=== PATIENT | male | born 1965 | race Caucasian/White ===

== ENCOUNTER 2019-01-31 19:15 | Inpatient (IN) ==
[2019-01-31] MEDS ORDERED: SODIUM CHLORIDE 0.9% 1000ML 2,000 ML IV ONE (19:40)
[2019-01-31] MEDS ORDERED: MoRPHine SULFATE 4 MG/ML 1 ML CARP\\VIAL IV STA (19:40)
[2019-01-31 19:54] LABS: Basophils # (auto) 0.03 K/uL (0-0.2); Basophils % (auto) 0.2 %; Eosinophils # (auto) 0.05 K/uL (0-0.5); Eosinophils % (auto) 0.3 %; Hematocrit (blood only) 38.5 % (42-52); Hemoglobin 13.6 g/dL (14.0-18.0); Immature Granulocytes % (auto) 0.6 %; Lymphocytes # (auto) 0.94 K/uL (1.2-3.4); Lymphocytes % (auto) 5.8 %; Mean Corpuscular Hgb Conc 35.3 g/dL (32-36); Mean Corpuscular Volume 89.1 fL (80-100); Mean Platelet Volume 10.4 fL (7.4-10.4); Monocytes # (auto) 1.65 K/uL (0.11-0.59); Monocytes % (auto) 10.1 %; Neutrophils # (auto) 13.56 K/uL (1.4-6.5); Platelet Count 217 K/uL (130-400); RDW Coefficient of Variation 14.2 % (11.5-14.5); RDW Standard Deviation 46.6 fL (36.4-46.3); Red Blood Count 4.32 M/uL (4.7-6.1); White Blood Count 16.33 K/uL (4.8-10.8)
[2019-01-31] MEDS ORDERED: ACETAMINOPHEN 500 MG TAB PO STA (19:58)
[2019-01-31 20:01] LABS: Albumin Level 2.9 gm/dl (3.4-5.0); BUN Creatinine Ratio 13.7 (10-20); C Reactive Protein 15.2 mg/dl (0-0.29); Calcium 8.3 mg/dl (8.5-10.1); Creatinine Clr Calc Pharmacy 85.8 ml/min; Est GFR (African American) 108.9; Potassium 3.9 mmol/L (3.5-5.1)
[2019-01-31] MEDS ORDERED: CEFEPIME 2,000 MG in SYRINGE 0 ML IV STA (20:01)
[2019-01-31 20:04] LABS: Albumin Globulin Ratio 0.8 (0.9-2); Bilirubin,Total 1.1 mg/dl (0.2-1); Globulin 3.9 gm/dl (2.5-4.0); Total Protein 6.8 gm/dl (6.4-8.2)
[2019-01-31 20:05] LABS: INR 1.1 (0.9-1.1); Partial Thromboplastin Ratio 1.2; Prothrombin Time 11.6 Seconds (9.0-12.0)
--- NOTE | 2019-01-31 20:42 | XRay Report ---
XR chest 1V portable CLINICAL HISTORY: Sepsis COMPARISON STUDY: Chest radiograph September 02, 2018. Chest CT September 03, 2018. FINDINGS: There are median sternotomy wires, prosthetic aortic valve and dual lead right subclavian p acemaker. There is moderate cardiomegaly without evidence for pulmonary edema. Mild elevation of the right hemidiaphragm is unchanged. There is no consolidation. No pneumothorax or pleural effusion is n oted. IMPRESSION: No acute cardiopulmonary findings. Electronically signed by: Clemente Tapia M.D. 01/31/2019 8:40 PM
[2019-01-31] MEDS ORDERED: IOVERSOL 100ml IV PRN (20:53)
--- NOTE | 2019-01-31 21:19 | CT Scan Report ---
CT OF THE RIGHT HIP WITH CONTRAST CLINICAL HISTORY: Concern for septic hip. Right hip pain. Erythema. COMPARISON STUDY: No previous studies for comparison. TECHNIQUE: Axial images of the right hip were obtained following intravenous injection of 96 cc of Op tiray 320 sagittal and coronal reconstructions were viewed. Study was performed utilizing automated e xposure control for dose reduction and according to ALARA principles. FINDINGS: Alignment of the right hip is anatomic. There is no acute fracture. There is no evidence fo r osteomyelitis by CT. There is no evidence for right hip joint effusion. Visualized portions of the pelvis are unremarkable. There is subcutaneous infiltration and fluid of the right hip. Note is made of a complex appearing mixed attenuation fluid collection within the right gluteus medius that measur es 10.5 x 2.8 cm. There is hyperdensity within the posterior lateral aspect of the right gluteus maxi mus. This is partially imaged on this exam. Note is also made of a hypodense rim of fluid overlying t he vastus lateralis, just deep to the fascia that measures 8.3 x 0.9 cm. This is partially imaged on this exam. IMPRESSION: 1. 10.5 x 2.8 cm probable fluid collection within the right gluteus medius. Sterility cannot be asses sed by CT and this could reflect an abscess or hematoma. 2. Hyperdensity within the posterior lateral aspect of the right gluteus isela which is partially i hong on this exam. This hyperdensity may reflect enhancement in the setting of infectious myositis, hemorrhage or less likely early myositis ossificans. 3. Subcutaneous infiltration and fluid of the right hip which may reflect edema or cellulitis. 4. Partially imaged hypodense fluid collection overlying the lateral aspect of the vastus lateralis t hat measures approximately 8.3 x 0.9 cm. Electronically signed by: Clemente Tapia M.D. 01/31/2019 9:18 PM
--- NOTE | 2019-01-31 22:19 | Ultrasound Report ---
RIGHT LOWER EXTREMITY VENOUS DOPPLER CLINICAL HISTORY: calf pain COMPARISON STUDY: Bilateral lower extremity venous Doppler ultrasound September 03, 2018. TECHNIQUE: Sonography of the deep venous system of the right lower extremity was performed. Compress ion and augmentation were evaluated. FINDINGS: The right common femoral, superficial femoral and popliteal veins were compressible. Augme ntation was normal. Flow was shown within the deep calf vessels. IMPRESSION: No evidence of deep venous thrombus within the right lower extremity. Electronically signed by: Clemente Tapia M.D. 01/31/2019 10:17 PM
[2019-01-31] MEDS ORDERED: HYDROmorphone INJ 0.5 MG/0.5 ML SYR ONE (23:37)
[2019-02-01] MEDS ORDERED: Heparin IV Low Dose *NO* Bolus ONE (00:01)
[2019-02-01] MEDS ORDERED: ALUMINUM/MAGNESIUM SUSP 30 ML UDC PO PRN (00:01)
[2019-02-01] MEDS ORDERED: VANCOMYCIN CONSULT ACTIVE PRN (00:01)
[2019-02-01] MEDS ORDERED: ONDANSETRON INJ 2 MG/ML 2 ML VIAL IV PRN ×2 (00:01→16:09)
[2019-02-01] MEDS ORDERED: NITROGLYCERIN SL 0.4 MG/TAB TAB SL PRN (00:01)
[2019-02-01] MEDS ORDERED: POLYETHYLENE (MIRALAX) 17 GM PACK PO PRN (00:01)
[2019-02-01] MEDS ORDERED: VANCOMYCIN HCL 1,000 MG in SODIUM CHLORIDE 0.9% 250 ML IV SCH (00:01)
[2019-02-01] MEDS ORDERED: CEFEPIME CONSULT ACTIVE PRN (00:22)
[2019-02-01] MEDS ORDERED: VANCOMYCIN HCL 1,750 MG in SODIUM CHLORIDE 0.9% 500 ML IV SCH (00:30)
[2019-02-01] MEDS: D5W AND NSS 1,000 ML IV SCH ×3 (00:47→21:44)
--- NOTE | 2019-02-01 01:35 | History and Physical Report ---
DATE OF ADMISSION: 01/31/2019 CHIEF COMPLAINT: Right calf pain and right hip pain. 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 The patient was here also in 08/2018 with bacteremia, he was started on Rocephin for Haemophilus parainfluenza in 2 bottles, and there was a plan for ANGIE to decide and a course of antibiotics, but the patient was absconding and left the hospital AMA. The patient says that he just flipped the coin and he took the decision to leave the hospital as he did not like to stay in the hospital at that time. He thought he will come back if something happens, but he did fine after discharge. He never had any more antibiotics since then but since last few days, there has been severe pain in his right calf region. He had a DVT in the past and he started to be worried about the DVT and also was feeling sick and he also has some pain in the right hip region whenever he twist the hip or ambulating.. The calf is the one, which is bothering him most and he came to the hospital. He has been feeling some feverish yesterday. Denies any nausea, vomiting. No chest pain, no shortness of breath, no cough, no headache, no blurred vision, no earache, no runny nose, no difficulty swallowing. Appetite, he says he is eating okay. No abdominal pain. Normal bowel and bladder movements. No hematuria, no black stools. The patient has somewhat pressured speech and restlessness when he is talking, we don't know his his baseline but he is answering all the questions appropriately. He says he did not take all his medication last 2 days because he was feeling sick. He says he regularly takes Lopressor, Coumadin and Prilosec. He sees a psychiatrist and was prescribed some depression medication, but he do not take them regularly. He says he also has some abscess draining in the right hip in the past, agrees to stay in the hospital this time.At home he was found t have hypoglycemia with blood sugars 25. With dextrose sugars improved. ALLERGIES: No known drug allergies. PAST MEDICAL HISTORY: As mentioned above. PAST SURGICAL HISTORY: Pacemaker placement, bioprosthetic aortic valve replacement, laparoscopic right inguinal hernia repair, left elbow MRSA, again aortic valve replacement in 2008. MEDICATIONS: The patient is on Lopressor 50 b.i.d., Prilosec 20 mg p.o. daily and Coumadin 5 mg as directed. FAMILY HISTORY: Significant for father had prostate cancer, hypertension, cardiomyopathy. Mother has problems with lymphoma. Brother has diabetes and hypertension. SOCIAL HISTORY: Lives with his ex-, a lot of family support. No smoking history as per records, no alcohol use. REVIEW OF SYMPTOMS: As per HPI. Rest of review of symptoms negative. PHYSICAL EXAMINATION: GENERAL: The patient is of moderate built, not in acute distress. VITAL SIGNS: Temperature 37.2, pulse 80, respiratory rate 20, blood pressure 117/72. Oxygen 97% on room air. HEENT: No pallor, no icterus. Pupils equal, round and reactive to light. NECK: No JVD, no neck mass, no carotid bruit. CARDIOVASCULAR: S1, S2 heard, regular rate and rhythm, no murmur, no gallop. RESPIRATORY SYSTEM: Normal AP diameter. No accessory muscle use. No wheezing, no crackles. ABDOMEN: Soft, bowel sounds present. Nontender. No distention. CENTRAL NERVOUS SYSTEM: Cranial nerves II-XII grossly intact. Nonfocal. EXTREMITIES: No edema, no erythema. Tenderness in the right calf region but no erythema or warmth on palpation. Straight leg raise test negative. LABORATORY DATA: WBC 16, hemoglobin 13.6, hematocrit 38.5, platelets 217, PT 11.6, INR 1.1, APTT 33. Sodium 135, potassium 3.9, chloride 107, bicarbonate 22, BUN 13, creatinine 0.9, serum glucose 87, lactate 2, calcium 8.3, total bilirubin 1.1, AST 21, ALT 24, alkaline phosphatase 77. C-reactive protein 15,procalcitonin 0.3. Venous Doppler, no DVT. Hip CT 10.5 x 2.8 cm probable fluid collection of the right gluteus medius and this could include an abscess or hematoma. Hyperdensity with the posterior lateral aspect of the right gluteus isela, which is partially imaged on this exam. This hyperdensity may reflect enhancement in the setting of infectious myositis, hemorrhage or less likely early myositis ossificans, subcutaneous infiltration of fluid in the right hip, which may reflect edema or cellulitis, partially imaged hypodense fluid collection over the lateral aspect of the vastus lateralis that measures approximately 8.3 x 0.9 cm. Chest x-ray: No acute findings seen. EKG: Atrial sensed ventricular paced rhythm with PVCs at a rate of 103. ASSESSMENT AND PLAN: This is a 53-year-old male who presents with severe right calf pain, hip pain and hypoglycemia. 1. Sever calf pain and hip pain. There is no deep vein thrombosis. Not taking medications. INR is subtherapeutic. CAT scan showing some right gluteus and lateral aspect of the vastus lateralis fluid collection could be hematoma versus abscess and also possible cellulitis of the right hip. We will empirically place him on IV vancomycin and IV cefepime and follow the cultures. Pain control, n.p.o., IV fluids, consult orthopedics for possible incision and drainage and Further recommendations. 2. History of deep venous thrombosis and not taking Coumadin for the last few days. INR is 1.1. We will place him on IV heparin for possible procedures. To hold Coumadin until any procedure. 3. History of hypertension. Continue his Lopressor. We will monitor blood pressure. 4. 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 Last admission was in August as he was again having bacteremia and there was question of endocarditis and received Rocephin but he got signed out against medical advice and did not follow up. Seems to be doing okay but again we will follow the blood cultures and if there is concern, we will have an echocardiogram. 5. Gastroesophageal reflux disease, Prilosec. 6. Hypoglycemic episode. The patient says he was eating okay at home. his sugars were 25 currently improved with dextrose. We will place him an IV D5 normal saline. Follow the blood sugars. 7. DVT px iv heparin DISPOSITION: Closely monitor in the med/tele. Level 1 full code. Addendum: Soon after coming to floor patient was became significantly restless and complaining of sob shaky feeling cold. Was difficult get blood pressure or sats. Significant temp spike. Notified ICU team and was taken down to ICU. Received aggressive iv fluids. repeat labs showed lactic acid 3.1. Metabolic acidosis.Also ordered echo with hx of endocarditis and cardio consult. MTDD
[2019-02-01] MEDS: Heparin Adult LOW DOSE Wt-Based Dextrose 5% 25,000 units/500 mL IV SCH (01:43)
--- NOTE | 2019-02-01 02:04 | Emergency Department Note ---
Entered by Santino Diaz acting as a scribe for History of Present Illness General Chief complaint: Hypoglycemia Time Seen by Provider: 01/31/19 19:20 Source: patient History of Present Illness Provider complaint: Right leg pain Onset (ago): day(s) 2 Location: lower extremity and right Severity: similar to prior episodes Pain Consistency: + constant Relieved By: + medication Associated symptoms: + fever/chills and + other (No abdominal pain); no cough The patient is a 53 year old male w/ PMHx of DVT, PE, endocartitis, NSTEMI, complete heart block, pacemaker, aortic valve replacement, and anxiety who presents to the ED w/ CC of constant right calf and hip pain beginning 2 nights ago. The patient notes he has had a fever as well. The patient states even with his history of blood clots, he took himself off of blood thinners. He did this because he recently fell and hurt his right hip causing blood to accumulate in the area that required an I&D. For the pain he has been taking Motrin, which has helped relieve the pain temporarily. He denies any cough or abdominal pain but he did admit to having done some extrenuous activity recently. Home Medications Home Medications Medication Instructions Recorded Confirmed Type methylphenidate HCl 10 mg PO BID 01/31/19 01/31/19 History methylphenidate HCl 20 mg PO BID 01/31/19 01/31/19 History metoprolol tartrate 50 mg PO BID 01/31/19 01/31/19 History omeprazole 20 mg PO QAM 01/31/19 01/31/19 History testosterone cypionate 200 mg IM DIRECTED 01/31/19 01/31/19 History warfarin See Rx Instructions .ROUTE .COMPLEX 01/31/19 01/31/19 History Allergies Allergy/AdvReac Type Severity Reaction Status Date / Time No Known Allergies Allergy Verified 01/31/19 19:49 Past Med/Surg History Medical History Endocarditis Complete heart block (Chronic) S/p pacemaker placement History of alcohol abuse (Resolved) Depression (Chronic) Pacemaker (Chronic) Anxiety (Chronic) Surgical History History of hernia surgery (Resolved) H/O aortic valve replacement (Resolved) 2010 at [facility] for congenital abnormality. 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 and A total of 10 systems reviewed and were otherwise negative Physical Exam Vital Signs Vital Signs - 24 hr 01/31/19 19:18 01/31/19 19:24 01/31/19 19:30 Temperature Temperature Source Sepsis Recent Fever Within 48 Hours Sepsis New/Unexplained Change in Mental Status Sepsis Action Taken by Nursing Pulse Rate 105 H 111 H 103 H Pulse Rate [Right Finger] Pulse Rhythm Pulse Rhythm [Right Finger] Pulse Strength [Right Finger] Respiratory Rate 37 H 27 H 34 H Respiratory Effort / Characteristics Respiratory Depth Respiratory Pattern Blood Pressure 131/91 Blood Pressure [Left Arm] Blood Pressure [Right Arm] Blood Pressure Mean 104 Blood Pressure Mean [Left Arm] Blood Pressure Mean [Right Arm] Blood Pressure Position Blood Pressure Position [Right Arm] Pulse Oximetry Oxygen Delivery Method 01/31/19 19:38 01/31/19 20:00 01/31/19 20:30 Temperature 38.5 C H Temperature Source Oral Sepsis Recent Fever Within 48 Hours Yes Sepsis New/Unexplained Change in Mental Status No Sepsis Action Taken by Nursing Physician Notified Pulse Rate 112 H 94 H 91 H Pulse Rate [Right Finger] Pulse Rhythm Regular Pulse Rhythm [Right Finger] Pulse Strength [Right Finger] Respiratory Rate 22 25 H 15 Respiratory Effort / Characteristics Non-Labored Respiratory Depth Normal Respiratory Pattern Regular Blood Pressure 131/91 Blood Pressure [Left Arm] Blood Pressure [Right Arm] Blood Pressure Mean 104 Blood Pressure Mean [Left Arm] Blood Pressure Mean [Right Arm] Blood Pressure Position Lying Blood Pressure Position [Right Arm] Pulse Oximetry 100 Oxygen Delivery Method Room Air 01/31/19 21:16 01/31/19 21:17 01/31/19 21:18 Temperature 37.2 C Temperature Source Oral Sepsis Recent Fever Within 48 Hours Sepsis New/Unexplained Change in Mental Status Sepsis Action Taken by Nursing Pulse Rate 87 91 H Pulse Rate [Right Finger] Pulse Rhythm Pulse Rhythm [Right Finger] Regular Pulse Strength [Right Finger] Normal Respiratory Rate 18 19 Respiratory Effort / Characteristics Non-Labored Respiratory Depth Normal Respiratory Pattern Regular Blood Pressure 116/64 Blood Pressure [Left Arm] Blood Pressure [Right Arm] 116/94 Blood Pressure Mean 81 Blood Pressure Mean [Left Arm] Blood Pressure Mean [Right Arm] 101 Blood Pressure Position Blood Pressure Position [Right Arm] Lying Pulse Oximetry 97 Oxygen Delivery Method Room Air 01/31/19 21:30 01/31/19 22:31 01/31/19 22:32 Temperature Temperature Source Sepsis Recent Fever Within 48 Hours Sepsis New/Unexplained Change in Mental Status Sepsis Action Taken by Nursing Pulse Rate 98 H 95 H 80 Pulse Rate [Right Finger] Pulse Rhythm Pulse Rhythm [Right Finger] Pulse Strength [Right Finger] Respiratory Rate 18 30 H 28 H Respiratory Effort / Characteristics Respiratory Depth Respiratory Pattern Blood Pressure 117/72 Blood Pressure [Left Arm] Blood Pressure [Right Arm] Blood Pressure Mean 87 Blood Pressure Mean [Left Arm] Blood Pressure Mean [Right Arm] Blood Pressure Position Blood Pressure Position [Right Arm] Pulse Oximetry Oxygen Delivery Method 01/31/19 23:48 02/01/19 00:27 Temperature 36.8 C Temperature Source Oral Sepsis Recent Fever Within 48 Hours Sepsis New/Unexplained Change in Mental Status Sepsis Action Taken by Nursing Pulse Rate 82 Pulse Rate [Right Finger] 82 Pulse Rhythm Pulse Rhythm [Right Finger] Pulse Strength [Right Finger] Respiratory Rate 21 16 Respiratory Effort / Characteristics Respiratory Depth Respiratory Pattern Blood Pressure 115/78 Blood Pressure [Left Arm] 108/67 Blood Pressure [Right Arm] Blood Pressure Mean Blood Pressure Mean [Left Arm] 80 Blood Pressure Mean [Right Arm] Blood Pressure Position Blood Pressure Position [Right Arm] Pulse Oximetry 99 97 Oxygen Delivery Method Room Air Room Air GENERAL: Well appearing, well nourished, NAD, non-toxic. Tangential speech. EYE EXAM: Normal conjunctiva. PERRL, no anisocoria and EOM's grossly intact w/o pain. OROPHARYNX: Moist MM. NECK: Supple, no nuchal rigidity, no adenopathy, non-tender. No signs of meningismus. LUNGS: Clear to auscultation. Normal chest wall mechanics. HEART: Tachycardic with regular rhythm, no MRG. CHEST: Device in left chest. ABDOMEN: Abdomen soft, non-tender, normo-active bowel sounds, no masses, no rebound or guarding. BACK: No CVA TTP. SKIN: No rashes and no bruising. UPPER EXTREMITIES: Upper extremities are grossly normal. LOWER EXTREMITIES: No pitting edema. Warmth and swelling over the right hip. Well healed incisional scar to the right hip with minimal redness and no drainage. Mild right sided calf pain with no edema. NEURO EXAM: A and O x3. GCS 15. Moves all 4 extremities on command w/o issue. Course 1929: Past medical records reviewed. The patient was evaluated in room C04, and a complete history and physical examination were performed. 2044: I reevaluated the patient and updated him on results. 2122: I spoke to Dr. Deidre Hammonds about the patient's case and he is going to accept him for further evaluation. Consultations Consultation #1: I spoke to Dr. Deidre Hammonds about the patient's case and he is going to accept him for further evaluation. Time: :23 Administered Medications Dextrose/Sodium Chloride (D5w And Nss) 1,000 mls @ 125 mls/hr IV .Q8H [facility] Stop: 03/03/19 00:00 Last Infusion: 02/01/19 01:09 Dose: 0 mls/hr Documented by: [id number] Admin: 02/01/19 00:47 Dose: 125 mls/hr Documented by: [id number] Vancomycin HCl 1,750 mg/ (Sodium Chloride) 535 mls @ 200 mls/hr IV TODAY@0030 [facility] Stop: 02/01/19 03:11 Last Admin: 02/01/19 00:48 Dose: 200 mls/hr Documented by: [id number] Heparin Sodium/Dextrose (Heparin Sodium/Dextrose) 25,000 units in 500 mls @ 16 mls/hr IV .Q24H [facility]; Protocol Stop: 03/03/19 01:14 Last Admin: 02/01/19 01:43 Dose: 800 units/hr, 16 mls/hr Documented by: [id number] Cosigned by: [id number] Discontinued Medications Acetaminophen (Tylenol) 1,000 mg PO NOW STA Stop: 01/31/19 19:59 Last Admin: 01/31/19 20:25 Dose: 1,000 mg Documented by: [id number] Hydromorphone HCl (Dilaudid) Confirm Administered Dose 0.5 mg .ROUTE .STK-MED ONE Stop: 01/31/19 23:38 Last Admin: 01/31/19 23:42 Dose: 0.5 mg Documented by: [id number] Sodium Chloride (Nss 1000ml) 2,000 mls @ 999 mls/hr IV .Q2H1M ONE Stop: 01/31/19 21:40 Last Infusion: 01/31/19 21:39 Dose: 0 mls/hr Documented by: [id number] Admin: 01/31/19 19:56 Dose: 999 mls/hr Documented by: [id number] Cefepime HCl 2,000 mg/ Syringe 22.6 mls @ 5.5 mls/min IV NOW STA Stop: 01/31/19 20:03 Last Admin: 01/31/19 20:26 Dose: 5.5 mls/min Documented by: [id number] Ioversol (Optiray 320 100ml) 96 ml IV ONCE PRN PRN Reason: Interaction Checking Stop: 02/01/19 00:01 Last Admin: 01/31/19 20:54 Dose: 96 ml Documented by: [id number] Morphine Sulfate (Morphine Sulfate) 4 mg IV NOW STA Stop: 01/31/19 19:41 Last Admin: 01/31/19 19:56 Dose: 4 mg Documented by: [id number] Medical Decision Making Medical Records Attestation: I reviewed the patient's medical records. Home Medications Current Medication List: was personally reviewed by me Laboratory Data Attestation: I reviewed the patient's lab results. Result diagrams: 01/31/19 19:33 01/31/19 19:33 Lab Results 01/31/19 01/31/19 01/31/19 Range/Units 19:24 19:33 19:33 WBC 16.33 H (4.8-10.8) K/uL RBC 4.32 L (4.7-6.1) M/uL Hgb 13.6 L (14.0-18.0) g/dL Hct 38.5 L (42-52) % MCV 89.1 (80-100) fL MCH 31.5 (25-34) pg MCHC 35.3 (32-36) g/dL RDW Std Deviation 46.6 H (36.4-46.3) fL RDW Coeff of Kwabena 14.2 (11.5-14.5) % Plt Count 217 (130-400) K/uL MPV 10.4 (7.4-10.4) fL Immature Gran % (Auto) 0.6 % Neut % (Auto) 83.0 % Lymph % (Auto) 5.8 % Sherman % (Auto) 10.1 % Eos % (Auto) 0.3 % Baso % (Auto) 0.2 % Immature Gran # (Auto) 0.10 H (0.00-0.02) K/uL Neut # (Auto) 13.56 H (1.4-6.5) K/uL Lymph # (Auto) 0.94 L (1.2-3.4) K/uL Sherman # (Auto) 1.65 H (0.11-0.59) K/uL Eos # (Auto) 0.05 (0-0.5) K/uL Baso # (Auto) 0.03 (0-0.2) K/uL ESR 46 H (0-14) mm/hr PT (9.0-12.0) Seconds INR (0.9-1.1) APTT (21.0-31.0) Seconds PTT Ratio Sodium (136-145) mmol/L Potassium (3.5-5.1) mmol/L Chloride (98-107) mmol/L Carbon Dioxide (21-32) mmol/L Anion Gap (3-11) BUN (7-18) mg/dl Creatinine (0.6-1.4) mg/dl Est Cr Clr Drug Dosing ml/min Est GFR ( Amer) Est GFR (Non-Af Amer) BUN/Creatinine Ratio (10-20) Glucose (70-99) mg/dl POC Glucose 96 (70-99) Lactate (0.4-2.0) mmol/L Calcium (8.5-10.1) mg/dl Total Bilirubin (0.2-1) mg/dl AST (15-37) U/L ALT (12-78) U/L Alkaline Phosphatase (45-117) U/L C-Reactive Protein (0-0.29) mg/dl Total Protein (6.4-8.2) gm/dl Albumin (3.4-5.0) gm/dl Globulin (2.5-4.0) gm/dl Albumin/Globulin Ratio (0.9-2) Procalcitonin (0-0.5) ng/ml 01/31/19 01/31/19 01/31/19 Range/Units 19:33 19:33 19:33 WBC (4.8-10.8) K/uL RBC (4.7-6.1) M/uL Hgb (14.0-18.0) g/dL Hct (42-52) % MCV (80-100) fL MCH (25-34) pg MCHC (32-36) g/dL RDW Std Deviation (36.4-46.3) fL RDW Coeff of Kwabena (11.5-14.5) % Plt Count (130-400) K/uL MPV (7.4-10.4) fL Immature Gran % (Auto) % Neut % (Auto) % Lymph % (Auto) % Sherman % (Auto) % Eos % (Auto) % Baso % (Auto) % Immature Gran # (Auto) (0.00-0.02) K/uL Neut # (Auto) (1.4-6.5) K/uL Lymph # (Auto) (1.2-3.4) K/uL Sherman # (Auto) (0.11-0.59) K/uL Eos # (Auto) (0-0.5) K/uL Baso # (Auto) (0-0.2) K/uL ESR (0-14) mm/hr PT 11.6 (9.0-12.0) Seconds INR 1.1 (0.9-1.1) APTT 33.0 H (21.0-31.0) Seconds PTT Ratio 1.2 Sodium 135 L (136-145) mmol/L Potassium 3.9 (3.5-5.1) mmol/L Chloride 107 (98-107) mmol/L Carbon Dioxide 22 (21-32) mmol/L Anion Gap 7.0 (3-11) BUN 13 (7-18) mg/dl Creatinine 0.92 (0.6-1.4) mg/dl Est Cr Clr Drug Dosing 85.8 ml/min Est GFR ( Amer) 108.9 Est GFR (Non-Af Amer) 94.0 BUN/Creatinine Ratio 13.7 (10-20) Glucose 87 (70-99) mg/dl POC Glucose (70-99) Lactate 2.0 (0.4-2.0) mmol/L Calcium 8.3 L (8.5-10.1) mg/dl Total Bilirubin 1.1 H (0.2-1) mg/dl AST 21 (15-37) U/L ALT 24 (12-78) U/L Alkaline Phosphatase 77 (45-117) U/L C-Reactive Protein 15.20 H (0-0.29) mg/dl Total Protein 6.8 (6.4-8.2) gm/dl Albumin 2.9 L (3.4-5.0) gm/dl Globulin 3.9 (2.5-4.0) gm/dl Albumin/Globulin Ratio 0.8 L (0.9-2) Procalcitonin (0-0.5) ng/ml 01/31/19 01/31/19 Range/Units 19:33 20:17 WBC (4.8-10.8) K/uL RBC (4.7-6.1) M/uL Hgb (14.0-18.0) g/dL Hct (42-52) % MCV (80-100) fL MCH (25-34) pg MCHC (32-36) g/dL RDW Std Deviation (36.4-46.3) fL RDW Coeff of Kwabena (11.5-14.5) % Plt Count (130-400) K/uL MPV (7.4-10.4) fL Immature Gran % (Auto) % Neut % (Auto) % Lymph % (Auto) % Sherman % (Auto) % Eos % (Auto) % Baso % (Auto) % Immature Gran # (Auto) (0.00-0.02) K/uL Neut # (Auto) (1.4-6.5) K/uL Lymph # (Auto) (1.2-3.4) K/uL Sherman # (Auto) (0.11-0.59) K/uL Eos # (Auto) (0-0.5) K/uL Baso # (Auto) (0-0.2) K/uL ESR (0-14) mm/hr PT (9.0-12.0) Seconds INR (0.9-1.1) APTT (21.0-31.0) Seconds PTT Ratio Sodium (136-145) mmol/L Potassium (3.5-5.1) mmol/L Chloride (98-107) mmol/L Carbon Dioxide (21-32) mmol/L Anion Gap (3-11) BUN (7-18) mg/dl Creatinine (0.6-1.4) mg/dl Est Cr Clr Drug Dosing ml/min Est GFR ( Amer) Est GFR (Non-Af Amer) BUN/Creatinine Ratio (10-20) Glucose (70-99) mg/dl POC Glucose 95 (70-99) Lactate (0.4-2.0) mmol/L Calcium (8.5-10.1) mg/dl Total Bilirubin (0.2-1) mg/dl AST (15-37) U/L ALT (12-78) U/L Alkaline Phosphatase (45-117) U/L C-Reactive Protein (0-0.29) mg/dl Total Protein (6.4-8.2) gm/dl Albumin (3.4-5.0) gm/dl Globulin (2.5-4.0) gm/dl Albumin/Globulin Ratio (0.9-2) Procalcitonin 0.31 (0-0.5) ng/ml Imaging Data Radiologist's Impression: Radiology results as stated below per my review and the radiologist's interpretation: XR chest 1V portable CLINICAL HISTORY: Sepsis COMPARISON STUDY: Chest radiograph September 02, 2018. Chest CT September 03, 2018. FINDINGS: There are median sternotomy wires, prosthetic aortic valve and dual lead right subclavian pacemaker. There is moderate cardiomegaly without evidence for pulmonary edema. Mild elevation of the right hemidiaphragm is unchanged. There is no consolidation. No pneumothorax or pleural effusion is noted. IMPRESSION: No acute cardiopulmonary findings. Electronically signed by: Clemente Tapia M.D. 01/31/2019 8:[address] OF THE RIGHT HIP WITH CONTRAST CLINICAL HISTORY: Concern for septic hip. Right hip pain. Erythema. COMPARISON STUDY: No previous studies for comparison. TECHNIQUE: Axial images of the right hip were obtained following intravenous injection of 96 cc of Optiray 320 sagittal and coronal reconstructions were viewed. Study was performed utilizing automated exposure control for dose reduction and according to ALARA principles. FINDINGS: Alignment of the right hip is anatomic. There is no acute fracture. There is no evidence for osteomyelitis by CT. There is no evidence for right hip joint effusion. Visualized portions of the pelvis are unremarkable. There is subcutaneous infiltration and fluid of the right hip. Note is made of a complex appearing mixed attenuation fluid collection within the right gluteus medius that measures 10.5 x 2.8 cm. There is hyperdensity within the posterior lateral aspect of the right gluteus isela. This is partially imaged on this exam. Note is also made of a hypodense rim of fluid overlying the vastus lateralis, just deep to the fascia that measures 8.3 x 0.9 cm. This is partially imaged on this exam. IMPRESSION: 1. 10.5 x 2.8 cm probable fluid collection within the right gluteus medius. Sterility cannot be assessed by CT and this could reflect an abscess or hematoma. 2. Hyperdensity within the posterior lateral aspect of the right gluteus isela which is partially imaged on this exam. This hyperdensity may reflect enhancement in the setting of infectious myositis, hemorrhage or less likely early myositis ossificans. 3. Subcutaneous infiltration and fluid of the right hip which may reflect edema or cellulitis. 4. Partially imaged hypodense fluid collection overlying the lateral aspect of the vastus lateralis that measures approximately 8.3 x 0.9 cm. Electronically signed by: Clemente Tapia M.D. 01/31/2019 9:18 PM RIGHT LOWER EXTREMITY VENOUS DOPPLER CLINICAL HISTORY: calf pain COMPARISON STUDY: Bilateral lower extremity venous Doppler ultrasound September 03, 2018. TECHNIQUE: Sonography of the deep venous system of the right lower extremity was performed. Compression and augmentation were evaluated. FINDINGS: The right common femoral, superficial femoral and popliteal veins were compressible. Augmentation was normal. Flow was shown within the deep calf vessels. IMPRESSION: No evidence of deep venous thrombus within the right lower extre mity. Electronically signed by: Clemente Tapia M.D. 01/31/2019 10:17 PM ECG Data Attestation: I personally reviewed and interpreted this ECG as follows: Indication: tachycardia Rate (beats per minute): 103 Rhythm: sinus tachycardia and other (V-paced) Findings: + other (Wide QRS), + Q waves (Anterior and lateral) and + T-wave inversion (Inferior) Comparison ECG Date: from (08/2018) Change: no significant change Blood Pressure Blood Pressure Findings: Normal blood pressure MDM Narrative The patient is a 53 year old male w/ PMHx of DVT, PE, endocartitis, NSTEMI, complete heart block, pacemaker, aortic valve replacement, and anxiety who presents to the ED w/ CC of constant right calf and hip pain beginning 2 nights ago. Differential diagnosis: Etiologies such as viral syndrome, otitis, pharyngitis, pneumonia, influenza, meningitis, urinary tract infection, sepsis, bacteremia, as well as others were entertained. Patient was seen and evaluated the bedside. The patient did present with concern for hypoglycemia as well as some calf pain. The patient does have a prior history of endocarditis as well as a prior history of a right-sided hip infection per the patient. The patient does have some warmth although only scant erythema over the right hip. The patient did have blood work completed along with a CT of the hip. Patient was started on broad-spectrum antibiotics to cover for possible septic arthritis and did have blood cultures obtained. Patient does have a white count of 16. The patient CT of the hip does show a fluid collection. This could be possible abscess. Patient does meet sepsis c riteria and was given IV fluids. I did speak with the on-call hospitalist who agreed to further evaluate treat the patient. The patient was admitted to the medicine service. Patient also did have a right lower extremity ultrasound completed which showed no evidence of DVT. Impression & Plan Septic arthritis of hip, Sepsis, Encounter for smoking cessation counseling Critical Care Time I have personally spent greater than 50 minutes of critical care time in direct management of this patient. This includes bedside care, interpretation of diagnostic studies, and testing, discussion with consultants, patient, and family members, and other require inpatient management activities. This 50 min utes is in excess of all separately billable procedures. Critical Care Time: Yes Total Critical Care Time: 50 Discharge Plan Visit Data *Final* Discharge Date/Time: 01/31/19 23:48 Chief Complaint: Hypoglycemia ED Provider: Dustin Mann Discharge Problem: Septic arthritis of hip, Sepsis, Encounter for smoking cessation counseling Patient Disposition: Admitted As Inpatient Discharge Instructions Interventions: ED Discharge Assessment Last Done: 01/31/19 23:48 The scribe's documentation has been prepared under my direction and personally reviewed by me in its entirety. I confirm that the note above accurately reflects all work, treatment, procedures, and medical decision making performed by me.
[2019-02-01] MEDS ORDERED: ACETAMINOPHEN 65 ML IV ONE (02:37)
[2019-02-01 02:55] LABS: iSTAT Allen Test Pass; iSTAT Arterial Blood Gas HCO3 16 meg/L (19-24); iSTAT Arterial Blood Gas pCO2 44 mmHg (35-46); iSTAT Arterial Blood Gas pH 7.16 (7.35-7.45); iSTAT Carbon Dioxide 17 mEq/l (24-31); iSTAT Site L Radial
[2019-02-01] MEDS ORDERED: SODIUM CHLORIDE 0.9% 1000ML 2,000 ML IV ONE (03:07)
[2019-02-01 03:18] LABS: iSTAT Allen Test Pass; iSTAT Arterial Blood Gas HCO3 17 meg/L (19-24); iSTAT Arterial Blood Gas pCO2 29 mmHg (35-46); iSTAT Arterial Blood Gas pH 7.38 (7.35-7.45); iSTAT Carbon Dioxide 17 mEq/l (24-31); iSTAT Site R Radial
[2019-02-01 03:40] LABS: Amphetamines+Metham, Urine Neg (Neg); Barbiturates, Urine Neg (Neg); Benzodiazepine, Urine Neg (Neg); Cocaine, Urine Neg (Neg); MDMA (Ecstacy), Urine Neg (Neg); Methadone, Urine Neg (Neg); Opiate, Urine Pos (Neg); Phencyclidine, Urine Neg (Neg)
[2019-02-01 03:45] LABS: INR 1.3 (0.9-1.1); Prothrombin Time 13.5 Seconds (9.0-12.0)
[2019-02-01] MEDS: HYDROmorphone INJ 0.5 MG/0.5 ML SYR IV PRN ×3 (03:51→18:30)
[2019-02-01 03:53] LABS: Influenza A virus by PCR Neg for Influ A (Neg); Influenza B virus by PCR Neg for Influ B (Neg)
[2019-02-01 04:01] LABS: Albumin Level 2.2 gm/dl (3.4-5.0); BUN Creatinine Ratio 13.9 (10-20); Bilirubin Direct 0.4 mg/dl (0-0.2); Bilirubin,Total 1.3 mg/dl (0.2-1); Calcium 6.9 mg/dl (8.5-10.1); Creatinine Clr Calc Pharmacy 77.4 ml/min; Est GFR (African American) 96.1; Est GFR (Non-African American) 82.9; Magnesium 1.8 mg/dl (1.8-2.4); Phosphorus 2.9 mg/dl (2.5-4.9); Total Protein 5.5 gm/dl (6.4-8.2); Troponin I 0.111 ng/ml (0-0.045)
[2019-02-01 04:02] LABS: Basophils # (auto) 0.01 K/uL (0-0.2); Basophils % (auto) 0.2 %; Eosinophils # (auto) 0.01 K/uL (0-0.5); Eosinophils % (auto) 0.2 %; Hematocrit (blood only) 33.9 % (42-52); Hemoglobin 11.8 g/dL (14.0-18.0); Immature Granulocytes # (auto) 0.08 K/uL (0.00-0.02); Immature Granulocytes % (auto) 1.3 %; Lymphocytes # (auto) 0.43 K/uL (1.2-3.4); Lymphocytes % (auto) 7.2 %; Mean Corpuscular Hgb Conc 34.8 g/dL (32-36); Mean Corpuscular Volume 89.9 fL (80-100); Mean Platelet Volume 10.7 fL (7.4-10.4); Monocytes # (auto) 0.04 K/uL (0.11-0.59); Monocytes % (auto) 0.7 %; Neutrophils # (auto) 5.42 K/uL (1.4-6.5); Neutrophils % (auto) 90.4 %; Platelet Count 176 K/uL (130-400); RDW Coefficient of Variation 14.6 % (11.5-14.5); RDW Standard Deviation 47.7 fL (36.4-46.3); Red Blood Count 3.77 M/uL (4.7-6.1); White Blood Count 5.99 K/uL (4.8-10.8)
[2019-02-01] MEDS ORDERED: DEXTROSE 50% 50 ML SYRINGE IV PRN (04:10)
[2019-02-01] MEDS ORDERED: GLUCOSE 40% GEL 15 GM TUBE PO PRN (04:10)
[2019-02-01] MEDS ORDERED: GLUCOSE 10 TABS/TUBE PO PRN (04:10)
[2019-02-01] MEDS ORDERED: ICU PROTOCOL FOR HYPERGLYCEMIA PRN (04:10)
[2019-02-01] MEDS ORDERED: GLUCAGON FOR INJ 1 MG VIAL SQ PRN (04:10)
[2019-02-01] MEDS ORDERED: CARBOHYDRATES FOR HYPOGLYCEMIA PO PRN (04:10)
--- NOTE | 2019-02-01 04:13 | Critical Care Consultation ---
Date of Consultation February 01, 2019 Assessment & Plan (1) Admitted to intensive care unit: Reason Critically Ill: 53-year-old male with sepsis secondary to RIGHT gluteal abscess and concerns for bacteremia. Patient concerning with agitation and rigors with history of aortic valve replacement x2. NEURO - * CAM ICU: NEGATIVE * Acute agitation: * Likely secondary to febrile illness with rapid rate of rise. Presenting temperature 40.6 on arrival in the ICU. * Addressing with IV fluids and antipyretics. Aggressive treatment with return of rigors. * Pain: Dilaudid as needed. * Anxiety/depression: Consider as needed anti-anxiolytic pending improvement of febrile state. 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 Complete heart block requiring permanent pacemaker at that time. * With history of endocarditis and presenting systems of fever, rigors, and concerns for bacteremia, will treat aggressively for possible underlying endocarditis. * Agree with a.m. echo, however patient may require ANGIE for further evaluation. Will defer to cardiology. * Currently on heparin drip. See heme. * NSTEMI: * Likely in the setting of demand ischemia. * Trend troponins. * EKG: Paced tachycardic rhythm without ST changes consistent with current demand. * Monitor on telemetry. RESPIRATORY - * Complaining of shortness of breath: * Blood gas consistent with compensated metabolic acidosis in the setting of underlying septicemia. * Supplemental O2 as needed. GI/NUTRITION - * Sips and chips at this time. * Prophylaxis: Protonix. RENAL/LYTES - * No significant electrolyte derangements. * Patient with history of JOSE in the past requiring HD x1. * IVF: D5+NSS@125mL/hr * Will restart this after IVF bolus. - * Osborn in place - Strict I&Os. * Will check UA in the setting of septicemia. ENDO - * No history of diabetes, however patient presents severely hypoglycemic with blood glucose of 25 at home. Will check regularly. * BSGs per unit protocol. ISS --> gtt per unit policy. HEME - * Stable H&H at this time. 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 Agree with heparin drip at this time, particularly given patient's NSTEMI and history of thromboembolic disease. * Will monitor H&H in the setting of RIGHT gluteal abscess versus hematoma. ID - * Sepsis likely from RIGHT gluteal abscess: * Patient with complicated history of endocarditis with MRSA endocarditis status post valvular repair. * Agree with broad treatment including vancomycin and cefepime to include coverage for endocarditis as well as osteomyelitis, myositis, gluteal abscess. * Consult ortho for abscess I&D evaluation. * Blood cultures pending. * Check respiratory PCR. * Consider repeat imaging of RIGHT hip/gluteal area MRI versus CT. Defer to specialist in a.m. * Recheck pro-Junior. * Trend lactate. LINES/IV ACCESS - * PIVs x3 * Osborn DVT PROPHYLAXIS - * Heparin drip * SCDs I have personally spent 85 minutes of critical care time in the direct management of this patient. This is a life/limb threatening event. This includes time spent evaluating patient, direct bedside care, chart review, placing orders, interpretation of diagnostic studies, discussion with consultants, patient, and family members, as well as other required patient management activities. This time is exclusive of all separately billable procedures, and teaching time and separate from and in addition to any other critical care service time. Thank you for allowing us to participate in the care of this patient. Please refer to my attending physician's documentation for any further recommendations. (2) Sepsis: (3) Myositis: (4) Abscess, gluteal, right: (5) Fever: (6) NSTEMI (non-ST elevated myocardial infarction): (7) H/O aortic valve replacement: (8) Anxiety: (9) Pacemaker: (10) Complete heart block: (11) H/O endocarditis: (12) Rigors: History of Present Illness Attending Physician: Shahnaz Dominguez MD Patient is a 53-year-old male with a significant past medical history of complicated aortic valve disease. Patient was with a history of bicuspid aortic valve status post repair with eventual complication of endocarditis from MRSA requiring repair of valve. After repair, the patient did require permanent pacemaker secondary to manipulation of heart chambers. His procedures had been performed at [place] most recently. Patient also had history of DVT requiring chronic Coumadin therapy for which she is recently discontinued over the last 3 days as he had been feeling poor. He was admitted to the ICU with concerns for sepsis and placed on cefepime and vancomycin. I was approached by attending physician and asked to evaluate the patient on the floor in room 259 as he was demonstrating concerning symptoms including tachycardia, complaints of shortness of breath, and increasing agitation. On evaluation, the patient is obviously agitated. He is flailing his arms and legs. He complains of pain to the RIGHT hip. He is febrile which nursing staff reports is new. He denies any chest pain, but does report some issues with breathing fast. Eventually, after IV fluid bolus, patient began to calm down and was able to communicate better. He complains of pain which is been ongoing to the RIGHT hip. He has felt ill for the past 2 or 3 days. He has had fevers for which he has been taking ibuprofen. He describes increasing sweats which wake him from sleep as well. He does report a history of abscesses to the RIGHT gluteal area which have required surgical intervention on 2 separate occasions. In addition, he complains of pain to the RIGHT calf. He had underwent ultrasound evaluation which rule out DVT of the RIGHT lower extremities earlier this evening. Reported history of alcohol abuse, however patient reports that he does not been drinking over the last several days. He denies any other substance use. Allergies Allergy/AdvReac Type Severity Reaction Status Date / Time No Known Allergies Allergy Verified 01/31/19 19:49 Home Medications Home Medications Medication Instructions Recorded Confirmed Type methylphenidate HCl 10 mg PO BID 01/31/19 01/31/19 History methylphenidate HCl 20 mg PO BID 01/31/19 01/31/19 History metoprolol tartrate 50 mg PO BID 01/31/19 01/31/19 History omeprazole 20 mg PO QAM 01/31/19 01/31/19 History testosterone cypionate 200 mg IM DIRECTED 01/31/19 01/31/19 History warfarin See Rx Instructions .ROUTE .COMPLEX 01/31/19 01/31/19 History Patient History Medical History Endocarditis Complete heart block (Chronic) S/p pacemaker placement History of alcohol abuse (Resolved) Depression (Chronic) Pacemaker (Chronic) Anxiety (Chronic) Surgical History History of hernia surgery (Resolved) H/O aortic valve replacement (Resolved) 2010 at [facility] for congenital abnormality. 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 Family History Other Heart disease Social History Preferred Language: Omani Communication Ability: Effective Shipper And Receiving Required: No Beliefs That Will Affect Care: None Current Living Situation: Other Current Living Situation Comment: ex Other Information That Helps Us Care for You: No Feels Safe at Home: Yes Safety Concerns: Feels Safe At This Time Smoking Status: Current some day smoker Hx Alcohol Use: Yes Hx Substance Use: No (denies) Review of Systems A complete 10 point review of systems was reviewed with the patient with pertinent positives and negatives as per history of present illness. All else were negative. Physical Exam Vital Signs (Past 24 Hours): Last Vital Signs Temp 40.6 C H 02/01/19 03:15 Pulse 120 H 02/01/19 03:30 Resp 19 02/01/19 03:30 BP 114/77 02/01/19 03:30 Pulse Ox 97 02/01/19 04:00 Physical Exam: VITAL SIGNS - Vital signs and nursing notes were reviewed. GENERAL - 53-year-old male appearing his stated age who is in moderate distress. Flailing his arms and legs and complaining of diffuse pain. SKIN - Without rashes. HEAD - NC/AT. EYES - PERRL with EOMI bilaterally. Sclera anicteric. Palpebral conjunctiva pink and moist with no injection noted. EARS - No deformities of external structures noted on gross examination bilaterally. NOSE - Midline and without cyanosis. No epistaxis or purulent drainage noted. Septum midline without deviation or septal hematoma noted. MOUTH/OROPHARYNX - Without perioral cyanosis. Buccal mucosa pink and dry. NECK - Neck with FROM. Supple to palpation. No nuchal rigidity. LUNGS - Chest wall symmetric without accessory muscle use, intercostals retractions, or central cyanosis. Normal vesicular breath sounds CTA B/L. No wheezes, rales, or rhonchi appreciated. CARDIAC -midline sternotomy scar which is well-healed. Tachycardic. No murmurs, rubs, or gallops appreciated. ABDOMEN - Abdominal contour flat without pulsations or visible masses. BS normoactive all four quadrants. No tenderness, palpable masses, hepatosplenomegaly, or ascites noted. EXTREMITIES -previous incision noted to the lateral aspect of the RIGHT gluteus isela. Tenderness to palpation throughout the entire RIGHT sided hip girdle. Pain through range of motion. No clubbing or peripheral cyanosis. No pretibial edema present. +3/5 radial, posterior tibial, and dorsalis pedis pulses palpated throughout. NEUROLOGIC - Cranial nerves II through XII grossly intact. Sensory intact to light touch throughout. Patellar reflexes +2/4. PSYCH - Anxious. A&Ox3 and cooperates fully with examiner. Pt is very pleasant and interacts well with examiner. (1) Sepsis Sepsis type: sepsis due to unspecified organism Qualified Code(s): A41.9 - Sepsis, unspecified organism (2) Fever Fever type: unspecified Qualified Code(s): R50.9 - Fever, unspecified
[2019-02-01 04:42] LABS: Appearance Urine Clear (Clear); Bilirubin Urine Negative (Negative); Blood Urine Negative (Negative); Color Urine Yellow; Glucose Urine UA Negative (Negative); Ketones Urine Negative (Negative); Leukocyte Esterase Urine Negative (Negative); Nitrite Urine Negative (Negative); Protein Urine Negative (Negative); Specific Gravity Urine 1.027 (1.000-1.030); Urobilinogen Urine Negative (Negative); pH Urine 5.5 (4.5-7.5)
[2019-02-01] MEDS ORDERED: INFLUENZA ADMINISTRATION CHARGE ONE (08:00)
[2019-02-01] MEDS ORDERED: INFLUENZA VIRUS QUAD VACCINE 0.5 ML SYR IM ONE (08:00)
[2019-02-01] MEDS ORDERED: PIPERACILLIN/TAZOBACTAM 4.5 GM in DEXTROSE 5% 100 ML IV STA (08:16)
[2019-02-01] MEDS ORDERED: PIPERACILL/TAZOBAC CONSULT ACTIVE PRN (08:16)
[2019-02-01] MEDS ORDERED: CALCIUM CARBONATE 500 MG CHEWABLE TAB PO PRN (08:18)
[2019-02-01 08:39] LABS: Basophils # (auto) 0.02 K/uL (0-0.2); Basophils % (auto) 0.1 %; Eosinophils # (auto) 0.02 K/uL (0-0.5); Eosinophils % (auto) 0.1 %; Hematocrit (blood only) 35.5 % (42-52); Hemoglobin 12.3 g/dL (14.0-18.0); Immature Granulocytes # (auto) 0.09 K/uL (0.00-0.02); Immature Granulocytes % (auto) 0.5 %; Lymphocytes # (auto) 0.33 K/uL (1.2-3.4); Lymphocytes % (auto) 1.7 %; Mean Corpuscular Hgb Conc 34.6 g/dL (32-36); Mean Corpuscular Volume 90.3 fL (80-100); Mean Platelet Volume 10.5 fL (7.4-10.4); Neutrophils % (auto) 95.6 %; Platelet Count 178 K/uL (130-400); RDW Coefficient of Variation 14.9 % (11.5-14.5); RDW Standard Deviation 49.6 fL (36.4-46.3); Red Blood Count 3.93 M/uL (4.7-6.1); White Blood Count 19.56 K/uL (4.8-10.8)
[2019-02-01] MEDS ORDERED: CEFEPIME 2,000 MG in SYRINGE 7.5 ML IV SCH (09:00)
--- NOTE | 2019-02-01 09:28 | Pharmacy Report ---
Pharmacy Abx Dose Short Note - Date of Service February 01, 2019 - Assessment & Plan Assessment * 53 year old M w hx MRSA endocarditis s/p bioprosthetic AVR ~2010 and inadequately treated H. parainfluenzae bacteremia August 2018 (patient left AMA) * Currently with significant deep gluteal abscess, on Zosyn and vancomycin * ID consulted this AM - awaiting recommendations * WBC was elevated yesterday , now wnl. Patient with persistent significant fever (Tmax thus far 40.6 C) * Procalcitonin x2 drawn ~8 hours apart with slight trend up 0.31 to 0.49. Does not exceed 0.5, but very close therefore septic picture is not confirmed but also cannot be ruled out via procalcitonin, especially as it is trending up. Vancomycin * Vancomycin 22 mg/kg loading dose administered * Maintenance dose 16 mg/kg IV dosed at estimated t1/2 of 10 hr * Trough prior to 4th overall dose Plan * Vancomycin 1250 mg IV q10h * Trough 02/02 @ 0530 Pharmacy will continue to follow and will adjust dose/frequency as necessary. Thank you.
[2019-02-01] MEDS: VANCOMYCIN HCL 1,250 MG in SODIUM CHLORIDE 0.9% 250 ML IV SCH ×2 (09:33→20:18)
[2019-02-01] MEDS: METOPROLOL TARTRATE 50 MG TAB PO SCH ×3 (09:33→20:18)
[2019-02-01] MEDS: PANTOprazole 40 MG TAB PO SCH (09:34)
[2019-02-01] MEDS: CALCIUM CARBONATE 500 MG CHEWABLE TAB PO SCH ×3 (10:12→20:19)
[2019-02-01 10:38] LABS: Partial Thromboplastin Ratio 2.2
[2019-02-01 10:41] LABS: Partial Thromboplastin Time 59.7 Seconds (21.0-31.0)
--- NOTE | 2019-02-01 10:54 | Infectious Disease Consult ---
Date of Consultation February 01, 2019 Assessment & Plan (1) Abscess, gluteal, right: pt will continue on broad spectrum abx pending culture results. may need ANGIE with AVR, pacemaker and h/o IE. Suggest surgical eval, large collections not likely to resolve with antibiotics alone. Does not admit on my exam to h/o IVDA but uds + opiates, ? source for infection. Pt also with untreated bsi from August, eloped from hospital. will follow culture results, maintain broad spectrum abx for now. (2) Sepsis: History of Present Illness Attending Physician: Shahnaz Dominguez MD pt admitted overnight with increased right hip pain and fevers at home for several days. states he fell on hip several days - 1 week ago and has increased pain since then. now having fevers as well, tmax overnight 40.6. Also with hotn and some agitation, admitted to ICU. Pt is appropriate on my exam today but is somewhat lethargic, answers questions but has a difficult time recalling time frame for fevers/pain/fall at home. speech somewhat pressured. no fever currently. Had echo this am, TTE, negative for veg. Has h/o MRSA IE requiring AVR, unable to tell me when this surgery occurred, has pacemaker as well. States he has undergone 2 I&D of his right hip in the past due to infection, but can not recall when. Pain is unchanged. Blood cultures pending. On Vanco, also received cefepime and zosyn in ER. tolerating well. procalcitonin negative, lactate nml, uds + opiates, wbc elevated, ESR and Crp elevated as well, 46 and 15. Creat nml. Had ct hip in ER, revealed 10.5x2.8 fluid collection in the gluetus medias and a 2nd collection was noted as well, 8.3x0.9. Pt was admitted to [facility] on 09/02, blood cultures were obtained, he was d/c home on po augmentin and after d/c his blood cultures returned + for H. parainfluenza, he was notifie d of culture resutls and re-admitted to the hospital. Pt was placed on IV Rocephin, ID was consulted on 09/09 however, complete consult was not done as pt eloped from the hospital. He did not complete recommended course of IV abx, it is unclear if he finished the course of Augmentin given to him from first hospital stay. He currently denies sob, cp, cough, no n/v/d/abd pain, no gu complaints. no pain other than right hip which is unchanged. + fevers, denies rigors at home. no yoder, no neck pain, no rash. Allergies Allergy/AdvReac Type Severity Reaction Status Date / Time No Known Allergies Allergy Verified 01/31/19 19:49 Home Medications Home Medications Medication Instructions Recorded Confirmed Type methylphenidate HCl 10 mg PO BID 01/31/19 01/31/19 History methylphenidate HCl 20 mg PO BID 01/31/19 01/31/19 History metoprolol tartrate 50 mg PO BID 01/31/19 01/31/19 History omeprazole 20 mg PO QAM 01/31/19 01/31/19 History testosterone cypionate 200 mg IM DIRECTED 01/31/19 01/31/19 History warfarin See Rx Instructions .ROUTE .COMPLEX 01/31/19 01/31/19 History Patient History Medical History Endocarditis Complete heart block (Chronic) S/p pacemaker placement History of alcohol abuse (Resolved) Depression (Chronic) Pacemaker (Chronic) Anxiety (Chronic) Surgical History History of hernia surgery (Resolved) H/O aortic valve replacement (Resolved) 2010 at [facility] for congenital abnormality. 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 Family History Other Heart disease Social History Preferred Language: Lao Communication Ability: Effective Metal Handler Required: No Beliefs That Will Affect Care: None Current Living Situation: Other Current Living Situation Comment: ex Other Information That Helps Us Care for You: No Feels Safe at Home: Yes Safety Concerns: Feels Safe At This Time Smoking Status: Current some day smoker Hx Alcohol Use: Yes Hx Substance Use: No (denies) Review of Systems all remaining ros reviewed and are negative Physical Exam Vital Signs (Past 24 Hours): Last Vital Signs Temp 37.5 C 02/01/19 06:00 Pulse 78 02/01/19 10:00 Resp 19 02/01/19 10:00 BP 102/61 02/01/19 09:30 Pulse Ox 93 02/01/19 10:00 Constitutional: WD/WN, vitals as above Eyes: PERRL, conjunctivae normal, anicteric sclerae ENMT: external ear and nose normal, oropharynx normal Mouth: + dry oral mucous membranes Neck: normal visual inspection Respiratory: normal respiratory effort, lungs clear to auscultation Cardiovascular: Rate/Rhythm: regular rate and regular rhythm Heart Sounds: + murmur Gastrointestinal (Abdomen): normal bowel sounds, soft, nontender, no hepatosplenomegaly Musculoskeletal: no cyanosis or clubbing, extremities motor strength 5/5 Skin: no rashes, warm and dry Psychiatric: A+Ox3, euthymic affect Orientation: alert, oriented x 3 and cooperative Speech: + pressured speech Affect: + anxious affect (1) Sepsis Sepsis type: sepsis due to unspecified organism Qualified Code(s): A41.9 - Sepsis, unspecified organism
[2019-02-01] MEDS ORDERED: PANTOprazole 40 MG in SYRINGE 0 ML IV SCH (11:00)
--- NOTE | 2019-02-01 12:21 | Ultrasound Report ---
ULTRASOUND RIGHT HIP NONVASCULAR CLINICAL HISTORY: Fluid collection. COMPARISON STUDY: CT scan of the right hip dated 01/31/2019. FINDINGS: Real-time, grayscale, and color flow sonography of the soft tissues overlying the right hip and gluteal region is performed. There is a complex fluid collection identified within the gluteal m usculature. This is located deep to a surgical incision site and measures approximately 11 x 6 x 9 cm in dimension. No internal flow was shown on color imaging. IMPRESSION: There is 11 x 6 x 9 cm complex fluid collection seen deep to the patient's incision site. When correlated with the hip CT this likely represents a hematoma. Superinfection/abscess is not exc luded. Electronically signed by: Jose C Bernardo M.D. 02/01/2019 12:20 PM
--- NOTE | 2019-02-01 13:21 | Orthopedic Consultation ---
Date of Consultation February 01, 2019 Assessment & Plan (1) Abscess, gluteal, right: CT scan of the hip demonstrate a fluid collection along the gluteus medius as well as isela. There is also fluid collection tracking down laterally along the vastus lateralis. Initial discussion with the radiologist it was suspicious for more of an acute type bleed as there was extravasation of the contrast into the fluid which would be more consistent with current bleeding. That would be consistent with his history of anticoagulation. An ultrasound guided aspiration was obtained and it demonstrated malathi pus. This is consistent with his significantly increased white blood cell count as well as b eing very febrile. He has a previous history of infection in the same region. There was not any effusion of the joint seen on the CT scan does not appear that the infection tracks deep into the joint. Nor does it appear to have any bony involvement on CT scan. We will plan for irrigation and debridement of the hip later today. Risks, benefits, alternatives to the procedure were discussed with the patient and he wishes to proceed. History of Present Illness Reason for Consultation: Right hip pain Attending Physician: Shahnaz Dominguez MD History of Present Illness The patient is a 53-year-old male with extensive past medical history. He had been admitted in August for treatment of Haemophilus parainfluenza infection. He left that admission AMA. Apparently things improved for him. He is chronically on warfarin secondary to history of DVT as well as PE. He also has a pacemaker and history of valve replacement. He states that he had an injury about a week and half to 2 weeks ago twisting injury of the hip in a fall while trying to change a light bulb. He states that around that time his warfarin was supratherapeutic around 8 he is suspicious that he had developed a hematoma secondary to this. He has been having increasing pain in the leg last 2 or 3 days. He states his been febrile the last 2 days. He locates pain in his calf as well as the right hip. He has previously had infections in his right hip twice both requiring irrigation and debridement. Allergies Allergy/AdvReac Type Severity Reaction Status Date / Time No Known Allergies Allergy Verified 01/31/19 19:49 Home Medications Home Medications Medication Instructions Recorded Confirmed Type methylphenidate HCl 10 mg PO BID 01/31/19 01/31/19 History methylphenidate HCl 20 mg PO BID 01/31/19 01/31/19 History metoprolol tartrate 50 mg PO BID 01/31/19 01/31/19 History omeprazole 20 mg PO QAM 01/31/19 01/31/19 History testosterone cypionate 200 mg IM DIRECTED 01/31/19 01/31/19 History warfarin See Rx Instructions .ROUTE .COMPLEX 01/31/19 01/31/19 History Patient History Medical History Endocarditis Complete heart block (Chronic) S/p pacemaker placement History of alcohol abuse (Resolved) Depression (Chronic) Pacemaker (Chronic) Anxiety (Chronic) Surgical History History of hernia surgery (Resolved) H/O aortic valve replacement (Resolved) 2010 at [facility] for congenital abnormality. 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 Family History Other Heart disease Social History Preferred Language: [place] Communication Ability: Effective Membership Advisor Required: No Beliefs That Will Affect Care: None Current Living Situation: Other Current Living Situation Comment: ex Other Information That Helps Us Care for You: No Feels Safe at Home: Yes Safety Concerns: Feels Safe At This Time Smoking Status: Current some day smoker Hx Alcohol Use: Yes Hx Substance Use: No (denies) Physical Exam Vital Signs (Past 24 Hours): Last Vital Signs Temp 37.5 C 02/01/19 06:00 Pulse 79 02/01/19 12:02 Resp 23 02/01/19 12:02 BP 112/66 02/01/19 12:02 Pulse Ox 100 02/01/19 12:02 Constitutional: well developed and well nourished Eyes: PERRL, conjunctivae normal, anicteric sclerae Neck: normal visual inspection Respiratory: normal respiratory effort Cardiovascular: Rate/Rhythm: regular rate Musculoskeletal: Right lower extremity: Distally is palpable pulse. No swelling in the calf. No pain to palpation or to Homans to the calf. He has normal range of motion of the foot and ankle without any pain. There is swelling and induration proximally over the region of the hip. He has 2 previous surgical scars in this region. There is some minimal erythema but the region is firm and painful to palpation. No open wounds. No drainage. Results & Data Laboratory Results White blood cell count is elevated at 19 Ultrasound-guided aspiration per radiologist was for a yellow grungy type material consistent with pus Diagnostic Findings CT scan of the hip demonstrate a fluid collection along the gluteus medius as well as isela. There is also fluid collection tracking down laterally along the vastus lateralis. Initial discussion with the radiologist it was suspicious for more of an acute type bleed as there was extravasation of the contrast into the fluid which would be more consistent with current bleeding. That would be consistent with his history of anticoagulation. An ultrasound guided aspiration was obtained and it demonstrated malathi pus. There is no joint effusion seen on the CT scan. No apparent involvement of the bone
[2019-02-01] MEDS ORDERED: BACITRACIN INJ 50,000 UNIT VIAL ONE (14:09)
--- NOTE | 2019-02-01 14:30 | Anesthesiology Consultation ---
Date of Service February 01, 2019 Assessment & Plan Chart Review Chart Review: Acceptable Risk for Surgery and Patient NOT seen in Pre Admission Testing Consults Requested none ASA ASA3E Proposed Anesthesia Anesthesia Type: General Risk / Benefits Reviewed With: PT / POA / Parent / Guardian, Accepts Plan and Informed Consent Obtained Additional Notes 53 yo gentleman presented with fever and non-ST elevation MS in the setting of complicated PMH including prior endocarditis, status post AVR x 2, PE, history of prior gluteal abscess, complete heart block s/p pacer placement, and of H. influenza bacteremia back in August for which he left AMA prior to completing treatment. Scheduled for IandD of right trochanteric abscess in OR. Patient stopped his coumadin a few days ago. NPO Date Last Intake of Fluids: 02/01/19 Time Last Intake of Fluids: 18:00 Date Last Intake of Solids: 01/31/19 Time Last Intake of Solids: 18:00 History Surgery Operation Date: 02/01/19 14:05 Proposed Procedures p Right Hip Incision and Drainage - Ramo Parker MD Height/Weight Height: 5 ft 7 in Weight: 78.5 kg Allergies Allergy/AdvReac Type Severity Reaction Status Date / Time No Known Allergies Allergy Verified 01/31/19 19:49 Medications Home Medications Medication Instructions Recorded Confirmed Last Taken methylphenidate HCl 10 mg PO BID 01/31/19 01/31/19 Unknown methylphenidate HCl 20 mg PO BID 01/31/19 01/31/19 Unknown metoprolol tartrate 50 mg PO BID 01/31/19 01/31/19 Unknown omeprazole 20 mg PO QAM 01/31/19 01/31/19 Unknown testosterone cypionate 200 mg IM DIRECTED 01/31/19 01/31/19 Unknown warfarin See Rx Instructions .ROUTE .COMPLEX 01/31/19 01/31/19 Unknown Active Medications Generic Name Dose Route Start Last Admin Trade Name Freq PRN Reason Stop Dose Admin Calcium Carbonate 500 mg 02/01/19 10:00 02/01/19 13:42 Tums PO 03/03/19 09:59 500 mg TID TAMELA Administration Hydromorphone HCl 0.5 mg 02/01/19 00:01 02/01/19 13:57 Dilaudid IV 02/15/19 00:00 0.5 mg Q3H PRN Administration Pain Dextrose/Sodium Chloride 1,000 mls @ 125 mls/hr 02/01/19 00:01 02/01/19 13:55 D5w And Nss IV 03/03/19 00:00 125 mls/hr .Q8H TAMELA Administration Heparin Sodium/Dextrose 25,000 units in 500 mls @ 0 mls/hr 02/01/19 01:15 02/01/19 10:12 Heparin Sodium/Dextrose IV 03/03/19 01:14 0 units/hr .Q0M TAMELA 0 mls/hr Titration Protocol 0 UNITS/HR Vancomycin HCl 1,250 mg/ 275 mls @ 125 mls/hr 02/01/19 10:00 02/01/19 12:00 Sodium Chloride IV 02/11/19 09:59 Infused Q10H TAMELA Infusion Protocol Piperacillin Sod/Tazobactam 115 mls @ 28.75 mls/hr 02/01/19 16:00 02/01/19 15:31 Sod 3.375 gm/ Dextrose IV 02/11/19 15:59 28.8 mls/hr Q8H TAMELA Administration Protocol Metoprolol Tartrate 50 mg 02/01/19 09:00 02/01/19 10:11 Lopressor PO 03/03/19 08:59 Not Given BID TAMELA Pantoprazole Sodium 40 mg 02/01/19 09:00 02/01/19 09:34 Protonix PO 03/03/19 08:59 40 mg QAM TAMELA Administration Past Medical History Medical History Abscess, gluteal, right Septic arthritis of hip (Acute) Sepsis (Acute) Endocarditis NSTEMI (non-ST elevated myocardial infarction) (Acute) Complete heart block (Chronic) S/p pacemaker placement History of alcohol abuse (Resolved) Depression (Chronic) Pacemaker (Chronic) Anxiety (Chronic) Past Family History Family History Other Heart disease Past Surgical History Surgical History History of hernia surgery (Resolved) H/O aortic valve replacement (Resolved) 2010 at [facility] for congenital abnormality. 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 Past Anesthesia History No Hx of Anesthesia Complications History of PONV Yes Motion Sickness Screening History of Motion Sickness: Yes Social History Smoking Status: Current some day smoker tobacco type: cigarettes Hx Alcohol Use: Yes Alcohol type: beer and hard liquor alcohol intake frequency: 3 or more drinks per day Hx Substance Use: No (denies) Exercise / Class Metabolic Activity III < 4 Walking/Shop/Light housework Physical Exam Vital Signs Last Vital Signs Temp 36.8 C 02/01/19 14:00 Pulse 77 02/01/19 15:01 Resp 28 H 02/01/19 15:01 BP 119/64 02/01/19 15:01 Pulse Ox 97 02/01/19 15:01 Constitutional not obese ENMT Mouth: no TMJ abnormality and oral opening not small Thyromental Distance: < 3.5 Finger Breadths Mallampati Class: III Mouth / Teeth: 1. Capped - no other teeth Neck normal visual inspection and + limited neck extension (Due to neck pain) Respiratory normal respiratory effort Auscultation: lungs clear to auscultation bilaterally Cardiovascular Rate/Rhythm: regular rate and regular rhythm Heart Sounds: + murmur (JAMES) Chest (Breasts) Chest: + pacemaker Neurologic moves all extremities Psychiatric A+Ox3, euthymic affect Orientation: alert and oriented x 3 positive for pressured speech Testing Electrocardiogram Date: 02/01/19 Ventricular-paced rhythm, rate 121, when compared with ECG of 01/31/2019 PVCs no longer present and vent rate has increased 18 BPM. Echocardiogram Date: 02/01/19 EF: 50-55% LV Function: normal ((low normal)) Moderate concentric LVH, apical wall motion abnormality may reflect pacemaker activation, hypokinesis of inferior posterior apical weaver slightly more pronounced than expected with pacemaker, grade 1 DD, bioprosthetic aortic valve with normal gradient, doppler evidence of regurg is probably normal for this prosthetic aortic valve, no vegetations, no valvular lesions consistent with endocarditis. Laboratory Results 02/01/19 08:21 02/01/19 03:18 PT 13.5 Seconds (9.0-12.0) H 02/01/19 03:19 INR 1.3 (0.9-1.1) H 02/01/19 03:19 APTT 59.7 Seconds (21.0-31.0) H* 02/01/19 09:58 Urine Color Yellow 02/01/19 Unknown Urine Appearance Clear (Clear) 02/01/19 Unknown Urine pH 5.5 (4.5-7.5) 02/01/19 Unknown Ur Specific [place] 1.027 (1.000-1.030) 02/01/19 Unknown Urine Protein Negative (Negative) 02/01/19 Unknown Urine Glucose (UA) Negative (Negative) 02/01/19 Unknown Urine Ketones Negative (Negative) 02/01/19 Unknown Urine Nitrite Negative (Negative) 02/01/19 Unknown Ur Leukocyte Esterase Negative (Negative) 02/01/19 Unknown 02/01/19 02/01/19 11:57 05:39 POC Glucose 84 133 H
--- NOTE | 2019-02-01 14:46 | Ultrasound Report ---
ULTRASOUND-GUIDED FINE-NEEDLE ASPIRATION RIGHT GLUTEAL COLLECTION CLINICAL HISTORY: Complex right gluteal collection. Abscess versus hematoma. History of abscess with incision and drainage at this site. COMPARISON STUDY: Ultrasound of the right hip dated 02/01/2019. CT scan of the right hip dated 019. PROCEDURE: The risks, benefits, and alternatives to the procedure were discussed with the patient. Wr itten informed consent was obtained. The patient was placed supine in ultrasound with the right hip p artially elevated, and the large complex right gluteal collection was localized by ultrasound and adriana ected for fine needle aspiration. The soft tissues overlying the right hip and the surgical incision were prepped and draped in the usual sterile fashion. 1% lidocaine was used for local anesthetic. The collection was aspirated under ultrasound guidance with an initial pass utilizing a 20-gauge spinal needle. Rapid on site assessment by the pathologist showed purulent material consistent with abscess. An additional sample was attempted with an 18-gauge spinal needle. No fluid was acquired and the pro cedure was completed. The patient tolerated the procedure well and left the department in satisfactor y condition. IMPRESSION: 1. Completed aspiration of a right gluteal collection as above. 2. Rapid on site assessment showed purulent material consistent with abscess. Electronically signed by: Jose C Bernardo M.D. 02/01/2019 12:32 PM
[2019-02-01] MEDS: PIPERACILLIN/TAZOBACTAM 3.375 GM in DEXTROSE 5% 100 ML IV SCH (15:31)
[2019-02-01] MEDS ORDERED: ePHEDrine sulfate 50 MG/ML AMP IV PRN (16:09)
[2019-02-01] MEDS ORDERED: fentaNYL citrate 100 MCG/2 ML VIAL IV PRN (16:09)
[2019-02-01] MEDS ORDERED: ATROPINE SULFATE 0.1 MG/ML 10ML SYR IV PRN (16:09)
[2019-02-01] MEDS ORDERED: fentaNYL citrate 100 MCG/2 ML VIAL ONE ×3 (16:12→16:34)
[2019-02-01] MEDS ORDERED: MIDAZOLAM HCL 1 MG/ML 2ML VIAL ONE (16:12)
[2019-02-01] MEDS ORDERED: HYDROmorphone INJ 2 MG/ML SYR/VIAL ONE ×2 (16:33→18:41)
[2019-02-01] MEDS ORDERED: ONDANSETRON INJ 2 MG/ML 2 ML VIAL ONE (16:45)
[2019-02-01] MEDS ORDERED: PROPOFOL IV EMULSION 10 MG/ML 20 ML VIAL IV ONE (16:45)
[2019-02-01] MEDS ORDERED: GLYCOPYRROLATE 0.2 MG/ML VIAL ONE (16:45)
[2019-02-01] MEDS ORDERED: DEXAMETHASONE SOD INJ 4 MG/ML VIAL ONE (16:45)
[2019-02-01] MEDS ORDERED: NEOSTIGMINE METHYLSULFATE 5 MG/5 ML SYR ONE (16:45)
[2019-02-01] MEDS ORDERED: LIDOCAINE HCL 2% 2 ML VIAL/AMP(20MG/ML) INFIL ONE (16:45)
[2019-02-01] MEDS ORDERED: ROCURONIUM BROMIDE 10 MG/ML 5 ML VIAL ONE (16:45)
--- NOTE | 2019-02-01 16:47 | Consultation Report ---
DATE OF CONSULTATION: 02/01/2019 INPATIENT CARDIOLOGY CONSULTATION CONSULTATION REQUESTED BY: Dr. Jiang. REASON FOR CONSULTATION: Possible endocarditis. HISTORY OF PRESENT ILLNESS: Mr. Angel is a very cardiovascularly complex 53-year-old gentleman who presented to [facility] on 01/31/2019 with complaints of severe hip pain. The patient was previously admitted to [facility] in July and August of this year with MRSA bacteremia and there was a concern of possible endocarditis; however, the patient was seen by my partner Dr. Obregon at that time and ANGIE was recommended; however, the patient left AMA prior to the procedure being completed. Currently, he denies any cardiac complaints. Specifically, denied any chest pain, shortness of breath, palpitations, lightheadedness, dizziness, or syncope. He just states that his hip pain is almost unbearable when he moves his hip. He does have an obvious abscess and cardiology was consulted as to whether or not a ANGIE should be performed at this time. PAST SURGICAL HISTORY: 1. Aortic valve replacement in 2010 for congenital bicuspid aortic stenosis. 2. Repeat aortic valve replacement in 2011 due to MRSA endocarditis. 3. [employer] dual chamber permanent pacemaker placed following the 2nd aortic valve replacement due to complete heart block. 4. Diagnostic cardiac catheterization in 2010, reportedly without obstruction. 5. Left elbow surgery for MRSA. 6. Hernia repair. MEDICAL ILLNESSES: 1. Congenital aortic stenosis, status post aortic valve replacement x2. 2. History of MRSA, bioprosthetic aortic valve endocarditis. 3. Recurrent MRSA bacteremia. 4. Alcohol use with a known history of withdrawal. 5. Deep venous thrombosis on Coumadin therapy. 6. Anxiety. 7. Depression. FAMILY HISTORY: Noncontributory. SOCIAL HISTORY: The patient denies any alcohol, tobacco or recreational drug use. He lives at home with his ex-. REVIEW OF SYSTEMS: As per HPI, all other review of systems reviewed and negative at this time. ALLERGIES: No known drug allergies. MEDICATIONS AN OUTPATIENT: 1. Metoprolol 50 mg b.i.d. 2. Warfarin as directed. 3. Methylphenidate. 4. Omeprazole. 5. Testosterone. PHYSICAL EXAMINATION: VITALS: Temperature 37.5, pulse 80, respiratory rate 12, blood pressure 100/66. GENERAL: Awake, alert, oriented x3, mildly anxious, otherwise no acute distress. HEENT: Normocephalic, atraumatic. Pupils equal, round, reactive to light and accommodation. Extraocular muscles intact. Anicteric sclerae. Moist mucous membranes. NECK: No JVD, no bruit. CARDIOVASCULAR: Regular. Positive S4. Normal S1 and S2. No S3. Slight 3/6 mid to late systolic ejection murmur greatest at the right sternal border second intercostal space. No rubs. PULMONARY: Clear to auscultation bilaterally. No rales, rhonchi, or wheezing. ABDOMEN: Bowel sounds x4, soft. No rebound, guarding, tenderness. No organomegaly. EXTREMITIES: No clubbing, cyanosis or edema. +2 pedal pulses bilaterally. SKIN: Warm and dry. TEST RESULTS: 2D echocardiogram was read as no significant change compared to previous study. Normal LV chamber size with moderate concentric LVH, low normal LV systolic function, EF 50-55%. Apical wall motion abnormality may reflect pacemaker activation, hypokinesis of the inferoposterior apical wall, slightly more pronounced than expected with pacemaker. Grade 1 diastolic dysfunction, bioprosthetic aortic valve with normal gradient. No evidence of regurgitation, no valvular lesions consistent with endocarditis identified within the scope of this imaging modality. IMPRESSION: 1. Right gluteal abscess. 2. History of aortic valve replacement x2 along with a bioprosthetic endocarditis in the past. 3. Alcohol use. RECOMMENDATIONS: It was my pleasure to see Mr. Angel in consultation today. From a cardiac standpoint, given the fact that there are no obvious lesions present on transthoracic echocardiogram along the fact there is no new valvular insufficiency and an obvious source of infection, I do not believe a transesophageal echocardiogram is necessary at this time. I would recommend a complete antibiotic course as directed by infectious disease and once he has completed a course, blood culture should again be drawn and should that be remarkable at that point, then consideration can be given to performing a ANGIE at that time.
[2019-02-01] MEDS ORDERED: PHENYLEPHRINE 100MCG/ML 5ML SYR ONE (16:52)
--- NOTE | 2019-02-01 18:05 | Hospitalist Progress Note ---
Date of Service February 01, 2019 Assessment & Plan (1) Sepsis: presented with severe sepsis fever /leukocytosis elevated lactic acid source of infection rt hip gluteal abscess lactic acid level improved after aggressive IV hydration per sepsis protocol empiric Abx with Vancomycin /Zosyn blood culture ordered ID eval requested appreciate iput Present on Admission?: Yes (2) Abscess, gluteal, right: s/p I&D of rt gluteal abscess appreciate input from Orthopedics cont empiric Abx till surgical specimen culture report available Present on Admission?: Yes (3) H/O endocarditis: hx of MRSA endocarditis recent H influenzae bacteremia blood cultures obtained empiric abx with vancomycin ECHO ( transthoracic ) does not show any evidence of valvular vegetation cardiology consulted appreciate input recommends cont empiric Abx follow blood culture as pt became afebrile , clinically improved does not recommend ANGIE at this time Present on Admission?: No (4) Septic arthritis of hip: rt hip pain CT of hip shows fluid collection /abscess IMPRESSION: 1. 10.5 x 2.8 cm probable fluid collection within the right gluteus medius. Sterility cannot be assessed by CT and this could reflect an abscess or hematoma. 2. Hyperdensity within the posterior lateral aspect of the right gluteus isela which is partially imaged on this exam. This hyperdensity may reflect enhancement in the setting of infectious myositis, hemorrhage or less likely early myositis ossificans. 3. Subcutaneous infiltration and fluid of the right hip which may reflect edema or cellulitis. 4. Partially imaged hypodense fluid collection overlying the lateral aspect of the vastus lateralis that measures approximately 8.3 x 0.9 cm. ortho consulted appreciate input underwent I&D cont broad spectrum Abx Present on Admission?: Yes (5) History of alcohol abuse: denies of any recent alchohol intake (6) NSTEMI (non-ST elevated myocardial infarction): elevated troponin possible demand ischemia Type 2 NSTEMI in setting of sepsis /infection ECHO shows no evidence of wall motion abnormality no evidence of ACS cont supportive care with IV fluid to prevent hypotension /and treatment of infection Present on Admission?: Yes (7) H/O aortic valve replacement: in [facility] for congenital anomaly in 2010 MRSA endocarditis in 2012 (8) Confusion and disorientation: due to acute metabolic encephalopathy due to sepsis /febrile response /infection mental status improved to baseline alert and awale with normal orientation conversing appropriately CODE STATUS : FULL CODE DISPOSITION : monitor in ICU overnight plan is transfer to telemerty in am if medically stable Subjective pt seen in ICU 106 underwent I&D of rt hip abscess afebrile awake and alert , oriented no sign of confusion vitals remains stable Physical Exam Vital Signs (Past 24 Hours): Last Vital Signs Temp 36.8 C 02/01/19 14:00 Pulse 77 02/01/19 15:01 Resp 28 H 02/01/19 15:01 BP 119/64 02/01/19 15:01 Pulse Ox 97 02/01/19 15:01 Physical Exam: GENERAL: No sign of distress, HEENT: Sclera nonicteric, pink-purple bilateral equal reactive to light extraocular muscle intact Normal oral mucosa, neck: No JVD, no thyromegaly, trachea midline Lungs: Clear to auscultate, no wheeze or rales Cardiovascular: Regular S1 and S2, no murmur or gallop, no JVD, no lower extremity edema Abdomen: Soft, nontender, bowel sounds active, no hepatosplenomegaly Extremities: s/p rt hip I&D Neuro: No focal neurological deficit, no dysarthria, no facial droop Psych: Alert awake oriented x3: Euthymic Skin: No rash LYMPH NODES: No cervical lymphadenopathy (1) Septic arthritis of hip Laterality: right Septic arthritis organism: due to unspecified organism Qualified Code(s): M00.9 - Pyogenic arthritis, unspecified (2) Sepsis Sepsis type: sepsis due to unspecified organism Qualified Code(s): A41.9 - Sepsis, unspecified organism
--- NOTE | 2019-02-01 18:05 | Operative Report ---
Post Operative Report Pre & Post Diagnosis Operation Date: 02/01/19 14:05 Pre-Op Diagnosis: RIGHT HIP ABCESS Post-Op Diagnosis: RIGHT HIP ABCESS Procedure Operation Date: 02/01/19 14:05 Actual Procedures p Right Hip Incision and Drainage with irrigation and debridement (Right) - Ramo Parker MD Surgeon Ramo Parker MD [employer] Winder Easton Miranda PA-C Estimated Blood Loss 100 Findings Consistent with Post-Op Diagnosis Specimens cultures Drains 4 hemovac Anesthesia Type General Complications none Disposition Accompanied Patient To Recovery: No Disposition: Surgical ICU Indications The patient is a 53-year-old male who previously had 2 right hip that were treated with irrigation debridement. He had a different infection in August with Haemophilus parainfluenza. He left AMA during that admission. He is chronically on warfarin for history of DVT/PE as well as for valve replacement. He states that he fell and had a twisting type injury about a week and 1/2-2 wee ks ago and at that time his INR was supratherapeutic. About 2 days ago he started developing increasing pain in the right hip and leg and fevers. He has a pacemaker sore unable to obtain an MRI of the CT scan with contrast demonstrated fluid collection both more superficial as well as deep into the gluteus medius and isela. There was extravasation of the contrast material into the fluid which initially made us feel that this was more of a bleed type situation. An ultrasound guided aspiration was performed. In speaking with the radiologist to perform the aspiration he stated that the fluid was grossly purulent. He presents for irrigation debridement of the fluid collections. Description of Procedure Risks benefits and alternatives of surgery including but not limited to infection, DVT, pain, stiffness, need for revision surgery, failure to eliminate the infection, damage to blood vessels, damage to nerves or risks of anesthesia were discussed with the patient and they wished to proceed. The patient was identified and the laterality was confirmed and marked. They received a preoperative antibiotic. The patient was transferred the lateral decubitus position. An axillary roll was placed. All pressure points were well-padded. The hip was prepped and draped in the usual standard manner with ChloraPrep. He had 2 previous surgical scars from previous irrigation debridement and hip. There is one that was more anterior and another is more posterior. The more anterior of the 2 incisions was around the region of the gluteus isela and head and a little anterior head and towards the greater trochanter. I elected to re-utilize this incision. I sharply incised the skin and then used Bovie electrocautery to achieve hemostasis. I did encountered some superficial fluid after gotten through the skin and scar layer. The fluid was a little cloudy. This fluid was cultured. I then incised to the iliotibial band fascia and got down into the region of the gluteus isela and medius. There was more significant fluid in this region and some yellow grungy type material overlying the fascia of the gluteus medius and isela. This fluid was cultured. I then bluntly as well as sharply dissected down to the level of fascia and muscle and performed a thorough sharp debridement. There was evidence of some fluid trac sandra more distally on his imaging I but I dissected both superficially as well as deep to the iliotibial band fascia down along the region of the vastus lateralis and debrided this with a curette. The wound was then thoroughly irrigated with 9 L of bacitracin pulsevac fluid. I then placed c deep drains. One was in the region of the deep portion of the vastus lateralis. Another was extending more into the gluteus isela. In layers for the region more the gluteus medius. I then closed loosely reapproximated the deep fascia. I then placed another drain this was more the superficial fluid superficial to the vastus lateralis. The subcutaneous tissue was then closed with interrupted 2-0 Vicryl suture and the skin with interrupted 3-0 nylon. A sterile dressing was applied. All needle and sponge counts were correct at the end of the procedure. The patient was transferred back to the ICU from which he did come from without apparent complication. I attest to the content of the Intraoperative Record and any orders documented therein. Any exceptions are noted below.
--- NOTE | 2019-02-01 18:48 | Anesthesiology Progress Note ---
Date of Service February 01, 2019 Anesthesia Post Procedure Vital Signs Vital Signs: Temp Pulse Pulse Pulse Resp BP BP 02/01/19 18:36 81 21 118/73 02/01/19 18:31 85 25 H 113/76 02/01/19 18:26 82 19 121/72 02/01/19 18:23 88 27 H 109/84 02/01/19 15:01 77 28 H 119/64 02/01/19 14:00 36.8 C 72 16 111/68 02/01/19 13:46 36.6 C 67 16 156/77 H 02/01/19 13:34 77 21 123/66 02/01/19 12:02 79 23 112/66 02/01/19 10:38 72 14 103/61 02/01/19 10:00 78 19 02/01/19 09:30 75 17 102/61 02/01/19 09:01 65 21 102/61 02/01/19 08:00 80 23 100/66 02/01/19 07:01 73 15 95/53 L 02/01/19 06:30 90 18 105/68 02/01/19 06:00 37.5 C 91 H 16 89/60 L 02/01/19 05:30 96 H 17 96/63 L 02/01/19 05:00 38.3 C H 101 H 18 02/01/19 04:19 110 H 02/01/19 04:00 39.4 C H 109 H 26 H 109/64 02/01/19 03:45 115 H 19 112/62 02/01/19 03:30 120 H 19 114/77 02/01/19 03:15 40.6 C H 129 H 27 H 109/65 02/01/19 00:30 84 02/01/19 00:27 36.8 C 82 16 108/67 01/31/19 23:48 82 21 115/78 01/31/19 22:32 80 28 H 117/72 01/31/19 22:31 95 H 30 H 01/31/19 21:30 98 H 18 01/31/19 21:18 37.2 C 01/31/19 21:17 91 H 19 116/64 01/31/19 21:16 87 18 01/31/19 20:30 91 H 15 01/31/19 20:00 94 H 25 H 01/31/19 19:38 38.5 C H 112 H 22 131/91 01/31/19 19:30 103 H 34 H 01/31/19 19:24 111 H 27 H 01/31/19 19:18 105 H 37 H 131/91 BP Pulse Ox Pulse Ox 02/01/19 18:36 100 02/01/19 18:31 86 L 02/01/19 18:26 84 L 02/01/19 18:23 02/01/19 15:01 97 02/01/19 14:00 100 02/01/19 13:46 95 02/01/19 13:34 99 02/01/19 12:02 100 02/01/19 10:38 100 02/01/19 10:00 93 02/01/19 09:30 100 02/01/19 09:01 97 02/01/19 08:00 97 02/01/19 07:01 100 02/01/19 06:30 97 02/01/19 06:00 96 02/01/19 05:30 97 02/01/19 05:00 99/64 L 98 02/01/19 04:19 02/01/19 04:00 95 97 02/01/19 03:45 95 02/01/19 03:30 95 02/01/19 03:15 95 02/01/19 00:30 02/01/19 00:27 97 01/31/19 23:48 99 01/31/19 22:32 01/31/19 22:31 01/31/19 21:30 01/31/19 21:18 01/31/19 21:17 116/94 97 01/31/19 21:16 01/31/19 20:30 01/31/19 20:00 01/31/19 19:38 100 01/31/19 19:30 01/31/19 19:24 01/31/19 19:18 Pain Intensity Right Leg: Pain Intensity: 3 Right Calf: Pain Intensity: 8 Notes Mental Status: alert / awake / arousable and participated in evaluation Patient Amnestic to Procedure: Yes Nausea / Vomiting: adequately controlled Pain: adequately controlled Airway Patency, RR, SpO2: stable & adequate BP & HR: stable & adequate Hydration State: stable & adequate Anesthetic Complications: no major complications apparent and Pt Satisfied with anesthetic care
[2019-02-01] MEDS ORDERED: HYDROmorphone INJ 1 MG/ML SYRINGE IV PRN (18:53)
[2019-02-01] MEDS: HYDROmorphone INJ 1 MG/ML SYRINGE IV SCH ×2 (19:08→21:45)
[2019-02-01] MEDS ORDERED: LIDOCAINE HCL 1% 20 ML VIAL INFIL ONE (19:34)
[2019-02-01] MEDS ORDERED: DiphenhydrAMINE HCL 50 MG/ML VIAL IV STA (22:20)
[2019-02-02] MEDS: PIPERACILLIN/TAZOBACTAM 3.375 GM in DEXTROSE 5% 100 ML IV SCH ×3 (01:04→16:21)
[2019-02-02] MEDS: HYDROmorphone INJ 1 MG/ML SYRINGE IV SCH ×4 (01:05→12:55)
[2019-02-02 02:27] LABS: Basophils # (auto) 0.01 K/uL (0-0.2); Basophils % (auto) 0.1 %; Hematocrit (blood only) 32.9 % (42-52); Hemoglobin 11.7 g/dL (14.0-18.0); Immature Granulocytes # (auto) 0.05 K/uL (0.00-0.02); Immature Granulocytes % (auto) 0.3 %; Lymphocytes # (auto) 0.32 K/uL (1.2-3.4); Lymphocytes % (auto) 2.2 %; Mean Corpuscular Hgb Conc 35.6 g/dL (32-36); Mean Corpuscular Volume 91.4 fL (80-100); Mean Platelet Volume 10.3 fL (7.4-10.4); Monocytes % (auto) 2.1 %; Neutrophils # (auto) 13.71 K/uL (1.4-6.5); Neutrophils % (auto) 95.3 %; Platelet Count 184 K/uL (130-400); RDW Coefficient of Variation 15.1 % (11.5-14.5); RDW Standard Deviation 51.4 fL (36.4-46.3); White Blood Count 14.39 K/uL (4.8-10.8)
[2019-02-02 02:35] LABS: INR 1.2 (0.9-1.1); Prothrombin Time 12.4 Seconds (9.0-12.0)
[2019-02-02 03:00] LABS: Albumin Globulin Ratio 0.6 (0.9-2); Albumin Level 2.3 gm/dl (3.4-5.0); BUN Creatinine Ratio 12.1 (10-20); Bilirubin Direct 0.1 mg/dl (0-0.2); Bilirubin,Total 0.3 mg/dl (0.2-1); Calcium 7.7 mg/dl (8.5-10.1); Creatinine Clr Calc Pharmacy 95.1 ml/min; Est GFR (African American) 115.6; Est GFR (Non-African American) 99.8; Globulin 3.7 gm/dl (2.5-4.0); Potassium 4.4 mmol/L (3.5-5.1); Troponin I 0.185 ng/ml (0-0.045)
[2019-02-02 03:50] LABS: Partial Thromboplastin Ratio 1.4; Partial Thromboplastin Time 38.4 Seconds (21.0-31.0)
[2019-02-02] MEDS ORDERED: HEPARIN IV BOLUS 4,500 UNITS in SYRINGE 0 ML IV ONE (04:45)
[2019-02-02] MEDS: D5W AND NSS 1,000 ML IV SCH ×2 (05:15→13:53)
[2019-02-02] MEDS ORDERED: VANCOMYCIN TROUGH ONE (05:30)
[2019-02-02] MEDS: VANCOMYCIN HCL 1,250 MG in SODIUM CHLORIDE 0.9% 250 ML IV SCH (06:41)
--- NOTE | 2019-02-02 07:38 | Pharmacy Report ---
Pharmacy Abx Dose Short Note - Date of Service February 02, 2019 - Assessment & Plan Assessment * 53 year old M w hx MRSA endocarditis s/p bioprosthetic AVR ~2010 and inadequately treated H. parainfluenzae bacteremia August 2018 (patient left AMA) * Currently with significant deep gluteal abscess, on Zosyn and vancomycin * ID consulted yesterday - suggested continuing antibiotics and also a surgical eval as infection not likely to clear with antibiotics alone. Sugical eval and I&D performed on 02/01. * WBC wnl yesterday, but elevated today. Patient with significant fever yesterday AM (Tmax thus far 40.6 C), although no documented fever x24 hours now * Cultures with NGTD, although Gram stain on deep R hip cultures revealed rare GPC * SCr stable Vancomycin * Goal trough 15-20 mcg/mL * Maintenance dose of 16 mg/kg IV dosed at estimated t1/2 of 10 hr produced level of only 9.4 mcg/mL * Will increase maintenance dose to 19 mg/kg IV and shorten interval * Estimated trough on new regimen ~ 19 mcg/mL, assuming no change to renal function * Trough prior to 3rd dose of new regimen Plan * Vancomycin 1500 mg IV q8h * Trough 02/03 @ 0530 Pharmacy will continue to follow and will adjust dose/frequency as necessary. Thank you.
[2019-02-02] MEDS: PANTOprazole 40 MG TAB PO SCH (08:55)
[2019-02-02] MEDS: METOPROLOL TARTRATE 50 MG TAB PO SCH ×2 (08:55→19:59)
[2019-02-02] MEDS: CALCIUM CARBONATE 500 MG CHEWABLE TAB PO SCH ×3 (08:55→19:59)
[2019-02-02 10:43] LABS: Partial Thromboplastin Ratio 2.1
[2019-02-02] MEDS: METHYLPHENIDATE HCL 10 MG TABLET PO SCH ×2 (10:45→21:13)
[2019-02-02] MEDS: ACETAMINOPHEN 325 MG TAB PO PRN ×2 (10:49→21:17)
[2019-02-02 10:50] LABS: Partial Thromboplastin Time 57.2 Seconds (21.0-31.0)
--- NOTE | 2019-02-02 11:20 | Orthopedic Progress Note ---
Date of Service February 02, 2019 Assessment & Plan (1) Abscess, gluteal, right: POD #1, RIGHT HIP ABSCESS I&D WBAT GRAM STAIN- MANY WBC'S, GRAM POSITIVE COCCI CULTURE PRELIM- STAFF AUREUS AWAIT FINAL CULTURES AND ID INPUT Subjective POD #1, Doing well, denies sob, cp, n/v, pain controlled well. Physical Exam Vital Signs (Past 24 Hours): Last Vital Signs Temp 36.8 C 02/02/19 07:54 Pulse 74 02/02/19 11:01 Resp 17 02/02/19 11:01 BP 129/78 02/02/19 11:01 Pulse Ox 99 02/02/19 11:01 Physical Exam: Right hip dressing are bleeding though, 1 of the drains came out, 1 still in tact. toes and ankle mobile, N/V +, no calf tenderness, A&Ox3.
[2019-02-02] MEDS: PARoxetine HCl 20 MG TAB PO SCH (11:46)
--- NOTE | 2019-02-02 13:00 | Critical Care Progress Note ---
Date of Service February 02, 2019 Assessment & Plan (1) Abscess, gluteal, right: Impression: 1. Right gluteal abscess with MRSA, on Vanco and Zosyn. 2. Recurrent infectious process, makes me concerned whether the patient is immunodeficient. 3. History of endocarditis x2 requiring 2 aortic valve replacement with bioprosthetic valve. 4. History of complete heart block status post pacemaker placement x2 due to also an infection and endocarditis. 5. History of severe depression treated with methylphenidate and Paxil. 6. Chronic kidney disease. Plan: 1. Continue current antibiotics. 2. Follow-up on the cultures from the gluteal washout. 3. Restart Ritalin 30 mg twice daily. 4. Restart Paxil 40 mg p.o. daily. 5. Continue with DVT and GI prophylaxis. 6. Oral intake. 7. Disposition plan to regular floor, appreciate the hospitalist acceptance of this patient. 8. All core measures of the ICU has been met. 9. Discussed with the staff on rounds and details. Critical care time spent with the patient was 35 minutes. Subjective The patient continued to complain of restlessness, pain has been better, minimal pain in the right calf which has been persistent for him overnight, responded to heating pads. No pain at the drain site, he pulled 1 of his 2 drains inadvertently. He denies any chest pain the moment, no shortness of breath, no chills or fever, tolerating oral intake, asking for his home medications mainly antidepressants. He does not want more narcotics for pain control. As it makes him itchy. Physical Exam Vital Signs (Past 24 Hours): Last Vital Signs Temp 36.8 C 02/02/19 07:54 Pulse 74 02/02/19 11:01 Resp 17 02/02/19 11:01 BP 129/78 02/02/19 11:01 Pulse Ox 99 02/02/19 11:01 Physical Exam: Vital signs are stable, no fever, S1-S2 regular rate and rhythm, distant breath sounds, abdomen is benign, right drain site of the thigh appear to be well maintained, no induration, the right calf is soft without induration or swelling, good pulses in the periphery, neurologically he is intact except for restless movement due to his previous psych disorder. No rash. Results & Data Laboratory Results WBC is coming down. BUN and creatinine has been stable. As is the rest of his labs. Diagnostic Findings No new imaging, microbiology profile is still pending. Fluid from the gluteal area are consistent with gram-positive cocci.
--- NOTE | 2019-02-02 13:35 | Anesthesiology Progress Note ---
Date of Service February 02, 2019 Anesthesia Post Procedure Vital Signs Vital Signs: Temp Pulse Pulse Resp BP BP Pulse Ox 02/02/19 11:01 74 17 129/78 99 02/02/19 10:14 76 33 H 138/99 98 02/02/19 09:01 76 20 127/67 02/02/19 07:54 36.8 C 71 17 141/81 H 02/02/19 07:02 81 28 H 94 02/02/19 07:01 75 20 112/68 94 02/02/19 06:00 74 17 115/70 92 02/02/19 05:00 93 H 31 H 108/69 93 02/02/19 04:00 67 15 110/66 95 02/02/19 03:00 60 15 110/76 95 02/02/19 02:00 60 14 132/69 95 02/02/19 01:31 70 17 117/73 93 02/02/19 01:00 60 12 108/72 95 02/02/19 00:00 36.6 C 60 13 106/73 96 02/01/19 23:30 60 12 106/72 96 02/01/19 23:00 64 14 95/65 L 91 02/01/19 22:30 63 18 118/67 92 02/01/19 22:00 76 14 113/74 95 02/01/19 21:14 69 22 117/70 96 02/01/19 20:46 85 24 112/69 92 02/01/19 20:42 82 25 H 136/74 95 02/01/19 20:30 89 34 H 88 L 02/01/19 20:16 95 H 19 125/73 89 L 02/01/19 20:15 94 H 22 87 L 02/01/19 20:01 36.5 C 78 19 110/75 92 02/01/19 19:46 83 21 122/67 93 02/01/19 19:45 87 17 81 L 02/01/19 19:36 91 H 24 126/74 90 02/01/19 19:31 88 14 122/66 90 02/01/19 19:30 93 H 20 86 L 02/01/19 19:26 85 18 120/67 90 02/01/19 19:20 84 19 108/62 94 02/01/19 19:16 77 21 104/62 88 L 02/01/19 19:15 83 13 03/22/19 19:11 74 12 116/68 91 02/01/19 19:05 80 13 107/67 98 02/01/19 19:01 75 14 110/72 98 02/01/19 18:50 70 3 L 107/65 99 02/01/19 18:46 73 21 102/77 100 02/01/19 18:41 77 25 H 121/70 100 02/01/19 18:36 81 21 118/73 100 02/01/19 18:31 85 25 H 113/76 86 L 02/01/19 18:26 82 19 121/72 84 L 02/01/19 18:23 88 27 H 109/84 02/01/19 15:01 77 28 H 119/64 97 02/01/19 14:00 36.8 C 72 16 111/68 100 02/01/19 13:46 36.6 C 67 16 156/77 H 95 Pain Intensity Right Leg: Pain Intensity: 3 Right Calf: Pain Intensity: 3 Notes Mental Status: alert / awake / arousable and participated in evaluation Patient Amnestic to Procedure: Yes Nausea / Vomiting: adequately controlled Pain: adequately controlled Airway Patency, RR, SpO2: stable & adequate BP & HR: stable & adequate Hydration State: stable & adequate Anesthetic Complications: no major complications apparent and Pt Satisfied with anesthetic care
[2019-02-02] MEDS: VANCOMYCIN HCL 1,500 MG in SODIUM CHLORIDE 0.9% 500 ML IV SCH ×2 (13:57→21:13)
[2019-02-02] MEDS: HYDROmorphone INJ 1 MG/ML SYRINGE IV PRN (15:01)
--- NOTE | 2019-02-02 18:01 | Hospitalist Progress Note ---
Date of Service February 02, 2019 Assessment & Plan (1) Sepsis: resolved, remains stable hemodynamically transferred out of ICU possible source of infection RT sided hip/gluteal abscess s/p I&D presented with severe sepsis fever /leukocytosis elevated lactic acid source of infection rt hip gluteal abscess lactic acid level improved after aggressive IV hydration per sepsis protocol was empiric Abx with Vancomycin /Zosyn blood culture negative abscess drainage specimen culture + staph will d/c Zosyn cont IV Vancomycin ID eval requested appreciate iput (2) Abscess, gluteal, right: s/p I&D of rt gluteal abscess appreciate input from Orthopedics surgical specimen culture : staph Abx adjusted cont Vancomycin ID following (3) H/O endocarditis: hx of MRSA endocarditis recent H influenzae bacteremia blood cultures no grwoth empiric abx with vancomycin ECHO ( transthoracic ) does not show any evidence of valvular vegetation cardiology consulted appreciate input recommends cont empiric Abx follow blood culture as pt became afebrile , clinically improved does not recommend ANGIE at this time (4) Septic arthritis of hip: rt hip pain CT of hip shows fluid collection /abscess IMPRESSION: 1. 10.5 x 2.8 cm probable fluid collection within the right gluteus medius. Sterility cannot be assessed by CT and this could reflect an abscess or hematoma. 2. Hyperdensity within the posterior lateral aspect of the right gluteus isela which is partially imaged on this exam. This hyperdensity may reflect enhancement in the setting of infectious myositis, hemorrhage or less likely early myositis ossificans. 3. Subcutaneous infiltration and fluid of the right hip which may reflect edema or cellulitis. 4. Partially imaged hypodense fluid collection overlying the lateral aspect of the vastus lateralis that measures approximately 8.3 x 0.9 cm. 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 in 2012 (8) Confusion and disorientation: resolved due to acute metabolic encephalopathy due to sepsis /febrile response /infection mental status improved to baseline alert and awale with normal orientation conversing appropriately CODE STATUS : FULL CODE DISPOSITION : to be determined PT/OT eval prior to discharge Subjective denies of any dizzy spell or lightheadedness afebrile /no paid at rt hip I&D site awake and alert mentions of being anxious remains stable hemodynamically Physical Exam Vital Signs (Past 24 Hours): Last Vital Signs Temp 36.4 C L 02/02/19 15:55 Pulse 70 02/02/19 15:55 Resp 18 02/02/19 15:55 BP 140/83 02/02/19 15:55 Pulse Ox 96 02/02/19 15:55 Physical Exam: GENERAL: No sign of distress, HEENT: Sclera nonicteric, pink-purple bilateral equal reactive to light extraocular muscle intact Normal oral mucosa, neck: No JVD, no thyromegaly, trachea midline Lungs: Clear to auscultate, no wheeze or rales Cardiovascular: Regular S1 and S2, no murmur or gallop, no JVD, no lower extremity edema Abdomen: Soft, nontender, bowel sounds active, no hepatosplenomegaly Extremities: s/p rt hip I&D bandage intact , Neuro: No focal neurological deficit, no dysarthria, no facial droop Psych: Alert awake oriented x3: Euthymic Skin: No rash LYMPH NODES: No cervical lymphadenopathy (1) Sepsis Sepsis type: sepsis due to unspecified organism Qualified Code(s): A41.9 - Sepsis, unspecified organism (2) Septic arthritis of hip Laterality: right Septic arthritis organism: due to unspecified organism Qu alified Code(s): M00.9 - Pyogenic arthritis, unspecified
[2019-02-02] MEDS ORDERED: FUROSEMIDE 20 MG in SYRINGE 0 ML IV ONE (20:35)
[2019-02-02] MEDS: Heparin Adult LOW DOSE Wt-Based Dextrose 5% 25,000 units/500 mL IV SCH (22:49)
[2019-02-02] MEDS: LORazepam 0.5 MG TAB PO PRN (22:53)
[2019-02-03] MEDS: HYDROmorphone INJ 1 MG/ML SYRINGE IV PRN ×3 (04:11→21:14)
[2019-02-03] MEDS ORDERED: VANCOMYCIN TROUGH ONE (05:30)
[2019-02-03 05:41] LABS: Eosinophils # (auto) 0.07 K/uL (0-0.5); Eosinophils % (auto) 0.5 %; Hematocrit (blood only) 33.3 % (42-52); Hemoglobin 11.2 g/dL (14.0-18.0); Immature Granulocytes # (auto) 0.03 K/uL (0.00-0.02); Immature Granulocytes % (auto) 0.2 %; Lymphocytes # (auto) 0.86 K/uL (1.2-3.4); Lymphocytes % (auto) 6.5 %; Mean Corpuscular Hgb Conc 33.6 g/dL (32-36); Mean Corpuscular Volume 92.5 fL (80-100); Mean Platelet Volume 10.2 fL (7.4-10.4); Neutrophils # (auto) 11.51 K/uL (1.4-6.5); Neutrophils % (auto) 86.8 %; Platelet Count 212 K/uL (130-400); RDW Coefficient of Variation 15.2 % (11.5-14.5); RDW Standard Deviation 51.5 fL (36.4-46.3); White Blood Count 13.27 K/uL (4.8-10.8)
[2019-02-03 05:48] LABS: INR 1.1 (0.9-1.1); Prothrombin Time 11.6 Seconds (9.0-12.0)
[2019-02-03 06:16] LABS: Alanine Aminotransferase 23 U/L (12-78); Albumin Globulin Ratio 0.6 (0.9-2); Albumin Level 2.3 gm/dl (3.4-5.0); Alkaline Phosphatase 76 U/L (45-117); Aspartate Aminotransferase 24 U/L (15-37); BUN Creatinine Ratio 14.6 (10-20); Bilirubin Direct < 0.1 mg/dl (0-0.2); Bilirubin,Total 0.3 mg/dl (0.2-1); Blood Urea Nitrogen 10 mg/dl (7-18); Calcium 8.1 mg/dl (8.5-10.1); Carbon Dioxide 26 mmol/L (21-32); Chloride 109 mmol/L (98-107); Creatinine Clr Calc Pharmacy 112.8 ml/min; Globulin 3.8 gm/dl (2.5-4.0); Glucose 92 mg/dl (70-99); Potassium 3.7 mmol/L (3.5-5.1); Sodium 140 mmol/L (136-145); Total Protein 6.1 gm/dl (6.4-8.2)
[2019-02-03] MEDS: VANCOMYCIN HCL 1,500 MG in SODIUM CHLORIDE 0.9% 500 ML IV SCH (06:44)
[2019-02-03] MEDS: ACETAMINOPHEN 325 MG TAB PO PRN (06:47)
[2019-02-03 07:44] LABS: Partial Thromboplastin Ratio 1.5; Partial Thromboplastin Time 40.9 Seconds (21.0-31.0)
--- NOTE | 2019-02-03 07:47 | Pharmacy Report ---
Pharmacy Abx Dose Short Note - Date of Service February 03, 2019 - Assessment & Plan Assessment * 53 year old M w hx MRSA endocarditis s/p bioprosthetic AVR ~2010 and inadequately treated H. parainfluenzae bacteremia August 2018 (patient left AMA) * Currently with significant deep gluteal abscess * Initiated on Zosyn and vancomycin. Zosyn d/c yesterday. Vancomycin continues (day 3 today) * ID consulted - suggested continuing antibiotics and also a surgical eval as infection not likely to clear with antibiotics alone. Sugical eval and I&D performed on 02/01. * WBC still elevated but trending down. Patient with significant fever on admission (Tmax 40.6 C), but afebrile x48 hours now * Cultures * Blood cultures - pending * Buttock - S. aureus (sensitivities pending) * Hip, right x2 - S. aureus (sensitivities pending) * SCr mostly stable - possibly with a slightly improvement Vancomycin * Goal trough 15-20 mcg/mL * Maintenance dose of 16 mg/kg IV dosed at estimated t1/2 of 10 hr produced level of only 9.4 mcg/mL on 02/02 * Maintenance dose of 19 mg/kg IV dosed at q8hr produced level of 22.0 mcg/mL on 02/03 * Will decrease maintenance dose and maintain interval * Trough prior to 3rd dose of new regimen Plan * Vancomycin 1250 mg IV q8h * Trough 02/04 @ 0930 Pharmacy will continue to follow and will adjust dose/frequency as necessary. Thank you.
[2019-02-03] MEDS ORDERED: HEPARIN IV BOLUS 4,500 UNITS in SYRINGE 0 ML IV ONE (09:00)
[2019-02-03] MEDS: METOPROLOL TARTRATE 50 MG TAB PO SCH ×2 (09:06→12:12)
[2019-02-03] MEDS: METHYLPHENIDATE HCL 10 MG TABLET PO SCH ×2 (09:06→12:13)
[2019-02-03] MEDS: CALCIUM CARBONATE 500 MG CHEWABLE TAB PO SCH ×2 (09:07→12:11)
[2019-02-03] MEDS: PANTOprazole 40 MG TAB PO SCH ×2 (09:07→12:13)
[2019-02-03] MEDS: PARoxetine HCl 20 MG TAB PO SCH ×2 (09:07→12:12)
--- NOTE | 2019-02-03 10:00 | Orthopedic Progress Note ---
Date of Service February 03, 2019 Assessment & Plan (1) Abscess, gluteal, right: POD #2, RIGHT HIP ABSCESS I&D WBAT GRAM STAIN- MANY WBC'S, GRAM POSITIVE COCCI CULTURE PRELIM- STAFF AUREUS AWAIT FINAL CULTURES AND ID INPUT, ON VANCO DR. MOLINA MADE IMMEDIATELY AWARE TO EXAMINE PATIENTS ABDOMEN. Subjective POD #2, Denies sob, cp, n/v, pain controlled well in hip. States having abdominal discomfort and "hardness". Per nursing, no BM since 01/30. Physical Exam Vital Signs (Past 24 Hours): Last Vital Signs Temp 36.9 C 02/03/19 07:01 Pulse 65 02/03/19 07:01 Resp 18 02/03/19 07:01 BP 136/84 02/03/19 07:01 Pulse Ox 95 02/03/19 07:01 Physical Exam: Right hip incision c/d/i, no drainage, no erythema, toes and ankle mobile, no calf tenderness. Abdomen distended and tender.
[2019-02-03] MEDS: LORazepam 0.5 MG TAB PO PRN (11:19)
--- NOTE | 2019-02-03 13:20 | Hospitalist Progress Note ---
Date of Service February 03, 2019 Assessment & Plan (1) Abdominal pain: Developed Generalized abdominal pain , worse with food intake feels nauseous , no vomiting felt dizzy and lightheaded due to pain hx of ventral hernia abdominal exam was benign yesterday evening firm and + tenderness today ordered for Stat CT abdomen to r/o obstuction NPO IV fluid pain control will need surgical consult if CT abdomen shows any pathology Present on Admission?: No (2) Sepsis: resolved, remains stable hemodynamically WBC improved ,afebrile , possible source of infection RT sided hip/gluteal abscess s/p I&D presented with severe sepsis fever /leukocytosis elevated lactic acid source of infection rt hip gluteal abscess lactic acid level improved after aggressive IV hydration per sepsis protocol blood culture negative abscess drainage specimen culture + staph MSSA on IV Vancomycin ID eval requested appreciate input will D/w Dr Garcia for adjusting IV Abx per sensitivity will need IV access for senior care ABx ( 3-4 weeks ) , IV team updated (3) Abscess, gluteal, right: s/p I&D of rt gluteal abscess appreciate input from Orthopedics surgical specimen culture : staph -MSSA on Vancomycin ID following (4) H/O endocarditis: hx of MRSA endocarditis recent H influenzae bacteremia blood cultures no grwoth on empiric abx with vancomycin ECHO ( transthoracic ) does not show any evidence of valvular vegetation cardiology consulted appreciate input blood cultures negative as pt became afebrile , clinically improved does not recommend ANGIE at this time (5) Septic arthritis of hip: rt hip pain CT of hip shows fluid collection /abscess IMPRESSION: 1. 10.5 x 2.8 cm probable fluid collection within the right gluteus medius. Sterility cannot be assessed by CT and this could reflect an abscess or hematoma. 2. Hyperdensity within the posterior lateral aspect of the right gluteus isela which is partially imaged on this exam. This hyperdensity may reflect enhancement in the setting of infectious myositis, hemorrhage or less likely early myositis ossificans. 3. Subcutaneous infiltration and fluid of the right hip which may reflect edema or cellulitis. 4. Partially imaged hypodense fluid collection overlying the lateral aspect of the vastus lateralis that measures approximately 8.3 x 0.9 cm. 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 in 2012 blood cultures negative growth this Admission (9) Confusion and disorientation: resolved due to acute metabolic encephalopathy due to sepsis /febrile response /infection mental status improved to baseline alert and awake with normal orientation conversing appropriately CODE STATUS : FULL CODE DISPOSITION : to be determined PT/OT eval prior to discharge Subjective complains of severe abdominal pain very poor appetite nauseous abdomen feels distended and firm no bowel movement unable to pass gas pt appears to be very uncomfortable afebrile vitals remains stable Physical Exam Vital Signs (Past 24 Hours): Last Vital Signs Temp 36.3 C L 02/03/19 10:58 Pulse 60 02/03/19 10:58 Resp 22 02/03/19 10:58 BP 163/93 H 02/03/19 10:58 Pulse Ox 99 02/03/19 10:58 Physical Exam: GENERAL: in distress due to abdominal discomfort HEENT: Sclera nonicteric, Normal oral mucosa, neck: No JVD, no thyromegaly, trachea midline Lungs: Clear to auscultate, no wheeze or rales Cardiovascular: Regular S1 and S2, no murmur or gallop, no JVD, no lower extremity edema Abdomen: DISTENDED/FIRM /+ TENDERNESS /DIMINISHED BOWEL MOVEMENT + VENTRAL HERNIA Extremities: No rash or deformity, normal joint, Neuro: No focal neurological deficit, no dysarthria, no facial droop Psych: Alert awake oriented x3: VERY ANXIOUS AND RESTLESS Skin: No rash LYMPH NODES: No cervical lymphadenopathy (1) Sepsis Sepsis type: sepsis due to unspecified organism Qualified Code(s): A41.9 - Sepsis, unspecified organism (2) Septic arthritis of hip Laterality: right Septic arthritis organism: due to unspecified organism Qualified Code(s): M00.9 - Pyogenic arthritis, unspecified (3) Abdominal pain Abdominal location: generalized Qualified Code(s): R10.84 - Generalized abdominal pain
[2019-02-03] MEDS: LACTATED RINGER'S 1,000 ML IV SCH ×2 (14:01→21:52)
--- NOTE | 2019-02-03 14:26 | XRay Report ---
KUB CLINICAL HISTORY: Abdominal pain. COMPARISON STUDY: None. FINDINGS: Multiple loops of moderately dilated small bowel are noted. The left flank was not included . There are median sternotomy wires. IMPRESSION: Multiple loops of moderately dilated small bowel. A small bowel obstruction is favored. An ileus could appear similar although is considered less likely. Electronically signed by: Clemente Tapia M.D. 02/03/2019 2:24 PM
[2019-02-03] MEDS ORDERED: IOVERSOL 100ml IV PRN (14:30)
--- NOTE | 2019-02-03 15:16 | CT Scan Report ---
CT OF THE ABDOMEN AND PELVIS WITH CONTRAST CLINICAL HISTORY: Abdominal pain. Evaluate for bowel obstruction. COMPARISON STUDY: KUB performed earlier today. TECHNIQUE: Following IV administration of 93 mL of Optiray-320, axial images of the abdomen and pelvi s were obtained from the lung bases to the proximal femurs. Images were reviewed in the axial, sagitt al, and coronal planes. IV contrast was administered without complication. Automated exposure contro l was utilized for the study. A dose lowering technique was utilized adhering to the principles of A JAVIER. CT DOSE: 412.65 mGy.cm FINDINGS: There are median sternotomy wires. Prosthetic aortic valve is noted. There is moderate card iomegaly. Trace bilateral pleural effusions are noted. No pneumatosis, free air or portal venous gas is present. A small amount of ascites is noted. The liver, spleen, adrenal glands and pancreas are un remarkable. There is no biliary or pancreatic ductal dilatation. There is pancreatic glandular atroph y. A few subcentimeter bilateral renal lesions are too small to characterize. Fat-containing ventral hernias are noted. Of note, the near entirety of the small bowel is fluid-filled and dilated. A trans ition point within the right mid abdomen is noted on axial image 263 of [id number]. Terminal ileum is decomp ressed. Of note, there is extensive mesenteric vessel engorgement associated with multiple small karan l loops. The superior mesenteric artery and vein appear patent. No bowel wall thickening is noted. Fl uid collection within the right gluteus medius appears decreased in size since CT of January 31, 2018. Fluid overlying the lateral aspect of the vastus lateralis appears diminished. The appendix is normal . IMPRESSION: 1. Findings consistent with a high-grade small bowel obstruction with transition point within the rig ht mid abdomen. Small to moderate associated ascites and mesenteric vessel engorgement. Bowel ischemi a cannot be excluded. No pneumatosis, free air or portal venous gas. Surgical consultation is recomme nded. Findings discussed with Dr. Dominguez at time of dictation. 2. Decrease in size of a fluid collection within the right gluteus medius since prior CT. Electronically signed by: Clemente Tapia M.D. 02/03/2019 3:15 PM
[2019-02-03 15:35] LABS: Partial Thromboplastin Ratio 2.4
[2019-02-03 15:43] LABS: Partial Thromboplastin Time 64.8 Seconds (21.0-31.0)
[2019-02-03] MEDS ORDERED: WARFARIN SOD 5 MG TAB PO SCH (16:00)
--- NOTE | 2019-02-03 16:14 | XRay Report ---
KUB HISTORY: NG tube position check COMPARISON: KUB 02/03/2019. FINDINGS: Nasogastric tube terminates in the stomach. Post ostomy changes are noted. There is residua l contrast within the renal collecting systems from the recent CT examination. No change in the dilat ed loops of gas-filled small bowel consistent with a small bowel obstruction. No renal calculi. No u reteral calculi. No pneumoperitoneum or pneumatosis. IMPRESSION: 1. Nasogastric tube terminates in the stomach. 2. Persistent small bowel obstruction. Electronically signed by: Denis Barbour M.D. 02/03/2019 4:13 PM
[2019-02-03] MEDS ORDERED: ALBUMIN HUMAN 5% 12.5 GM/250 ML VIAL IV ONE (16:40)
--- NOTE | 2019-02-03 16:45 | Consultation ---
Date of Consultation February 03, 2019 Assessment & Plan (1) Small bowel obstruction: High grade small bowel obstruction with concern for bowel ischemia given presence of acute abdomen on exam, CT findings of ascites and mesenteric edema. Discussed my recommendation for exploratory laparotomy with possible bowel resection. Risks of bleeding, clotting, infection, hernia, leakage of connection discussed. Consent signed. Will hold heparin/ coumadin perioperatively. (2) Abscess, gluteal, right: as per medicine/ ortho service. History of Present Illness Reason for Consultation: severe abdominal pain Requesting Physician: Dr. Dominguez Attending Physician: Shahnaz Dominguez MD History of Present Illness 53 yr old man with multiple medical issues including h/o endocarditis, pacemaker placement most recently septic from infected right hip. He is s/p treatment of this and sepsis was improving. Overnight, developed severe abdominal pain and distention. Pain is generalized, crampy waves, very intense, abdomen is tender. Sent for urgent CT scan which shows high grade SBO and concern for possible ischemia of the bowel. He is on heparin drip for dvt. Started coumadin but INR is 1.1. Both of these are now on hold. Still having pain but it is slightly better with the ng tube. Abdomen still very bloated and tender. Only prior abd operation is lap hernia repair. Has a ventral hernia in his upper abdomen (fat containing). Allergies Allergy/AdvReac Type Severity Reaction Status Date / Time No Known Allergies Allergy Verified 01/31/19 19:49 Home Medications Home Medications Medication Instructions Recorded Confirmed Type methylphenidate HCl 10 mg PO BID 01/31/19 01/31/19 History methylphenidate HCl 20 mg PO BID 01/31/19 01/31/19 History metoprolol tartrate 50 mg PO BID 01/31/19 01/31/19 History omeprazole 20 mg PO QAM 01/31/19 01/31/19 History testosterone cypionate 200 mg IM DIRECTED 01/31/19 01/31/19 History warfarin See Rx Instructions .ROUTE .COMPLEX 01/31/19 01/31/19 History Patient History Medical History Abscess, gluteal, right (Acute) Septic arthritis of hip (Acute) Sepsis (Acute) Endocarditis NSTEMI (non-ST elevated myocardial infarction) (Acute) Complete heart block (Chronic) S/p pacemaker placement History of alcohol abuse (Resolved) Depression (Chronic) Pacemaker (Chronic) Anxiety (Chronic) Surgical History History of hernia surgery (Resolved) H/O aortic valve replacement (Resolved) 2010 at [facility] for congenital abnormality. 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 Physical Exam Vital Signs (Past 24 Hours): Last Vital Signs Temp 36.4 C L 02/03/19 15:01 Pulse 60 02/03/19 15:01 Resp 18 02/03/19 15:01 BP 119/81 02/03/19 15:01 Pulse Ox 92 02/03/19 15:01 Constitutional: + ill appearing Neck: trachea midline, no thyromegaly Respiratory: normal respiratory effort, lungs clear to auscultation Cardiovascular: Rate/Rhythm: regular rhythm (has pacemaker) Gastrointestinal (Abdomen): Inspection/Auscultation: + abdomen distended and + hypoactive bowel sounds Percussion/Palpation: + abdomen tender (diffusely), + guarding, + abdomen rigid and + hernia (epigastric area) Neurologic: CN's II-XI intact bilaterally and awake Results & Data Laboratory Results WBC ct elevated but improving (13.27 from 14.39) lactate normal at 1.3 PTT 64.8 INR 1.1 Diagnostic Findings FINDINGS: There are median sternotomy wires. Prosthetic aortic valve is noted. There is moderate cardiomegaly. Trace bilateral pleural effusions are noted. No pneumatosis, free air or portal venous gas is present. A small amount of ascites is noted. The liver, spleen, adrenal glands and pancreas are unremarkable. There is no biliary or pancreatic ductal dilatation. There is pancreatic glandular atrophy. A few subcentimeter bilateral renal lesions are too small to characterize. Fat-containing ventral hernias are noted. Of note, the near entirety of the small bowel is fluid-filled and dilated. A transition point within the right mid abdomen is noted on axial image 263 of [id number]. Terminal ileum is decompressed. Of note, there is extensive mesenteric vessel engorgement associated with multiple small bowel loops. The superior mesenteric artery and vein appear patent. No bowel wall thickening is noted. Fluid collection within the right gluteus medius appears decreased in size since CT of January 31, 2018. Fluid overlying the lateral aspect of the vastus lateralis appears diminished. The appendix is normal. IMPRESSION: 1. Findings consistent with a high-grade small bowel obstruction with transition point within the right mid abdomen. Small to moderate associated ascites and mesenteric vessel engorgement. Bowel ischemia cannot be excluded. No pneumatosis, free air or portal venous gas. Surgical consultation is recommended. Findings discussed with Dr. Dominguez at time of dictation. 2. Decrease in size of a fluid collection within the right gluteus medius since prior CT.
[2019-02-03] MEDS ORDERED: SUCCINYLCHOLINE CHLORIDE 20 MG/ML 10 ML VIAL ONE (16:50)
[2019-02-03] MEDS ORDERED: fentaNYL citrate 100 MCG/2 ML VIAL ONE (16:50)
[2019-02-03] MEDS ORDERED: PROPOFOL IV EMULSION 10 MG/ML 20 ML VIAL IV ONE (16:50)
[2019-02-03] MEDS ORDERED: MIDAZOLAM HCL 1 MG/ML 2ML VIAL ONE (16:50)
[2019-02-03] MEDS ORDERED: BUPIVACAINE 0.5 % 5 MG/1 ML MPF 30ML VIAL ONE (16:53)
[2019-02-03] MEDS ORDERED: SODIUM CHLORIDE 0.9% 250 ML IV PRN (17:05)
--- NOTE | 2019-02-03 17:07 | Anesthesiology Consultation ---
Date of Service February 03, 2019 Assessment & Plan (1) Encounter for pre-operative examination: Chart Review Chart Review: Acceptable Risk for Surgery and Patient NOT seen in Pre Admission Testing Consults Requested none NPO Date Last Intake of Fluids: 02/01/19 Time Last Intake of Fluids: 18:00 Date Last Intake of Solids: 01/31/19 Time Last Intake of Solids: 18:00 History Surgery Operation Date: 02/01/19 14:05 Proposed Procedures p Right Hip Incision and Drainage - Ramo Parker MD Operation Date: 02/03/19 17:00 Proposed Procedures p Exploratory Laparotomy - Yareli Spencer MD Height/Weight Height: 5 ft 7 in Weight: 76.2 kg Allergies Allergy/AdvReac Type Severity Reaction Status Date / Time No Known Allergies Allergy Verified 01/31/19 19:49 Medications Home Medications Medication Instructions Recorded Confirmed Last Taken methylphenidate HCl 10 mg PO BID 01/31/19 01/31/19 Unknown methylphenidate HCl 20 mg PO BID 01/31/19 01/31/19 Unknown metoprolol tartrate 50 mg PO BID 01/31/19 01/31/19 Unknown omeprazole 20 mg PO QAM 01/31/19 01/31/19 Unknown testosterone cypionate 200 mg IM DIRECTED 01/31/19 01/31/19 Unknown warfarin See Rx Instructions .ROUTE .COMPLEX 01/31/19 01/31/19 Unknown Active Medications Generic Name Dose Route Start Last Admin Trade Name Freq PRN Reason Stop Dose Admin Hydromorphone HCl 1 mg 02/02/19 11:30 02/03/19 14:01 Dilaudid IV 02/16/19 11:29 1 mg Q4H PRN Administration pain Lactated Ringer's 1,000 mls @ 125 mls/hr 02/03/19 13:15 02/03/19 17:01 Lr IV 03/05/19 13:14 125 mls/hr .Q8H TAMELA Infusion Ioversol 93 ml 02/03/19 14:30 02/03/19 14:30 Optiray 320 100ml IV 02/07/19 14:29 93 ml ONCE PRN Administration Interaction Checking Polyethylene Glycol 17 gm 02/01/19 00:01 02/03/19 11:19 Miralax Powder Packet PO 03/03/19 00:00 17 gm DAILY PRN Administration Constipation Past Medical History Medical History Abdominal pain (Acute) Confusion and disorientation Abscess, gluteal, right (Acute) Septic arthritis of hip (Acute) Sepsis (Acute) Endocarditis NSTEMI (non-ST elevated myocardial infarction) (Acute) Complete heart block (Chronic) S/p pacemaker placement History of alcohol abuse (Resolved) Depression (Chronic) Pacemaker (Chronic) Anxiety (Chronic) Small bowel obstruction Past Family History Family History Other Heart disease Past Surgical History Surgical History History of hernia surgery (Resolved) H/O aortic valve replacement (Resolved) 2010 at [facility] for congenital abnormality. 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 History of hip surgery Past Anesthesia History No Hx of Anesthesia Complications and No Family Hx of Anesthesia Complications History of PONV No Motion Sickness Screening History of Motion Sickness: No Social History Smoking Status: Current some day smoker tobacco type: cigarettes Hx Alcohol Use: Yes Alcohol type: beer and hard liquor alcohol intake frequency: 3 or more drinks per day Hx Substance Use: No (denies) Exercise / Class Metabolic Activity III < 4 Walking/Shop/Light housework Physical Exam Vital Signs Last Vital Signs Temp 36.4 C L 02/03/19 15:01 Pulse 60 02/03/19 15:01 Resp 18 02/03/19 15:01 BP 119/81 02/03/19 15:01 Pulse Ox 92 02/03/19 15:01 Testing Electrocardiogram Date: 02/01/19 Ventricular-paced rhythm, rate 121, when compared with ECG of 01/31/2019 PVCs no longer present and vent rate has increased 18 BPM. Echocardiogram Date: 02/01/19 EF: 50-55% LV Function: normal ((low normal)) Moderate concentric LVH, apical wall motion abnormality may reflect pacemaker activation, hypokinesis of inferior posterior apical weaver slightly more pron ounced than expected with pacemaker, grade 1 DD, bioprosthetic aortic valve with normal gradient, doppler evidence of regurg is probably normal for this prosthetic aortic valve, no vegetations, no valvular lesions consistent with endocarditis. Laboratory Results 02/03/19 05:24 02/03/19 05:24 PT 11.6 Seconds (9.0-12.0) 02/03/19 05:24 INR 1.1 (0.9-1.1) 02/03/19 05:24 APTT 64.8 Seconds (21.0-31.0) H* 02/03/19 15:03 Urine Color Yellow 02/01/19 Unknown Urine Appearance Clear (Clear) 02/01/19 Unknown Urine pH 5.5 (4.5-7.5) 02/01/19 Unknown Ur Specific Bailey 1.027 (1.000-1.030) 02/01/19 Unknown Urine Protein Negative (Negative) 02/01/19 Unknown Urine Glucose (UA) Negative (Negative) 02/01/19 Unknown Urine Ketones Negative (Negative) 02/01/19 Unknown Urine Nitrite Negative (Negative) 02/01/19 Unknown Ur Leukocyte Esterase Negative (Negative) 02/01/19 Unknown 02/01/19 Unknown Gram Stain - Final Hip,Right Aerobic and Anaerobic Culture - Preliminary Staphylococcus aureus 02/01/19 Unknown Gram Stain - Final Hip,Right Aerobic and Anaerobic Culture - Preliminary Staphylococcus aureus 02/01/19 Unknown Gram Stain - Final Hip Aerobic and Anaerobic Culture - Preliminary No growth to date. 02/01/19 11:40 Gram Stain - Final Buttock Aerobic and Anaerobic Culture - Preliminary Staphylococcus aureus
[2019-02-03] MEDS: Heparin Adult LOW DOSE Wt-Based Dextrose 5% 25,000 units/500 mL IV SCH (17:18)
[2019-02-03] MEDS: D5W AND NSS 1,000 ML IV SCH (17:19)
[2019-02-03] MEDS ORDERED: VANCOMYCIN HCL 1,250 MG in SODIUM CHLORIDE 0.9% 250 ML IV SCH (18:00)
[2019-02-03] MEDS ORDERED: PIPERACILL/TAZOBAC CONSULT ACTIVE PRN (18:05)
[2019-02-03] MEDS ORDERED: PIPERACILLIN/TAZOBACTAM 3.375 GM in DEXTROSE 5% 100 ML IV SCH (18:15)
[2019-02-03] MEDS ORDERED: PHENYLEPHRINE 100MCG/ML 5ML SYR ONE (18:18)
[2019-02-03] MEDS ORDERED: DEXAMETHASONE SOD INJ 4 MG/ML VIAL ONE (18:18)
[2019-02-03] MEDS ORDERED: ROCURONIUM BROMIDE 10 MG/ML 5 ML VIAL ONE (18:18)
[2019-02-03] MEDS ORDERED: PIPERACILLIN/TAZOBACTAM 3.375 GM in DEXTROSE 5% 100 ML IV ONE (18:45)
--- NOTE | 2019-02-03 19:18 | Operative Report ---
Post Operative Report Pre & Post Diagnosis Operation Date: 02/03/19 17:00 Pre-Op Diagnosis: High Grade Small Bowel Obstruction Post-Op Diagnosis: High Grade Small Bowel Obstruction from mesenteric defect / internal hernia right lower quadrant Procedure Operation Date: 02/03/19 17:00 Actual Procedures p Exploratory Laparotomy; Lysis of Adhesions(Not Applicable), reduction of internal hernia, repair of ventral hernia in epigastrium - Yareli Spencer MD Surgeon Yareli Spencer MD [employer] none Estimated Blood Loss 10 Findings See Below (800 cc ascites, dilated fluid filled bowel to mesenteric defect in terminal ileum region) Specimens hernia sac Description of Procedure see dictated operative report I attest to the content of the Intraoperative Record and any orders documented therein. Any exceptions are noted below.
[2019-02-03] MEDS ORDERED: ATROPINE SULFATE 0.1 MG/ML 10ML SYR IV PRN (19:48)
[2019-02-03] MEDS ORDERED: HYDROmorphone INJ 1 MG/ML SYRINGE IV PRN (19:48)
[2019-02-03] MEDS ORDERED: fentaNYL citrate 100 MCG/2 ML VIAL IV PRN (19:48)
[2019-02-03] MEDS ORDERED: ePHEDrine sulfate 50 MG/ML AMP IV PRN (19:48)
[2019-02-03] MEDS ORDERED: ONDANSETRON INJ 2 MG/ML 2 ML VIAL IV PRN (19:48)
--- NOTE | 2019-02-03 19:55 | Anesthesiology Progress Note ---
Date of Service February 03, 2019 Anesthesia Post Procedure Vital Signs Vital Signs: Temp Pulse Resp BP BP Pulse Ox 02/03/19 19:50 69 18 142/83 H 94 02/03/19 19:40 68 18 142/83 H 94 02/03/19 19:32 36.5 C 77 18 146/87 H 93 02/03/19 15:01 36.4 C L 60 18 119/81 92 02/03/19 10:58 36.3 C L 60 22 163/93 H 99 02/03/19 07:01 36.9 C 65 18 136/84 95 02/03/19 03:30 36.8 C 60 16 134/86 94 02/02/19 23:51 36.7 C 60 18 130/78 93 Pain Intensity Right Leg: Pain Intensity: 3 Right Calf: Pain Intensity: 3 Bilateral Abdomen: Pain Intensity: 4 Notes Mental Status: alert / awake / arousable and participated in evaluation Patient Amnestic to Procedure: Yes Nausea / Vomiting: adequately controlled Pain: adequately controlled Airway Patency, RR, SpO2: stable & adequate BP & HR: stable & adequate Hydration State: stable & adequate Anesthetic Complications: no major complications apparent and Pt Satisfied with anesthetic care
--- NOTE | 2019-02-03 20:57 | Operative Report ---
DATE OF OPERATION: 02/03/2019 PREOPERATIVE DIAGNOSIS: Acute abdomen with high-grade small-bowel obstruction. POSTOPERATIVE DIAGNOSIS: Acute abdomen with high-grade small-bowel obstruction. OPERATIVE PROCEDURE: Exploratory laparotomy, reduction of internal hernia and lysis of single band of adhesion down in the region of terminal ileum, repair of ventral hernia in the epigastrium. SURGEON: Yareli Spencer MD. ANESTHESIA: General endotracheal anesthesia. ESTIMATED BLOOD LOSS: 10 mL. INTRAVENOUS FLUIDS: 500 mL of colloid, 500 mL of crystalloid. URINE OUTPUT: 250 mL. SPECIMENS: Hernia sac. ASA: 4E. LOCAL ANESTHESIA: A 30 mL of 0.5% Marcaine. OPERATIVE FINDINGS: 800 mL of straw-colored ascites, extremely dilated bowel leading down into the right lower quadrant where there was a mesenteric defect measuring about an inch and a half. I believe he had had an internal hernia here that I reduced upon examining the bowel. Distal to this, there was an adhesive band near the terminal ileum. This was also freed up. This was very distal near the cecum. Appendix was normal. Remainder of colon was normal. No evidence of bowel. INDICATIONS: Mr. Angel is a 53-year-old gentleman who has had a quite complicated medical history including endocarditis, valve replacements, pacemakers and most recently admitted for sepsis due to a right hip. He has already undergone debridement of the right hip. He was doing well until this morning when he awoke with the acute onset of severe abdominal pain. This was not managed well with pain medication. He had an extreme abdominal distention. CT scan was done and showed a high-grade small-bowel obstruction with a transition point in the right lower quadrant and concern for possible ischemia. Because of this, surgery was consulted. When I examined him, he had an acute abdomen. We discussed exploratory laparotomy. He consented to proceed. PROCEDURE IN DETAIL: The patient received Mefoxin and vancomycin preoperatively. After the induction of general endotracheal anesthesia, he had placement of sequential compression devices. Of note, his heparin drip had just been held relatively recently. His last INR was 1.1. His last PTT was 64. A nasogastric tube had already been in place, a Osborn catheter was placed. His abdomen was then sterilely prepped and draped. A midline incision was made extending from his epigastric ventral hernia down past the umbilicus to the lower abdomen. The fascia was incised and the abdomen carefully entered. There was drainage of a large volume of 800 mL of ascites. The bowel was noted to be markedly dilated. The bowel was followed from the ligament of Treitz and followed down towards the terminal ileum. As the bowel was eviscerated, it continued to be dilated and slightly more bluish tinged extending down towards the terminal ileum. Once it had been eviscerated almost completely, there was a very tight band noted right at the terminal ileum about 2 inches prior to its junction to the cecum. This was released. This allowed for the entire small bowel to be brought up into the wound. This also visualized a 2-inch mesenteric defect in the terminal ileum mesentery. My suspicion is he had an internal hernia here that was reduced when I ran the bowel. This defect was then repaired with a running 2-0 Vicryl suture. The remainder of the bowel was reinspected. It was very dilated and fluid filled; however, there was no ischemia. The bowel was then placed back into the abdominal cavity. The epigastric area with the ventral hernia was identified and the hernia sac reduced from surrounding attachments. The hernia sac was then actually resected as it just contained preperitoneal fat. This was done with Vicryl ties on the preperitoneal fat remaining side. The abdomen was irrigated and noted to be hemostatic. The fascia was then closed with 2 running looped #1 PDS sutures. The hernia itself was closed primarily as part of the fascial closure as the defect measured about 2 cm in width. Once the sponge and needle counts were correct, the last stitches were placed in the fascia and this tied down. The wound was again irrigated. 30 mL of 0.5% Marcaine was injected into the incision for local anesthesia. The skin was closed with jovon. He was awakened and taken to recovery in stable condition. I attest to the content of the Intraoperative Record and any orders documented therein. Any exception s are noted below.
[2019-02-03 22:21] LABS: Hematocrit (blood only) 34.9 % (42-52); Hemoglobin 12.1 g/dL (14.0-18.0)
[2019-02-04] MEDS: PIPERACILLIN/TAZOBACTAM 3.375 GM in DEXTROSE 5% 100 ML IV SCH ×2 (00:26→09:49)
[2019-02-04] MEDS: LORazepam 0.5 MG/1 ML VIAL IV PRN ×2 (00:26→11:04)
[2019-02-04 00:33] LABS: Hydrocodone Urine 124 NG/ML (CUTOFF=50); Hydromor Urine 248 NG/ML (CUTOFF=50); Morphine Urine 834 NG/ML (CUTOFF=50); Norhydrocodone Conf Ur 91 NG/ML (CUTOFF=50); Noroxycodone Urine NEGATIVE NG/ML (CUTOFF=50); Oxycodone Urine NEGATIVE NG/ML (CUTOFF=50)
[2019-02-04] MEDS: HYDROmorphone INJ 1 MG/ML SYRINGE IV PRN ×6 (03:23→22:53)
[2019-02-04] MEDS: LACTATED RINGER'S 1,000 ML IV SCH (05:34)
--- NOTE | 2019-02-04 07:09 | Orthopedic Progress Note ---
Date of Service February 04, 2019 Assessment & Plan (1) Abscess, gluteal, right: POD #3, RIGHT HIP ABSCESS I&D WBAT GRAM STAIN- MANY WBC'S, GRAM POSITIVE COCCI CULTURE PRELIM- STAPH AUREUS, PANSENSITIVE AWAIT FINAL CULTURES AND ID INPUT, ON VANCO -Patient should follow up in the office 12-14 days post operatively. He can call [phone] for an appointment. Subjective POD #3, Denies sob, cp, n/v, pain controlled well in hip. Has SBO, POD#1 s/p exploratory laparotomy Physical Exam Vital Signs (Past 24 Hours): Last Vital Signs Temp 36.2 C L 02/04/19 04:04 Pulse 82 02/04/19 04:04 Resp 18 02/04/19 04:04 BP 162/71 H 02/04/19 04:04 Pulse Ox 93 02/04/19 04:04 Physical Exam: Dressing c/d/i, no calf tenderness, toes are mobile, N/V status and sensation intact
[2019-02-04 07:23] LABS: Eosinophils # (auto) 0.01 K/uL (0-0.5); Eosinophils % (auto) 0.1 %; Hematocrit (blood only) 35.5 % (42-52); Hemoglobin 12.1 g/dL (14.0-18.0); Immature Granulocytes # (auto) 0.04 K/uL (0.00-0.02); Immature Granulocytes % (auto) 0.4 %; Lymphocytes # (auto) 0.68 K/uL (1.2-3.4); Mean Corpuscular Hgb Conc 34.1 g/dL (32-36); Mean Platelet Volume 10.1 fL (7.4-10.4); Monocytes # (auto) 0.72 K/uL (0.11-0.59); Monocytes % (auto) 6.3 %; Neutrophils # (auto) 9.89 K/uL (1.4-6.5); Neutrophils % (auto) 87.2 %; Platelet Count 207 K/uL (130-400); RDW Coefficient of Variation 15.2 % (11.5-14.5); RDW Standard Deviation 51.4 fL (36.4-46.3); Red Blood Count 3.86 M/uL (4.7-6.1); White Blood Count 11.34 K/uL (4.8-10.8)
[2019-02-04 07:38] LABS: INR 1.1 (0.9-1.1); Prothrombin Time 11.6 Seconds (9.0-12.0)
[2019-02-04 07:51] LABS: Alanine Aminotransferase 19 U/L (12-78); Albumin Level 2.4 gm/dl (3.4-5.0); Aspartate Aminotransferase 17 U/L (15-37); BUN Creatinine Ratio 16.2 (10-20); Bilirubin Direct < 0.1 mg/dl (0-0.2); Blood Urea Nitrogen 12 mg/dl (7-18); Calcium 7.8 mg/dl (8.5-10.1); Carbon Dioxide 29 mmol/L (21-32); Chloride 107 mmol/L (98-107); Creatinine Clr Calc Pharmacy 108.2 ml/min; Est GFR (African American) 121.9; Est GFR (Non-African American) 105.2; Glucose 104 mg/dl (70-99); Potassium 4.1 mmol/L (3.5-5.1); Sodium 141 mmol/L (136-145)
[2019-02-04 07:54] LABS: Albumin Globulin Ratio 0.7 (0.9-2); Alkaline Phosphatase 63 U/L (45-117); Bilirubin,Total 0.3 mg/dl (0.2-1); Globulin 3.2 gm/dl (2.5-4.0); Total Protein 5.6 gm/dl (6.4-8.2)
[2019-02-04] MEDS ORDERED: VANCOMYCIN TROUGH ONE (09:30)
--- NOTE | 2019-02-04 10:16 | Infectious Disease Progress Nt ---
Date of Service February 04, 2019 Assessment & Plan (1) Abscess, gluteal, right: will change abx to rocephin, await blood culture results. will likely need several weeks of IV abx. wbc improving, clinically improving, afebrile. (2) Sepsis: Subjective pt s/p I&D of right hip with drain placement on 02/01 - wound cultures growing MSSA. 01/31 admission blood cultures still pending. Echo negative for veg. Over weekend pt developed sudden onset abd pain, ct revealed high grade SBO, went to OR again yesterday for exp lap, EL. tolerated well. still with abd pain, states hip much better. tolerating abx, remains on vanco and zosyn, vanco on hold due to elevated trough, 22 yesterday. afebrile. denies cp, sob, has ngt in place, bilious fluid draining. wbc improved to 11 today. all remaining ros reviewed and are negative Physical Exam Vital Signs (Past 24 Hours): Last Vital Signs Temp 36.9 C 02/04/19 07:45 Pulse 73 02/04/19 07:45 Resp 17 02/04/19 07:45 BP 145/86 H 02/04/19 07:45 Pulse Ox 97 02/04/19 07:45 Constitutional: WD/WN, vitals as above Eyes: PERRL, conjunctivae normal, anicteric sclerae ENMT: external ear and nose normal, oropharynx normal Mouth: + dry oral mucous membranes ngt in place Neck: normal visual inspection Respiratory: normal respiratory effort, lungs clear to auscultation Cardiovascular: Rate/Rhythm: regular rate and regular rhythm Heart Sounds: + murmur Gastrointestinal (Abdomen): Inspection/Auscultation: + abdomen distended Percussion/Palpation: + abdomen tender and abdomen soft Musculoskeletal: no cyanosis or clubbing, extremities motor strength 5/5 Skin: no rashes, warm and dry Psychiatric: A+Ox3, euthymic affect Orientation: alert, oriented x 3 and cooperative Speech: + pressured speech Affect: + anxious affect Results & Data Laboratory Results Microbiology 02/01/19 Unknown Hip,Right Gram Stain - Final 02/01/19 Unknown Hip,Right Aerobic and Anaerobic Culture - Preliminary Staphylococcus aureus 02/01/19 Unknown Hip,Right Gram Stain - Final 03/22/19 Unknown Hip,Right Aerobic and Anaerobic Culture - Preliminary Staphylococcus aureus 02/01/19 Unknown Hip Gram Stain - Final 02/01/19 Unknown Hip Aerobic and Anaerobic Culture - Preliminary No growth to date. 02/01/19 11:40 Buttock Gram Stain - Final 02/01/19 11:40 Buttock Aerobic and Anaerobic Culture - Preliminary Staphylococcus aureus (1) Sepsis Sepsis type: sepsis due to unspecified organism Qualified Code(s): A41.9 - Sepsis, unspecified organism
[2019-02-04] MEDS: PANTOprazole 40 MG in SYRINGE 0 ML IV SCH (11:43)
[2019-02-04] MEDS: cefTRIAXone SODIUM 2,000 MG in DEXTROSE 5% 50 ML IV SCH (11:43)
--- NOTE | 2019-02-04 12:34 | Surgery Progress Note ---
Date of Service February 04, 2019 Assessment & Plan (1) Small bowel obstruction: POD # 1 s/p ex lap, lysis of adhesions and repair of mesenteric defect likely contributing to internal hernia, repair of ventral hernia - vitals stable, afebrile - leukocytosis improved - pain moderate, not well controlled - no return of bowel function yet - NGT with yellow/clear output, 200 cc - H&H stable Plan: Continue IV DIlaudid prn pain, increase to 1 mg q 2 hours Continue NGT to LIS Continue NPO IV fluids switch to d5w / NSS + 20 KCL @ 100 mls/hr Continue IV Zofran prn nausea Continue IV Protonix Continue IV ABX given right hip wound Continue ID and Ortho recs Continue medical management Hold coumadin for now SCDs for DVT prohylaxis OOB to chair once pain more controlled Incentive spirometry repeat am labs Will continue to follow Dr. Aguayo has seen and examined pt, agrees with above Subjective sleeping on encounter, easily awakened Moderate abdominal pain, mid abdomen right at incision "surgical pain", pain yesterday resolved does not feel as bloated today sales just removed, has not urinated on his own yet no chest pain or shortness of breath dry mouth Physical Exam Vital Signs (Past 24 Hours): Last Vital Signs Temp 37.0 C 02/04/19 12:00 Pulse 71 02/04/19 12:00 Resp 18 02/04/19 12:00 BP 138/86 02/04/19 12:00 Pulse Ox 92 02/04/19 12:00 Constitutional: WD/WN, vitals as above no acute distress Respiratory: normal respiratory effort; no respiratory distress Gastrointestinal (Abdomen): Inspection/Auscultation: abdomen normal to inspection; abdomen not distended and + abnormal bowel sounds Percussion/Palpation: + abdomen tender and abdomen soft; no guarding and abdomen not rigid Skin: no rashes, warm and dry Psychiatric: Orientation: alert and oriented x 3 Results & Data Laboratory Results 02/04/19 02/04/19 02/04/19 Range/Units 06:58 06:58 06:58 WBC 11.34 H (4.8-10.8) K/uL RBC 3.86 L (4.7-6.1) M/uL Hgb 12.1 L (14.0-18.0) g/dL Hct 35.5 L (42-52) % MCV 92.0 (80-100) fL MCH 31.3 (25-34) pg MCHC 34.1 (32-36) g/dL RDW Std Deviation 51.4 H (36.4-46.3) fL RDW Coeff of Kwabena 15.2 H (11.5-14.5) % Plt Count 207 (130-400) K/uL MPV 10.1 (7.4-10.4) fL Immature Gran % (Auto) 0.4 % Neut % (Auto) 87.2 % Lymph % (Auto) 6.0 % [place] % (Auto) 6.3 % Eos % (Auto) 0.1 % Baso % (Auto) 0.0 % Immature Gran # (Auto) 0.04 H (0.00-0.02) K/uL Neut # (Auto) 9.89 H (1.4-6.5) K/uL Lymph # (Auto) 0.68 L (1.2-3.4) K/uL [place] # (Auto) 0.72 H (0.11-0.59) K/uL Eos # (Auto) 0.01 (0-0.5) K/uL Baso # (Auto) 0.00 (0-0.2) K/uL PT (9.0-12.0) Seconds INR (0.9-1.1) APTT (21.0-31.0) Seconds PTT Ratio Sodium 141 (136-145) mmol/L Potassium 4.1 (3.5-5.1) mmol/L Chloride 107 (98-107) mmol/L Carbon Dioxide 29 (21-32) mmol/L Anion Gap 5.0 (3-11) BUN 12 (7-18) mg/dl Creatinine 0.73 (0.6-1.4) mg/dl Est Cr Clr Drug Dosing 108.2 ml/min Est GFR ( Amer) 121.9 Est GFR (Non-Af Amer) 105.2 BUN/Creatinine Ratio 16.2 (10-20) Glucose 104 H (70-99) mg/dl Lactate (0.4-2.0) mmol/L Calcium 7.8 L (8.5-10.1) mg/dl Total Bilirubin 0.3 (0.2-1) mg/dl Direct Bilirubin < 0.1 (0-0.2) mg/dl AST 17 (15-37) U/L ALT 19 (12-78) U/L Alkaline Phosphatase 63 (45-117) U/L Total Protein 5.6 L (6.4-8.2) gm/dl Albumin 2.4 L (3.4-5.0) gm/dl Globulin 3.2 (2.5-4.0) gm/dl Albumin/Globulin Ratio 0.7 L (0.9-2) Procalcitonin 5.77 H (0-0.5) ng/ml U Codeine Confrm GC/MS (CUTOFF=50) NG/ML Ur Morphine (GC/MS) (CUTOFF=50) NG/ML Ur Hydrocodone (GC/MS) (CUTOFF=50) NG/ML Ur Norhydrocodone (CUTOFF=50) NG/ML Ur Noroxycodone (CUTOFF=50) NG/ML Urine Oxycodone (GC/MS) (CUTOFF=50) NG/ML U Oxymorphone GC/MS (CUTOFF=50) NG/ML Ur Hydromorphone (GC/MS) (CUTOFF=50) NG/ML Blood Type Antibody Screen Crossmatch 02/04/19 02/03/19 02/03/19 Range/Units 06:58 21:57 17:16 WBC (4.8-10.8) K/uL RBC (4.7-6.1) M/uL Hgb 12.1 L (14.0-18.0) g/dL Hct 34.9 L (42-52) % MCV (80-100) fL MCH (25-34) pg MCHC (32-36) g/dL RDW Std Deviation (36.4-46.3) fL RDW Coeff of Kwabena (11.5-14.5) % Plt Count (130-400) K/uL MPV (7.4-10.4) fL Immature Gran % (Auto) % Neut % (Auto) % Lymph % (Auto) % [place] % (Auto) % Eos % (Auto) % Baso % (Auto) % Immature Gran # (Auto) (0.00-0.02) K/uL Neut # (Auto) (1.4-6.5) K/uL Lymph # (Auto) (1.2-3.4) K/uL [place] # (Auto) (0.11-0.59) K/uL Eos # (Auto) (0-0.5) K/uL Baso # (Auto) (0-0.2) K/uL PT 11.6 (9.0-12.0) Seconds INR 1.1 (0.9-1.1) APTT (21.0-31.0) Seconds PTT Ratio Sodium (136-145) mmol/L Potassium (3.5-5.1) mmol/L Chloride (98-107) mmol/L Carbon Dioxide (21-32) mmol/L Anion Gap (3-11) BUN (7-18) mg/dl Creatinine (0.6-1.4) mg/dl Est Cr Clr Drug Dosing ml/min Est GFR ( Amer) Est GFR (Non-Af Amer) BUN/Creatinine Ratio (10-20) Glucose (70-99) mg/dl Lactate (0.4-2.0) mmol/L Calcium (8.5-10.1) mg/dl Total Bilirubin (0.2-1) mg/dl Direct Bilirubin (0-0.2) mg/dl AST (15-37) U/L ALT (12-78) U/L Alkaline Phosphatase (45-117) U/L Total Protein (6.4-8.2) gm/dl Albumin (3.4-5.0) gm/dl Globulin (2.5-4.0) gm/dl Albumin/Globulin Ratio (0.9-2) Procalcitonin (0-0.5) ng/ml U Codeine Confrm GC/MS (CUTOFF=50) NG/ML Ur Morphine (GC/MS) (CUTOFF=50) NG/ML Ur Hydrocodone (GC/MS) (CUTOFF=50) NG/ML Ur Norhydrocodone (CUTOFF=50) NG/ML Ur Noroxycodone (CUTOFF=50) NG/ML Urine Oxycodone (GC/MS) (CUTOFF=50) NG/ML U Oxymorphone GC/MS (CUTOFF=50) NG/ML Ur Hydromorphone (GC/MS) (CUTOFF=50) NG/ML Blood Type A Positive Antibody Screen NEGATIVE Crossmatch See Detail 02/03/19 02/03/19 02/03/19 Range/Units 15:03 13:42 13:42 WBC (4.8-10.8) K/uL RBC (4.7-6.1) M/uL Hgb (14.0-18.0) g/dL Hct (42-52) % MCV (80-100) fL MCH (25-34) pg MCHC (32-36) g/dL RDW Std Deviation (36.4-46.3) fL RDW Coeff of Kwabena (11.5-14.5) % Plt Count (130-400) K/uL MPV (7.4-10.4) fL Immature Gran % (Auto) % Neut % (Auto) % Lymph % (Auto) % [place] % (Auto) % Eos % (Auto) % Baso % (Auto) % Immature Gran # (Auto) (0.00-0.02) K/uL Neut # (Auto) (1.4-6.5) K/uL Lymph # (Auto) (1.2-3.4) K/uL [place] # (Auto) (0.11-0.59) K/uL Eos # (Auto) (0-0.5) K/uL Baso # (Auto) (0-0.2) K/uL PT (9.0-12.0) Seconds INR (0.9-1.1) APTT 64.8 H* (21.0-31.0) Seconds PTT Ratio 2.4 Sodium (136-145) mmol/L Potassium (3.5-5.1) mmol/L Chloride (98-107) mmol/L Carbon Dioxide (21-32) mmol/L Anion Gap (3-11) BUN (7-18) mg/dl Creatinine (0.6-1.4) mg/dl Est Cr Clr Drug Dosing ml/min Est GFR ( Amer) Est GFR (Non-Af Amer) BUN/Creatinine Ratio (10-20) Glucose (70-99) mg/dl Lactate 1.3 (0.4-2.0) mmol/L Calcium (8.5-10.1) mg/dl Total Bilirubin (0.2-1) mg/dl Direct Bilirubin (0-0.2) mg/dl AST (15-37) U/L ALT (12-78) U/L Alkaline Phosphatase (45-117) U/L Total Protein (6.4-8.2) gm/dl Albumin (3.4-5.0) gm/dl Globulin (2.5-4.0) gm/dl Albumin/Globulin Ratio (0.9-2) Procalcitonin 13.59 H (0-0.5) ng/ml U Codeine Confrm GC/MS (CUTOFF=50) NG/ML Ur Morphine (GC/MS) (CUTOFF=50) NG/ML Ur Hydrocodone (GC/MS) (CUTOFF=50) NG/ML Ur Norhydrocodone (CUTOFF=50) NG/ML Ur Noroxycodone (CUTOFF=50) NG/ML Urine Oxycodone (GC/MS) (CUTOFF=50) NG/ML U Oxymorphone GC/MS (CUTOFF=50) NG/ML Ur Hydromorphone (GC/MS) (CUTOFF=50) NG/ML Blood Type Antibody Screen Crossmatch 02/01/19 Range/Units Unknown WBC (4.8-10.8) K/uL RBC (4.7-6.1) M/uL Hgb (14.0-18.0) g/dL Hct (42-52) % MCV (80-100) fL MCH (25-34) pg MCHC (32-36) g/dL RDW Std Deviation (36.4-46.3) fL RDW Coeff of Kwabena (11.5-14.5) % Plt Count (130-400) K/uL MPV (7.4-10.4) fL Immature Gran % (Auto) % Neut % (Auto) % Lymph % (Auto) % [place] % (Auto) % Eos % (Auto) % Baso % (Auto) % Immature Gran # (Auto) (0.00-0.02) K/uL Neut # (Auto) (1.4-6.5) K/uL Lymph # (Auto) (1.2-3.4) K/uL [place] # (Auto) (0.11-0.59) K/uL Eos # (Auto) (0-0.5) K/uL Baso # (Auto) (0-0.2) K/uL PT (9.0-12.0) Seconds INR (0.9-1.1) APTT (21.0-31.0) Seconds PTT Ratio Sodium (136-145) mmol/L Potassium (3.5-5.1) mmol/L Chloride (98-107) mmol/L Carbon Dioxide (21-32) mmol/L Anion Gap (3-11) BUN (7-18) mg/dl Creatinine (0.6-1.4) mg/dl Est Cr Clr Drug Dosing ml/min Est GFR ( Amer) Est GFR (Non-Af Amer) BUN/Creatinine Ratio (10-20) Glucose (70-99) mg/dl Lactate (0.4-2.0) mmol/L Calcium (8.5-10.1) mg/dl Total Bilirubin (0.2-1) mg/dl Direct Bilirubin (0-0.2) mg/dl AST (15-37) U/L ALT (12-78) U/L Alkaline Phosphatase (45-117) U/L Total Protein (6.4-8.2) gm/dl Albumin (3.4-5.0) gm/dl Globulin (2.5-4.0) gm/dl Albumin/Globulin Ratio (0.9-2) Procalcitonin (0-0.5) ng/ml U Codeine Confrm GC/MS NEGATIVE (CUTOFF=50) NG/ML Ur Morphine (GC/MS) 834 A (CUTOFF=50) NG/ML Ur Hydrocodone (GC/MS) 124 A (CUTOFF=50) NG/ML Ur Norhydrocodone 91 A (CUTOFF=50) NG/ML Ur Noroxycodone NEGATIVE (CUTOFF=50) NG/ML Urine Oxycodone (GC/MS) NEGATIVE (CUTOFF=50) NG/ML U Oxymorphone GC/MS NEGATIVE (CUTOFF=50) NG/ML Ur Hydromorphone (GC/MS) 248 A (CUTOFF=50) NG/ML Blood Type Antibody Screen Crossmatch
[2019-02-04] MEDS: D5W AND 1/2NSS + 20MEQ KCL 20 MEQ/1,000 ML BAG IV SCH ×2 (12:52→22:27)
--- NOTE | 2019-02-04 16:11 | Hospitalist Progress Note ---
Date of Service February 04, 2019 Assessment & Plan (1) Small bowel obstruction: Developed acute abdominal pain yesterday, CT abdomen pelvis high-grade small bowel obstruction with transition point in the right upper quadrant Patient was taken emergently to the OR yesterday 02/03/2019 for exploratory laparotomy Underwent lysis of adhesion, repair of ventral hernia Patient remains in NG tube suction postoperative day 1 Other than intermittent abdominal pain the surgical site, no other complaints or discomfort, patient himself milligrams Appreciate input from GI Continue NG suction for another 24 hours, will continue to withhold anticoagulation Antibiotic adjusted Present on Admission?: No (2) Sepsis: resolved, remains stable hemodynamically WBC improved ,afebrile , possible source of infection RT sided hip/gluteal abscess s/p I&D presented with severe sepsis fever /leukocytosis elevated lactic acid source of infection rt hip gluteal abscess lactic acid level improved after aggressive IV hydration per sepsis protocol blood culture negative abscess drainage specimen culture + staph MSSA Was on vancomycin, changed to IV rocephin secondary to acute abdomen ID eval requested appreciate input (3) Abscess, gluteal, right: s/p I&D of rt gluteal abscess appreciate input from Orthopedics surgical specimen culture : staph -MSSA ABC changed to Rocephin ID following (4) H/O endocarditis: hx of MRSA endocarditis recent H influenzae bacteremia blood cultures no grwoth Abx changed to rocephin ECHO ( transthoracic ) does not show any evidence of valvular vegetation cardiology consulted appreciate input blood cultures negative as pt became afebrile , clinically improved does not recommend ANGIE at this time (5) Septic arthritis of hip: rt hip pain CT of hip shows fluid collection /abscess IMPRESSION: 1. 10.5 x 2.8 cm probable fluid collection within the right gluteus medius. Sterility cannot be assessed by CT and this could reflect an abscess or hematoma. 2. Hyperdensity within the posterior lateral aspect of the right gluteus isela which is partially imaged on this exam. This hyperdensity may reflect enhancement in the setting of infectious myositis, hemorrhage or less likely early myositis ossificans. 3. Subcutaneous infiltration and fluid of the right hip which may reflect edema or cellulitis. 4. Partially imaged hypodense fluid collection overlying the lateral aspect of the vastus lateralis that measures approximately 8.3 x 0.9 cm. 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 blood cultures negative growth this Admission (9) Confusion and disorientation: resolved due to acute metabolic encephalopathy due to sepsis /febrile response /infection mental status improved to baseline alert and awake with normal orientation conversing appropriately CODE STATUS : FULL CODE DISPOSITION : to be determined Subjective Complains of pain on anterior abdominal surgical site, pain is tolerable with intermittent IV Dilaudid Requesting for increased frequency, NG tube draining bilious material Afebrile, vitals remain stable Status post exploratory laparotomy with lysis of adhesion and repair of mesenteric defect likely contributing to internal hernia, repair of ventral hernia Recovering well postop, continue pain management Patient will be continue with NG suction Appreciate input from surgery We will continue to hold anticoagulation Coumadin, IV heparin Ordered for SCD and teds for DVT prophylaxis Mother present at base bedside updated Physical Exam Vital Signs (Past 24 Hours): Last Vital Signs Temp 37.0 C 02/04/19 12:00 Pulse 71 02/04/19 12:00 Resp 18 02/04/19 12:00 BP 138/86 02/04/19 12:00 Pulse Ox 92 02/04/19 12:00 Physical Exam: GENERAL: In distress secondary to abdominal pain, HEENT: Sclera nonicteric, Normal NG tube present draining bilious gastric suction Lungs: Clear to auscultate, no wheeze or rales Cardiovascular: Regular S1 and S2, no murmur or gallop, no JVD, no lower extremity edema Abdomen: Status post exploratory laparotomy, surgical site appears to be intact, bowel sounds diminished Extremities: No rash or deformity, normal joint, Neuro: No focal neurological deficit, no dysarthria, no facial droop Psych: Alert awake oriented x3: Euthymic Skin: No rash LYMPH NODES: No cervical lymphadenopathy (1) Sepsis Sepsis type: sepsis due to unspecified organism Qualified Code(s): A41.9 - Sepsis, unspecified organism (2) Septic arthritis of hip Laterality: right Septic arthritis organism: due to unspecified organism Qualified Code(s): M00.9 - Pyogenic arthritis, unspecified
[2019-02-05] MEDS: HYDROmorphone INJ 1 MG/ML SYRINGE IV PRN ×8 (01:52→23:10)
[2019-02-05] MEDS: LORazepam 0.5 MG/1 ML VIAL IV PRN (02:50)
[2019-02-05 04:00] LABS: Basophils # (auto) 0.02 K/uL (0-0.2); Basophils % (auto) 0.2 %; Eosinophils # (auto) 0.28 K/uL (0-0.5); Hematocrit (blood only) 34.6 % (42-52); Hemoglobin 11.9 g/dL (14.0-18.0); Immature Granulocytes # (auto) 0.07 K/uL (0.00-0.02); Immature Granulocytes % (auto) 0.8 %; Lymphocytes # (auto) 1.11 K/uL (1.2-3.4); Mean Corpuscular Hgb Conc 34.4 g/dL (32-36); Mean Corpuscular Volume 90.3 fL (80-100); Mean Platelet Volume 10.1 fL (7.4-10.4); Monocytes # (auto) 0.98 K/uL (0.11-0.59); Monocytes % (auto) 10.6 %; Neutrophils % (auto) 73.4 %; Platelet Count 202 K/uL (130-400); RDW Coefficient of Variation 14.9 % (11.5-14.5); RDW Standard Deviation 49.7 fL (36.4-46.3); Red Blood Count 3.83 M/uL (4.7-6.1); White Blood Count 9.26 K/uL (4.8-10.8)
[2019-02-05 04:08] LABS: INR 1.3 (0.9-1.1); Prothrombin Time 12.9 Seconds (9.0-12.0)
[2019-02-05 04:16] LABS: Albumin Level 2.2 gm/dl (3.4-5.0); BUN Creatinine Ratio 15.5 (10-20); Bilirubin Direct 0.1 mg/dl (0-0.2); Calcium 7.5 mg/dl (8.5-10.1); Creatinine Clr Calc Pharmacy 131.6 ml/min; Est GFR (African American) 132.1; Potassium 3.5 mmol/L (3.5-5.1)
[2019-02-05 04:19] LABS: Albumin Globulin Ratio 0.7 (0.9-2); Bilirubin,Total 0.3 mg/dl (0.2-1); Globulin 3.3 gm/dl (2.5-4.0); Total Protein 5.5 gm/dl (6.4-8.2)
[2019-02-05] MEDS: D5W AND 1/2NSS + 20MEQ KCL 20 MEQ/1,000 ML BAG IV SCH ×2 (09:13→18:15)
--- NOTE | 2019-02-05 10:50 | Surgery Progress Note ---
Date of Service February 05, 2019 Assessment & Plan (1) Small bowel obstruction: POD # 2 s/p ex lap, lysis of adhesions and repair of mesenteric defect likely contributing to internal hernia, repair of ventral hernia - vitals stable, afebrile - leukocytosis resolved - incisional pain moderate, better controlled - no return of bowel function yet - NGT with yellow/clear output, 50 cc last shift - H&H stable Plan: Continue IV DIlaudid prn pain, 1 mg q 2 hours Continue NGT to LIS Continue NPO Continue IV fluids d5w 1/2 NSS + 20 KCL @ 100 mls/hr Continue IV Zofran prn nausea Continue IV Protonix Continue IV ABX Continue ID and Ortho recs Continue medical management Hold coumadin for now SCDs for DVT prohylaxis OOB to chair , ambualte with assistance PT/OT Incentive spirometry repeat am labs Will continue to follow Dr. Acuña has seen and examined pt, agrees with above Subjective sitting up in chair upon entering room still having moderate incisional pain cold right now, shivering urinating without difficulty no gas or bowel movement but feels like he might have to pass gas "i just want to get better" pain in back of neck, itching Physical Exam Vital Signs (Past 24 Hours): Last Vital Signs Temp 36.9 C 02/05/19 07:05 Pulse 70 02/05/19 07:05 Resp 16 02/05/19 07:05 BP 142/92 H 02/05/19 07:05 Pulse Ox 97 02/05/19 07:05 Constitutional: WD/WN, vitals as above no acute distress Neck: posterior neck with some induration and erythema, no fluctuance. tender to palpation. Gastrointestinal (Abdomen): Inspection/Auscultation: abdomen normal to inspection and + abdomen distended (mild); + abnormal bowel sounds Percussion/Palpation: + abdomen tender and abdomen soft; no guarding and abdomen not rigid Skin: no rashes, warm and dry + incision (clean/dry/intact jovon present) Psychiatric: Orientation: alert and oriented x 3 Results & Data Laboratory Results 02/05/19 02/05/19 02/05/19 Range/Units 03:53 03:53 03:53 WBC 9.26 (4.8-10.8) K/uL RBC 3.83 L (4.7-6.1) M/uL Hgb 11.9 L (14.0-18.0) g/dL Hct 34.6 L (42-52) % MCV 90.3 (80-100) fL MCH 31.1 (25-34) pg MCHC 34.4 (32-36) g/dL RDW Std Deviation 49.7 H (36.4-46.3) fL RDW Coeff of Kwabena 14.9 H (11.5-14.5) % Plt Count 202 (130-400) K/uL MPV 10.1 (7.4-10.4) fL Immature Gran % (Auto) 0.8 % Neut % (Auto) 73.4 % Lymph % (Auto) 12.0 % [place] % (Auto) 10.6 % Eos % (Auto) 3.0 % Baso % (Auto) 0.2 % Immature Gran # (Auto) 0.07 H (0.00-0.02) K/uL Neut # (Auto) 6.80 H (1.4-6.5) K/uL Lymph # (Auto) 1.11 L (1.2-3.4) K/uL [place] # (Auto) 0.98 H (0.11-0.59) K/uL Eos # (Auto) 0.28 (0-0.5) K/uL Baso # (Auto) 0.02 (0-0.2) K/uL PT (9.0-12.0) Seconds INR (0.9-1.1) Sodium 138 (136-145) mmol/L Potassium 3.5 (3.5-5.1) mmol/L Chloride 105 (98-107) mmol/L Carbon Dioxide 28 (21-32) mmol/L Anion Gap 5.0 (3-11) BUN 9 (7-18) mg/dl Creatinine 0.60 (0.6-1.4) mg/dl Est Cr Clr Drug Dosing 131.6 ml/min Est GFR ( Amer) 132.1 Est GFR (Non-Af Amer) 114.0 BUN/Creatinine Ratio 15.5 (10-20) Glucose 108 H (70-99) mg/dl Calcium 7.5 L (8.5-10.1) mg/dl Total Bilirubin 0.3 (0.2-1) mg/dl Direct Bilirubin 0.1 (0-0.2) mg/dl AST 19 (15-37) U/L ALT 19 (12-78) U/L Alkaline Phosphatase 56 (45-117) U/L Total Protein 5.5 L (6.4-8.2) gm/dl Albumin 2.2 L (3.4-5.0) gm/dl Globulin 3.3 (2.5-4.0) gm/dl Albumin/Globulin Ratio 0.7 L (0.9-2) Procalcitonin 2.90 H (0-0.5) ng/ml 02/05/19 Range/Units 03:53 WBC (4.8-10.8) K/uL RBC (4.7-6.1) M/uL Hgb (14.0-18.0) g/dL Hct (42-52) % MCV (80-100) fL MCH (25-34) pg MCHC (32-36) g/dL RDW Std Deviation (36.4-46.3) fL RDW Coeff of Kwabena (11.5-14.5) % Plt Count (130-400) K/uL MPV (7.4-10.4) fL Immature Gran % (Auto) % Neut % (Auto) % Lymph % (Auto) % [place] % (Auto) % Eos % (Auto) % Baso % (Auto) % Immature Gran # (Auto) (0.00-0.02) K/uL Neut # (Auto) (1.4-6.5) K/uL Lymph # (Auto) (1.2-3.4) K/uL [place] # (Auto) (0.11-0.59) K/uL Eos # (Auto) (0-0.5) K/uL Baso # (Auto) (0-0.2) K/uL PT 12.9 H (9.0-12.0) Seconds INR 1.3 H (0.9-1.1) Sodium (136-145) mmol/L Potassium (3.5-5.1) mmol/L Chloride (98-107) mmol/L Carbon Dioxide (21-32) mmol/L Anion Gap (3-11) BUN (7-18) mg/dl Creatinine (0.6-1.4) mg/dl Est Cr Clr Drug Dosing ml/min Est GFR ( Amer) Est GFR (Non-Af Amer) BUN/Creatinine Ratio (10-20) Glucose (70-99) mg/dl Calcium (8.5-10.1) mg/dl Total Bilirubin (0.2-1) mg/dl Direct Bilirubin (0-0.2) mg/dl AST (15-37) U/L ALT (12-78) U/L Alkaline Phosphatase (45-117) U/L Total Protein (6.4-8.2) gm/dl Albumin (3.4-5.0) gm/dl Globulin (2.5-4.0) gm/dl Albumin/Globulin Ratio (0.9-2) Procalcitonin (0-0.5) ng/ml
[2019-02-05] MEDS: PANTOprazole 40 MG in SYRINGE 0 ML IV SCH (12:01)
[2019-02-05] MEDS: cefTRIAXone SODIUM 2,000 MG in DEXTROSE 5% 50 ML IV SCH (12:02)
--- NOTE | 2019-02-05 15:25 | Hospitalist Progress Note ---
Date of Service February 05, 2019 Assessment & Plan (1) Small bowel obstruction: S/P Exploratory lap, lysis of adhesions; repair of mesenteric defect; repair of ventral hernia POD # 2 Continue NG Tube Pain control NPO for now Wound Care Continue IV fluids Continue PPI, Abx Hold Coumadin for now Encourage to ambulate Appreciate Surgery Input (2) Sepsis: Presented with severe abscess Resolved WBC count normalized Possible source: Right hip/gluteal abscess s/p I&D IV fluids Blood Cultures:No growth to date Wound Culture:S[place]: MSSA IV vancomycin>>Transitioned to IV Rocephin Appreciate ID Input (3) Abscess, gluteal, right: S/P I&D Management as above (4) H/O endocarditis: H/O MRSA Endocarditis Recent H influenzae bacteremia Blood cultures: No growth to date ECHO: does not show any evidence of valvular vegetation Appreciate cardiology Input ANGIE not recommended at this time (5) Septic arthritis of hip: rt hip pain CT of hip shows fluid collection /abscess IMPRESSION: --CT Hip: 10.5 x 2.8 cm probable fluid collection within the right gluteus medius. Sterility cannot be assessed by CT and this could reflect an abscess or hematoma. Hyperdensity within the posterior lateral aspect of the right gluteus isela which is partially imaged on this exam. This hyperdensity may reflect enhancement in the setting of infectious myositis, hemorrhage or less likely early myositis ossificans. Subcutaneous infiltration and fluid of the right hip which may reflect edema or cellulitis. Partially imaged hypodense fluid collection overlying the lateral aspect of the vastus lateralis that measures approximately 8.3 x 0.9 cm. 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 endocarditis in 2011 Blood Culture: Negative (9) Confusion and disorientation: Likely metabolic encephalopathy due to sepsis Resolved DVT Px: SCDs for now Resume Coumadin as able Code Status Full Code Disposition: To be determined Subjective Patient is seen and examined at bedside Complains of abdominal pain at surgical site Also reports nausea No BM/Flatus yet Denies chest pain, SOB, dizziness Family at bedside No other complaints NG tube in place Physical Exam Vital Signs (Past 24 Hours): Last Vital Signs Temp 36.8 C 02/05/19 11:07 Pulse 81 02/05/19 11:07 Resp 18 02/05/19 11:07 BP 142/96 H 02/05/19 11:07 Pulse Ox 98 02/05/19 11:07 Physical Exam: Physical Exam: Vitals signs as noted above General Appearance:Moderately built and nourished, no apparent distress Head: normocephalic, Atraumatic Eyes: normal inspection, EOMI Neck: supple, Trachea midline Respiratory/Chest: Normal breath sounds, CTA Cardiovascular: S1, S2, + murmur Abdomen/GI:Soft, Surgical site in dressing, mild tender, decreased Bowel sounds Extremities/Musculoskelatal:normal inspection, no edema, Right hip in dressing Neurologic/Psych:AAOX3, grossly no focal neurological deficits Skin: normal color, warm Results & Data Laboratory Results Short CBC 02/05/19 Range/Units 03:53 WBC 9.26 (4.8-10.8) K/uL Hgb 11.9 L (14.0-18.0) g/dL Hct 34.6 L (42-52) % Plt Count 202 (130-400) K/uL BMP 02/05/19 03:53 Sodium 138 Potassium 3.5 Chloride 105 Carbon Dioxide 28 BUN 9 Creatinine 0.60 Glucose 108 H Calcium 7.5 L Liver Function 02/05/19 Range/Units 03:53 Total Bilirubin 0.3 (0.2-1) mg/dl Direct Bilirubin 0.1 (0-0.2) mg/dl AST 19 (15-37) U/L ALT 19 (12-78) U/L Alkaline Phosphatase 56 (45-117) U/L Albumin 2.2 L (3.4-5.0) gm/dl (1) Sepsis Sepsis type: sepsis due to unspecified organism Qualified Code(s): A41.9 - Sepsis, unspecified organism (2) Septic arthritis of hip Laterality: right Septic arthritis organism: due to unspecified organism Qualified Code(s): M00.9 - Pyogenic arthritis, unspecified
[2019-02-06] MEDS: HYDROmorphone INJ 1 MG/ML SYRINGE IV PRN ×9 (02:32→23:42)
[2019-02-06] MEDS: D5W AND 1/2NSS + 20MEQ KCL 20 MEQ/1,000 ML BAG IV SCH ×2 (04:30→14:39)
[2019-02-06 06:47] LABS: Hematocrit (blood only) 35.9 % (42-52); Hemoglobin 12.3 g/dL (14.0-18.0); Mean Corpuscular Hgb Conc 34.3 g/dL (32-36); Mean Corpuscular Volume 90.4 fL (80-100); Platelet Count 260 K/uL (130-400); RDW Coefficient of Variation 14.4 % (11.5-14.5); RDW Standard Deviation 48.1 fL (36.4-46.3); Red Blood Count 3.97 M/uL (4.7-6.1)
[2019-02-06 06:59] LABS: INR 1.4 (0.9-1.1); Prothrombin Time 14.3 Seconds (9.0-12.0)
[2019-02-06 07:26] LABS: BUN Creatinine Ratio 7.4 (10-20); Calcium 8.2 mg/dl (8.5-10.1); Creatinine Clr Calc Pharmacy 138.5 ml/min; Est GFR (African American) 134.9; Est GFR (Non-African American) 116.4; Magnesium 1.5 mg/dl (1.8-2.4); Potassium 3.7 mmol/L (3.5-5.1)
[2019-02-06] MEDS: MAGNESIUM SULFATE / D5W 1 GM/100 ML BAG IV SCH ×2 (09:24→10:27)
--- NOTE | 2019-02-06 12:18 | Infectious Disease Progress Nt ---
Date of Service February 06, 2019 Assessment & Plan (1) Abscess, gluteal, right: continue rocephin, will likely need 6 weeks of IV abx, blood cultures negative. will need weekly cbc,cmp, esr while on abx. can follow with ID post d/c from hospital. (2) Sepsis: Subjective remains on rocephin, tolerating well. no f/c. awaiting return of bowel function. blood cultures negative and final. wbc 11 today, afebrile. Physical Exam Vital Signs (Past 24 Hours): Last Vital Signs Temp 36.9 C 02/06/19 07:42 Pulse 82 02/06/19 07:42 Resp 20 02/06/19 07:42 BP 127/85 02/06/19 07:42 Pulse Ox 95 02/06/19 07:42 Results & Data Laboratory Results Microbiology 02/01/19 Unknown Hip,Right Gram Stain - Final 02/01/19 Unknown Hip,Right Aerobic and Anaerobic Culture - Final Staphylococcus aureus 02/01/19 Unknown Hip,Right Gram Stain - Final 02/01/19 Unknown Hip,Right Aerobic and Anaerobic Culture - Final Staphylococcus aureus 02/01/19 Unknown Hip Gram Stain - Final 02/01/19 Unknown Hip Aerobic and Anaerobic Culture - Preliminary No growth to date. 02/01/19 11:40 Buttock Gram Stain - Final 02/01/19 11:40 Buttock Aerobic and Anaerobic Culture - Final Staphylococcus aureus 01/31/19 20:15 Blood Blood Culture - Final No growth 01/31/19 19:33 Blood Blood Culture - Final No growth (1) Sepsis Sepsis type: sepsis due to unspecified organism Qualified Code(s): A41.9 - Sepsis, unspecified organism
[2019-02-06] MEDS: cefTRIAXone SODIUM 2,000 MG in DEXTROSE 5% 50 ML IV SCH (12:26)
[2019-02-06] MEDS: PANTOprazole 40 MG in SYRINGE 0 ML IV SCH (12:26)
[2019-02-06] MEDS ORDERED: POLYETHYLENE (MIRALAX) 17 GM PACK NG ONE (12:30)
--- NOTE | 2019-02-06 12:35 | Surgery Progress Note ---
Date of Service February 06, 2019 Assessment & Plan (1) Small bowel obstruction: POD # 3 s/p ex lap, lysis of adhesions and repair of mesenteric defect likely contributing to internal hernia, repair of ventral hernia - vitals stable, afebrile - H&H stable 12.3/35.9 - incisional pain moderate, better controlled today - no return of bowel function yet - NGT dark brown output in canister, 50 cc last shift, 50 cc last 24 hours Plan: Continue IV DIlaudid prn pain, 1 mg q 2 hours Continue NGT to LIS Continue NPO Miralax via NGT today Continue IV fluids d5w 1/2 NSS + 20 KCL @ 100 mls/hr Continue IV Zofran prn nausea Continue IV Protonix Continue IV ABX Continue ID and Ortho recs Continue medical management may start coumadin, Lovenox for bridging 30 subq until INR therapeutic SCDs for DVT prophylaxis OOB to chair , ambulate with assistance PT/OT Incentive spirometry repeat am labs Will continue to follow Dr. Aguayo has seen and examined pt, agrees with above Subjective feeling better today still not passing any flatus abdominal pain better today but still present went for walk in hallway this morning no nausea or vomiting no chest pain or shortness of breath Physical Exam Vital Signs (Past 24 Hours): Last Vital Signs Temp 36.9 C 02/06/19 07:42 Pulse 82 02/06/19 07:42 Resp 20 02/06/19 07:42 BP 127/85 02/06/19 07:42 Pulse Ox 95 02/06/19 07:42 Constitutional: WD/WN, vitals as above no acute distress Respiratory: normal respiratory effort; no respiratory distress Gastrointestinal (Abdomen): Inspection/Auscultation: + abdomen distended (mild); + abnormal bowel sounds Percussion/Palpation: + abdomen tender (at incision site appropriate post op) and abdomen soft; no guarding and abdomen not rigid Skin: skin warm and dry rash posterior neck Psychiatric: A+Ox3, euthymic affect Results & Data Laboratory Results 02/06/19 02/06/19 02/06/19 Range/Units 06:22 06:22 06:22 WBC 11.20 H (4.8-10.8) K/uL RBC 3.97 L (4.7-6.1) M/uL Hgb 12.3 L (14.0-18.0) g/dL Hct 35.9 L (42-52) % MCV 90.4 (80-100) fL MCH 31.0 (25-34) pg MCHC 34.3 (32-36) g/dL RDW Std Deviation 48.1 H (36.4-46.3) fL RDW Coeff of Kwabena 14.4 (11.5-14.5) % Plt Count 260 (130-400) K/uL MPV 10.0 (7.4-10.4) fL PT 14.3 H (9.0-12.0) Seconds INR 1.4 H (0.9-1.1) Sodium 138 (136-145) mmol/L Potassium 3.7 (3.5-5.1) mmol/L Chloride 105 (98-107) mmol/L Carbon Dioxide 28 (21-32) mmol/L Anion Gap 5.0 (3-11) BUN 4 L D (7-18) mg/dl Creatinine 0.57 L (0.6-1.4) mg/dl Est Cr Clr Drug Dosing 138.5 ml/min Est GFR ( Amer) 134.9 Est GFR (Non-Af Amer) 116.4 BUN/Creatinine Ratio 7.4 L (10-20) Glucose 112 H (70-99) mg/dl Calcium 8.2 L (8.5-10.1) mg/dl Magnesium 1.5 L (1.8-2.4) mg/dl
[2019-02-06] MEDS: EUCERIN CR 120 GM JAR EXT PRN (13:16)
[2019-02-06] MEDS: ENOXAPARIN INJ 30 MG/0.3 ML SYR SQ SCH (13:42)
[2019-02-06] MEDS ORDERED: WARFARIN SOD 5 MG TAB PO SCH (16:00)
--- NOTE | 2019-02-06 16:23 | Hospitalist Progress Note ---
Date of Service February 06, 2019 Assessment & Plan (1) Small bowel obstruction: S/P Exploratory lap, lysis of adhesions; repair of mesenteric defect; repair of ventral hernia POD # 3 Continue NG Tube Pain control NPO for now Wound Care Continue IV fluids Continue PPI, Abx Resume coumadin today--discussed with surgery Encourage to ambulate Appreciate Surgery Input (2) Sepsis: Presented with severe abscess Resolved Possible source: Right hip/gluteal abscess s/p I&D IV fluids Blood Cultures:No growth to date Wound Culture:Stah: MSSA IV vancomycin>>Transitioned to IV Rocephin Appreciate ID Input Needs 6 weeks of IV Abx Needs FU with ID upon discharge Plan for Midline placement as able (3) Abscess, gluteal, right: S/P I&D Management as above (4) H/O endocarditis: H/O MRSA Endocarditis Recent H influenza bacteremia Blood cultures: No growth to date ECHO: does not show any evidence of valvular vegetation Appreciate cardiology Input ANGIE not recommended at this time (5) Septic arthritis of hip: rt hip pain CT of hip shows fluid collection /abscess IMPRESSION: --CT Hip: 10.5 x 2.8 cm probable fluid collection within the right gluteus medius. Sterility cannot be assessed by CT and this could reflect an abscess or hematoma. Hyperdensity within the posterior lateral aspect of the right gluteus isela which is partially imaged on this exam. This hyperdensity may reflect enhancement in the setting of infectious myositis, hemorrhage or less likely early myositis ossificans. Subcutaneous infiltration and fluid of the right hip which may reflect edema or cellulitis. Partially imaged hypodense fluid collection overlying the lateral aspect of the vastus lateralis that measures a pproximately 8.3 x 0.9 cm. 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 Blood Culture: Negative (9) Confusion and disorientation: Likely metabolic encephalopathy due to sepsis Resolved DVT Px: On Coumadin Also on Loenox SQ till INR is therapeutic Code Status Full Code Disposition: To be determined Subjective Patient is seen and examined at bedside Abd pain is better Still No BM/Flatus yet Denies chest pain, SOB, dizziness Rash noted on neck/occipital region No other complaints Physical Exam Vital Signs (Past 24 Hours): Last Vital Signs Temp 36.5 C 02/06/19 15:11 Pulse 84 02/06/19 15:11 Resp 20 02/06/19 15:11 BP 145/88 H 02/06/19 15:11 Pulse Ox 100 02/06/19 15:11 Physical Exam: Physical Exam: Vitals signs as noted above General Appearance:Moderately built and nourished, no apparent distress Head: normocephalic, Atraumatic Eyes: normal inspection, EOMI Neck: supple, Trachea midline Respiratory/Chest: Normal breath sounds, CTA Cardiovascular: S1, S2, + murmur Abdomen/GI:Soft, Surgical site in dressing, mild tender at surgical site, decreased Bowel sounds Extremities/Musculoskelatal:normal inspection, no edema, Right hip in dressing Neurologic/Psych:AAOX3, grossly no focal neurological deficits Skin: normal color, warm Results & Data Laboratory Results Short CBC 02/06/19 Range/Units 06:22 WBC 11.20 H (4.8-10.8) K/uL Hgb 12.3 L (14.0-18.0) g/dL Hct 35.9 L (42-52) % Plt Count 260 (130-400) K/uL BMP 02/06/19 06:22 Sodium 138 Potassium 3.7 Chloride 105 Carbon Dioxide 28 BUN 4 L D Creatinine 0.57 L Glucose 112 H Calcium 8.2 L (1) Sepsis Sepsis type: sepsis due to unspecified organism Qualified Code(s): A41.9 - Sepsis, unspecified organism (2) Septic arthritis of hip Laterality: right Septic arthritis organism: due to unspecified organism Qualified Code(s): M00.9 - Pyogenic arthritis, unspecified
[2019-02-07] MEDS: D5W AND 1/2NSS + 20MEQ KCL 20 MEQ/1,000 ML BAG IV SCH ×3 (00:55→21:32)
[2019-02-07] MEDS: LORazepam 0.5 MG/1 ML VIAL IV PRN ×3 (03:01→21:31)
[2019-02-07 04:23] LABS: Basophils # (auto) 0.03 K/uL (0-0.2); Basophils % (auto) 0.2 %; Eosinophils # (auto) 0.52 K/uL (0-0.5); Eosinophils % (auto) 4.2 %; Hemoglobin 11.9 g/dL (14.0-18.0); Immature Granulocytes # (auto) 0.45 K/uL (0.00-0.02); Immature Granulocytes % (auto) 3.7 %; Lymphocytes # (auto) 1.06 K/uL (1.2-3.4); Lymphocytes % (auto) 8.6 %; Mean Corpuscular Volume 89.7 fL (80-100); Mean Platelet Volume 9.7 fL (7.4-10.4); Monocytes # (auto) 1.17 K/uL (0.11-0.59); Monocytes % (auto) 9.5 %; Neutrophils # (auto) 9.04 K/uL (1.4-6.5); Neutrophils % (auto) 73.8 %; Platelet Count 316 K/uL (130-400); RDW Coefficient of Variation 14.2 % (11.5-14.5); RDW Standard Deviation 47.1 fL (36.4-46.3); Red Blood Count 3.79 M/uL (4.7-6.1); White Blood Count 12.27 K/uL (4.8-10.8)
[2019-02-07 04:34] LABS: INR 1.9 (0.9-1.1); Prothrombin Time 18.8 Seconds (9.0-12.0)
[2019-02-07 04:41] LABS: BUN Creatinine Ratio 8.9 (10-20); Calcium 8.1 mg/dl (8.5-10.1); Est GFR (African American) 135.9; Est GFR (Non-African American) 117.3; Magnesium 1.7 mg/dl (1.8-2.4); Potassium 3.8 mmol/L (3.5-5.1)
[2019-02-07] MEDS: ENOXAPARIN INJ 30 MG/0.3 ML SYR SQ SCH (07:50)
[2019-02-07] MEDS: HYDROmorphone INJ 1 MG/ML SYRINGE IV PRN ×2 (07:50→10:51)
[2019-02-07] MEDS ORDERED: MAGNESIUM SULFATE / D5W 1 GM/100 ML BAG IV ONE (09:30)
[2019-02-07] MEDS: PANTOprazole 40 MG in SYRINGE 0 ML IV SCH (10:52)
[2019-02-07] MEDS: cefTRIAXone SODIUM 2,000 MG in DEXTROSE 5% 50 ML IV SCH (10:52)
--- NOTE | 2019-02-07 10:53 | Procedure Note ---
Procedure Note Date of Service February 07, 2019 Procedure date: Noted above Procedure: Central venous access Pre-procedure indication: Poor vascular access, need for 6 weeks IV antibiotics Post-procedure Diagnosis: same as above Prior to Procedure: Informed Consent: The risks, benefits, indications, potential complications, and alternatives were explained to the patient and informed consent obtained. Attending Staff: Elvin Cruz DO Resident/APC: Nohelia MOORE Skin Prep: Chlorhexidine Anesthesia: 4 mL 1% lidocaine without epinephrine The identity of the patient was confirmed and a bedside time out was performed. Description of Procedure: After sterile prep and sterile drape utilizing standard sterile technique the superficial skin of the right internal jugular area was anesthetized. The target vessel was identified and entered with an 18- gauge needle. Dark venous blood return was noted. A guidewire was inserted thr ough the needle and into the vessel. The needle was withdrawn and a skin maged was made. A tissue dilator was advanced via Seldinger technique and removed. A single lumen catheter was inserted via Seldinger technique and the guidewire removed. All ports vance and flushed easily. A Biopatch was placed, and the catheter was secured via commercial securement device. A sterile dressing was then applied. 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 Procedure Date: Noted Above Procedure: Procedural Ultrasound Indication: Central venous access Attending: Elvin Cruz DO Resident/Physician On Air Host: Nohelia MOORE Artery visualized: Yes Vein visualized: Yes Compressible Vein: Yes Vein patent: Yes Guidewire or Short Catheter seen in vein prior to dilation: Yes Line confirmed in Vein with ultrasound: Yes Lung Sliding on side of attempt (if applicable): NA If no lung sliding or not obtained has CXR been ordered: Yes Impression: Successful central venous access placement Images obtained are saved for permanent record
--- NOTE | 2019-02-07 11:03 | XRay Report ---
XR chest 1V portable HISTORY: Right IJ central line insertion COMPARISON: Chest 01/31/2019. FINDINGS: Right jugular central venous catheter terminates in the expected location of the SVC. This tip is likely obscured by the right-sided pacemaker wires. Nasogastric tube terminates within the pro ximal stomach. Post sternotomy changes and a cardiac valve prosthesis are again noted. No pneumothora x. Small right pleural effusion and bibasilar linear densities are noted. No evidence for pulmonary e vasile. The heart remains mildly enlarged. IMPRESSION: 1. The tip of the right jugular central catheter is difficult to identify but likely resides within t he SVC. 2. Nasogastric tube terminates in the proximal stomach. 3. Small right pleural effusion. 4. Bibasilar linear densities favor subsegmental atelectasis. Electronically signed by: Denis Barbour M.D. 02/07/2019 11:01 AM
--- NOTE | 2019-02-07 11:06 | Surgery Progress Note ---
Date of Service February 07, 2019 Assessment & Plan (1) Small bowel obstruction: POD # 4 s/p ex lap, lysis of adhesions and repair of mesenteric defect likely contributing to internal hernia, repair of ventral hernia - vitals stable, afebrile - H&H stable 12.3/35.9 - leukocytosis of 12k today - post op pain persistent - no return of bowel function yet - NGT green in canister, 100 cc last shift Plan: Will order stat CT scan of abd and pelvis with oral contrast via NGT Consider Periperhal nutrition as he is now 6 days without oral intake Continue IV DIlaudid prn pain, 1 mg q 2 hours Continue NGT to LIS Continue NPO Continue IV fluids d5w 1/2 NSS + 20 KCL @ 100 mls/hr Continue IV Zofran prn nausea Continue IV Protonix Continue IV ABX Continue ID and Ortho recs Continue medical management Continue coumadin, Lovenox for bridging 30 subq until INR therapeutic SCDs for DVT prophylaxis OOB to chair , ambulate with assistance PT/OT Incentive spirometry repeat am labs Will continue to follow Subjective still not feeing great still no return of bowel function and is getting frustrated not passing flatus feels bloated still having abdominal pain Physical Exam Vital Signs (Past 24 Hours): Last Vital Signs Temp 37.1 C 02/07/19 07:14 Pulse 91 H 02/07/19 07:14 Resp 20 02/07/19 07:14 BP 121/80 02/07/19 07:14 Pulse Ox 93 02/07/19 07:14 Constitutional: WD/WN, vitals as above no acute distress and not ill appearing Respiratory: normal respiratory effort; no respiratory distress Gastrointestinal (Abdomen): Inspection/Auscultation: + abdomen distended; + abnormal bowel sounds Percussion/Palpation: + abdomen tender, + guarding and abdomen soft; abdomen not rigid Skin: no rashes, warm and dry + incision (clean/dry/intact, no erythema, some mild ecchymosis) Psychiatric: A+Ox3, euthymic affect Results & Data Laboratory Results 02/07/19 02/07/19 02/07/19 Range/Units 03:58 03:58 03:58 WBC 12.27 H (4.8-10.8) K/uL RBC 3.79 L (4.7-6.1) M/uL Hgb 11.9 L (14.0-18.0) g/dL Hct 34.0 L (42-52) % MCV 89.7 (80-100) fL MCH 31.4 (25-34) pg MCHC 35.0 (32-36) g/dL RDW Std Deviation 47.1 H (36.4-46.3) fL RDW Coeff of Kwabena 14.2 (11.5-14.5) % Plt Count 316 (130-400) K/uL MPV 9.7 (7.4-10.4) fL Immature Gran % (Auto) 3.7 % Neut % (Auto) 73.8 % Lymph % (Auto) 8.6 % Ple[place] % (Auto) 9.5 % Eos % (Auto) 4.2 % Baso % (Auto) 0.2 % Immature Gran # (Auto) 0.45 H (0.00-0.02) K/uL Neut # (Auto) 9.04 H (1.4-6.5) K/uL Lymph # (Auto) 1.06 L (1.2-3.4) K/uL [place] # (Auto) 1.17 H (0.11-0.59) K/uL Eos # (Auto) 0.52 H (0-0.5) K/uL Baso # (Auto) 0.03 (0-0.2) K/uL PT 18.8 H (9.0-12.0) Seconds INR 1.9 H (0.9-1.1) Sodium 136 (136-145) mmol/L Potassium 3.8 (3.5-5.1) mmol/L Chloride 105 (98-107) mmol/L Carbon Dioxide 25 (21-32) mmol/L Anion Gap 6.0 (3-11) BUN 5 L (7-18) mg/dl Creatinine 0.56 L (0.6-1.4) mg/dl Est Cr Clr Drug Dosing 141.0 ml/min Est GFR ( Amer) 135.9 Est GFR (Non-Af Amer) 117.3 BUN/Creatinine Ratio 8.9 L (10-20) Glucose 102 H (70-99) mg/dl Calcium 8.1 L (8.5-10.1) mg/dl Magnesium 1.7 L (1.8-2.4) mg/dl
[2019-02-07] MEDS: ACETAMINOPHEN 1,000 MG/100 ML VIAL IV PRN ×2 (14:06→21:31)
--- NOTE | 2019-02-07 14:16 | CT Scan Report ---
CT abd pelvis oral con only CLINICAL HISTORY: Abdominal distention and leukocytosis. Postop day #4. COMPARISON STUDY: 02/03/2019 TECHNIQUE: The patient was scanned following administration of dilute oral contrast. No intravenous c ontrast was administered. A dose lowering technique was utilized adhering to the principles of ALARA . CT DOSE: 1059.29 mGycm FINDINGS: Lower chest: There is a trace left pleural effusion. There are basilar airspace opacities statistical ly atelectatic. The heart is mildly enlarged. Liver: The contrast-enhanced liver is normal in size, contour, and attenuation. There is no intrahepa tic biliary ductal dilatation. The hepatic veins and portal veins are patent. Gallbladder: Unremarkable. Spleen: Normal in size and attenuation. Pancreas: Unremarkable. Adrenal glands: Unremarkable. Kidneys: There is symmetric renal cortical enhancement. The kidneys are normal in size without hydron ephrosis. Bowel: There are distended fluid-filled loops of small bowel. The distal small bowel is of normal elaine iber. Contrast is visualized within the right colon, however this may be pre-existing.. The findings are indicative of a focal ileus versus partial small bowel obstruction. Peritoneum: No free air is visualized. There is a small amount of pelvic ascites. There is a small mcmullen praumbilical fat and fluid anterior ventral hernia. There is increased density of the subjacent perit llamas fat, likely secondary to infarction or inflammatory change. There are postsurgical changes pres ent within the anterior abdominal wall. There is a droplet of air within the rectus sheath likely pos tsurgical. Vasculature: The abdominal aorta is normal in course and caliber. Adenopathy: None. Pelvic viscera: There is air within the bladder, likely iatrogenic. There is mild bladder wall thicke alonso. There are postsurgical changes of a right inguinal hernia repair. Skeletal structures: No destructive osseous lesions are seen. There are foci of increased density wit hin the gluteus muscles, possibly representing areas of hemorrhage. There is adjacent edema. IMPRESSION: 1. A interval surgery for a small bowel obstruction 2. Persistent fluid-filled dilated proximal mid small bowel loops with normal caliber distal small pretty wel. The findings are consistent with a persistent bowel obstruction or postsurgical ileus. Continued clinical and/or imaging follow-up will be necessary. 3. No evidence of intra-abdominal abscess (given the limitations of a noncontrast study) 4. Small amount of free fluid. Electronically signed by: Steven Marie M.D. 02/07/2019 2:14 PM
[2019-02-07] MEDS ORDERED: SOD PHOSPHATE/SOD BIPHOSPHATE ENEMA 132 ML BTL PR STA (14:53)
[2019-02-07] MEDS: METOCLOPRAMIDE HCL INJ 5 MG/ML 2 ML VIAL IV SCH ×2 (15:47→23:58)
--- NOTE | 2019-02-07 15:56 | Hospitalist Progress Note ---
Date of Service February 07, 2019 Assessment & Plan (1) Small bowel obstruction: S/P Exploratory lap, lysis of adhesions; repair of mesenteric defect; repair of ventral hernia POD # 4 Persistent bowel obstruction/Postsurgical Ileus --02/07/19: CT ABD:Persistent fluid-filled dilated proximal mid small bowel loops with normal caliber distal small bowel. The findings are consistent with a persistent bowel obstruction or postsurgical ileus. Continued clinical and/or imaging follow-up will be necessary. No evidence of intra-abdominal abscess. Small amount of free fluid. --Continue NG Tube Minimize Narcotic pain meds as able NPO for now Wound Care Continue IV fluids Continue PPI, Abx Encourage to ambulate Appreciate Surgery Input (2) Sepsis: Presented with severe abscess Resolved Possible source: Right hip/gluteal abscess s/p I&D IV fluids Blood Cultures:No growth to date Wound Culture:Stah: MSSA IV vancomycin>>Transitioned to IV Rocephin Had Central Line placement Appreciate ID Input Needs 6 weeks of IV Abx Needs FU with ID upon discharge (3) Abscess, gluteal, right: S/P I&D Management as above (4) H/O endocarditis: H/O MRSA Endocarditis Recent H influenza bacteremia Blood cultures: No growth to date ECHO: does not show any evidence of valvular vegetation Appreciate cardiology Input ANGIE not recommended at this time (5) Septic arthritis of hip: rt hip pain CT of hip shows fluid collection /abscess IMPRESSION: --CT Hip: 10.5 x 2.8 cm probable fluid collection within the right gluteus medius. Sterility cannot be assessed by CT and this could reflect an abscess or hematoma. Hyperdensity within the posterior lateral aspect of the right gluteus isela which is partially imaged on this exam. This hyperdensity may reflect enhancement in the setting of infectious myositis, hemorrhage or less likely early myositis ossificans. Subcutaneous infiltration and fluid of the right hip which may reflect edema or cellulitis. Partially imaged hypodense fluid collection overlying the lateral aspect of the vastus lateralis that measures approximately 8.3 x 0.9 cm. --Appreciate Orthopedics/ID Input --S/P I &D --Wound Cx:Staph aureus /MSSA --Abx as above --Needs 6 weeks of IV Abx; Needs FU with ID upon discharge (6) History of alcohol abuse: Denies of any recent alchohol intake Ativan PRN H/O DVT: Resume Coumadin as able Monitor INR: 1.9 (7) NSTEMI (non-ST elevated myocardial infarction): Elevated troponin possible demand ischemia Type 2 NSTEMI in setting of sepsis /infection ECHO shows no evidence of wall motion abnormality no evidence of ACS (8) H/O aortic valve replacement: In [facility] for congenital anomaly in 2010 MRSA endocarditis in 2011 Blood Culture: Negative (9) Confusion and disorientation: Likely metabolic encephalopathy due to sepsis Resolved DVT Px: Coumadin on hold Continue Lovenox SQ till INR is therapeutic Code Status Full Code Disposition: To be determined Subjective Patient is seen and examined at bedside Abd pain is unchanged, feels bloated No BM/Flatus Discussed with Surgery today Denies chest pain, SOB, dizziness, nausea, vomiting No other complaints Had Central Line placement Physical Exam Vital Signs (Past 24 Hours): Last Vital Signs Temp 37 C 02/07/19 14:30 Pulse 81 02/07/19 14:30 Resp 16 02/07/19 14:30 BP 116/46 L 02/07/19 14:30 Pulse Ox 99 02/07/19 14:30 Physical Exam: Physical Exam: Vitals signs as noted above General Appearance:Moderately built and nourished, no apparent distress Head: normocephalic, Atraumatic Eyes: normal inspection, EOMI Neck: supple, Trachea midline Respiratory/Chest: Normal breath sounds, CTA Cardiovascular: S1, S2, + murmur Abdomen/GI:Soft, mild tender at surgical site, decreased Bowel sounds Extremities/Musculoskelatal:normal inspection, no edema, Right hip in dressing Neurologic/Psych:AAOX3, grossly no focal neurological deficits Skin: normal color, warm Results & Data Laboratory Results Short CBC 02/07/19 Range/Units 03:58 WBC 12.27 H (4.8-10.8) K/uL Hgb 11.9 L (14.0-18.0) g/dL Hct 34.0 L (42-52) % Plt Count 316 (130-400) K/uL BMP 02/07/19 03:58 Sodium 136 Potassium 3.8 Chloride 105 Carbon Dioxide 25 BUN 5 L Creatinine 0.56 L Glucose 102 H Calcium 8.[address] ABD: 1. A interval surgery for a small bowel obstruction 2. Persistent fluid-filled dilated proximal mid small bowel loops with normal caliber distal small bowel. The findings are consistent with a persistent bowel obstruction or postsurgical ileus. Continued clinical and/or imaging follow-up will be necessary. 3. No evidence of intra-abdominal abscess (given the limitations of a noncontrast study) 4. Small amount of free fluid. (1) Sepsis Sepsis type: sepsis due to unspecified organism Qualified Code(s): A41.9 - Sepsis, unspecified organism (2) Septic arthritis of hip Laterality: right Septic arthritis organism: due to unspecified organism Qualified Code(s): M00.9 - Pyogenic arthritis, unspecified
[2019-02-08] MEDS: LORazepam 0.5 MG/1 ML VIAL IV PRN ×4 (01:20→14:12)
[2019-02-08 06:23] LABS: INR 3.1 (0.9-1.1); Prothrombin Time 29.6 Seconds (9.0-12.0)
[2019-02-08 06:28] LABS: BUN Creatinine Ratio 9.3 (10-20); Calcium 8.3 mg/dl (8.5-10.1); Creatinine Clr Calc Pharmacy 108.2 ml/min; Est GFR (African American) 121.9; Est GFR (Non-African American) 105.2; Magnesium 1.9 mg/dl (1.8-2.4); Potassium 3.9 mmol/L (3.5-5.1)
[2019-02-08 06:29] LABS: Phosphorus 4.2 mg/dl (2.5-4.9)
[2019-02-08 06:53] LABS: Hematocrit (blood only) 36.8 % (42-52); Mean Corpuscular Hgb Conc 35.3 g/dL (32-36); Mean Corpuscular Volume 90.2 fL (80-100); Mean Platelet Volume 10.2 fL (7.4-10.4); Platelet Count 414 K/uL (130-400); RDW Coefficient of Variation 14.4 % (11.5-14.5); RDW Standard Deviation 47.7 fL (36.4-46.3); Red Blood Count 4.08 M/uL (4.7-6.1)
[2019-02-08] MEDS: METOCLOPRAMIDE HCL INJ 5 MG/ML 2 ML VIAL IV SCH (07:13)
[2019-02-08] MEDS: D5W AND 1/2NSS + 20MEQ KCL 20 MEQ/1,000 ML BAG IV SCH ×2 (08:03→17:20)
[2019-02-08] MEDS: PANTOprazole 40 MG in SYRINGE 0 ML IV SCH (08:04)
[2019-02-08] MEDS: ENOXAPARIN INJ 30 MG/0.3 ML SYR SQ SCH (08:04)
[2019-02-08] MEDS ORDERED: [UNRECOGNIZED DRUG - REMARK] PO SCH (09:00)
[2019-02-08] MEDS ORDERED: METHYLPHENIDATE HCL 10 MG TABLET PO SCH ×2 (09:30→09:45)
[2019-02-08] MEDS: cefTRIAXone SODIUM 2,000 MG in DEXTROSE 5% 50 ML IV SCH (10:26)
[2019-02-08] MEDS: METHYLPHENIDATE HCL 10 MG TABLET PO SCH ×2 (10:27→21:09)
--- NOTE | 2019-02-08 10:42 | Surgery Progress Note ---
Date of Service February 08, 2019 Assessment & Plan (1) Small bowel obstruction: POD # 5 s/p ex lap, lysis of adhesions and repair of mesenteric defect likely contributing to internal hernia, repair of ventral hernia - vitals stable, afebrile - H&H stable 13.0/36.8 - leukocytosis of 12k today, stable - Repeat CT scan with dilated small bowel concern for continued SBO vs Ileus - +flatus and + BM after fleet enema - NGT bilious output 400 cc last 8 hour shift - abdomen is soft, less distended today INR 3.1 today Depressed Plan: Patient ready to leave AMA today, discussed with patient that he is improving but slowly. Now that he is passing flatus and had a bowel movement plan to discontinue NGT and start liquids. Patient stated he was still going home this afternoon. Discussed we could restart his home Ritalin and antidepressants. Highly recommended patient stay until we can advance his diet further and continue monitoring him. Hopefully starting clear liquids and starting his home medications his mood will stabilize and he will not leave AMA. He also needs 6 weeks of IV Antibiotics for right hip/buttock infection. Continue IV Dilaudid/ IV Tylenol prn pain, limit narcotics, will add oral Percocet and Tylenol prn pain since starting liquids NGT discontinued, start clear liquids advised to take them slowly Continue IV fluids d5w 1/2 NSS + 20 KCL @ 100 mls/hr Continue IV Zofran prn nausea Continue IV Protonix Continue IV ABX Continue ID and Ortho recs Continue medical management Hold Lovenox and Coumadin, monitor INR SCDs for DVT prophylaxis OOB to chair , ambulate with assistance Continue PT/OT Incentive spirometry repeat am labs once taking oral well can transition Protonix to oral and decrease IV fluids Dr. Vaughan covering this weekend Dr. Aguayo has seen and examined pt, agrees with above. Subjective " I am leaving today, I cannot sit here any do this anymore" passing flatus, had bowel movement after fleet enema yesterday feels like her might need to have another bowel movement this morning wants something to eat feeling depressed "I am getting a ride home today" Physical Exam Vital Signs (Past 24 Hours): Last Vital Signs Temp 36.8 C 02/08/19 07:21 Pulse 89 02/08/19 07:21 Resp 20 02/08/19 07:21 BP 109/75 02/08/19 07:21 Pulse Ox 96 02/08/19 07:21 Constitutional: WD/WN, vitals as above no acute distress and no altered mental status Neck: Right IJ central catheter in place with dressing. Some blood under dressing, no erythema or edema Respiratory: normal respiratory effort; no respiratory distress Gastrointestinal (Abdomen): Inspection/Auscultation: abdomen normal to inspection; abdomen not distended Percussion/Palpation: + abdomen tender and abdomen soft; no guarding and abdomen not rigid Skin: no rashes, warm and dry + incision (clean/dry/intact, jovon intact) Psychiatric: Orientation: alert and oriented x 3 Affect: + flat affect Mood: + depressed mood, + anxious mood and + irritable mood Results & Data Laboratory Results 02/08/19 02/08/19 02/08/19 Range/Units 05:31 05:31 05:31 WBC 12.20 H (4.8-10.8) K/uL RBC 4.08 L (4.7-6.1) M/uL Hgb 13.0 L (14.0-18.0) g/dL Hct 36.8 L (42-52) % MCV 90.2 (80-100) fL MCH 31.9 (25-34) pg MCHC 35.3 (32-36) g/dL RDW Std Deviation 47.7 H (36.4-46.3) fL RDW Coeff of Kwabena 14.4 (11.5-14.5) % Plt Count 414 H (130-400) K/uL MPV 10.2 (7.4-10.4) fL PT 29.6 H (9.0-12.0) Seconds INR 3.1 H (0.9-1.1) Sodium 138 (136-145) mmol/L Potassium 3.9 (3.5-5.1) mmol/L Chloride 107 (98-107) mmol/L Carbon Dioxide 27 (21-32) mmol/L Anion Gap 4.0 (3-11) BUN 7 (7-18) mg/dl Creatinine 0.73 (0.6-1.4) mg/dl Est Cr Clr Drug Dosing 108.2 ml/min Est GFR ( Amer) 121.9 Est GFR (Non-Af Amer) 105.2 BUN/Creatinine Ratio 9.3 L (10-20) Glucose 109 H (70-99) mg/dl Calcium 8.3 L (8.5-10.1) mg/dl Phosphorus 4.2 (2.5-4.9) mg/dl Magnesium 1.9 (1.8-2.4) mg/dl Diagnostic Findings CT abd pelvis oral con only CLINICAL HISTORY: Abdominal distention and leukocytosis. Postop day #4. COMPARISON STUDY: 02/03/2019 TECHNIQUE: The patient was scanned following administration of dilute oral contrast. No intravenous contrast was administered. A dose lowering technique was utilized adhering to the principles of ALARA. CT DOSE: 1059.29 mGycm FINDINGS: Lower chest: There is a trace left pleural effusion. There are basilar airspace opacities statistically atelectatic. The heart is mildly enlarged. Liver: The contrast-enhanced liver is normal in size, contour, and attenuation. There is no intrahepatic biliary ductal dilatation. The hepatic veins and portal veins are patent. Gallbladder: Unremarkable. Spleen: Normal in size and attenuation. Pancreas: Unremarkable. Adrenal glands: Unremarkable. Kidneys: There is symmetric renal cortical enhancement. The kidneys are normal in size without hydronephrosis. Bowel: There are distended fluid-filled loops of small bowel. The distal small bowel is of normal caliber. Contrast is visualized within the right colon, however this may be pre-existing.. The findings are indicative of a focal ileus versus partial small bowel obstruction. Peritoneum: No free air is visualized. There is a small amount of pelvic ascites. There is a small supraumbilical fat and fluid anterior ventral hernia. There is increased density of the subjacent peritoneal fat, likely secondary to infarction or inflammatory change. There are postsurgical changes present within the anterior abdominal wall. There is a droplet of air within the rectus sheath likely postsurgical. Vasculature: The abdominal aorta is normal in course and caliber. Adenopathy: None. Pelvic viscera: There is air within the bladder, likely iatrogenic. There is mild bladder wall thickening. There are postsurgical changes of a right inguinal hernia repair. Skeletal structures: No destructive osseous lesions are seen. There are foci of increased density within the gluteus muscles, possibly representing areas of hemorrhage. There is adjacent edema. IMPRESSION: 1. A interval surgery for a small bowel obstruction 2. Persistent fluid-filled dilated proximal mid small bowel loops with normal caliber distal small bowel. The findings are consistent with a persistent bowel obstruction or postsurgical ileus. Continued clinical and/or imaging follow-up will be necessary. 3. No evidence of intra-abdominal abscess (given the limitations of a noncontrast study) 4. Small amount of free fluid.
[2019-02-08] MEDS ORDERED: ACETAMINOPHEN 325 MG TAB PO PRN (10:54)
[2019-02-08] MEDS ORDERED: OXYCODONE/ACETAMINOPHEN 5mg/325mg TAB PO PRN ×2 (10:54)
[2019-02-08] MEDS: PARoxetine HCl 20 MG TAB PO SCH (12:02)
[2019-02-08] MEDS ORDERED: ALUMINUM/MAGNESIUM/SIMETH (MAALOX MAX) 30 ML UDC PO PRN (17:03)
[2019-02-08] MEDS ORDERED: FAMOTIDINE 20MG/5ML IV PUSH IV STA (17:03)
[2019-02-08] MEDS ORDERED: FAMOTIDINE 20 MG in SYRINGE 3 ML IV STA (17:13)
--- NOTE | 2019-02-08 17:50 | Hospitalist Progress Note ---
Date of Service February 08, 2019 Assessment & Plan (1) Small bowel obstruction: S/P Exploratory lap, lysis of adhesions; repair of mesenteric defect; repair of ventral hernia POD # 4 Persistent bowel obstruction/Postsurgical Ileus --02/07/19: CT ABD:Persistent fluid-filled dilated proximal mid small bowel loops with normal caliber distal small bowel. The findings are consistent with a persistent bowel obstruction or postsurgical ileus. Continued clinical and/or imaging follow-up will be necessary. No evidence of intra-abdominal abscess. Small amount of free fluid. --NG Tube discontinued Minimize Narcotic pain meds as able clear liquid diet today Wound Care Continue IV fluids Continue PPI, Abx Encourage to ambulate Appreciate Surgery Input Slowly improving (2) Sepsis: Presented with severe abscess Resolved Possible source: Right hip/gluteal abscess s/p I&D IV fluids Blood Cultures:No growth to date Wound Culture:Stah: MSSA IV vancomycin>>Transitioned to IV Rocephin Had Central Line placement Appreciate ID Input Needs 6 weeks of IV Abx Needs FU with ID upon discharge (3) Abscess, gluteal, right: S/P I&D Management as above (4) H/O endocarditis: H/O MRSA Endocarditis Recent H influenza bacteremia Blood cultures: No growth to date ECHO: does not show any evidence of valvular vegetation Appreciate cardiology Input ANGIE not recommended at this time (5) Septic arthritis of hip: rt hip pain CT of hip shows fluid collection /abscess IMPRESSION: --CT Hip: 10.5 x 2.8 cm probable fluid collection within the right gluteus medius. Sterility cannot be assessed by CT and this could reflect an abscess or hematoma. Hyperdensity within the posterior lateral aspect of the right gluteus isela which is partially imaged on this exam. This hyperdensity may reflect enhancement in the setting of infectious myositis, hemorrhage or less likely early myositis ossificans. Subcutaneous infiltration and fluid of the right hip which may reflect edema or cellulitis. Partially imaged hypodense fluid collection overlying the lateral aspect of the vastus lateralis that measures approximately 8.3 x 0.9 cm. 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 Blood Culture: Negative (9) Confusion and disorientation: Likely metabolic encephalopathy due to sepsis Resolved Depression: Resume home meds DVT Px: Coumadin on hold INR is therapeutic Code Status Full Code Disposition: To be determined Subjective Patient is seen and examined at bedside Patient feels frustrated and prefers to be discharged home Feels depressed Abd pain is better +Flatus, Had BM after enema yesterday Discussed with Surgery today Plan to start on clear diet today Denies chest pain, SOB, dizziness, nausea, vomiting Hold TPN for now Physical Exam Vital Signs (Past 24 Hours): Last Vital Signs Temp 36.3 C L 02/08/19 14:39 Pulse 106 H 02/08/19 14:39 Resp 20 02/08/19 14:39 BP 106/76 02/08/19 14:39 Pulse Ox 97 02/08/19 14:39 Physical Exam: Physical Exam: Vitals signs as noted above General Appearance:Moderately built and nourished, no apparent distress Head: normocephalic, Atraumatic Eyes: normal inspection, EOMI Neck: supple, Trachea midline Respiratory/Chest: Normal breath sounds, CTA Cardiovascular: S1, S2, + murmur Abdomen/GI:Soft, mild tender at surgical site, decreased Bowel sounds Extremities/Musculoskelatal:normal inspection, no edema, Right hip in dressing Neurologic/Psych:AAOX3, grossly no focal neurological deficits Skin: normal color, warm Results & Data Laboratory Results Short CBC 02/08/19 Range/Units 05:31 WBC 12.20 H (4.8-10.8) K/uL Hgb 13.0 L (14.0-18.0) g/dL Hct 36.8 L (42-52) % Plt Count 414 H (130-400) K/uL BMP 02/08/19 05:31 Sodium 138 Potassium 3.9 Chloride 107 Carbon Dioxide 27 BUN 7 Creatinine 0.73 Glucose 109 H Calcium 8.3 L (1) Sepsis Sepsis type: sepsis due to unspecified organism Qualified Code(s): A41.9 - Sepsis, unspecified organism (2) Septic arthritis of hip Laterality: right Septic arthritis organism: due to unspecified organism Qualified Code(s): M00.9 - Pyogenic arthritis, unspecified
[2019-02-08] MEDS: OLANZAPINE 2.5 MG TAB PO SCH (21:09)
[2019-02-08] MEDS: ACETAMINOPHEN 1,000 MG/100 ML VIAL IV PRN (23:47)
[2019-02-09] MEDS: EUCERIN CR 120 GM JAR EXT PRN ×2 (01:14→08:15)
[2019-02-09] MEDS: D5W AND 1/2NSS + 20MEQ KCL 20 MEQ/1,000 ML BAG IV SCH ×3 (03:10→23:27)
[2019-02-09 05:50] LABS: Hematocrit (blood only) 32.8 % (42-52); Hemoglobin 11.3 g/dL (14.0-18.0); Mean Corpuscular Hgb Conc 34.5 g/dL (32-36); Mean Corpuscular Volume 89.1 fL (80-100); Platelet Count 426 K/uL (130-400); RDW Coefficient of Variation 14.4 % (11.5-14.5); RDW Standard Deviation 47.2 fL (36.4-46.3); Red Blood Count 3.68 M/uL (4.7-6.1); White Blood Count 9.96 K/uL (4.8-10.8)
[2019-02-09] MEDS: LORazepam 0.5 MG/1 ML VIAL IV PRN ×4 (05:52→23:44)
[2019-02-09 06:01] LABS: INR 3.3 (0.9-1.1); Prothrombin Time 30.9 Seconds (9.0-12.0)
[2019-02-09 06:12] LABS: BUN Creatinine Ratio 12.6 (10-20); Calcium 7.8 mg/dl (8.5-10.1); Creatinine Clr Calc Pharmacy 114.4 ml/min; Est GFR (African American) 124.7; Est GFR (Non-African American) 107.6; Potassium 3.8 mmol/L (3.5-5.1)
[2019-02-09 06:15] LABS: Phosphorus 3.5 mg/dl (2.5-4.9)
[2019-02-09] MEDS: ACETAMINOPHEN 1,000 MG/100 ML VIAL IV PRN ×2 (08:15→16:57)
[2019-02-09] MEDS: PARoxetine HCl 20 MG TAB PO SCH (08:20)
[2019-02-09] MEDS: METHYLPHENIDATE HCL 10 MG TABLET PO SCH ×2 (08:23→22:02)
[2019-02-09] MEDS: PANTOprazole 40 MG in SYRINGE 0 ML IV SCH (11:44)
[2019-02-09] MEDS: cefTRIAXone SODIUM 2,000 MG in DEXTROSE 5% 50 ML IV SCH (11:49)
--- NOTE | 2019-02-09 14:19 | Surgery Progress Note ---
Date of Service February 09, 2019 Assessment & Plan (1) Small bowel obstruction: POD #5-S/P Exploratory lap, lysis of adhesions; repair of mesenteric defect; repair of ventral hernia Patient seen and examined with Dr. Vaughan. Incision is clean, dry, intact. Patient's pain controlled. Tolerating diet. +BM, +flatus. Patient would like to be discharged to home today. Ok from surgcal standpoint for discharge, but patient will require 6 wks op IV abx for Right hip/gluteal abscess s/p I&D and this will need to be arranged prior to discharge. Subjective Patient doing well this AM. denies abdominal pain +passing flatus, +BM WBC within normal limits. Physical Exam Vital Signs (Past 24 Hours): Last Vital Signs Temp 37.1 C 02/09/19 07:50 Pulse 92 H 02/09/19 07:50 Resp 18 02/09/19 07:50 BP 112/71 02/09/19 07:50 Pulse Ox 96 02/09/19 07:50 Gastrointestinal (Abdomen): Inspection/Auscultation: + abdominal surgical incision (jovon in place, incision clean, dry, intact. ); abdomen not distended Percussion/Palpation: abdomen soft; abdomen nontender
--- NOTE | 2019-02-09 18:41 | Hospitalist Progress Note ---
Date of Service February 09, 2019 Assessment & Plan (1) Small bowel obstruction: S/P Exploratory lap, lysis of adhesions; repair of mesenteric defect; repair of ventral hernia POD # 5 Persistent bowel obstruction/Postsurgical Ileus --02/07/19: CT ABD:Persistent fluid-filled dilated proximal mid small bowel loops with normal caliber distal small bowel. The findings are consistent with a persistent bowel obstruction or postsurgical ileus. Continued clinical and/or imaging follow-up will be necessary. No evidence of intra-abdominal abscess. Small amount of free fluid. --NG Tube discontinued Minimize Narcotic pain meds as able Low fiber diet Wound Care Decrease IV fluids Continue PPI, Abx Encourage to ambulate Appreciate Surgery Input Clinically improved (2) Sepsis: Presented with severe abscess Resolved Possible source: Right hip/gluteal abscess s/p I&D IV fluids Blood Cultures:No growth to date Wound Culture:Stah: MSSA IV vancomycin>>Transitioned to IV Rocephin Had Central Line placement Appreciate ID Input Needs 6 weeks of IV Abx Needs FU with ID upon discharge (3) Abscess, gluteal, right: S/P I&D Management as above Needs follow up with Ortho upon discharge (4) H/O endocarditis: H/O MRSA Endocarditis Recent H influenza bacteremia Blood cultures: No growth to date ECHO: does not show any evidence of valvular vegetation Appreciate cardiology Input ANGIE not recommended at this time (5) Septic arthritis of hip: rt hip pain CT of hip shows fluid collection /abscess IMPRESSION: --CT Hip: 10.5 x 2.8 cm probable fluid collection within the right gluteus medius. Sterility cannot be assessed by CT and this could reflect an abscess or hematoma. Hyperdensity within the posterior lateral aspect of the right gluteus isela which is partially imaged on this exam. This hyperdensity may reflect enhancement in the setting of infectious myositis, hemorrhage or less likely early myositis ossificans. Subcutaneous infiltration and fluid of the right hip which may reflect edema or cellulitis. Partially imaged hypodense fluid collection overlying the lateral aspect of the vastus lateralis that measures approximately 8.3 x 0.9 cm. 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 Blood Culture: Negative (9) Confusion and disorientation: Likely metabolic encephalopathy due to sepsis Resolved Depression: Resume home meds DVT Px: Coumadin on hold INR is therapeutic Code Status Full Code Disposition: To be determined Subjective Patient is seen and examined at bedside Doing much better today Abd pain is controlled +BM, + flatus Mood improved Tolerating diet Discussed with Surgery today Denies chest pain, SOB, dizziness, nausea, vomiting Physical Exam Vital Signs (Past 24 Hours): Last Vital Signs Temp 36.7 C 02/09/19 14:57 Pulse 83 02/09/19 14:57 Resp 20 02/09/19 14:57 BP 125/79 02/09/19 14:57 Pulse Ox 98 02/09/19 14:57 Physical Exam: Physical Exam: Vitals signs as noted above General Appearance:Moderately built and nourished, no apparent distress Head: normocephalic, Atraumatic Eyes: normal inspection, EOMI Neck: supple, Trachea midline Respiratory/Chest: Normal breath sounds, CTA Cardiovascular: S1, S2, + murmur Abdomen/GI:Soft, non tender, Bowel sounds present Extremities/Musculoskelatal:normal inspection, no edema, Right hip in dressing Neurologic/Psych:AAOX3, grossly no focal neurological deficits Skin: normal color, warm Results & Data Laboratory Results Short CBC 02/09/19 Range/Units 05:06 WBC 9.96 (4.8-10.8) K/uL Hgb 11.3 L (14.0-18.0) g/dL Hct 32.8 L (42-52) % Plt Count 426 H (130-400) K/uL BMP 02/09/19 05:06 Sodium 138 Potassium 3.8 Chloride 110 H Carbon Dioxide 24 BUN 9 Creatinine 0.69 Glucose 97 Calcium 7.8 L (1) Sepsis Sepsis type: sepsis due to unspecified organism Qualified Code(s): A41.9 - Sepsis, unspecified organism (2) Septic arthritis of hip Laterality: right Septic arthritis organism: due to unspecified organism Qualified Code(s): M00.9 - Pyogenic arthritis, unspecified
[2019-02-09] MEDS: OLANZAPINE 2.5 MG TAB PO SCH (22:02)
[2019-02-10] MEDS: ACETAMINOPHEN 1,000 MG/100 ML VIAL IV PRN (01:15)
[2019-02-10 06:20] LABS: INR 1.9 (0.9-1.1)
[2019-02-10] MEDS: EUCERIN CR 120 GM JAR EXT PRN (07:46)
[2019-02-10] MEDS: PARoxetine HCl 20 MG TAB PO SCH (07:46)
[2019-02-10] MEDS ORDERED: MICONAZOLE NITRATE POWDER 43 GM ONE (08:08)
[2019-02-10] MEDS: METHYLPHENIDATE HCL 10 MG TABLET PO SCH (08:08)
[2019-02-10] MEDS: PANTOprazole 40 MG in SYRINGE 0 ML IV SCH (10:56)
[2019-02-10] MEDS: cefTRIAXone SODIUM 2,000 MG in DEXTROSE 5% 50 ML IV SCH (10:56)
[2019-02-10] MEDS: LORazepam 0.5 MG/1 ML VIAL IV PRN (11:49)
--- NOTE | 2019-02-10 12:39 | Hospitalist Progress Note ---
Date of Service February 10, 2019 Assessment & Plan (1) Small bowel obstruction: S/P Exploratory lap, lysis of adhesions; repair of mesenteric defect; repair of ventral hernia POD # 6 Persistent bowel obstruction/Postsurgical Ileus --02/07/19: CT ABD:Persistent fluid-filled dilated proximal mid small bowel loops with normal caliber distal small bowel. The findings are consistent with a persistent bowel obstruction or postsurgical ileus. Continued clinical and/or imaging follow-up will be necessary. No evidence of intra-abdominal abscess. Small amount of free fluid. --NG Tube discontinued Minimize Narcotic pain meds as able Low fiber diet Wound Care DC IV fluids Continue PPI, Abx Encourage to ambulate Appreciate Surgery Input Clinically improved Needs FU with Surgery as outpatient (2) Sepsis: Presented with severe abscess Resolved Possible source: Right hip/gluteal abscess s/p I&D IV fluids Blood Cultures:No growth to date Wound Culture:Stah: MSSA IV vancomycin>>Transitioned to IV Rocephin Had Central Line placement Appreciate ID Input Needs 6 weeks of IV Abx--35 more days left Needs FU with ID upon discharge (3) Abscess, gluteal, right: S/P I&D Management as above Needs follow up with Ortho upon discharge (4) H/O endocarditis: H/O MRSA Endocarditis Recent H influenza bacteremia Blood cultures: No growth to date ECHO: does not show any evidence of valvular vegetation Appreciate cardiology Input ANGIE not recommended at this time (5) Septic arthritis of hip: Right hip pain CT of hip shows fluid collection /abscess IMPRESSION: --CT Hip: 10.5 x 2.8 cm probable fluid collection within the right gluteus medius. Sterility cannot be assessed by CT and this could reflect an abscess or hematoma. Hyperdensity within the posterior lateral aspect of the right gluteus isela which is partially imaged on this exam. This hyperdensity may reflect enhancement in the setting of infectious myositis, hemorrhage or less likely early myositis ossificans. Subcutaneous infiltration and fluid of the right hip which may reflect edema or cellulitis. Partially imaged hypodense fluid collection overlying the lateral aspect of the vastus lateralis that measures approximately 8.3 x 0.9 cm. 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 Blood Culture: Negative (9) Confusion and disorientation: Likely metabolic encephalopathy due to sepsis Resolved Depression: Continue home meds DVT Px: Coumadin Code Status Full Code Disposition: Plan to discharge home today Subjective Patient is seen and examined at bedside Doing well today Had BM, tolerating diet Denies Abd pain Denies chest pain, SOB, dizziness, nausea, vomiting No new complaints Eager to get discharged Physical Exam Vital Signs (Past 24 Hours): Last Vital Signs Temp 36.7 C 02/10/19 12:29 Pulse 81 02/10/19 12:29 Resp 18 02/10/19 12:29 BP 121/92 02/10/19 12:29 Pulse Ox 98 02/10/19 12:29 Physical Exam: Physical Exam: Vitals signs as noted above General Appearance:Moderately built and nourished, no apparent distress Head: normocephalic, Atraumatic Eyes: normal inspection, EOMI Neck: supple, Trachea midline Respiratory/Chest: Normal breath sounds, CTA Cardiovascular: S1, S2, + murmur Abdomen/GI:Soft, non tender, Bowel sounds present Extremities/Musculoskelatal:normal inspection, no edema, Right hip in dressing Neurologic/Psych:AAOX3, grossly no focal neurological deficits Skin: normal color, warm (1) Sepsis Sepsis type: sepsis due to unspecified organism Qualified Code(s): A41.9 - Sepsis, unspecified organism (2) Septic arthritis of hip Laterality: right Septic arthritis organism: due to unspecified organism Qualified Code(s): M00.9 - Pyogenic arthritis, unspecified
--- NOTE | 2019-02-10 12:58 | Discharge Summary ---
Date of Service February 10, 2019 Admission HPI Per Admitting Provider CHIEF COMPLAINT: Right calf pain and right hip pain. 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 The patient was here also in 08/2018 with bacteremia, he was started on Rocephin for Haemophilus parainfluenza in 2 bottles, and there was a plan for ANGIE to decide and a course of antibiotics, but the patient was absconding and left the hospital AMA. The patient says that he just flipped the coin and he took the decision to leave the hospital as he did not like to stay in the hospital at that time. He thought he will come back if something happens, but he did fine after discharge. He never had any more antibiotics since then but since last few days, there has been severe pain in his right calf region. He had a DVT in the past and he started to be worried about the DVT and also was feeling sick and he also has some pain in the right hip region whenever he twist the hip or ambulating.. The calf is the one, which is bothering him most and he came to the hospital. He has been feeling some feverish yesterday. Denies any nausea, vomiting. No chest pain, no shortness of breath, no cough, no headache, no blurred vision, no earache, no runny nose, no difficulty swallowing. Appetite, he says he is eating okay. No abdominal pain. Normal bowel and bladder movements. No hematuria, no black stools. The patient has somewhat pressured speech and restlessness when he is talking, we don't know his his baseline but he is answering all the questions appropriately. He says he did not take all his medication last 2 days because he was feeling sick. He says he regularly takes Lopressor, Coumadin and Prilosec. He sees a psychiatrist and was prescribed some depression medication, but he do not take them regularly. He says he also has some abscess draining in the right hip in the past, agrees to stay in the hospital this time.At home he was found t have hypoglycemia with blood sugars 25. With dextrose sugars improved. Admission Exam Per Admitting Provider PHYSICAL EXAMINATION: GENERAL: The patient is of moderate built, not in acute distress. VITAL SIGNS: Temperature 37.2, pulse 80, respiratory rate 20, blood pressure 117/72. Oxygen 97% on room air. HEENT: No pallor, no icterus. Pupils equal, round and reactive to light. NECK: No JVD, no neck mass, no carotid bruit. CARDIOVASCULAR: S1, S2 heard, regular rate and rhythm, no murmur, no gallop. RESPIRATORY SYSTEM: Normal AP diameter. No accessory muscle use. No wheezing, no crackles. ABDOMEN: Soft, bowel sounds present. Nontender. No distention. CENTRAL NERVOUS SYSTEM: Cranial nerves II-XII grossly intact. Nonfocal. EXTREMITIES: No edema, no erythema. Tenderness in the right calf region but no erythema or warmth on palpation. Straight leg raise test negative. Principal Diagnosis Discharge Information Discharge Diagnosis Small bowel obstruction Right hip abscess Metabolic Encephalopathy Discharge Goals Decrease discomfort,Improve disease control, Improve function Discharge Activity Limitations Per instructions/follow-up Discharge Data Allergies Allergy/AdvReac Type Severity Reaction Status Date / Time No Known Allergies Allergy Verified 01/31/19 19:49 Consultations 01/31/19 21:21 ED Decision to Admit Stat 02/01/19 03:25 Consult Automatic Maintainer Routine 02/01/19 04:10 Consult Case Management - Discharge Planning Routine 02/01/19 08:00 Consult Cardiology Routine Consult Orthopedic Surgery Routine 02/01/19 08:17 Consult Infectious Diseases Routine 02/03/19 15:24 Consult General Surgery Routine 02/07/19 09:44 Consult Automatic Maintainer Routine 02/07/19 15:06 Consult Nutrition Routine Procedures Performed Operation Date: 02/01/19 14:05 Actual Procedures p Right Hip Incision and Drainage with Irrigation and Debridement - Ramo Parker MD Operation Date: 02/03/19 17:00 Actual Procedures p Exploratory Laparotomy; Lysis of Adhesions(Not Applicable) - Yareli Spencer MD R Hip Ct: 1. 10.5 x 2.8 cm probable fluid collection within the right gluteus medius. Sterility cannot be assessed by CT and this could reflect an abscess or hematoma. 2. Hyperdensity within the posterior lateral aspect of the right gluteus isela which is partially imaged on this exam. This hyperdensity may reflect enhancement in the setting of infectious myositis, hemorrhage or less likely early myositis ossificans. 3. Subcutaneous infiltration and fluid of the right hip which may reflect edema or cellulitis. 4. Partially imaged hypodense fluid collection overlying the lateral aspect of the vastus lateralis that measures approximately 8.3 x 0.9 cm. CXR: No acute cardiopulmonary findings. Venous Doppler: No evidence of deep venous thrombus within the right lower extremity. CT ABD: 1. Findings consistent with a high-grade small bowel obstruction with transition point within the right mid abdomen. Small to moderate associated ascites and mesenteric vessel engorgement. Bowel ischemia cannot be excluded. No pneumatosis, free air or portal venous gas. Surgical consultation is recommended. Findings discussed with Dr. Dominguez at time of dictation. 2. Decrease in size of a fluid collection within the right gluteus medius since prior CT. Repeat CT ABD: 1. A interval surgery for a small bowel obstruction 2. Persistent fluid-filled dilated proximal mid small bowel loops with normal caliber distal small bowel. The findings are consistent with a persistent bowel obstruction or postsurgical ileus. Continued clinical and/or imaging follow-up will be necessary. 3. No evidence of intra-abdominal abscess (given the limitations of a noncontrast study) 4. Small amount of free fluid. Ordered Studies 01/31/19 19:40 CT hip RT w con Stat 01/31/19 21:21 US venous doppler LE RT Stat 02/01/19 09:43 US FNA w/img 1st lesion Stat US extremity nonvascular Stat 02/03/19 13:02 CT abd pelvis IV con only Stat 02/07/19 10:06 US point of care ultrasound Routine 02/07/19 10:55 CT abd pelvis oral con only Stat Hospital Course (1) Small bowel obstruction: S/P Exploratory lap, lysis of adhesions; repair of mesenteric defect; repair of ventral hernia POD # 6 Persistent bowel obstruction/Postsurgical Ileus --02/07/19: CT ABD:Persistent fluid-filled dilated proximal mid small bowel loops with normal caliber distal small bowel. The findings are consistent with a persistent bowel obstruction or postsurgical ileus. Continued clinical and/or imaging follow-up will be necessary. No evidence of intra-abdominal abscess. Small amount of free fluid. --NG Tube discontinued Minimize Narcotic pain meds as able Low fiber diet Wound Care DC IV fluids Continue PPI, Abx Encourage to ambulate Appreciate Surgery Input Clinically improved Needs FU with Surgery as outpatient (2) Sepsis: Presented with severe abscess Resolved Possible source: Right hip/gluteal abscess s/p I&D IV fluids Blood Cultures:No growth to date Wound Culture:Stah: MSSA IV vancomycin>>Transitioned to IV Rocephin Had Central Line placement Appreciate ID Input Needs 6 weeks of IV Abx--35 more days left Needs FU with ID upon discharge (3) Abscess, gluteal, right: S/P I&D Management as above Needs follow up with Ortho upon discharge (4) H/O endocarditis: H/O MRSA Endocarditis Recent H influenza bacteremia Blood cultures: No growth to date ECHO: does not show any evidence of valvular vegetation Appreciate cardiology Input ANGIE not recommended at this time (5) Septic arthritis of hip: Right hip pain CT of hip shows fluid collection /abscess IMPRESSION: --CT Hip: 10.5 x 2.8 cm probable fluid collection within the right gluteus medius. Sterility cannot be assessed by CT and this could reflect an abscess or hematoma. Hyperdensity within the posterior lateral aspect of the right gluteus isela which is partially imaged on this exam. This hyperdensity may reflect enhancement in the setting of infectious myositis, hemorrhage or less likely early myositis ossificans. Subcutaneous infiltration and fluid of the right hip which may reflect edema or cellulitis. Partially imaged hypodense fluid collection overlying the lateral aspect of the vastus lateralis that measures approximately 8.3 x 0.9 cm. --Appreciate Orthopedics/ID Input --S/P I &D --Wound Cx:Staph aureus /MSSA --Abx as above --Needs 6 weeks of IV Abx; Needs FU with ID upon discharge (6) History of alcohol abuse: Denies of any recent alchohol intake Ativan PRN H/O DVT: Resume Coumadin today Monitor INR:1.9 today (7) NSTEMI (non-ST elevated myocardial infarction): Elevated troponin possible demand ischemia Type 2 NSTEMI in setting of sepsis /infection ECHO shows no evidence of wall motion abnormality no evidence of ACS (8) H/O aortic valve replacement: In [facility] for congenital anomaly in 2011 MRSA endocarditis in 2012 Blood Culture: Negative (9) Confusion and disorientation: Likely metabolic encephalopathy due to sepsis Resolved Depression: Continue home meds DVT Px: Coumadin Code Status Full Code Disposition: Plan to discharge home today Total Time Total Time Spent Total Time Spent (In Minutes): 45 minutes Discharge Plan Discharge Items Patient Disposition: Home - Self-Care Reason For Visit: RIGHT CALF PAIN,HYPOGLYCEMIA Discharge Diagnosis: Small bowel obstruction Right hip abscess Metabolic Encephalopathy Discharge Goals: Decrease discomfort, Improve disease control and Improve function Activity: Per 'Additional Instructions' section Exercise/Sports: Gradually increase as tolerated Non-emergency contact: Primary Care Provider, Surgeon and Specialist Call non-emergency contact if: you have any medication questions, your symptoms worsen, your pain is not controlled, your pain is worsening, your pain is unusual for you, your pain is concerning for you, you have a fever, your wound has increased redness, your wound has increased drainage and your wound pain has increased Follow-up/Referrals: Nabil Daley MD [Primary Care Provider] - Diet: Heart Healthy and Low Fiber Other Ambulatory Orders: Complete Blood Count with Diff (Routine) Timeframe: 1 Week Location: Determined by Patient Ordered By: Chato Dougherty Comprehensive Metabolic Panel (Routine) Timeframe: 1 Week Location: Determined by Patient Ordered By: Chato Dougherty Erythrocyte Sedimentation Rate (Routine) Timeframe: 1 Week Location: Determined by Patient Ordered By: Chato Dougherty Prothrombin Time INR (Routine) Timeframe: 2 Days Location: Determined by Patient Ordered By: Chato Dougherty Add Provider Instructions: Follow up with your PCP in 1 week Follow up with your General Surgeon in 1 week--Please call at [phone] to make an appointment. Follow up with your Infectious Disease Dr.Jennifer Pérez in 2 weeks Follow up with your Orthopedic Surgeon in 2 weeks--Please call [phone] for an appointment. Follow up with Coumadin clinic for your coumadin dosing Complete the antibiotic course as prescribed Get PT/INR checked in 2 days and follow up with Coumadin clinic for coumadin dosing Your PT/INR is 1.9 today...Take 5mg coumadin today and tomorrow--further dosing as per coumadin clinic Get Blood Test--weekly-- CBC, CMP, ESR while on antibiotics and follow up with your Physician Seek immediate medical attention if your symptoms reoccur or worsen Surgical discharge instructions: -No heavy lifting over 10 pounds for 6 weeks - No strenuous activity until cleared by surgeon - No submerging incision underwater for 2 weeks (no bathing, swimming, or hot tubs) - No driving while taking narcotic pain medication or until you are pain free - You may shower, gently clean incision with soap and water and pat dry -Surgical jovon will be removed in office in 1 week - You will be given prescription for narcotic pain medication (Percocet) as needed for moderate to severe pain. Take as directed. This medication may cause drowsiness or constipation. -To avoid constipation: Drink plenty of fluids, daily walking, take OTC stool softener (Colace) daily or twice a day while taking pain medication. If those measures do not work you may take Miralax or Milk of Magnesia. -Follow-up in surgical office in 1 week, please call office at [phone] to make an appointment. Prescriptions: New oxycodone-acetaminophen [Percocet] 5-325 mg Tablet 1 tab PO Q4H PRN (Reason: pain) Qty: 18 RF: 0 ceftriaxone 2 gram recon soln 2 gm IV DAILY 35 Days Qty: 35 RF: 0 methylphenidate HCl 20 mg tablet 20 mg PO BID 3 Days Qty: 6 RF: 0 olanzapine [Zyprexa] 2.5 mg Tablet 2.5 mg PO HS 3 Days Qty: 3 RF: 0 paroxetine HCl [Paxil] 40 mg Tablet 40 mg PO DAILY 3 Days Qty: 3 RF: 0 Continued warfarin 5 mg tablet See Rx Instructions .ROUTE .COMPLEX RF: 0 metoprolol tartrate 50 mg tablet 50 mg PO BID RF: 0 omeprazole 20 mg capsule,delayed release(DR/EC) 20 mg PO QAM RF: 0 testosterone cypionate 200 mg/mL oil 200 mg IM DIRECTED RF: 0 methylphenidate HCl 10 mg Tablet 10 mg PO BID 3 Days Qty: 6 RF: 0 Stand-Alone Forms: [facility] Discharge Orders: Discharge Order (Routine); Ordered 02/10/19 Ordered By: Chato Dougherty Admission Data Admit Date/Time: 01/31/19 23:16 Attending Provider: Chato Dougherty Admit Provider: Luis Jiang Primary Care Provider: Nabil Daley Other Providers: Shahnaz Dominguez ; Luis Jiang ; Lizz Villafuerte ; Angelito Mares ; Arpan Mendosa ; Emmett Obregon ; Monroe Hernandez ; Gonzales Rea ; Naldo Arteaga ; Elsy Domingo ; Anne-Marie Boles ; Jossue Alvarez ; Jeremy Garcia. ; Yareli Spencer ; Desmond Cruz ; Chato Dougherty Service: Medical Other Interventions: Discharge Summary Assessment (RN) Last Done: 02/10/19 12:29 Pending Studies at Discharge: No DC Date/Time DO NOT enter until pt leaves facility: 02/10/19 14:24
--- NOTE | 2019-02-10 13:07 | Surgery Progress Note ---
Date of Service February 10, 2019 Assessment & Plan (1) Small bowel obstruction: POD #6-S/P Exploratory lap, lysis of adhesions; repair of mesenteric defect; repair of ventral hernia Patient seen and examined with Dr. Vaughan. Incision is clean, dry, intact. Patient's pain controlled. Tolerating low fiber diet. +BM, +flatus. Patient would like to be discharged to home today. Ok to be discharged from surgical perspective. Patient to follow-up with Dr. Spencer. POD #5-S/P Exploratory lap, lysis of adhesions; repair of mesenteric defect; repair of ventral hernia Patient seen and examined with Dr. Vaughan. Incision is clean, dry, intact. Patient's pain controlled. Tolerating diet. +BM, +flatus. Patient would like to be discharged to home today. Ok from surgcal standpoint for discharge, but patient will require 6 wks op IV abx for Right hip/gluteal abscess s/p I&D and this will need to be arranged prior to discharge. Subjective Patient doing well this AM. denies abdominal pain +passing flatus, +BM Tolerating low fiber diet. Physical Exam Vital Signs (Past 24 Hours): Last Vital Signs Temp 36.7 C 02/10/19 12:29 Pulse 81 02/10/19 12:29 Resp 18 02/10/19 12:29 BP 121/92 02/10/19 12:29 Pulse Ox 98 02/10/19 12:29 Gastrointestinal (Abdomen): Inspection/Auscultation: + abdominal surgical incision (jovon in place, incision clean, dry, intact. ); abdomen not distended Percussion/Palpation: abdomen soft; abdomen nontender
[2019-02-10] MEDS ORDERED: WARFARIN SOD 5 MG TAB PO SCH (16:00)
--- NOTE | 2019-03-21 05:33 | Coding Query ---
CODING QUERY To promote full compliance with coding requirements relating to patient care, provider participation is requested in all cases of cinnamon grinder uncertainty. Please assist us with the question(s) below: Coding Question(s): Patient admitted with septic arthritis/Sepsis, presenting with severe abscess. Developed (postop) Ileus. I am seeking a cause/effect pertaining to the Ileus and the Surgery. Please check below the phrase that describes the Ileus. Thanks for your help! KANIKA Calhoun [facility] Physician's Response(s): ___X___ The Ileus is an expected outcome of the Surgery The Ileus is a complication of the Surgery Cannot determine if the Ileus is a complication or expected outcome of the Surgery Other: Please document: Principal Diagnosis: "that condition established after study, to be chiefly responsible for occasioning the admission of the patient to the hospital for care." Co-Existing Principal Diagnosis: "when two or more diagnoses equally meet the criteria for principal diagnosis as determined by the circumstances of admission, diagnostic work up, and/or therapy provided, and the Alphabetic Index, Tabular List, or another coding guideline does not provide sequencing direction, any one of the diagnoses may be sequenced first." "When the physician has documented what appears to be a current diagnosis in the body of the record, but has not included the diagnosis in the final diagnostic statement, the physician should be asked whether the diagnosis should be added." (Source Coding [facility] 2 QTR90. p3-4) FAYED
== END 2019-02-10 14:24 | disposition home or self-care (01) | DRG 853 ==
LOC: ED 19:15 → SUATTDRO 23:16 → 2W 23:16 → 1E 02-01 02:50 → 2E 02-02 11:44 → 1E 02-02 11:45 → 2E 02-02 12:02 → 4E 02-05 15:05

== ENCOUNTER 2020-04-19 01:10 | Inpatient (IN) ==
[2020-04-19 01:53] LABS: Basophils # (auto) 0.04 K/uL (0-0.2); Basophils % (auto) 0.6 %; Eosinophils % (auto) 4.4 %; Hematocrit (blood only) 41.1 % (42-52); Hemoglobin 14.3 g/dL (14.0-18.0); Immature Granulocytes # (auto) 0.03 K/uL (0.00-0.02); Immature Granulocytes % (auto) 0.4 %; Lymphocytes # (auto) 2.36 K/uL (1.2-3.4); Lymphocytes % (auto) 34.6 %; Mean Corpuscular Hemoglobin 32.4 pg (25-34); Mean Corpuscular Hgb Conc 34.8 g/dL (32-36); Mean Platelet Volume 10.8 fL (7.4-10.4); Monocytes # (auto) 0.38 K/uL (0.11-0.59); Monocytes % (auto) 5.6 %; Neutrophils # (auto) 3.71 K/uL (1.4-6.5); Neutrophils % (auto) 54.4 %; Platelet Count 181 K/uL (130-400); RDW Coefficient of Variation 15.6 % (11.5-14.5); RDW Standard Deviation 53.6 fL (36.4-46.3); Red Blood Count 4.42 M/uL (4.7-6.1); White Blood Count 6.82 K/uL (4.8-10.8)
[2020-04-19 02:01] LABS: INR 1.2 (0.9-1.1); Partial Thromboplastin Ratio 1.1; Partial Thromboplastin Time 30.5 Seconds (21.0-31.0)
[2020-04-19 02:10] LABS: Albumin Level 3.7 gm/dl (3.4-5.0); BUN Creatinine Ratio 19.7 (10-20); Calcium 7.7 mg/dl (8.5-10.1); Est GFR (African American) 96.6; Est GFR (Non-African American) 83.3; Potassium 4.2 mmol/L (3.5-5.1)
[2020-04-19 02:20] LABS: Bilirubin,Total 0.3 mg/dl (0.2-1); Globulin 3.6 gm/dl (2.5-4.0); Total Protein 7.3 gm/dl (6.4-8.2); Troponin I 0.15 ng/ml (0-0.045)
[2020-04-19 02:23] LABS: Acetaminophen < 2 ug/ml (10-30); Salicylate 2.9 mg/dl (2.8-20)
--- NOTE | 2020-04-19 03:26 | History & Physical Report ---
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 Vitamin K administration once INR elevation documented. Follow troponin LLE venous Dopplers rule out recurrent DVT Initiate alcohol withdrawal protocol if with signs of withdrawal noted inpatient DVT prophylaxis. IV heparin Full code Text document was generated using [employer] voice recognition software. It may contain grammatical or spelling errors. Kindly contact undersigned for clarification of any documentation item in question. History of Present Illness Chief Complaint: Coumadin overdose Primary Care Provider: Nabil Daley MD History obtained from patient and records. Medical history significant for bicuspid aortic valve status post AVR 2010 ([facility]), hx MRSA endocarditis sp AVR, 3AV block status post pacemaker, anxiety/mood disorder, History recurrent DVT on Coumadin, past alcohol abuse as per records. Last confinement January 2019 for small bowel obstruction, sepsis secondary to right hip gluteal abscess status post surgery. Early Monday morning (6/6, 12AM), patient took a handful (about 20) of what he thought was Voltaren pills for achy left lower leg pain weeks duration. Patient shortly realized that he had taken pills from his Coumadin bottle. Patient had been drinking some alcohol at time of incident. No immediate consultations. No chest pain, S OB, headache, abdominal pain, black/bloody stools, hematuria. Patient's ex- insisted that he go to the emergency room. MEDICAL HISTORY: As above. SURGERIES: Heart surgery, pacemaker placement, rhinoplasty, ex lap/hernia repair/adhesiolysis, elbow bursa surgery, Right hip/ gluteal abscess drainage FAMILY HISTORY: Family history of heart disease, diabetes, lymphoma, prostate cancer PERSONAL SOCIAL HISTORY: Nonsmoker. 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 Allergies Allergy/AdvReac Type Severity Reaction Status Date / Time No Known Allergies Allergy Verified 04/19/20 01:29 Home Medications Home Medications Medication Instructions Recorded Confirmed Type metoprolol tartrate 50 mg PO BID 01/31/19 04/19/20 History omeprazole 20 mg PO QAM 01/31/19 04/19/20 History testosterone cypionate 200 mg IM DIRECTED 01/31/19 04/19/20 History methylphenidate HCl 10 mg PO BID 3 Days #6 tab 02/10/19 04/19/20 Rx methylphenidate HCl 20 mg PO BID 3 Days #6 tab 02/10/19 04/19/20 Rx paroxetine HCl [Paxil] 40 mg PO DAILY 3 Days #3 tab 02/10/19 04/19/20 Rx warfarin 5 mg PO 4XWK 04/19/20 04/19/20 History warfarin 10 mg PO 3XWK 04/19/20 04/19/20 History Past Med/Surg History Social History Preferred Language: Estonian Communication Ability: Effective Record Tester Required: No Beliefs That Will Affect Care: None Current Living Situation: Other Current Living Situation Comment: ex Feels Safe at Home: Yes Smoking Status: Current some day smoker Tobacco Type: cigarettes ; Second Hand Exposure: No ; Hx Alcohol Use: Yes Alcohol type: beer and hard liquor Alcohol Intake Frequency Comment: ~1 pint vodka daily Hx Substance Use: No (denies) Review of Systems 2 Review of Systems: As per HPI, all 10 systems reviewed, all other ROS negative Physical Exam Physical Exam: GENERAL: Comfortable, pleasant, no respiratory distress SKIN: Normal color, warm HEENT: [place] palpebral conjunctivae, no ptosis, dry buccal mucosa NECK : Supple, no tenderness CHEST : CTA, no tenderness HEART : RRR, systolic murmur ABDOMEN: Some distention, nontender EXTREMITIES : Minimal LE swelling, minimal LLE tenderness, no other conspicuous deformities noted NEUROLOGIC : Coherent, no facial asymmetry, no other gross focality Results & Data Results & Data ([facility]) Vital Signs (Past 12 Hours) Vital Signs Temp Pulse Resp BP Pulse Ox 04/19/20 03:00 60 20 104/70 94 04/19/20 02:30 60 23 107/69 93 04/19/20 02:23 60 13 115/80 94 04/19/20 02:07 60 20 96 04/19/20 01:25 36.5 C 60 20 135/73 96 Laboratory Results Laboratory Results WBC 6.82 K/uL (4.8-10.8) 04/19/20 01:37 RBC 4.42 M/uL (4.7-6.1) L 04/19/20 01:37 Hgb 14.3 g/dL (14.0-18.0) 04/19/20 01:37 Hct 41.1 % (42-52) L 04/19/20 01:37 MCV 93.0 fL (80-100) 04/19/20 01:37 MCH 32.4 pg (25-34) 04/19/20 01:37 MCHC 34.8 g/dL (32-36) 04/19/20 01:37 RDW Std Deviation 53.6 fL (36.4-46.3) H 04/19/20 01:37 RDW Coeff of Kwabena 15.6 % (11.5-14.5) H 04/19/20 01:37 Plt Count 181 K/uL (130-400) 04/19/20 01:37 MPV 10.8 fL (7.4-10.4) H 04/19/20 01:37 Immature Gran % (Auto) 0.4 % 04/19/20 01:37 Neut % (Auto) 54.4 % 04/19/20 01:37 Lymph % (Auto) 34.6 % 04/19/20 01:37 [place] % (Auto) 5.6 % 04/19/20 01:37 Eos % (Auto) 4.4 % 04/19/20 01:37 Baso % (Auto) 0.6 % 04/19/20 01:37 Immature Gran # (Auto) 0.03 K/uL (0.00-0.02) H 04/19/20 01:37 Neut # (Auto) 3.71 K/uL (1.4-6.5) 04/19/20 01:37 Lymph # (Auto) 2.36 K/uL (1.2-3.4) 04/19/20 01:37 [place] # (Auto) 0.38 K/uL (0.11-0.59) 04/19/20 01:37 Eos # (Auto) 0.30 K/uL (0-0.5) 04/19/20 01:37 Baso # (Auto) 0.04 K/uL (0-0.2) 04/19/20 01:37 PT 13.0 Seconds (9.0-12.0) H 04/19/20 01:37 POC INR 1.4 (0.9-1.1) H 04/19/20 01:31 INR 1.2 (0.9-1.1) H 04/19/20 01:37 APTT 30.5 Seconds (21.0-31.0) 04/19/20 01:37 PTT Ratio 1.1 04/19/20 01:37 Sodium 142 mmol/L (136-145) 04/19/20 01:37 Potassium 4.2 mmol/L (3.5-5.1) 04/19/20 01:37 Chloride 110 mmol/L (98-107) H 04/19/20 01:37 Carbon Dioxide 26 mmol/L (21-32) 04/19/20 01:37 Anion Gap 6.0 (3-11) 04/19/20 01:37 BUN 20 mg/dl (7-18) H 04/19/20 01:37 Creatinine 1.01 mg/dl (0.6-1.4) 04/19/20 01:37 Est Cr Clr Drug Dosing 81.0 ml/min 04/19/20 01:37 Est GFR ( Amer) 96.6 04/19/20 01:37 Est GFR (Non-Af Amer) 83.3 04/19/20 01:37 BUN/Creatinine Ratio 19.7 (10-20) 04/19/20 01:37 Glucose 83 mg/dl (70-99) 04/19/20 01:37 Calcium 7.7 mg/dl (8.5-10.1) L 04/19/20 01:37 Magnesium 2.0 mg/dl (1.8-2.4) 04/19/20 01:37 Total Bilirubin 0.3 mg/dl (0.2-1) 04/19/20 01:37 AST 27 U/L (15-37) 04/19/20 01:37 ALT 29 U/L (12-78) 04/19/20 01:37 Alkaline Phosphatase 106 U/L (45-117) 04/19/20 01:37 Troponin I 0.150 ng/ml (0-0.045) H* 04/19/20 01:37 Total Protein 7.3 gm/dl (6.4-8.2) 04/19/20 01:37 Albumin 3.7 gm/dl (3.4-5.0) 04/19/20 01:37 Globulin 3.6 gm/dl (2.5-4.0) 04/19/20 01:37 Albumin/Globulin Ratio 1.0 (0.9-2) 04/19/20 01:37 Lipase 133 U/L (73-393) 04/19/20 01:37 Salicylates 2.9 mg/dl (2.8-20) 04/19/20 01:39 Acetaminophen < 2 ug/ml (10-30) L 04/19/20 01:39 Ethyl Alcohol mg/dL 195.0 mg/dl (0-3) H 04/19/20 01:37 Diagnostic Findings EKG as per my interpretation: Rate 60, paced rhythm
[2020-04-19] MEDS ORDERED: Heparin IV Standard *NO* Bolus STA (03:27)
[2020-04-19] MEDS ORDERED: HEPARIN SODIUM/DEXTROSE 25,000 UNITS/500 ML BAG IV SCH (03:30)
[2020-04-19 04:24] LABS: Appearance Urine Clear (Clear); Bilirubin Urine Negative (Negative); Blood Urine Negative (Negative); Color Urine Yellow; Glucose Urine UA Negative (Negative); Ketones Urine Negative (Negative); Leukocyte Esterase Urine Negative (Negative); Nitrite Urine Negative (Negative); Protein Urine Negative (Negative); Specific Gravity Urine 1.027 (1.000-1.030); Urobilinogen Urine Negative (Negative); pH Urine 6.5 (4.5-7.5)
[2020-04-19] MEDS ORDERED: HEPARIN 25000 UNIT/500 ML D5W IV ONE (04:40)
--- NOTE | 2020-04-19 05:00 | Emergency Department Note ---
History of Present Illness General Chief complaint: Overdose (Accidental) Stated complaint: Overdose Time Seen by Provider: 04/19/20 01:13 History of Present Illness This is a 54-year-old male presenting to the emergency department via EMS for evaluation following an accidental ingestion of 100 mg of Coumadin. 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 He admits that he drinks alcohol on a regular basis, and went to take his diclofenac for chronic leg pain tonight. He states that he accidentally grabbed the bottle for his Coumadin and took 20 of the 5 mg tablets. According to EMS the patient just had the medication refilled, and only 6 tablets were left in the bottle. The patient states this was not for self-harm. He has an extensive cardiac history including complete heart block, and STEMI, aortic valve replacement, and cardiac pacemaker in situ. The patient is not having any headache, chest pain, chest tightness, shortness of breath, or abdominal pain. No active bleeding or blood in his urine. He rates his current discomfort a 0/10. His last drink was 2 or 3 hours prior to arrival. Home Medications Home Medications Medication Instructions Recorded Confirmed Type metoprolol tartrate 50 mg PO BID 01/31/19 04/19/20 History omeprazole 20 mg PO QAM 01/31/19 04/19/20 History testosterone cypionate 200 mg IM DIRECTED 01/31/19 04/19/20 History methylphenidate HCl 10 mg PO BID 3 Days #6 tab 02/10/19 04/19/20 Rx methylphenidate HCl 20 mg PO BID 3 Days #6 tab 02/10/19 04/19/20 Rx paroxetine HCl [Paxil] 40 mg PO DAILY 3 Days #3 tab 02/10/19 04/19/20 Rx warfarin 5 mg PO 4XWK 04/19/20 04/19/20 History warfarin 10 mg PO 3XWK 04/19/20 04/19/20 History Allergies Allergy/AdvReac Type Severity Reaction Status Date / Time No Known Allergies Allergy Verified 04/19/20 01:29 Past Med/Surg History Medical History Abscess, gluteal, right (Acute) Anxiety (Chronic) Complete heart block (Chronic) S/p pacemaker placement Confusion and disorientation Depression (Chronic) Endocarditis History of alcohol abuse (Resolved) NSTEMI (non-ST elevated myocardial infarction) (Acute) Pacemaker (Chronic) Sepsis (Acute) Septic arthritis of hip (Acute) Small bowel obstruction Surgical History H/O aortic valve replacement (Resolved) 2010 at [facility] for congenital abnormality. 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 History of hernia surgery (Resolved) History of hip surgery Social History Preferred Language: Japanese Communication Ability: Effective Staff Air Defense Officer Required: No Beliefs That Will Affect Care: None Current Living Situation: Other Current Living Situation Comment: ex Feels Safe at Home: Yes Smoking Status: Current some day smoker Tobacco Type: cigarettes ; Second Hand Exposure: No ; Hx Alcohol Use: Yes Alcohol type: beer and hard liquor Alcohol Intake Frequency Comment: ~1 pint vodka daily Hx Substance Use: No (denies) Review of Systems A total of 10 systems reviewed and were otherwise negative Physical Exam Vital Signs Vital Signs - 24 hr 04/19/20 01:25 04/19/20 02:07 04/19/20 02:23 Temperature 36.5 C Temperature Source Oral Pulse Rate 60 60 60 Pulse Rate [Apical] Pulse Rate from SpO2 Sensor 59 L Respiratory Rate 20 20 13 Respiratory Effort / Characteristics Non-Labored Spontaneous Respiratory Depth Normal Blood Pressure 135/73 115/80 Blood Pressure [Right Arm] Blood Pressure Mean 93 88 Blood Pressure Mean [Right Arm] Pulse Oximetry 96 96 94 Oxygen Delivery Method Room Air Room Air Room Air Sepsis Action Taken by Nursing No Action Required 04/19/20 02:30 04/19/20 03:00 04/19/20 03:56 Temperature Temperature Source Pulse Rate 60 60 Pulse Rate [Apical] 60 Pulse Rate from SpO2 Sensor 61 61 Respiratory Rate 23 20 20 Respiratory Effort / Characteristics Non-Labored Spontaneous Respiratory Depth Normal Blood Pressure 107/69 104/70 Blood Pressure [Right Arm] 125/82 Blood Pressure Mean 74 75 Blood Pressure Mean [Right Arm] 96 Pulse Oximetry 93 94 98 Oxygen Delivery Method Room Air Room Air Room Air Sepsis Action Taken by Nursing VITALS: Vitals are noted on the nurse's note and reviewed by myself. Vital sign s stable. GENERAL: Well-developed, well-nourished, white male who appears mildly intoxicated but is overall answering questions appropriately. He is cooperative with examination. HEAD: Normocephalic atraumatic. EARS: External ear normal. External auditory canals clear, tympanic membranes pearly richardson without erythema or effusion bilaterally. NOSE: Patent, turbinates without inflammation or discharge. MOUTH: Mucous membranes moist. Tonsils are not enlarged. Pharynx without erythema, blood, or exudate. Uvula midline. Airway patent. NECK: Supple without nuchal rigidity. No lymphadenopathy. No thyromegaly. Cervical spine is nontender. HEART: Pacemaker noted. Regular rate and rhythm. LUNGS: Clear to auscultation bilaterally without wheezes, rales or rhonchi. No retractions or accessory muscle use. ABDOMEN: Positive normal bowel sounds x 4. Soft, nontender, without masses or organomegaly. No guarding or rebound tenderness. MUSCULOSKELETAL: No muscle atrophy, erythema, or edema noted. Full range of motion in all extremities. NEURO: Patient was alert and oriented to person place and time. CN II through XII grossly intact. GCS 15 Course Administered Medications Heparin Sodium/Dextrose (Heparin Sodium/Dextrose) 25,000 units in 500 mls @ 25 mls/hr IV .Q20H [facility]; Protocol Stop: 05/19/20 03:29 Last Admin: 04/19/20 04:45 Dose: 1,250 units/hr, 25 mls/hr Documented by: [id number] Cosigned by: [id number] Discontinued Medications Heparin Sodium/Dextrose () 1 ea N/A NOW [facility]; Protocol Stop: 04/19/20 03:28 Last Admin: 04/19/20 04:46 Dose: Not Given Documented by: [id number] Heparin Sodium/Dextrose (Heparin Sodium/Dextrose) Confirm Administered Dose 25,000 units IV .ST-MED ONE Stop: 04/19/20 04:41 Last Admin: 04/19/20 04:46 Dose: Not Given Documented by: [id number] Medical Decision Making Differential Diagnosis Differential diagnosis: Etiologies such as Coumadin overdose, esophagitis, variceal bleed, [place], [place]bride tear, gastritis, peptic ulcer disease, AVM, inflammatory bowel disease, ischemia, diverticulosis, colitis, malignancy, coagulopathy, thrombocytopenia, fissure, hemorrhoid, epistaxis , as well as others were entertained. Laboratory Data Result diagrams: 04/19/20 01:37 04/19/20 01:37 Lab Results 04/19/20 04/19/20 04/19/20 Range/Units 01:31 01:37 01:37 WBC 6.82 (4.8-10.8) K/uL RBC 4.42 L (4.7-6.1) M/uL Hgb 14.3 (14.0-18.0) g/dL Hct 41.1 L (42-52) % MCV 93.0 (80-100) fL MCH 32.4 (25-34) pg MCHC 34.8 (32-36) g/dL RDW Std Deviation 53.6 H (36.4-46.3) fL RDW Coeff of Kwabena 15.6 H (11.5-14.5) % Plt Count 181 (130-400) K/uL MPV 10.8 H (7.4-10.4) fL Immature Gran % (Auto) 0.4 % Neut % (Auto) 54.4 % Lymph % (Auto) 34.6 % [place] % (Auto) 5.6 % Eos % (Auto) 4.4 % Baso % (Auto) 0.6 % Immature Gran # (Auto) 0.03 H (0.00-0.02) K/uL Neut # (Auto) 3.71 (1.4-6.5) K/uL Lymph # (Auto) 2.36 (1.2-3.4) K/uL [place] # (Auto) 0.38 (0.11-0.59) K/uL Eos # (Auto) 0.30 (0-0.5) K/uL Baso # (Auto) 0.04 (0-0.2) K/uL PT 13.0 H (9.0-12.0) Seconds POC INR 1.4 H (0.9-1.1) INR 1.2 H (0.9-1.1) APTT 30.5 (21.0-31.0) Seconds PTT Ratio 1.1 Sodium (136-145) mmol/L Potassium (3.5-5.1) mmol/L Chloride (98-107) mmol/L Carbon Dioxide (21-32) mmol/L Anion Gap (3-11) BUN (7-18) mg/dl Creatinine (0.6-1.4) mg/dl Est Cr Clr Drug Dosing ml/min Est GFR ( Amer) Est GFR (Non-Af Amer) BUN/Creatinine Ratio (10-20) Glucose (70-99) mg/dl Calcium (8.5-10.1) mg/dl Magnesium (1.8-2.4) mg/dl Total Bilirubin (0.2-1) mg/dl AST (15-37) U/L ALT (12-78) U/L Alkaline Phosphatase (45-117) U/L Troponin I (0-0.045) ng/ml Total Protein (6.4-8.2) gm/dl Albumin (3.4-5.0) gm/dl Globulin (2.5-4.0) gm/dl Albumin/Globulin Ratio (0.9-2) Lipase (73-393) U/L Urine Color Urine Appearance (Clear) Urine pH (4.5-7.5) Ur Specific [place] (1.000-1.030) Urine Protein (Negative) Urine Glucose (UA) (Negative) Urine Ketones (Negative) Urine Blood (Negative) Urine Nitrite (Negative) Urine Bilirubin (Negative) Urine Urobilinogen (Negative) Ur Leukocyte Esterase (Negative) Salicylates (2.8-20) mg/dl Acetaminophen (10-30) ug/ml Ethyl Alcohol mg/dL (0-3) mg/dl 04/19/20 04/19/20 04/19/20 Range/Units 01:37 01:37 01:39 WBC (4.8-10.8) K/uL RBC (4.7-6.1) M/uL Hgb (14.0-18.0) g/dL Hct (42-52) % MCV (80-100) fL MCH (25-34) pg MCHC (32-36) g/dL RDW Std Deviation (36.4-46.3) fL RDW Coeff of Kwabena (11.5-14.5) % Plt Count (130-400) K/uL MPV (7.4-10.4) fL Immature Gran % (Auto) % Neut % (Auto) % Lymph % (Auto) % [place] % (Auto) % Eos % (Auto) % Baso % (Auto) % Immature Gran # (Auto) (0.00-0.02) K/uL Neut # (Auto) (1.4-6.5) K/uL Lymph # (Auto) (1.2-3.4) K/uL [place] # (Auto) (0.11-0.59) K/uL Eos # (Auto) (0-0.5) K/uL Baso # (Auto) (0-0.2) K/uL PT (9.0-12.0) Seconds POC INR (0.9-1.1) INR (0.9-1.1) APTT (21.0-31.0) Seconds PTT Ratio Sodium 142 (136-145) mmol/L Potassium 4.2 (3.5-5.1) mmol/L Chloride 110 H (98-107) mmol/L Carbon Dioxide 26 (21-32) mmol/L Anion Gap 6.0 (3-11) BUN 20 H (7-18) mg/dl Creatinine 1.01 (0.6-1.4) mg/dl Est Cr Clr Drug Dosing 81.0 ml/min Est GFR ( Amer) 96.6 Est GFR (Non-Af Amer) 83.3 BUN/Creatinine Ratio 19.7 (10-20) Glucose 83 (70-99) mg/dl Calcium 7.7 L (8.5-10.1) mg/dl Magnesium 2.0 (1.8-2.4) mg/dl Total Bilirubin 0.3 (0.2-1) mg/dl AST 27 (15-37) U/L ALT 29 (12-78) U/L Alkaline Phosphatase 106 (45-117) U/L Troponin I 0.150 H* (0-0.045) ng/ml Total Protein 7.3 (6.4-8.2) gm/dl Albumin 3.7 (3.4-5.0) gm/dl Globulin 3.6 (2.5-4.0) gm/dl Albumin/Globulin Ratio 1.0 (0.9-2) Lipase 133 (73-393) U/L Urine Color Urine Appearance (Clear) Urine pH (4.5-7.5) Ur Specific [place] (1.000-1.030) Urine Protein (Negative) Urine Glucose (UA) (Negative) Urine Ketones (Negative) Urine Blood (Negative) Urine Nitrite (Negative) Urine Bilirubin (Negative) Urine Urobilinogen (Negative) Ur Leukocyte Esterase (Negative) Salicylates 2.9 (2.8-20) mg/dl Acetaminophen < 2 L (10-30) ug/ml Ethyl Alcohol mg/dL 195.0 H (0-3) mg/dl 04/19/20 Range/Units 03:55 WBC (4.8-10.8) K/uL RBC (4.7-6.1) M/uL Hgb (14.0-18.0) g/dL Hct (42-52) % MCV (80-100) fL MCH (25-34) pg MCHC (32-36) g/dL RDW Std Deviation (36.4-46.3) fL RDW Coeff of Kwabena (11.5-14.5) % Plt Count (130-400) K/uL MPV (7.4-10.4) fL Immature Gran % (Auto) % Neut % (Auto) % Lymph % (Auto) % [place] % (Auto) % Eos % (Auto) % Baso % (Auto) % Immature Gran # (Auto) (0.00-0.02) K/uL Neut # (Auto) (1.4-6.5) K/uL Lymph # (Auto) (1.2-3.4) K/uL [place] # (Auto) (0.11-0.59) K/uL Eos # (Auto) (0-0.5) K/uL Baso # (Auto) (0-0.2) K/uL PT (9.0-12.0) Seconds POC INR (0.9-1.1) INR (0.9-1.1) APTT (21.0-31.0) Seconds PTT Ratio Sodium (136-145) mmol/L Potassium (3.5-5.1) mmol/L Chloride (98-107) mmol/L Carbon Dioxide (21-32) mmol/L Anion Gap (3-11) BUN (7-18) mg/dl Creatinine (0.6-1.4) mg/dl Est Cr Clr Drug Dosing ml/min Est GFR ( Amer) Est GFR (Non-Af Amer) BUN/Creatinine Ratio (10-20) Glucose (70-99) mg/dl Calcium (8.5-10.1) mg/dl Magnesium (1.8-2.4) mg/dl Total Bilirubin (0.2-1) mg/dl AST (15-37) U/L ALT (12-78) U/L Alkaline Phosphatase (45-117) U/L Troponin I (0-0.045) ng/ml Total Protein (6.4-8.2) gm/dl Albumin (3.4-5.0) gm/dl Globulin (2.5-4.0) gm/dl Albumin/Globulin Ratio (0.9-2) Lipase (73-393) U/L Urine Color Yellow Urine Appearance Clear (Clear) Urine pH 6.5 (4.5-7.5) Ur Specific [place] 1.027 (1.000-1.030) Urine Protein Negative (Negative) Urine Glucose (UA) Negative (Negative) Urine Ketones Negative (Negative) Urine Blood Negative (Negative) Urine Nitrite Negative (Negative) Urine Bilirubin Negative (Negative) Urine Urobilinogen Negative (Negative) Ur Leukocyte Esterase Negative (Negative) Salicylates (2.8-20) mg/dl Acetaminophen (10-30) ug/ml Ethyl Alcohol mg/dL (0-3) mg/dl MDM Narrative Physical exam and history were performed. Nursing notes, EMR, and Medication List were personally reviewed. Patient appears to have an accidental overdose of 20 pills of 5 mg Coumadin. On examination the patient is intoxicated but overall stable. IV access was established and labs were obtained. [id number] INR was performed and was 1.4. Poison control was contacted, and recommendation at this time is for continued monitoring and repeat serial INR. The patient's blood work is as above and was reviewed. He does not have a significantly elevated white blood cell count. Hemoglobin is 14.3 and platelet count is 181. Labs INR is 1.2. Patient does have an elevated troponin of 0.15, however he does have a chronic elevation of his INR. Lipase and transaminases are not diagnostic. Alcohol is elevated at 195. Urine is without blood or evidence of infection. Tylenol and salicylate levels are negative. Overall the patient does not seem well for discharge home. It will take likely several hours for the effects of the Coumadin to elevate, and certainly may represent a life-threatening process. I did discuss the case with the on-call [facility] hospitalist, who agreed to evaluate the patient here in the ER. Please see their dictation for further patient course, plan, and disposition. The chart was completed utilizing [employer] Speech Voice Recognition Software. Grammatical errors, random word insertions, pronoun errors, and incomplete sentences are an occasional consequence of this system due to software limitations, ambient noise, and hardware issues. Any formal questions or concerns about the content, text, or information contained within the body of this dictation should be directly addressed to the provider for clarification. . Impression & Plan Overdose of coumadin, Alcohol intoxication Discharge Plan Visit Data Chief Complaint: Overdose (Accidental) Stated Complaint: Overdose ED Provider: Radha Quinonez ED Midlevel Provider: Arpan Mayberry Discharge Problem: Overdose of coumadin, Alcohol intoxication Discharge Instructions Interventions: ED Discharge Assessment Last Done: 04/19/20 04:57 Forms Stand Alone Forms: [facility] Prescriptions Prescriptions: No Action metoprolol tartrate 50 mg tablet 50 mg PO BID RF: 0 omeprazole 20 mg capsule,delayed release(DR/EC) 20 mg PO QAM RF: 0 testosterone cypionate 200 mg/mL oil 200 mg IM DIRECTED RF: 0 methylphenidate HCl 10 mg Tablet 10 mg PO BID 3 Days Qty: 6 RF: 0 methylphenidate HCl 20 mg tablet 20 mg PO BID 3 Days Qty: 6 RF: 0 paroxetine HCl [Paxil] 40 mg Tablet 40 mg PO DAILY 3 Days Qty: 3 RF: 0 warfarin 10 mg Tablet 10 mg PO 3XWK RF: 0 warfarin 5 mg Tablet 5 mg PO 4XWK RF: 0 Referrals Referrals: Nabil Daley MD [Primary Care Provider] - Discharge Problem: Overdose of coumadin Qualifiers: Encounter type: initial encounter Injury intent: accidental or unintentional Qualified Code(s): T45.511A - Poisoning by anticoagulants, accidental (unintentional), initial encounter
[2020-04-19] MEDS ORDERED: OXYCODONE HCL IR 5 MG TAB (IMMEDIATE RELEASE) PO PRN (05:30)
[2020-04-19] MEDS ORDERED: LORazepam 0.5 MG/1 ML VIAL IV PRN (05:30)
[2020-04-19] MEDS ORDERED: PROMETHAZINE HCL 12.5 MG in SODIUM CHLORIDE 0.9% 50 ML IV PRN (05:30)
[2020-04-19] MEDS ORDERED: ACETAMINOPHEN 325 MG TAB PO PRN (05:30)
[2020-04-19] MEDS ORDERED: MULTI-VITAMIN INFUSION 10 ML, THIAMINE HCL 100 MG, FOLIC ACID 1 MG in SODIUM CHLORIDE 0... IV ONE (05:45)
--- NOTE | 2020-04-19 06:22 | Ultrasound Report ---
US venous doppler LE LT CLINICAL HISTORY: LLE pain COMPARISON STUDY: No previous studies for comparison. FINDINGS: Real-time and color flow Doppler imaging were performed. Flow was seen within the femoral, popliteal and calf veins with no intraluminal thrombus demonstrated. The saphenous vein is patent. IMPRESSION: No evidence of deep venous thrombosis. ACT 112: Negative or not required by law. The above report was generated using voice recognition software. It may contain grammatical, syntax or spelling errors. Electronically signed by: Naldo Greene M.D. 04/19/2020 6:21 AM
[2020-04-19] MEDS ORDERED: METHYLPHENIDATE HCL 10 MG TABLET PO SCH (08:00)
[2020-04-19] MEDS: PANTOprazole 40 MG TAB PO SCH (08:23)
[2020-04-19] MEDS: METOPROLOL TARTRATE 50 MG TAB PO SCH ×2 (08:23→21:08)
[2020-04-19] MEDS ORDERED: PARoxetine HCL 20 MG TAB PO SCH (09:00)
--- NOTE | 2020-04-19 09:47 | Hospitalist Progress Note ---
Date of Service April 19, 2020 Assessment & Plan (1) Alcohol withdrawal: Severe alcohol withdrawal augmented by Ritalin dose given this morning. First, the patient needs Ativan. He was given 4mg IV with good response. Also started gabapentin per the active withdrawal protocol. He received 1200mg. He will likely need more Ativan as the day progresses. Transferring him to PCU. Stopping Ritalin which he doesn't take consistently anyway. Seizure precautions. (2) Overdose of coumadin: Taking 24 pills of anything prompts one to consider SI. The patient denies SI but does have a h/o anxiety and depression and is on Paxil. Psych consult in place. Cont monitoring and recs per poison control. (3) Chronic leg pain: chronic left lower leg pain. No DVT present. Takes diclofenac regularly in addition to coumadin. Reports he feels the coumadin helps the pain in his leg somewhat. Denies trying other agents in the past. Would cont a trial of gabapentin at time of discharge. (4) Depression: Cont paxil per home regimen. (5) Complete heart block: h/o CHB s/p pacemaker. On metoprolol 50mg BID. HR is in the 60s overnight on telemetry. (6) History of alcohol abuse: Cont withdrawal protocol as above. (7) H/O aortic valve replacement: has h/o bioprosthetic replacement. 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 Patient currently doesn't have a DVT. Never seen a Model Engine Mechanic, which I would recommend to avoid unnecessary coumadin moving forward as he may not need long-term therapy. For now with coumadin overdose, coumadin has been held. (9) DVT prophylaxis: SCDs Full Code Dispo-transfer to PCU as patient is severely wtihdrawing from alcohol. DO [facility] Hospitalist Admission and Anticipated Discharge Date Admission Date: April 19, 2020 Subjective 54 yo M presented after taking 24 coumadin pills. He reports this was an accidental overdose as he thought he was taking diclofenac. I briefly pointed out that 24 ills of anything is too much and was he suffering from anxiety or depression, or having any suicidal ideations. He denied all and said it was the chronic uncontrolled pain in his left lower leg that bothered him so much. He denies any bleeding per rectum or bruising despite taking terminologist diclofenac in addition to coumadin. Review of Systems Review of Systems: All systems reviewed & are unremarkable except as noted in Subjective Physical Exam Physical Exam: CONSTITUTIONAL: WNWD, vitals as above, generally anxious- appearing EYES: PERRL, normal conjunctivae, no scleral icterus ENT: external ear and nose normal, MMM NECK: trachea midline RESPIRATORY: clear to auscultation bilaterally, no crackles, rales or wheezes, normal respiratory effort, some conversational dyspnea noted. CARDIOVASCULAR: regular rate and rhythm, S1 and 2 heard without murmurs, gallops or rubs, no JVD, no peripheral edema GASTROINTESTINAL: soft, nontender, nondistended MUSCULOSKELETAL: head NC/AT, moves all extremities equally. No gross focal deficits. SKIN: warm and diaphoretic NEUROLOGIC: No facial palsy, no dysarthria. CN 2-12 grossly intact, no sensory deficit, normal cognition, pressure speech, tremulous, +tremors, appears very shaky with shaky voice. PSYCHIATRIC: alert cooperative and oriented to person, place and time. Results & Data Results & Data ([facility]) Vital Signs (Past 12 Hours) Vital Signs Temp Pulse Pulse Pulse Resp BP BP 04/19/20 07:43 36.3 C L 68 18 128/78 04/19/20 06:11 60 04/19/20 05:44 36.5 C 60 16 04/19/20 03:56 60 20 04/19/20 03:00 60 20 104/70 04/19/20 02:30 60 23 107/69 04/19/20 02:23 60 13 115/80 04/19/20 02:07 60 20 04/19/20 01:25 36.5 C 60 20 135/73 BP Pulse Ox 04/19/20 07:43 97 04/19/20 06:11 04/19/20 05:44 119/74 96 04/19/20 03:56 125/82 98 04/19/20 03:00 94 04/19/20 02:30 93 04/19/20 02:23 94 04/19/20 02:07 96 04/19/20 01:25 96 Laboratory Results Short CBC 04/19/20 Range/Units 01:37 WBC 6.82 (4.8-10.8) K/uL Hgb 14.3 (14.0-18.0) g/dL Hct 41.1 L (42-52) % Plt Count 181 (130-400) K/uL BMP 04/19/20 01:37 Sodium 142 Potassium 4.2 Chloride 110 H Carbon Dioxide 26 BUN 20 H Creatinine 1.01 Glucose 83 Calcium 7.7 L Cardiac Enzymes 04/19/20 Range/Units 01:37 Troponin I 0.150 H* (0-0.045) ng/ml Liver Function 04/19/20 Range/Units 01:37 Total Bilirubin 0.3 (0.2-1) mg/dl AST 27 (15-37) U/L ALT 29 (12-78) U/L Alkaline Phosphatase 106 (45-117) U/L Albumin 3.7 (3.4-5.0) gm/dl Urine 04/19/20 Range/Units 03:55 Urine Color Yellow Urine Appearance Clear (Clear) Urine pH 6.5 (4.5-7.5) Ur Specific [place] 1.027 (1.000-1.030) Urine Protein Negative (Negative) Urine Glucose (UA) Negative (Negative) Medications Administered Current Inpatient Medications Acetaminophen (Tylenol) 650 mg PO Q4H PRN PRN Reason: Pain or Fever Stop: 05/19/20 05:29 Folic Acid ([facility]) [facility] [place]: 05/20/20 08:59 Heparin Sodium/Dextrose (Heparin Sodium/Dextrose) 25,000 units in 500 mls @ 25 mls/hr IV .Q20H [facility]; Protocol Stop: 05/19/20 03:29 Last Titration: 04/19/20 05:32 Dose: 1,250 units/hr, 25 mls/hr Documented by: Promethazine HCl 12.5 mg/ (Sodium Chloride) 50.5 mls @ 202 mls/hr IV Q6H PRN PRN Reason: Nausea And Vomiting Stop: 05/19/20 05:29 Lorazepam (Ativan) 0.5 mg in 1 mls @ 1 mls/min IV Q4H PRN PRN Reason: Anxiety/Agitation Stop: 05/19/20 05:29 Multivitamins 10 ml/ Thiamine HCl 100 mg/ Folic Acid 1 mg/Sodium Chloride 1,011.2 mls @ 60 mls/hr IV .[id number] ONE Stop: 04/19/20 22:36 Last Admin: 04/19/20 08:23 Dose: 60 mls/hr Documented by: Methylphenidate HCl (Ritalin) 30 mg PO BID@0600,1400 [facility] Stop: 05/03/20 07:59 Last Admin: 04/19/20 08:22 Dose: 30 mg Documented by: Metoprolol Tartrate (Lopressor) 50 mg PO BID [facility] Stop: 05/19/20 08:59 Last Admin: 04/19/20 08:23 Dose: 50 mg Documented by: Multivitamins (Multivitamin Tab) 1 [facility] [place] Stop: 05/20/20 08:59 Oxycodone HCl (Roxicodone Immediate Rel) 5 mg PO Q4H PRN PRN Reason: Pain Stop: 05/03/20 05:29 Pantoprazole Sodium (Protonix) 40 [facility] [place] Stop: 05/19/20 08:59 Last Admin: 04/19/20 08:23 Dose: 40 mg Documented by: Paroxetine HCl (Paxil) 40 mg PO DAILY [facility] Stop: 05/19/20 08:59 Last Admin: 04/19/20 08:23 Dose: 40 mg Documented by: Thiamine HCl (Vitamin B-1) 100 mg PO QAM [facility] Stop: 05/20/20 08:59 (1) Overdose of coumadin Encounter type: initial encounter Injury intent: accidental or unintentional Qualified Code(s): T45.511A - Poisoning by anticoagulants, accidental (unintentional), initial encounter
[2020-04-19] MEDS ORDERED: GABAPENTIN 1200MG ALCOHOL WITHDRAWAL LOAD PO STA (10:45)
[2020-04-19] MEDS ORDERED: LORazepam 4 MG/8 ML VIAL IV STA (10:47)
[2020-04-19 11:00] LABS: INR 1.6 (0.9-1.1); Prothrombin Time 16.8 Seconds (9.0-12.0)
[2020-04-19 11:06] LABS: Partial Thromboplastin Time 110.7 Seconds (21.0-31.0)
[2020-04-19] MEDS ORDERED: GABAPENTIN 600 MG TAB PO SCH (12:00)
--- NOTE | 2020-04-19 12:57 | Psychiatric Consultation ---
Date of Consultation April 19, 2020 Impression / Recommendations Impression 54 yo male with alcohol withdrawal delirium, I cannot fully assess his intention with OD at this time given delirium. His presentation of delirium is rather interesting in that he is grandiose with pressured speech at times which could suggest underlying bipolar disorder as a factor in his ETOH use. He will need reassessed when more medically stable as our service cannot safety plan with him at this time. Liaison to contact ex- (support) re: collateral and will ultimately need to confirm access to weapons at home. Ideally he would agree to rehab as clearly has alcohol use disorder. I would hold his Ritalin given cardiovascular issues that can occur in acute withdrawal. Management of withdrawal per medical team. I would also hold Paxil. There can be some discontinuation syndrome but currently delirious, can impact QTc, etc. 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 Chief Complaint "I had all these accolades, now this leg thing". History of Present Illness Patient is rather tangential, appears tremulous and slurring speech. Nurse reports got 4 mg of Ativan this am. When asked if ingestion was a suicide attempt he says "50/50". Denies he wants to do it now, states got the thoughts while intoxicated though "I'm not an impulsive person". Chronological hx was difficult to obtain as he fluctuated between his training years and current medical complaints, mentioned at least 2 wives and then stated current ex he several times. He admits to increase in drinking in the past few weeks, feeling anxious and having to have an eye supervisor tunnel heading. He "doesn't binge" but pretty much sips screwdrivers throughout day up to 1/5th bottle vodka. "I don't even like the taste". States after his 2nd aortic valve surgery he was not able to return to the office due to stamina. He denies malathi alecia. Appetite and sleep have been disrupted by ETOH use. Past Psychiatric History Previous Psych History: denies formal, states depression meds per PCP in residency Outpatient Services: no therapy, no hx of rehab Previous Psych Admissions: denied History of Previous Suicide Attempt: No Past Medication Trials: unable to elicit at this time Allergies Allergy/AdvReac Type Severity Reaction Status Date / Time No Known Allergies Allergy Verified 04/19/20 01:29 Home Medications Home Medications Medication Instructions Recorded Confirmed Type metoprolol tartrate 50 mg PO BID 01/31/19 04/19/20 History omeprazole 20 mg PO QAM 01/31/19 04/19/20 History testosterone cypionate 200 mg IM DIRECTED 01/31/19 04/19/20 History methylphenidate HCl 10 mg PO BID 3 Days #6 tab 02/10/19 04/19/20 Rx methylphenidate HCl 20 mg PO BID 3 Days #6 tab 02/10/19 04/19/20 Rx paroxetine HCl [Paxil] 40 mg PO DAILY 3 Days #3 tab 02/10/19 04/19/20 Rx warfarin 5 mg PO [id number] 04/19/20 04/19/20 History warfarin 10 mg PO [id number] 04/19/20 04/19/20 History Personal History Highest Grade Completed: 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 School (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[employer])) Employment Status: Retired Marital Status: Beliefs That Will Affect Care: None History of Legal Problems: denied Psychological Trauma History Comment: leaving when his daughter was 4 Patient History Medical History Abscess, gluteal, right (Acute) Anxiety (Chronic) Complete heart block (Chronic) S/p pacemaker placement Confusion and disorientation Depression (Chronic) Endocarditis History of alcohol abuse (Resolved) NSTEMI (non-ST elevated myocardial infarction) (Acute) Pacemaker (Chronic) Sepsis (Acute) Septic arthritis of hip (Acute) Small bowel obstruction Surgical History H/O aortic valve replacement (Resolved) [address] 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 History of hernia surgery (Resolved) History of hip surgery Family History Other Heart disease Social History Preferred Language: Tajik Communication Ability: Effective Dining Room Helper Required: No Beliefs That Will Affect Care: None Current Living Situation: Other Current Living Situation Comment: ex Other Information That Helps Us Care for You: No Feels Safe at Home: Yes Safety Concerns: Feels Safe At This Time Smoking Status: Never smoker Tobacco Type: cigarettes ; Second Hand Exposure: No ; Hx Alcohol Use: Yes Alcohol type: beer and hard liquor Alcohol Intake Frequency Comment: ~1 pint vodka daily Hx Substance Use: No Physical Exam Psychiatric: Orientation: alert and oriented to person Apperance: + disheveled Eye Contact: + fair eye contact Motor Behavior: + tremor Speech: + pressured speech Affect: + depressed affect Mood: + anxious mood Thought Process: + tangential thought process Thought Content: reality based without delusions Suicidal Thoughts: denies suicidal thoughts Homicidal Thoughts: denies homicidal thoughts Hallucinations: no auditory hallucinations and no visual hallucinations Cognition: + attention not intact Estimated Intelligence: consistent with education level Insight: + poor insight Judgement: + poor judgement Vital Signs (Past 24 Hours): Last Vital Signs Temp 36.7 C 04/19/20 11:34 Pulse 63 04/19/20 11:34 Resp 18 04/19/20 11:34 BP 152/98 H 04/19/20 11:34 Pulse Ox 96 04/19/20 11:34 Review of Systems All systems reviewed & are unremarkable except as noted in HPI & below Results & Data ([facility]) Medications Administered Heparin Sodium/Dextrose (Heparin Sodium/Dextrose) 25,000 units in 500 mls @ 0 mls/hr IV .Q0M [facility]; Protocol Stop: 05/19/20 03:29 Last Titration: 04/19/20 10:44 Dose: 0 units/hr, 0 mls/hr Documented by: [id number] Cosigned by: [id number] Titration: 04/19/20 05:32 Dose: 1,250 units/hr, 25 mls/hr Documented by: [id number] Cosigned by: [id number] Admin: 04/19/20 04:45 Dose: 1,250 units/hr, 25 mls/hr Documented by: [id number] Cosigned by: [id number] Multivitamins 10 ml/ Thiamine HCl 100 mg/ Folic Acid 1 mg/Sodium Chloride 1,011.2 mls @ 60 mls/hr IV .[id number] ONE Stop: 04/19/20 22:36 Last Admin: 04/19/20 08:23 Dose: 60 mls/hr Documented by: [id number] Methylphenidate HCl (Ritalin) 30 mg PO BID@0600,1400 [facility] Stop: 05/03/20 07:59 Last Admin: 04/19/20 08:22 Dose: 30 mg Documented by: [id number] Metoprolol Tartrate (Lopressor) 50 mg PO BID [facility] Stop: 05/19/20 08:59 Last Admin: 04/19/20 08:23 Dose: 50 mg Documented by: [id number] Pantoprazole Sodium (Protonix) 40 mg PO QAM [facility] Stop: 05/19/20 08:59 Last Admin: 04/19/20 08:23 Dose: 40 mg Documented by: [id number] Paroxetine HCl (Paxil) 40 mg PO DAILY [facility] Stop: 05/19/20 08:59 Last Admin: 04/19/20 08:23 Dose: 40 mg Documented by: [id number] Coding Level of Care Code 42710 U Intl Hosp Care Lvl 2
[2020-04-19 16:18] LABS: Hematocrit (blood only) 40.9 % (42-52); Mean Corpuscular Hemoglobin 31.7 pg (25-34); Mean Corpuscular Hgb Conc 34.2 g/dL (32-36); Mean Corpuscular Volume 92.7 fL (80-100); Mean Platelet Volume 10.6 fL (7.4-10.4); Platelet Count 163 K/uL (130-400); RDW Coefficient of Variation 15.5 % (11.5-14.5); RDW Standard Deviation 53.1 fL (36.4-46.3); Red Blood Count 4.41 M/uL (4.7-6.1); White Blood Count 6.06 K/uL (4.8-10.8)
[2020-04-19 16:28] LABS: Prothrombin Time 20.1 Seconds (9.0-12.0)
[2020-04-19 16:34] LABS: BUN Creatinine Ratio 19.6 (10-20); Calcium 8.2 mg/dl (8.5-10.1); Creatinine Clr Calc Pharmacy 84.8 ml/min; Est GFR (African American) 102.7; Est GFR (Non-African American) 88.6; Potassium 4.2 mmol/L (3.5-5.1)
[2020-04-19] MEDS: GABAPENTIN 600 MG TAB PO SCH ×2 (18:15→23:21)
[2020-04-19] MEDS ORDERED: PHYTONADIONE 5 MG TAB PO STA (19:54)
[2020-04-20 04:50] LABS: Basophils # (auto) 0.04 K/uL (0-0.2); Basophils % (auto) 0.8 %; Eosinophils # (auto) 0.24 K/uL (0-0.5); Hemoglobin 14.5 g/dL (14.0-18.0); Immature Granulocytes # (auto) 0.02 K/uL (0.00-0.02); Immature Granulocytes % (auto) 0.4 %; Lymphocytes % (auto) 33.5 %; Mean Corpuscular Hemoglobin 31.5 pg (25-34); Mean Corpuscular Hgb Conc 33.7 g/dL (32-36); Mean Corpuscular Volume 93.3 fL (80-100); Mean Platelet Volume 10.5 fL (7.4-10.4); Monocytes # (auto) 0.34 K/uL (0.11-0.59); Monocytes % (auto) 7.1 %; Neutrophils # (auto) 2.53 K/uL (1.4-6.5); Neutrophils % (auto) 53.2 %; Platelet Count 162 K/uL (130-400); RDW Coefficient of Variation 15.5 % (11.5-14.5); RDW Standard Deviation 53.2 fL (36.4-46.3); Red Blood Count 4.61 M/uL (4.7-6.1); White Blood Count 4.77 K/uL (4.8-10.8)
[2020-04-20 05:11] LABS: Creatinine Clr Calc Pharmacy 100.4 ml/min; Est GFR (Non-African American) 100.1; Potassium 3.6 mmol/L (3.5-5.1)
[2020-04-20 05:15] LABS: INR 3.7 (0.9-1.1)
--- NOTE | 2020-04-20 05:39 | Electrocardiogram Report ---
Test Reason : Blood Pressure : / mmHG Vent. Rate : 061 BPM Atrial Rate : 061 BPM P-R Int : 202 ms QRS Dur : 198 ms QT Int : 514 ms P-R-T Axes : 089 -71 108 degrees QTc Int : 517 ms AV dual-paced rhythm Abnormal ECG When compared with ECG of 03-FEB-2019 12:47, No significant change was found Confirmed by Willie Hendricks ([id number]) on 04/20/2020 5:39:02 AM Referred By: REFERRED SELF Confirmed By:Willie Hendricks
--- NOTE | 2020-04-20 07:33 | Hospitalist Progress Note ---
Date of Service April 20, 2020 Assessment & Plan (1) Alcohol withdrawal: Continue treatment of alcohol withdrawal with additional Ativan IV at this time. Continue gabapentin protocol with as needed Ativan as needed throughout the day. Again, continue to hold Ritalin. We discussed the importance of quitting alcohol and we reviewed the pathophysiology of alcohol withdrawal and subsequent neuro excitability. (2) Overdose of coumadin: Taking 24 pills of anything prompts one to consider SI. The patient denies SI but does have a h/o anxiety and depression and is on Paxil. Psych consult in place. Currently trending INR per poison control who is following the case. We will continue to trend INR until there is a peak and decline. Would treat INR greater than 4.5 with vitamin K as instructed per poison control. Patient was placed on suicide precautions. (3) Chronic leg pain: chronic left lower leg pain. No DVT present. Pain is resolved today, possibly a result of gabapentin use. May consider starting a small trial dose of 300mg QHS on discharge instead of diclofenac (not ideal in setting of coumadin). (4) Depression: Cont paxil per home regimen. Suicide precautions until psych has a chance to appropriately evaluate him. (5) Complete heart block: h/o CHB s/p pacemaker. On metoprolol 50mg BID. (6) History of alcohol abuse: Cont withdrawal protocol as above. (7) H/O aortic valve replacement: has h/o bioprosthetic replacement. 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 Patient currently doesn't have a DVT. He has never seen a Postal Supervisor, which I would recommend to avoid unnecessary coumadin moving forward as he may not need long-term therapy. Possible provoked DVTs in the past. For now with coumadin overdose, coumadin has been held with plan as above. (9) DVT prophylaxis: SCDs, INR is therapeutic. Full Code Dispo-cont PCU monitoring with ongoing active withdrawal. Nemo Lainez DO [facility] Hospitalist Admission and Anticipated Discharge Date Admission Date: April 19, 2020 Subjective Patient is agitated and tremulous today as well as hypertensive. He again developed pressured speech similar to yesterday and appears to be continuing to withdrawal. The patient otherwise denies any nausea, chest pain, shortness of breath, pain in his left lower leg. He reports the gabapentin has made him drowsy. Review of Systems Review of Systems: All systems reviewed & are unremarkable except as noted in Subjective Physical Exam Physical Exam: CONSTITUTIONAL: WNWD, vitals as above, generally anxious- appearing EYES: PERRL, normal conjunctivae, no scleral icterus ENT: external ear and nose normal, MMM NECK: trachea midline RESPIRATORY: clear to auscultation bilaterally, no crackles, rales or wheezes, normal respiratory effort, some conversational dyspnea noted. CARDIOVASCULAR: regular rate and rhythm, S1 and 2 heard without murmurs, gallops or rubs, no JVD, no peripheral edema GASTROINTESTINAL: soft, nontender, nondistended MUSCULOSKELETAL: head NC/AT, moves all extremities equally. No gross focal deficits. SKIN: warm and diaphoretic NEUROLOGIC: No facial palsy, no dysarthria. CN 2-12 grossly intact, no sensory deficit, normal cognition, pressure speech, tremulous, +tremors, appears very shaky with shaky voice. PSYCHIATRIC: alert cooperative and oriented to person, place and time. Results & Data Results & Data ([facility]) Vital Signs (Past 12 Hours) Vital Signs Temp Pulse Resp BP Pulse Ox 04/20/20 04:13 36.4 C L 60 18 142/86 H 94 04/19/20 23:33 36.8 C 60 19 140/92 94 04/19/20 21:08 36.8 C 60 20 147/89 H 95 Laboratory Results Short CBC 04/19/20 04/20/20 Range/Units 16:00 04:19 WBC 6.06 4.77 L (4.8-10.8) K/uL Hgb 14.0 14.5 (14.0-18.0) g/dL Hct 40.9 L 43.0 (42-52) % Plt Count 163 162 (130-400) K/uL BMP 04/19/20 04/20/20 16:00 04:19 Sodium 138 140 Potassium 4.2 3.6 Chloride 108 H 110 H Carbon Dioxide 25 24 BUN 19 H 19 H Creatinine 0.96 0.81 Glucose 89 84 Calcium 8.2 L 8.0 L Cardiac Enzymes 04/19/20 Range/Units 10:30 Troponin I 0.143 H* (0-0.045) ng/ml Medications Administered Current Inpatient Medications Acetaminophen (Tylenol) 650 mg PO Q4H PRN PRN Reason: Pain or Fever Stop: 05/19/20 05:29 Folic Acid (Folvite) 1 mg PO QAM [facility] Stop: 05/20/20 08:59 Gabapentin (Neurontin) 600 mg PO Q8H [facility] Stop: 04/21/20 00:01 Gabapentin (Neurontin) 600 mg PO Q24H [facility] Stop: 04/23/20 00:01 Gabapentin (Neurontin) 600 mg PO Q12H [facility] Stop: 04/22/20 00:01 Promethazine HCl 12.5 mg/ (Sodium Chloride) 50.5 mls @ 202 mls/hr IV Q6H PRN PRN Reason: Nausea And Vomiting Stop: 05/19/20 05:29 Lorazepam (Ativan) 0.5 mg in 1 mls @ 1 mls/min IV Q4H PRN PRN Reason: Anxiety/Agitation Stop: 05/19/20 05:29 Metoprolol Tartrate (Lopressor) 50 mg PO BID [facility] Stop: 05/19/20 08:59 Last Admin: 04/19/20 21:08 Dose: 50 mg Documented by: Multivitamins (Multivitamin Tab) 1 tab PO [facility] Stop: 05/20/20 08:59 Oxycodone HCl (Roxicodone Immediate Rel) 5 mg PO Q4H PRN PRN Reason: Pain Stop: 05/03/20 05:29 Pantoprazole Sodium (Protonix) [facility] [place] Stop: 05/19/20 08:59 Last Admin: 04/19/20 08:23 Dose: 40 mg Documented by: Thiamine HCl (Vitamin B-1) 100 mg PO [facility] [place] Stop: 05/20/20 08:59 (1) Overdose of coumadin Encounter type: initial encounter Injury intent: accidental or unintentional Qualified Code(s): T45.511A - Poisoning by anticoagulants, accidental (unintentional), initial encounter
[2020-04-20] MEDS: THIAMINE HCL 100 MG TAB PO SCH (08:21)
[2020-04-20] MEDS: GABAPENTIN 600 MG TAB PO SCH ×3 (08:22→23:55)
[2020-04-20] MEDS: METOPROLOL TARTRATE 50 MG TAB PO SCH ×2 (08:22→20:55)
[2020-04-20] MEDS: MULTIVITAMIN TAB PO SCH (08:22)
[2020-04-20] MEDS: PANTOprazole 40 MG TAB PO SCH (08:22)
[2020-04-20] MEDS: FOLIC ACID 1 MG TAB PO SCH (08:22)
[2020-04-20 09:49] LABS: Amphetamines+Metham, Urine Neg (Neg); Barbiturates, Urine Neg (Neg); Benzodiazepine, Urine Neg (Neg); Cocaine, Urine Neg (Neg); MDMA (Ecstacy), Urine Neg (Neg); Methadone, Urine Neg (Neg); Opiate, Urine Neg (Neg); Phencyclidine, Urine Neg (Neg)
[2020-04-20] MEDS ORDERED: LORazepam 2 MG/4 ML VIAL IV STA (11:43)
[2020-04-20] MEDS ORDERED: LORazepam 3 MG/6 ML VIAL IV PRN (11:47)
[2020-04-20] MEDS ORDERED: ATIVAN IV ALCOHOL WITHDRAWL IV PRN (11:47)
[2020-04-20] MEDS: LORazepam 1 MG/2 ML VIAL IV PRN (15:42)
[2020-04-20 15:53] LABS: INR 4.8 (0.9-1.1); Prothrombin Time 46.8 Seconds (9.0-12.0)
[2020-04-20] MEDS ORDERED: PHYTONADIONE 5 MG in SODIUM CHLORIDE 0.9% 50 ML IV ONE (19:00)
[2020-04-20 21:52] LABS: INR 4.2 (0.9-1.1); Prothrombin Time 41.2 Seconds (9.0-12.0)
[2020-04-20] MEDS: LORazepam 2 MG/4 ML VIAL IV PRN ×2 (22:29→23:55)
[2020-04-21] MEDS: LORazepam 2 MG/4 ML VIAL IV PRN ×3 (01:00→09:57)
[2020-04-21 03:42] LABS: Hematocrit (blood only) 39.8 % (42-52); Hemoglobin 13.9 g/dL (14.0-18.0); Mean Corpuscular Hemoglobin 31.8 pg (25-34); Mean Corpuscular Hgb Conc 34.9 g/dL (32-36); Mean Corpuscular Volume 91.1 fL (80-100); Mean Platelet Volume 10.3 fL (7.4-10.4); Platelet Count 148 K/uL (130-400); RDW Coefficient of Variation 15.1 % (11.5-14.5); RDW Standard Deviation 50.3 fL (36.4-46.3); Red Blood Count 4.37 M/uL (4.7-6.1)
[2020-04-21 03:52] LABS: INR 1.7 (0.9-1.1); Prothrombin Time 17.3 Seconds (9.0-12.0)
[2020-04-21 04:04] LABS: BUN Creatinine Ratio 19.3 (10-20); Calcium 8.1 mg/dl (8.5-10.1); Creatinine Clr Calc Pharmacy 99.3 ml/min; Est GFR (African American) 114.8; Est GFR (Non-African American) 99.1; Potassium 3.8 mmol/L (3.5-5.1)
[2020-04-21 09:41] LABS: INR 1.5 (0.9-1.1); Prothrombin Time 15.1 Seconds (9.0-12.0)
[2020-04-21] MEDS: FOLIC ACID 1 MG TAB PO SCH (09:44)
[2020-04-21] MEDS: METOPROLOL TARTRATE 50 MG TAB PO SCH (09:44)
[2020-04-21] MEDS: THIAMINE HCL 100 MG TAB PO SCH (09:44)
[2020-04-21] MEDS: MULTIVITAMIN TAB PO SCH (09:44)
[2020-04-21] MEDS: PANTOprazole 40 MG TAB PO SCH (09:44)
[2020-04-21] MEDS ORDERED: GABAPENTIN 600 MG TAB PO SCH (12:00)
--- NOTE | 2020-04-21 14:04 | Psychiatric Progress Note ---
Date of Service April 21, 2020 Impression / Recommendations Impression 54 y/o male admitted with alcohol withdrawal delirium and Coumadin overdose. Initially reported it was "50-50" a suicide attempt, and attempt to get collateral information from his ex- was not successful as she wanted to talk to him first. Rehab is clearly indicated for alcohol use disorder. Ritalin being held given cardiovascular issues that can occur in acute withdrawal, and Paxil held due to impact on QTc. Impression: Dr. Paris Louis was directly involved in review and discussion of the patient's case and participated in medical decision making regarding treatment recommendations. Recommendations: - Patient denies SI, stating that coumadin 24 pills were taken mistakenly without any suicidal intention when he tried to take aspirin to relieve his leg pain, and he doesn't recall what he stated during the previous assessment done by Dr. Wilson on 04/19. - 1:1 observation can be removed since he doesn't show increased risk of harm to self given his denial of SI and clear thought process on today's assessment, even though there is a suspicion that he wants to minimize his suicidal ideation and he has multiple risk factors of suicide. Continue close monitoring his SI periodically. - Patient wants to continue Adderall and Paxil and was informed that his outpatient medications will be resumed when he is cleared medically first. Patient declines any medication adjustment this time and will follow up with his provider after discharge. - CATARINA for his obtained yesterday and his jey be contacted again this evening to assess his safety at home. - CATARINA for his outpatient care, CATARINA for Rosa Mae PA-C, at [facility], to coordinate his aftercare and his next appointment with her is on 05/06. - Will continue assess him to assess if he needs acute psychiatric inpatient care regarding his SI when he gets more stabilized. Interval History Chief Complaint "I didn't have any SI. I just wanted to get rid of leg pain with aspirin and took a wrong bottle". Review of Systems Notes Constitutional: denied cardiovascular: denied Respiratory: denied GI: denied Neurologic: reports tremors Psychiatric: denies symptoms other than stated above Remainder of 10 body systems also reviewed and denied other than noted above. Subjective Subjective Patient was seen & assessed and interval progress reviewed with liason nurse. Liaison nurse reports he has been more clear and alert today. Patient was seen today to assess progress and the necessity of the one-to-one observation. Patient reports that he has never had any suicidal ideation even though he admits to the fact that he overdosed Coumadin but it was a mistake. He states that he tried to picker feeder a baby aspirin bottle to get rid of his leg pain but realized he took Coumadin instead of aspirin after finishing the whole bottle of coumadin while he was intoxicated. When he was questioned further about the statement, which was made to Dr. wilson on April 19, that he had a 50/50 intention for suicidal ideation when he was intoxicated, he does not recall this statement and consistently denies suicidal ideation. He endorses depressive symptoms and cannot feel as happy as he could be anymore except only one time when he takes SSRI and stimulant at the same time. He reports that he tried multiple SSRIs, SNRIs, TCAs for depression but only one psychiatric medication cannot control his depression. He has been on Paxil intermittently for the past 10 years but his main concern is feeling tired with anergia and Adderall works pretty well for this. He wants to continue on both medications, including Paxil and Adderall, as soon as possible. He feels safe at home and he states that he will follow-up with outpatient provider, CATARINA Mae PA-C, at [facility], for medication management or adjustment if it is necessary. Physical Exam Psychiatric Orientation: alert and oriented x 3 Apperance: + disheveled Eye Contact: + fair eye contact Motor Behavior: + tremor Pt was lying on the bed and tremors noted when he tried to drink. Speech: normal rate/rhythm/volume of speech Affect: + blunted affect Mood: + depressed mood and + anxious mood Thought Process: clear/coherent thought process (trying to minimize his problems) Thought Content: reality based without delusions Suicidal Thoughts: denies suicidal thoughts Homicidal Thoughts: denies homicidal thoughts Hallucinations: no auditory hallucinations and no visual hallucinations Cognition: remote memory grossly intact and language grossly intact Estimated Intelligence: consistent with education level Insight: + fair insight Judgement: + fair judgement Vital Signs (Past 24 Hours) Last Vital Signs Temp 36.6 C 04/21/20 11:20 Pulse 60 04/21/20 11:20 Resp 18 04/21/20 11:20 BP 113/75 04/21/20 11:20 Pulse Ox 95 06/09/20 11:20 [facility] & [facility] Laboratory Results Laboratory Results - last 24 hr 04/20/20 04/20/20 04/21/20 15:25 21:20 03:30 WBC RBC Hgb Hct MCV MCH MCHC RDW Std Deviation RDW Coeff of Kwabena Plt Count MPV PT 46.8 H 41.2 H 17.3 H INR 4.8 H 4.2 H 1.7 H Sodium Potassium Chloride Carbon Dioxide Anion Gap BUN Creatinine Est Cr Clr Drug Dosing Est GFR ( Amer) Est GFR (Non-Af Amer) BUN/Creatinine Ratio Glucose Calcium 04/21/20 04/21/20 04/21/20 03:30 03:30 09:15 WBC 5.70 RBC 4.37 L Hgb 13.9 L Hct 39.8 L MCV 91.1 MCH 31.8 MCHC 34.9 RDW Std Deviation 50.3 H RDW Coeff of Kwabena 15.1 H Plt Count 148 MPV 10.3 PT 15.1 H INR 1.5 H Sodium 137 Potassium 3.8 Chloride 108 H Carbon Dioxide 24 Anion Gap 5.0 BUN 16 Creatinine 0.83 Est Cr Clr Drug Dosing 99.3 Est GFR ( Amer) 114.8 Est GFR (Non-Af Amer) 99.1 BUN/Creatinine Ratio 19.3 Glucose 92 Calcium 8.1 L Current Inpatient Medications Current Inpatient Medications: Current Inpatient Medications Acetaminophen (Tylenol) 650 mg PO Q4H PRN PRN Reason: Pain or Fever Stop: 05/19/20 05:29 Folic Acid (Folvite) 1 mg PO QAM [facility] Stop: 05/20/20 08:59 Last Admin: 04/21/20 09:44 Dose: 1 mg Documented by: Gabapentin (Neurontin) 600 mg PO Q24H TAMELA Stop: 04/23/20 00:01 Gabapentin (Neurontin) 600 mg PO Q12H TAMELA Stop: 04/22/20 00:01 Last Admin: 04/21/20 12:06 Dose: 600 mg Documented by: Promethazine HCl 12.5 mg/ (Sodium Chloride) 50.5 mls @ 202 mls/hr IV Q6H PRN PRN Reason: Nausea And Vomiting Stop: 05/19/20 05:29 Lorazepam (Ativan) 0.5 mg in 1 mls @ 1 mls/min IV Q4H PRN PRN Reason: Anxiety/Agitation Stop: 05/19/20 05:29 Last Admin: 04/20/20 10:50 Dose: 1 mls/min Documented by: Lorazepam (Ativan) 1 mg in 2 mls @ 2 mls/min IV UD PRN; Protocol PRN Reason: EtOH Withdrawl AWSS Score 6,7 Stop: 05/20/20 11:46 Last Admin: 04/20/20 15:42 Dose: 2 mls/min Documented by: Lorazepam (Ativan) 2 mg in 4 mls @ 4 mls/min IV UD PRN; Protocol PRN Reason: EtOH Withdrawl AWSS Score 8,9 Stop: 05/20/20 11:46 Last Admin: 04/21/20 09:57 Dose: 4 mls/min Documented by: Lorazepam (Ativan) 3 mg in 6 mls @ 4 mls/min IV ONCE PRN; Protocol PRN Reason: EtOH Withdrawl AWSS Score >=10 Stop: 05/20/20 11:46 Last Admin: 04/20/20 12:16 Dose: 4 mls/min Documented by: Metoprolol Tartrate (Lopressor) 50 mg PO BID [facility] Stop: 05/19/20 08:59 Last Admin: 04/21/20 09:44 Dose: 50 mg Documented by: Multivitamins (Multivitamin Tab) 1 tab PO [facility] Stop: 05/20/20 08:59 Last Admin: 04/21/20 09:44 Dose: 1 tab Documented by: Oxycodone HCl (Roxicodone Immediate Rel) 5 mg PO Q4H PRN PRN Reason: Pain Stop: 05/03/20 05:29 Last Admin: 04/20/20 20:56 Dose: 5 mg Documented by: Pantoprazole Sodium (Protonix) 40 mg PO [facility] Stop: 05/19/20 08:59 Last Admin: 04/21/20 09:44 Dose: 40 mg Documented by: Thiamine HCl (Vitamin B-1) 100 mg PO [facility] Stop: 05/20/20 08:59 Last Admin: 04/21/20 09:44 Dose: 100 mg Documented by:
[2020-04-21] MEDS: LORazepam 1 MG/2 ML VIAL IV PRN (14:44)
[2020-04-21 15:40] LABS: INR 1.4 (0.9-1.1); Prothrombin Time 14.6 Seconds (9.0-12.0)
--- NOTE | 2020-04-21 15:41 | Hospitalist Progress Note ---
Date of Service April 21, 2020 Assessment & Plan (1) Overdose of coumadin: Apparent accidental overdose of warfarin. Seen by Psychiatry- felt not to be suicidal. INR 1.2 at time of admission on 04/19 and brendon as high as 4.8. Received vitamin K (total of 15 mg). INR day of discharge 1.4. Resume usual dosing of warfarin day after discharge. Ongoing monitoring / management per [facility]. (2) History of DVT (deep vein thrombosis): History of recurrent DVT's, ? provoked. Ongoing concerns about safety of anticoagulation due to alcoholism and use of ASA and/or NSAID's. May be worthwhile reviewing details of VTE history and determining risks vs benefits of ongoing anticoagulation. If ongoing anticoagulation deemed necessary, consider pros and cons of warfarin vs DOAC. (3) Alcohol withdrawal: Managed with gabapentin protocol. (4) Alcoholism: History of alcoholism. Presented with alcohol intoxication and subsequent withdrawal. Counseling / support for alcoholism recommended, but patient declines services. Driving privileges may need to be suspended if patient continues to drink excessively; advised not to drive in the short term. (5) Coronary artery disease: Cardiac cath in 2010 reportedly did not show any significant stenosis. History non-STEMI 2017. Echo at that time showed apical hypokinesis; no apparent ischemia on treadmill stress echo. Troponins slightly elevated during this hospital staty, but no cardiac symptoms. Troponin elevation could be nonspecific. Continue metoprolol. Outpatient f/u with Cardiology. 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 Follow-up with Cardiology. (7) Depression: Currently taking paroxetine for depression, but would like to try another medications. Will defer any changes to Psychiatry or primary care. (8) Chronic leg pain: Chronic leg pain. Venous duplex LLE negative for DVT. Advised to avoid ASA and NSAID's while taking warfarin. (9) DVT prophylaxis: IV heparin / warfarin. Ambulating. (10) Discharge planning issues: Ongoing hospitalization recommended to complete alcohol withdrawal protocol, but patient states that he feels fine and insists on being discharged this afternoon. Discharged to home. Family Medicine follow-up with Dr. Daley. Follow-up with Psychiatry. Admission and Anticipated Discharge Date Admission Date: April 20, 2020 Subjective Recheck for multiple problems. Patient seen in their room around 1440. Feels better and would like to be discharged. No abnormal bleeding or bruising. Seen by Psychiatry and deemed not to be suicidal. Having some tremors, but no hallucinations or sweats. No CP, SOB, nausea, vomiting, or other problems. Physical Exam Constitutional: no acute distress Eyes: + anicteric sclerae Respiratory: no respiratory distress Auscultation: lungs clear to auscultation bilaterally Cardiovascular: Rate/Rhythm: regular rate and regular rhythm Heart Sounds: + murmur (III/ sys murmur at base) Vessels: no JVD Extremities: no calf tenderness and no edema Gastrointestinal (Abdomen): normal bowel sounds, soft, nontender, no hepatosplenomegaly Skin: no rashes, warm and dry Neurologic: Motor/Sensory: + tremor Psychiatric: Orientation: alert and oriented x 3 no apparent hallucinations Results & Data Results & Data ([facility]) Vital Signs (Past 12 Hours) Vital Signs Temp Pulse Resp BP BP Pulse Ox 04/21/20 15:18 36.4 C L 60 20 125/77 99 04/21/20 11:20 36.6 C 60 18 113/75 95 04/21/20 04:25 36.7 C 60 18 126/81 92 Laboratory Results 04/21/20 03:30 04/21/20 03:30 (1) Overdose of coumadin Encounter type: initial encounter Injury intent: accidental or unintentional Qualified Code(s): T45.511A - Poisoning by anticoagulants, accidental (unintentional), initial encounter
[2020-04-22 04:55] LABS: Marijuana Quant, GCMS Urine 178 ng/mL (<5)
--- NOTE | 2020-04-22 09:12 | Discharge Summary ---
Date of Service Date of Admission: 04/19/20 Date of Discharge: 04/21/20 Admission HPI Per Admitting Provider History obtained from patient and records. Medical history significant for bicuspid aortic valve status post AVR 2010 ([facility] [place]), hx MRSA endocarditis sp AVR, 3AV block status post pacemaker, anxiety/mood disorder, History recurrent DVT on Coumadin, past alcohol abuse as per records. Last confinement January 2019 for small bowel obstruction, sepsis secondary to right hip gluteal abscess status post surgery. Early Monday morning (04/18, 12AM), patient took a handful (about 20) of what he thought was Voltaren pills for achy left lower leg pain weeks duration. Patient shortly realized that he had taken pills from his Coumadin bottle. Patient had been drinking some alcohol at time of incident. No immediate consultations. No chest pain, S OB, headache, abdominal pain, black/bloody stools, hematuria. Patient's ex- insisted that he go to the emergency room. MEDICAL HISTORY: As above. SURGERIES: Heart surgery, pacemaker placement, rhinoplasty, ex lap/hernia repair/adhesiolysis, elbow bursa surgery, Right hip/ gluteal abscess drainage FAMILY HISTORY: Family history of heart disease, diabetes, lymphoma, prostate cancer PERSONAL SOCIAL HISTORY: Nonsmoker. 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 Principal Diagnosis accidental warfarin overdose OTHER ACUTE DIAGNOSES: alcohol intoxication alcohol withdrawal Discharge Data Allergies Allergy/AdvReac Type Severity Reaction Status Date / Time No Known Allergies Allergy Verified 04/19/20 01:29 Consultations 04/19/20 02:47 ED Decision to Admit Stat 04/19/20 09:46 Consult Psychiatry Routine Ordered Studies 04/19/20 05:30 US venous doppler LE Routine Hospital Course (1) Overdose of coumadin: Apparent accidental overdose of warfarin. Seen by Psychiatry- felt not to be suicidal. INR 1.2 at time of admission on 04/19 and brendon as high as 4.8. Received vitamin K (total of 15 mg). INR day of discharge 1.4. Resume usual dosing of warfarin day after discharge. Ongoing monitoring / management per [facility]. (2) History of DVT (deep vein thrombosis): History of recurrent DVT's, ? provoked. Ongoing concerns about safety of anticoagulation due to alcoholism and use of ASA and/or NSAID's. May be worthwhile reviewing details of VTE history and determining risks vs benefits of ongoing anticoagulation. If ongoing anticoagulation deemed necessary, consider pros and cons of warfarin vs DOAC. (3) Alcohol withdrawal: Managed with gabapentin protocol. (4) Alcoholism: History of alcoholism. Presented with alcohol intoxication and subsequent withdrawal. Counseling / support for alcoholism recommended, but patient declines services. Driving privileges may need to be suspended if patient continues to drink excessively; advised not to drive in the short term. (5) Coronary artery disease: Cardiac cath in 2010 reportedly did not show any significant stenosis. History non-STEMI 2017. Echo at that time showed apical hypokinesis; no apparent ischemia on treadmill stress echo. Troponins slightly elevated during this hospital staty, but no cardiac symptoms. Troponin elevation could be nonspecific. Continue metoprolol. Outpatient f/u with Cardiology. 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 Follow-up with Cardiology. (7) Depression: Currently taking paroxetine for depression, but would like to try another medications. Will defer any changes to Psychiatry or primary care. (8) Chronic leg pain: Chronic leg pain. Venous duplex LLE negative for DVT. Advised to avoid ASA and NSAID's while taking warfarin. (9) DVT prophylaxis: IV heparin / warfarin. Ambulating. (10) Discharge planning issues: Ongoing hospitalization recommended to complete alcohol withdrawal protocol, but patient states that he feels fine and insists on being discharged this afternoon. Discharged to home. Family Medicine follow-up with Dr. Daley. Follow-up with Psychiatry. Total Time Total Time Spent Total Time Spent (In Minutes): 40 Discharge Plan Discharge Items Patient Disposition: Home - Self-Care Reason For Visit: accidental warfarin overdose Discharge Diagnosis: accidental warfarin overdose Condition on Discharge: Good Activity: As commented below Activity Comment: No driving. Non-emergency contact: Primary Care Provider and Hospitalist Call non-emergency contact if: you have any medication questions and your symptoms worsen Follow-up/Referrals: Nabil Daley MD [Primary Care Provider] - (04/27/2020 3:00 PM Nabil Daley MD) Diet: Heart Healthy Addtl Attending Provider Instructions: MEDICATION CHANGES: Do not use aspirin or nonsteroidal anti-inflammatory drugs like ibuprofen, naproxen, and others while taking warfarin. Resume previous dose of warfarin on 04/22. Subsequent warfarin dosing as instructed by Anticoagulation Clinic. SUMMARY OF TEST RESULTS: INR day of discharge was 1.4. RECOMMENDATIONS FOR FOLLOW-UP: Please discuss antidepressant options with Dr. Daley or Rosa Mae. Please reconsider counseling / support for alcoholism. Please discuss pros and cons of long-term anticoagulation with Dr. Daley. Psychiatry follow-up with Rosa Mae PA-C on 05/06. OTHER INSTRUCTIONS: Seek medical attention if you have: * temperature above 101 * chest pain or trouble breathing * abdominal pain, nausea, vomiting * diarrhea, dark stools or bloody stools * any unanswered questions or concerns Call 1 if symptoms are severe. Please take good care of yourself. Call if you have any questions or problems. You can reach a [facility] hospitalist on duty at [facility] 24 hours a day by calling [phone]. My cell # is [phone]. Pending Studies at Discharge: No Stand-Alone Forms: My [facility], Smoking Cessation Medications and DC Order Prescriptions: Continued metoprolol tartrate 50 mg tablet 50 mg PO BID RF: 0 omeprazole 20 mg capsule,delayed release(DR/EC) 20 mg PO QAM RF: 0 testosterone cypionate 200 mg/mL oil 200 mg IM DIRECTED RF: 0 methylphenidate HCl 10 mg Tablet 10 mg PO BID 3 Days Qty: 6 RF: 0 methylphenidate HCl 20 mg tablet 20 mg PO BID 3 Days Qty: 6 RF: 0 paroxetine HCl [Paxil] 40 mg Tablet 40 mg PO DAILY 3 Days Qty: 3 RF: 0 warfarin 5 mg Tablet See Rx Instructions .ROUTE .COMPLEX RF: 0 Discharge Orders: Discharge Order (Routine); Ordered 04/21/20 Ordered By: Easton Onofre Admission Data Admit Date/Time: 04/20/20 07:25 Attending Provider: Easton Onofre Admit Provider: Juni Pérez Primary Care Provider: Nabil Daley Other Providers: Juni Pérez ; Audra Wilson ; Nemo Lainez Other Interventions: Discharge Summary Assessment (RN) Last Done: 04/21/20 16:08 PSY Interdisciplinary Discharge Planning Last Done: 04/21/20 14:31 DC Date/Time DO NOT enter until pt leaves facility: 04/21/20 16:30
[2020-04-23] MEDS ORDERED: GABAPENTIN 600 MG TAB PO SCH
== END 2020-04-21 16:30 | disposition home or self-care (01) | DRG 918 ==
LOC: 2N 01:10 → ED 01:10 → SUATTDRO 03:30 → 2N 04:57 → 1E 13:49 → SUATTDRO 04-20 07:25

== ENCOUNTER 2023-03-14 06:47 | Inpatient (IN) ==
--- NOTE | 2023-03-14 07:19 | Emergency Department Note ---
Impression & Plan Non-ST elevation (NSTEMI) myocardial infarction, Congestive heart failure ED Provider Note INFORMANT: Patient ED PROVIDER(S): Jules Montiel DO CHIEF COMPLAINT: Exertional dyspnea PLAN: Disposition: Admission Outpatient prescription management: [none] Discussion with: I spoke with the hospitalist, who will see the patient for admission/observation and further evaluation and consultation. MEDICAL DECISION MAKING: This is a 57-year-old male who presents to the ED with a chief complaint of feeling short of breath for the past 3 days. He states that his symptoms seem to be mostly related to exertion. He states that he feels nauseated and bloated and weak. He reports a little tightness in his chest. If he rests his shortness of breath seems to improve. History of pacemaker. Aortic valve repair/replacement. Denies any fevers. Does not feel like he has a virus or bacterial illness. Denies smoking or any chronic lung problems. Currently not on anticoagulation. Past history reviewed. Physical exam reveals that the patient is in no distress sitting comfortably in bed. He denies shortness of breath with laying flat. His vital signs here are normal. Lung sounds are slightly diminished in the bases with some basilar crackles. He does report freddie e minimal pedal edema which is present on exam. He states that this is new over the past couple of days. He reports chronic heart murmur. The patient's skin color is normal. Heart is regular rate and rhythm. Abdomen soft nontender. No rashes. D-dimer was elevated. Troponin is elevated. BNP is elevated. Transaminitis. No anemia or leukocytosis. Chest x-ray did not show clear congestive heart failure. CT scan shows heart failure but no PEs. COVID test was negative. Paced ventricular rhythm on the EKG. The patient was treated with IV Lasix. He will be seen by the hospitalist for further evaluation and care. Triage Nursing notes reviewed. Vital Signs: reviewed Prior /Outside records reviewed: none Differential diagnosis: The differential was considered includes acute myocardial infarction, acute coronary syndrome, myocarditis, pericarditis, pericardial effusions /tamponade, esophageal perforation, pulmonary embolism, pneumonia, pneumothorax, cardiomyopathy, congestive heart, anemia , COPD/asthma exacerbation. Diagnostics, as interpreted by me: 12 lead ECG: Paced ventricular rhythm rate of 63. No PVCs. Normal QTc. Cardiac Monitoring ordered: Paced ventricular rhythm in the 60s. Medical decision rules: none Imaging studies: Chest x-ray: No obvious pulmonary edema. CT scan of chest: No PE. Congestive heart failure. Procedures: none. Critical care: none. HPI: See MDM above. PAST MEDICAL HISTORY: See Below PAST SURGICAL HISTORY: See Below SOCIAL HISTORY: See Below HOME MEDICATIONS: See Below ALLERGIES: See Below VITALS: See Below PHYSICAL EXAMINATION: See MDM for positive findings otherwise unremarkable. CONSTITUTIONAL/VITAL SIGNS: Reviewed GENERAL:done as appropriate INTEGUMENTARY: done as appropriate HEAD: done as appropriate EYES: done as appropriate RESPIRATORY: done as appropriate CARDIOVASCULAR:done as appropriate GI/ABDOMEN:done as appropriate EXTREMITIES: done as appropriate NEUROLOGICAL: done as appropriate PSYCHIATRIC:done as appropriate MUSCULOSKELETAL:done as appropriate TRIAGE NURSING DOCUMENTATION REVIEWED. 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 Beliefs That Will Affect Care: None Current Living Situation: Other Current Living Situation Comment: ex Feels Safe at Home: Yes Assistive Devices: None Allergies Allergies Allergy/AdvReac Type Severity Reaction Status Date / Time No Known Allergies Allergy Verified 04/26/20 20:42 Home Meds Home Medications Medication Instructions Recorded Confirmed metoprolol tartrate 50 mg tablet 50 mg PO BID 01/31/19 04/26/20 omeprazole 20 mg capsule,delayed 20 mg PO QAM 01/31/19 04/26/20 release testosterone cypionate 200 mg/mL 200 mg IM DIRECTED 01/31/19 04/26/20 intramuscular oil warfarin 5 mg tablet 5 mg PO DIRECTED 04/19/20 04/26/20 magnesium 250 mg tablet 0 mg PO DAILY 04/26/20 04/26/20 multivitamin 1 tab PO DAILY 04/26/20 04/26/20 Previous Rx's Medication Instructions Recorded methylphenidate HCl 10 mg tablet 10 mg PO BID 3 days #6 tabs 02/10/19 methylphenidate HCl 20 mg tablet 20 mg PO BID 3 days #6 tabs 02/10/19 paroxetine HCl 40 mg tablet (Paxil) 40 mg PO DAILY 3 days #3 tabs 02/10/19 Results & Data (ED) Vital Signs Vital Signs - 24 hr 03/14/23 07:00 03/14/23 07:02 03/14/23 07:03 Temperature 36.8 C Temperature Source Oral Pulse Rate 62 60 Pulse Rate [Apical] 62 Pulse Rhythm [Apical] Respiratory Rate 22 22 Blood Pressure 104/85 Blood Pressure [Left Arm] 104/85 Blood Pressure Mean 91 Blood Pressure Mean [Left Arm] 91 Pulse Oximetry 95 95 Oxygen Delivery Method Room Air Sepsis Recent Fever Within 48 Hours No Sepsis New/Unexplained Change in Mental Status No Sepsis Action Taken by Nursing No Action Required 03/14/23 07:08 03/14/23 08:23 03/14/23 10:28 Temperature Temperature Source Pulse Rate 62 Pulse Rate [Apical] 64 Pulse Rhythm [Apical] Regular Respiratory Rate 23 16 Blood Pressure 102/80 Blood Pressure [Left Arm] 106/74 Blood Pressure Mean 87 Blood Pressure Mean [Left Arm] 84 Pulse Oximetry 95 94 96 Oxygen Delivery Method Room Air Room Air Room Air Sepsis Recent Fever Within 48 Hours Sepsis New/Unexplained Change in Mental Status Sepsis Action Taken by Nursing 03/14/23 10:37 Temperature Temperature Source Pulse Rate 66 Pulse Rate [Apical] Pulse Rhythm [Apical] Respiratory Rate Blood Pressure Blood Pressure [Left Arm] Blood Pressure Mean Blood Pressure Mean [Left Arm] Pulse Oximetry Oxygen Delivery Method Sepsis Recent Fever Within 48 Hours Sepsis New/Unexplained Change in Mental Status Sepsis Action Taken by Nursing Laboratory Data 03/14/23 07:03/14/23 07:05 Lab Results 03/14/23 03/14/23 03/14/23 Range/Units 07:05 07:05 07:05 WBC 6.51 (4.8-10.8) K/ul RBC 4.62 L (4.70-6.10) M/uL Hgb 14.1 (14.0-18.0) g/dl Hct 42.6 (42.0-52.0) % MCV 92.2 (80.0-100.0) fL MCH 30.5 (25.0-34.0) pg MCHC 33.1 (32.0-36.0) g/dL RDW Std Deviation 46.7 H (36.4-46.3) fL RDW Coeff of Kwabena 13.8 (11.5-14.5) % Plt Count 193 (130-400) K/uL MPV 10.8 (9.4-12.4) fL Immature Gran % (Auto) 0.6 % Neut % (Auto) 61.2 % Lymph % (Auto) 24.6 % [place] % (Auto) 9.8 % Eos % (Auto) 2.9 % Baso % (Auto) 0.9 % Neut # (Auto) 3.98 (1.40-6.50) K/uL Lymph # (Auto) 1.60 (1.2-3.4) K/uL [place] # (Auto) 0.64 H (0.11-0.59) K/uL Eos # (Auto) 0.19 (0-0.50) K/uL Baso # (Auto) 0.06 (0-0.2) K/uL Immature Gran # (Auto) 0.04 (0.01-0.20) K/uL PT 14.6 H (9.0-12.0) Seconds INR 1.4 H (0.9-1.1) APTT 28.8 (21.0-31.0) Seconds PTT Ratio 1.0 D-Dimer 3250 H* (0-500) ug/L FEU Sodium 139 (136-145) mmol/L Potassium 4.2 (3.5-5.1) mmol/L Chloride 108 H (98-107) mmol/L Carbon Dioxide 25 (21-32) mmol/L Anion Gap 6 (3-11) BUN 33 H (6-23) mg/dl Creatinine 1.22 (0.6-1.4) mg/dl Est Cr Clr Drug Dosing 61.7 ml/min Est GFR ( Amer) 75.3 ml/min Est GFR (Non-Af Amer) 64.9 ml/min BUN/Creatinine Ratio 27.0 H (10-20) Glucose 83 (70-99(Fasting)) mg/dl Calcium 8.5 L (8.6-10.3) mg/dl Magnesium 1.9 (1.7-2.4) mg/dl Total Bilirubin 0.8 (0.2-1.0) mg/dl AST 78 H (13-39) U/L ALT 80 H (7-52) U/L Alkaline Phosphatase 145 H (34-104) U/L Troponin I High Sens 49.1 H (0-20) pg/ml B-Natriuretic Peptide (0-100) pg/ml Total Protein 6.4 (6.0-8.3) gm/dl Albumin 3.9 (3.4-5.0) gm/dl Globulin 2.5 (2.5-4.0) gm/dl Albumin/Globulin Ratio 1.6 (0.9-2) SARS-CoV-2, RNA, NAAT (NEGATIVE) 03/14/23 03/14/23 Range/Units 07:05 Unknown WBC (4.8-10.8) K/ul RBC (4.70-6.10) M/uL Hgb (14.0-18.0) g/dl Hct (42.0-52.0) % MCV (80.0-100.0) fL MCH (25.0-34.0) pg MCHC (32.0-36.0) g/dL RDW Std Deviation (36.4-46.3) fL RDW Coeff of Kwabena (11.5-14.5) % Plt Count (130-400) K/uL MPV (9.4-12.4) fL Immature Gran % (Auto) % Neut % (Auto) % Lymph % (Auto) % [place] % (Auto) % Eos % (Auto) % Baso % (Auto) % Neut # (Auto) (1.40-6.50) K/uL Lymph # (Auto) (1.2-3.4) K/uL [place] # (Auto) (0.11-0.59) K/uL Eos # (Auto) (0-0.50) K/uL Baso # (Auto) (0-0.2) K/uL Immature Gran # (Auto) (0.01-0.20) K/uL PT (9.0-12.0) Seconds INR (0.9-1.1) APTT (21.0-31.0) Seconds PTT Ratio D-Dimer (0-500) ug/L FEU Sodium (136-145) mmol/L Potassium (3.5-5.1) mmol/L Chloride (98-107) mmol/L Carbon Dioxide (21-32) mmol/L Anion Gap (3-11) BUN (6-23) mg/dl Creatinine (0.6-1.4) mg/dl Est Cr Clr Drug Dosing ml/min Est GFR ( Amer) ml/min Est GFR (Non-Af Amer) ml/min BUN/Creatinine Ratio (10-20) Glucose (70-99(Fasting)) mg/dl Calcium (8.6-10.3) mg/dl Magnesium (1.7-2.4) mg/dl Total Bilirubin (0.2-1.0) mg/dl AST (13-39) U/L ALT (7-52) U/L Alkaline Phosphatase (34-104) U/L Troponin I High Sens (0-20) pg/ml B-Natriuretic Peptide 2082 H (0-100) pg/ml Total Protein (6.0-8.3) gm/dl Albumin (3.4-5.0) gm/dl Globulin (2.5-4.0) gm/dl Albumin/Globulin Ratio (0.9-2) SARS-CoV-2, RNA, NAAT NEGATIVE (NEGATIVE) Administered Medications Discontinued Medications Aspirin (Aspirin 81 Mg Chew) 324 mg PO NOW STA Stop: 03/14/23 10:09 Last Admin: 03/14/23 10:27 Dose: 324 mg Documented By: KV Furosemide (Furosemide 40 Mg/4 Ml Vial) 40 mg IV ONE ONE Stop: 03/14/23 10:05 Last Admin: 03/14/23 10:27 Dose: 40 mg Documented By: KV Ioversol (Optiray 320 500ml) 98 ml IV ONCE ONE Stop: 03/14/23 08:48 Last Admin: 03/14/23 08:47 Dose: 98 ml Documented By: [facility] Imaging Data Radiologist's Impression: Chest X-Ray 03/14/23 07:11 XR chest 1V portable HISTORY: Dyspnea COMPARISON: Chest 02/07/2019. FINDINGS: No pneumothorax. The heart remains enlarged. There is a right-sided pacemaker, poststernotomy changes, an aortic valve prosthesis again noted. No evidence for pulmonary edema.. Right basilar densities have improved. Mild right lung base interstitial thickening persists. No new focal lung consolidations. IMPRESSION: 1. Cardiomegaly. No evidence for pulmonary edema. 2. Mild interstitial thickening at the right lung base which has improved. This may be chronic. Otherwise, no new focal lung consolidations to suggest a pneu monia ACT 112: Negative or not required by law. Electronically signed by: Denis Barbour M.D. 03/14/2023 7:39 AM Chest CTA 03/14/23 08:18 CHEST CTA for PULMONARY ARTERIES CT DOSE: 264.17 mGy.cm HISTORY: Shortness of breath with exertion. TECHNIQUE: Multiaxial CT images of the chest were performed following the intravenous administration of contrast to evaluate the pulmonary arteries. Maximal intensity projection images were also obtained. A dose lowering technique was utilized adhering to the principles of ALARA. COMPARISON STUDY: Chest CTA 09/03/2018. FINDINGS: Nondiagnostic evaluation for an aortic dissection due to the timing of contrast. However, the thoracic aorta is normal in caliber. Postoperative changes suggestive of prior graft repair of the ascending thoracic aorta. An aortic valve prosthesis is again noted. The heart remains moderately enlarged. No pericardial effusion. There is a small right pleural effusion which is increased in size. There is overall suboptimal opacification of the pulmonary arteries due to the timing of contrast. The lower lobe and right middle lobe segmental and subsegmental arteries are nonopacified and considered to be nondiagnostic. The remaining pulmonary arteries show no definite filling defects to suggest a pulmonary embolus. Limited views of the upper abdomen demonstrate periportal edema and a normal spleen. There is trace perihepatic ascites noted. Mild retrograde flow of contrast into the hepatic veins suggestive of right- sided heart dysfunction. Normal esophagus. No axillary lymphadenopathy. The right-sided pacemaker. Mild mediastinal and bilateral hilar lymphadenopathy is noted. A dominant right paratracheal lymph node measures 13 mm in short axis diameter. Mild body wall edema. No acute fractures within the chest. There are poststernotomy changes. No pneumothorax. The central airways are patent. There is diffuse interlobular septal thickening with faint groundglass densities consistent with pulmonary edema. No focal lung consolidations to suggest a pneumonia. IMPRESSION: 1. No evidence for a pulmonary embolus with limitations as described above. 2. Moderate cardiomegaly, a small right pleural effusion, and pulmonary edema is noted. 3. Diffuse body wall edema, mild periportal edema, and trace ascites. 4. Mild mediastinal and right hilar lymphadenopathy which has slightly progressed. This is nonspecific but could be due to chronic pulmonary edema. ACT 112: Negative or not required by law. Electronically signed by: Denis Barbour M.D. 03/14/2023 9:49 AM Discharge Plan Visit Data Chief Complaint: Cardiac Assessment Stated Complaint: CHEST PAIN, SHORT OF BREATH, ABDOMINAL PAIN ED Provider: Jules Montiel Discharge Problem: Non-ST elevation (NSTEMI) myocardial infarction, Congestive heart failure Prescriptions Prescriptions: No Action metoprolol tartrate 50 mg tablet 50 mg PO BID omeprazole 20 mg capsule,delayed release(DR/EC) 20 mg PO QAM testosterone cypionate 200 mg/mL oil 200 mg IM DIRECTED Rx Instructions: receives injection q 2 weeks methylphenidate HCl 10 mg Tablet 10 mg PO BID 3 Days Qty: 6 0RF Rx Instructions: take along with 20mg 2x/day methylphenidate HCl 20 mg tablet 20 mg PO BID 3 Days Qty: 6 0RF Rx Instructions: TAKE ONE 20 MG TABLET ALONG WITH ONE 10 MG TABLET TO EQUAL 30 MG DOSE paroxetine HCl [Paxil] 40 mg Tablet 40 mg PO DAILY 3 Days Qty: 3 0RF warfarin 5 mg Tablet 5 mg PO DIRECTED Rx Instructions: PT STATES "STOPPED TAKING 3 DAYS AGO". multivitamin Tablet 1 tab PO DAILY magnesium 250 mg Tablet 0 mg PO DAILY
[2023-03-14 07:28] LABS: Basophils # (auto) 0.06 K/uL (0-0.2); Basophils % (auto) 0.9 %; Eosinophils # (auto) 0.19 K/uL (0-0.50); Eosinophils % (auto) 2.9 %; Hematocrit (blood only) 42.6 % (42.0-52.0); Hemoglobin 14.1 g/dl (14.0-18.0); Immature Granulocytes # (auto) 0.04 K/uL (0.01-0.20); Immature Granulocytes % (auto) 0.6 %; Lymphocytes % (auto) 24.6 %; Mean Corpuscular Hemoglobin 30.5 pg (25.0-34.0); Mean Corpuscular Hgb Conc 33.1 g/dL (32.0-36.0); Mean Corpuscular Volume 92.2 fL (80.0-100.0); Mean Platelet Volume 10.8 fL (9.4-12.4); Monocytes # (auto) 0.64 K/uL (0.11-0.59); Monocytes % (auto) 9.8 %; Neutrophils # (auto) 3.98 K/uL (1.40-6.50); Neutrophils % (auto) 61.2 %; Platelet Count 193 K/uL (130-400); RDW Coefficient of Variation 13.8 % (11.5-14.5); RDW Standard Deviation 46.7 fL (36.4-46.3); Red Blood Count 4.62 M/uL (4.70-6.10); White Blood Count 6.51 K/ul (4.8-10.8)
[2023-03-14 07:43] LABS: Albumin Globulin Ratio 1.6 (0.9-2); Albumin Level 3.9 gm/dl (3.4-5.0); Bilirubin,Total 0.8 mg/dl (0.2-1.0); Calcium 8.5 mg/dl (8.6-10.3); Creatinine Clr Calc Pharmacy 61.7 ml/min; Est GFR (African American) 75.3 ml/min; Est GFR (Non-African American) 64.9 ml/min; Globulin 2.5 gm/dl (2.5-4.0); Magnesium 1.9 mg/dl (1.7-2.4); Potassium 4.2 mmol/L (3.5-5.1); Total Protein 6.4 gm/dl (6.0-8.3)
[2023-03-14 07:48] LABS: Troponin I High Sensitivity 49.1 pg/ml (0-20)
[2023-03-14 08:02] LABS: INR 1.4 (0.9-1.1); Partial Thromboplastin Time 28.8 Seconds (21.0-31.0); Prothrombin Time 14.6 Seconds (9.0-12.0)
--- NOTE | 2023-03-14 08:04 | XRay Report ---
XR chest 1V portable HISTORY: Dyspnea COMPARISON: Chest 02/07/2019. FINDINGS: No pneumothorax. The heart remains enlarged. There is a right-sided pacemaker, poststernoto my changes, an aortic valve prosthesis again noted. No evidence for pulmonary edema.. Right basilar d ensities have improved. Mild right lung base interstitial thickening persists. No new focal lung cons olidations. IMPRESSION: 1. Cardiomegaly. No evidence for pulmonary edema. 2. Mild interstitial thickening at the right lung base which has improved. This may be chronic. Other georges, no new focal lung consolidations to suggest a pneumonia ACT 112: Negative or not required by law. Electronically signed by: Denis Barbour M.D. 03/14/2023 7:39 AM
[2023-03-14 08:46] LABS: D Dimer 3250 ug/L FEU (0-500)
[2023-03-14] MEDS ORDERED: OPTIRAY 320 500ml IV ONE (08:47)
[2023-03-14] MEDS ORDERED: FUROSEMIDE 40 MG/4 ML VIAL IV ONE (10:04)
[2023-03-14] MEDS ORDERED: ASPIRIN 81 MG CHEW PO STA (10:08)
[2023-03-14] MEDS ORDERED: MAGNESIUM HYDROXIDE SUSP 30 ML UDC PO PRN (10:18)
[2023-03-14] MEDS ORDERED: ACETAMINOPHEN 325 MG TAB PO PRN (10:18)
[2023-03-14] MEDS ORDERED: POLYETHYLENE (MIRALAX) 17 GM PACK PO PRN (10:18)
[2023-03-14] MEDS ORDERED: ALUMINUM/MAGNESIUM SUSP 30 ML UDC PO PRN (10:18)
[2023-03-14] MEDS ORDERED: ONDANSETRON INJ 2 MG/ML 2 ML VIAL IV PRN (10:18)
--- NOTE | 2023-03-14 10:18 | CT Scan Report ---
CHEST CTA for PULMONARY ARTERIES CT DOSE: 264.17 mGy.cm HISTORY: Shortness of breath with exertion. TECHNIQUE: Multiaxial CT images of the chest were performed following the intravenous administration of contrast to evaluate the pulmonary arteries. Maximal intensity projection images were also obtaine d. A dose lowering technique was utilized adhering to the principles of ALARA. COMPARISON STUDY: Chest CTA 09/03/2018. FINDINGS: Nondiagnostic evaluation for an aortic dissection due to the timing of contrast. However, t he thoracic aorta is normal in caliber. Postoperative changes suggestive of prior graft repair of the ascending thoracic aorta. An aortic valve prosthesis is again noted. The heart remains moderately en larged. No pericardial effusion. There is a small right pleural effusion which is increased in size. There is overall suboptimal opacification of the pulmonary arteries due to the timing of contrast. Th e lower lobe and right middle lobe segmental and subsegmental arteries are nonopacified and considere d to be nondiagnostic. The remaining pulmonary arteries show no definite filling defects to suggest a pulmonary embolus. Limited views of the upper abdomen demonstrate periportal edema and a normal sple en. There is trace perihepatic ascites noted. Mild retrograde flow of contrast into the hepatic veins suggestive of right-sided heart dysfunction. Normal esophagus. No axillary lymphadenopathy. The righ t-sided pacemaker. Mild mediastinal and bilateral hilar lymphadenopathy is noted. A dominant right pa ratracheal lymph node measures 13 mm in short axis diameter. Mild body wall edema. No acute fractures within the chest. There are poststernotomy changes. No pneumothorax. The central airways are patent. There is diffuse interlobular septal thickening with faint groundglass densities consistent with pul monary edema. No focal lung consolidations to suggest a pneumonia. IMPRESSION: 1. No evidence for a pulmonary embolus with limitations as described above. 2. Moderate cardiomegaly, a small right pleural effusion, and pulmonary edema is noted. 3. Diffuse body wall edema, mild periportal edema, and trace ascites. 4. Mild mediastinal and right hilar lymphadenopathy which has slightly progressed. This is nonspecifi c but could be due to chronic pulmonary edema. ACT 112: Negative or not required by law. Electronically signed by: Denis Barbour M.D. 03/14/2023 9:49 AM
--- NOTE | 2023-03-14 10:24 | History & Physical Report ---
Date of Service March 14, 2023 Assessment & Plan (1) Acute on chronic diastolic CHF (congestive heart failure): (2) SOB (shortness of breath): (3) Coronary artery disease: (4) H/O aortic valve replacement: (5) Pacemaker: (6) History of DVT (deep vein thrombosis): (7) Depression: (8) Right-sided low back pain with sciatica: (9) ADHD: Plan 57-year-old presents with shortness of breath x3 days; with pedal edema. Non- compliant with medications. Has not taken beta-kandice in "years". Extensive cardiac history s/p AVR x2 and PM placement with lengthy hospitalization from endocarditis thereafter; approx 7 years ago at [facility]. Does not follow with any plate washer currently. Acute on Chronic CHF exacerbation: SOB: D-Dimer 3250 BNP 2081; no baseline in EMR Initial Troponin 49.1; will trend EKG with normal QTc. ; obtain daily EKG x2 Chronic murmur ASA 324mg and Lasix 40 mg IV once Chest CTA: negative for PE. Moderate cardiomegaly, a small right pleural effusion, and pulmonary edema Mild mediastinal and right hilar lymphadenopathy which has slightly progressed. CXR was performed: Cardiomegaly No leukocytosis Last ECHO 01/2019: EF 50-55%, normal LV size, Grade 1 Diastolic Dysfunction, trace TR, bioprosthetic AV without vegetation ECHO ordered Will check lipid panel Cardiology Consult placed HTN: Reports has not taken any of his medications; including Metoprolol for 'quite a while' Will continue previous prescribed dose of Metoprolol 25 mg PO BID and await further recs from Cardiology Transaminitis: AST 78, ALT 80, AlkPhos 145 Chest CTA performed: Diffuse body wall edema, mild periportal edema, and trace ascites. Portal vein doppler ultrasound ordered CAD: H/O AVR x2 S/P pacemaker insertion: History of DVT: 2006 at [facility]; does not follow with any cards at this point Does not take any anticoagulation at home Endocarditis status post pacemaker insertio. R hip pain: Was seen as an outpatient in November was prescribed baclofen and prednisone taper for which he stated he is no longer taking baclofen Reports it is debilitating and affectnig his day-to day Was ordered right hip x-ray; he did not ever get the x-ray Right hip x-ray and lumbar spine x-ray ordered Voltaren gel for pain Morphine 1 mg every 12 hours for breakthrough pain Fatigue: Weakness and nausea; no vomiting Will check TSH, Vitamin B12, and A1C ADHD: Was prescribed methyphenidate; has been non-compliant; will hold for now Was prescribed Paxil; has been non-compliant; will hold for now Has difficulty focusing; concerns for self neglect/care; consider [facility] consulation Possibly undiagnosed MDD Disposition: PCP:Dr. Villegas Code Status: Full Code VTE Prophylaxis: Heparin SQ I spent a total of 88 minutes coordinating, documenting, and providing care for this patient excluding time spent in the performance of separately billed services. All of the aforementioned completed while collaborating with the assigned attending physician for a full treatment plan. Please see their addendum for further details. History of Present Illness Chief Complaint: SOB/ SCHWARTZ Primary Care Provider: Nabil Daley MD Patient presented to the [facility] with SOB that has been occurring 3 days ago. Reports having difficulty walking to his bathroom at home. Noticed some pedal edema over past few days. Pt denies orthopnea, cough, fever, diaphoresis, palpitations. Denies recent illness. Reports feeling dizzy. Denies hematochezia or hemoptysis. Feels like "my heart was beating out of my chest". Patient denies MONROY, dizziness, chest pain, palpitations, N/V/D, urine changes, recent falls or trauma. Pt is sitting in his hospital bed and I did observe him walking to the bathroom without difficulty. No known sick contacts. Patient with an extensive PMH that includes CAD with H/O Bioprosthetic valve (2005) was on Coumadin but no longer takes Coumadin s/p Endocarditis which was treated at [facility] and underwent an additional AVR and ended up having a pacemaker placed, subclavian thrombosis during pacemaker insertion, HTN, thrombocytopenia, mesenteric vein repair, inguinal and femoral hernia repairs, ADHD, anxiety and depression. Chest CTA: NEgative for PE. Moderate cardiomegaly, small right pleural effusion and pulmonary edema. Diffuse body wall edema, mild periportal edema and trace ascites. Mild progression with right hilar lymphadenopathy CXR was performed: Cardiomegaly. No evidence for pulmonary edema. No leukocytosis, Creatinine 1.22, D-Dimer 3,250, BNP 2,082, slight elevation of initial troponin 49.1 Pt reports that his last drink was a few years ago (5-6 years). Patient has known noncompliance with all of his medications and states that he has not taken any of his beta-blockers or ADHD meds over the past months and even years.Has not followed with Mechanical Process Engineer lately; has been seen at [facility] in [place]. Had a pacemaker exchange there. Pt has been complaining of sciatica pain that he states is debilitating. Was seen in November for this as an outpatient and prescribed Baclofen and Prednisone taper; without relief. He reports this has had a spiraling effect on his psyche. He was ordered a hip x-ray at that time; did not proceed to complete the task. Will obtain hip x-ray and lumbar imaging while here as an inpatient. Patient will be admitted for further evaluation and management. Please see A/P for further details. Allergies Allergy/AdvReac Type Severity Reaction Status Date / Time No Known Allergies Allergy Verified 04/26/20 20:42 Home Medications Medication Instructions Recorded Confirmed Type metoprolol tartrate 50 mg tablet 50 mg PO BID 01/31/19 03/14/23 History omeprazole 20 mg capsule,delayed 20 mg PO QAM 01/31/19 03/14/23 History release testosterone cypionate 200 mg/mL 200 mg IM DIRECTED 01/31/19 03/14/23 History intramuscular oil methylphenidate HCl 10 mg tablet 10 mg PO BID 3 days #6 tabs 02/10/19 03/14/23 Rx methylphenidate HCl 20 mg tablet 20 mg PO BID 3 days #6 tabs 02/10/19 03/14/23 Rx paroxetine HCl 40 mg tablet (Paxil) 40 mg PO DAILY 3 days #3 tabs 02/10/19 03/14/23 Rx magnesium 250 mg tablet 0 mg PO DAILY 04/26/20 03/14/23 History multivitamin 1 tab PO DAILY 04/26/20 03/14/23 History Past Med/Surg History Medical History (Updated 03/14/23 @ 11:25 by OSCAR [place]) Abscess, gluteal, right Acute on chronic diastolic CHF (congestive heart failure) ADHD Anxiety Complete heart block S/p pacemaker placement Depression Endocarditis H/O endocarditis History of alcohol abuse History of DVT (deep vein thrombosis) NSTEMI (non-ST elevated myocardial infarction) Pacemaker Right-sided low back pain with sciatica Septic arthritis of hip Small bowel obstruction Small bowel obstruction SOB (shortness of breath) Surgical History H/O aortic valve replacement 2011 at [facility] for congenital abnormality. 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 History of hernia surgery History of hip surgery Status post placement of cardiac pacemaker Family History Other Heart disease Social History Smoking Status: Never smoker Tobacco Type: Cigars Second Hand Exposure: No; Do You Dip or Chew Tobacco: No; Hx Alcohol Use: Yes Alcohol type: beer and hard liquor Alcohol Intake Frequency Comment: ~1 pint vodka daily Hx Substance Use: No Preferred Language: Italian Communication Ability: Effective Contract Processor Required: No Beliefs That Will Affect Care: None Current Living Situation: Alone Current Living Situation Comment: ex Other Information That Helps Us Care for You: No Feels Safe at Home: Yes Safety Concerns: Feels Safe At This Time Assistive Devices: None Review of Systems Review of Systems: Neuro: (-) Falls, trauma, slurred speech HEENT: (-) MONROY, dizziness, dysphagia, visual or auditory changes CV: (-) CP, palpitations, swelling Resp: (-) SOB GI: (-) appetite changes, N/V/D, bowel changes : (-) urinary changes Skin: (-) rashes Psych: (-) anxiety, depression Physical Exam Physical Exam: See Dr Rangel's addendum for physical examination Results & Data Results & Data Vital Signs (Past 12 Hours) Vital Signs Temp Pulse Pulse Resp BP BP Pulse Ox 03/14/23 08:23 62 23 102/80 94 03/14/23 07:08 95 03/14/23 07:03 36.8 C 60 22 104/85 95 03/14/23 07:02 62 22 104/85 95 03/14/23 07:00 62 O2 Del Method 03/14/23 08:23 Room Air 03/14/23 07:08 Room Air 03/14/23 07:03 Room Air 03/14/23 07:02 03/14/23 07:00 Laboratory Results Short CBC 03/14/23 Range/Units 07:05 WBC 6.51 (4.8-10.8) K/ul Hgb 14.1 (14.0-18.0) g/dl Hct 42.6 (42.0-52.0) % Plt Count 193 (130-400) K/uL BMP 03/14/23 07:05 Sodium 139 Potassium 4.2 Chloride 108 H Carbon Dioxide 25 BUN 33 H Creatinine 1.22 Glucose 83 Calcium 8.5 L Liver Function 03/14/23 Range/Units 07:05 Total Bilirubin 0.8 (0.2-1.0) mg/dl AST 78 H (13-39) U/L ALT 80 H (7-52) U/L Alkaline Phosphatase 145 H (34-104) U/L Albumin 3.9 (3.4-5.0) gm/dl Diagnostic Findings Chest X-Ray 03/14/23 07:11 XR chest 1V portable HISTORY: Dyspnea COMPARISON: Chest 02/07/2019. FINDINGS: No pneumothorax. The heart remains enlarged. There is a right-sided pacemaker, poststernotomy changes, an aortic valve prosthesis again noted. No evidence for pulmonary edema.. Right basilar densities have improved. Mild right lung base interstitial thickening persists. No new focal lung consolidations. IMPRESSION: 1. Cardiomegaly. No evidence for pulmonary edema. 2. Mild interstitial thickening at the right lung base which has improved. This may be chronic. Otherwise, no new focal lung consolidations to suggest a pneum onia ACT 112: Negative or not required by law. Electronically signed by: Denis Barbour M.D. 03/14/2023 7:39 AM Chest CTA 03/14/23 08:18 CHEST CTA for PULMONARY ARTERIES CT DOSE: 264.17 mGy.cm HISTORY: Shortness of breath with exertion. TECHNIQUE: Multiaxial CT images of the chest were performed following the intravenous administration of contrast to evaluate the pulmonary arteries. Maximal intensity projection images were also obtained. A dose lowering technique was utilized adhering to the principles of ALARA. COMPARISON STUDY: Chest CTA 09/03/2018. FINDINGS: Nondiagnostic evaluation for an aortic dissection due to the timing of contrast. However, the thoracic aorta is normal in caliber. Postoperative changes suggestive of prior graft repair of the ascending thoracic aorta. An aortic valve prosthesis is again noted. The heart remains moderately enlarged. No pericardial effusion. There is a small right pleural effusion which is inc reased in size. There is overall suboptimal opacification of the pulmonary arteries due to the timing of contrast. The lower lobe and right middle lobe segmental and subsegmental arteries are nonopacified and considered to be nondiagnostic. The remaining pulmonary arteries show no definite filling defects to suggest a pulmonary embolus. Limited views of the upper abdomen demonstrate periportal edema and a normal spleen. There is trace perihepatic ascites noted. Mild retrograde flow of contrast into the hepatic veins suggestive of right- sided heart dysfunction. Normal esophagus. No axillary lymphadenopathy. The right-sided pacemaker. Mild mediastinal and bilateral hilar lymphadenopathy is noted. A dominant right paratracheal lymph node measures 13 mm in short axis diameter. Mild body wall edema. No acute fractures within the chest. There are poststernotomy changes. No pneumothorax. The central airways are patent. There is diffuse interlobular septal thickening with faint groundglass densities consistent with pulmonary edema. No focal lung consolidations to suggest a pneumonia. IMPRESSION: 1. No evidence for a pulmonary embolus with limitations as described above. 2. Moderate cardiomegaly, a small right pleural effusion, and pulmonary edema is noted. 3. Diffuse body wall edema, mild periportal edema, and trace ascites. 4. Mild mediastinal and right hilar lymphadenopathy which has slightly progressed. This is nonspecific but could be due to chronic pulmonary edema. ACT 112: Negative or not required by law. Electronically signed by: Denis Barbour M.D. 03/14/2023 9:49 AM Code Status & VTE Plan Code Status Full code int he event of cardiac or respiratory arrest VTE Prophylaxis Plan VTE Prophylaxis will be ordered: Yes Supervising Physician Co-Signing Physician Notes Pt is a 57 y/o M with hx of bicuspid aortic valve s/p AVR complicated with endocarditis requiring another AVR, CHB s/p pacemaker placement, hx of DVT (provoked per pt), Depression, ADHD, prior hx of alcohol use admitted for worsening dyspnea on exertion. Per pt he has not drank alcohol for 6 years. And has not been taking any of his medication for 1 month. Pt also complained of R hip/lower back pain which has been present for 5 months. PE: NAD, well developed Cardiac: Normal S1/S2, no murmur Lungs: Good air entry b/l with lower lobe crackles (L>R) Abd: ND, soft, NT MSk: trace b/l LE pitting edema Psych: pressured speech, otherwise normal affect A/P: Dyspnea on exertion: -likely 2/2 acute on CHF -D-Dimer is elevated and elevated BNP --- no signs of DVT on exam --- CTA chest: no PE but it did show periportal edema with trace ascites --- therefore will get portal vein Doppler -pt received Lasix 40mg IV in the ER ---- since pt is Lasix yarelis will await for the response prior to starting daily Lasix -trop is elevated ---- will trend trop ---- EKG: Ventricular paced rhythm - pt has not been taking any of his meds ---- due to low normal BP will start pt on metoprolol 25mg BID (instead of 50mg BID his home meds) -will obtain echo -cardiology consult -daily weights with strict I/Os Elevated LFTs with trace ascites: -pt denied any recent ETOH intake -used to be a heavy drinker -will obtain hepatic vein Doppler due to elevated d-dimer - trend CMP ---- if it is trending up will obtain CT abd -no s/s of ETOH withdrawal -will obtain UDS Chronic L hip/lower back pain: -pt requested a steroid injection to the hip ---- advised the pt that it needs to be a outpt procedure -will get L spine and Hip xray -for now will do prn morphine 1mg Q12 hr for severe hip pain Agree with A/P by OSCAR Corona
[2023-03-14] MEDS ORDERED: STAT IV Infusion **Titration per Protocol STA (10:25)
[2023-03-14] MEDS ORDERED: PROPOFOL BOLUS FROM BAG IV PRN (10:25)
[2023-03-14] MEDS ORDERED: propofoL 1,000 MG/100 ML VIAL IV SCH (10:30)
[2023-03-14] MEDS ORDERED: GABAPENTIN 1200MG ALCOHOL WITHDRAWAL LOAD PO STA (10:46)
[2023-03-14] MEDS ORDERED: GABAPENTIN 600 MG TAB PO ONE (10:46)
[2023-03-14] MEDS ORDERED: LORazepam 2 MG/1 ML VIAL IV PRN (10:46)
[2023-03-14] MEDS ORDERED: FOLIC ACID 1 MG in SYRINGE 9.8 ML IV ONE (11:00)
[2023-03-14] MEDS ORDERED: THIAMINE HCL 100 MG in SYRINGE 9 ML IV ONE (11:00)
[2023-03-14] MEDS ORDERED: MoRPHine SULFATE 2 MG/ML CARP IV PRN (11:20)
[2023-03-14 12:15] LABS: Chol HDL Ratio 2.7 (0-5)
[2023-03-14] MEDS: DICLOFENAC SOD 1% GEL 100 GM TUBE EXT SCH ×2 (12:45→15:43)
[2023-03-14 12:58] LABS: Estimated Average Glucose 128 mg/dl; Hemoglobin A1C 6.1 % (4.5-5.6)
[2023-03-14 14:13] LABS: Amphetamines+Metham, Urine Pos (Neg); Barbiturates, Urine Neg (Neg); Benzodiazepine, Urine Neg (Neg); Cocaine, Urine Neg (Neg); MDMA (Ecstacy), Urine Neg (Neg); Methadone, Urine Neg (Neg); Opiate, Urine Neg (Neg); Phencyclidine, Urine Neg (Neg)
[2023-03-14] MEDS ORDERED: GABAPENTIN 600 MG TAB PO SCH (17:00)
--- NOTE | 2023-03-14 17:42 | Cardiology Consultation ---
Date of Consultation March 14, 2023 Assessment & Plan (1) Acute HFrEF (heart failure with reduced ejection fraction): -Patient presents with acute heart failure with reduced ejection fraction, severe bilateral systolic dysfunction noted. Has mild elevation in troponin coincides with systolic heart failure and I do not think his presentation is suggestive of an acute coronary syndrome. Etiologies of his left ventricular systolic function include possible underlying ischemic heart disease. Patient states that he has had cardiac catheterization x2, most recent of which took place about 10 years ago and did not have any significant coronary heart disease at that time. He does have a strong family history of coronary heart disease however. He has a past history of alcohol use, and this probably needs to be better delineated, but he tells me that he is not drinking. The Doppler data suggests at least moderate prosthetic aortic valve stenosis, but assessment can be technically limited in the setting of severe left ventricular systolic dysfunction. The prosthetic leaflets appear to be thickened with reduced excursion, and certainly given the fact that he had a prosthesis that has now been in place for 10 years, degenerative prosthetic dysfunction is certainly a consideration. -The patient describes that this was a lot of information for him to process. I discussed with him that I think that the first goal would be to just get him on goal-directed medication therapy for his left ventricular systolic function. Future considerations would include evaluation of the prosthetic valve such as transesophageal echocardiogram, and possible cardiac catheterization. -Patient expressed concerns that he needs to go home and "think about things ". About an hour after I had seen him, I received a page from his nurse that he was in the process of leaving the hospital AGAINST MEDICAL ADVICE. -Outpatient follow-up with our group or other recommended. History of Present Illness Attending Physician: Randall Rangel MD History of Present Illness Ronald Angel is a 57 year old male seen in cardiology consultation per the request of OSCAR Corona for cardiac evaluation of dyspnea on exertion, suspected congestive heart failure. This is the first time I have seen Ronald Angel as a patient. I am actually acquainted with him as I follow his father from a cardiac perspective who has a longstanding history of a severe ischemic cardiomyopathy and biventricular AICD. 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 His previous cardiac care had been in [place]. He has not followed locally with cardiology, although was seen by our group in 2019 when hospitalized for a right gluteal abscess. Patient with a longstanding history of nonadherence and does not take medications regularly, and has a history of leaving hospital AGAINST MEDICAL ADVICE. He has a past history of alcohol use, but has not used alcohol as of recently. He presented via the emergency department with progressive shortness of breath he describes with onset of 3 to 4 days ago and 2 days of lower extremity edema. He felt like he could not catch his breath with minimal exertion and otherwise felt generalized fatigue. He received a dose of furosemide 40 mg IV this morning at 1027 with improvement in his symptoms. Past Cardiac History: Surgical aortic valve replacement in 2010 for congenital bicuspid aortic valve stenosis He subsequently developed MRSA endocarditis prompting redo surgical aortic valve replacement in 2011 or 2012 (patient uncertain) in [place]. He developed complete heart block after his second aortic valve replacement and has a [place] Dual chamber permanent pacemaker Allergies Allergy/AdvReac Type Severity Reaction Status Date / Time No Known Allergies Allergy Verified 04/26/20 20:42 Home Medications Medication Instructions Recorded Confirmed Type metoprolol tartrate 50 mg tablet 50 mg PO BID 01/31/19 03/14/23 History omeprazole 20 mg capsule,delayed 20 mg PO QAM 01/31/19 03/14/23 History release testosterone cypionate 200 mg/mL 200 mg IM DIRECTED 01/31/19 03/14/23 History intramuscular oil methylphenidate HCl 10 mg tablet 10 mg PO BID 3 days #6 tabs 02/10/19 03/14/23 Rx methylphenidate HCl 20 mg tablet 20 mg PO BID 3 days #6 tabs 02/10/19 03/14/23 Rx paroxetine HCl 40 mg tablet (Paxil) 40 mg PO DAILY 3 days #3 tabs 02/10/19 03/14/23 Rx magnesium 250 mg tablet 0 mg PO DAILY 04/26/20 03/14/23 History multivitamin 1 tab PO DAILY 04/26/20 03/14/23 History Patient History Medical History Abscess, gluteal, right Acute on chronic diastolic CHF (congestive heart failure) ADHD Anxiety Complete heart block S/p pacemaker placement Depression Endocarditis H/O endocarditis History of alcohol abuse History of DVT (deep vein thrombosis) NSTEMI (non-ST elevated myocardial infarction) Pacemaker Right-sided low back pain with sciatica Septic arthritis of hip Small bowel obstruction Small bowel obstruction SOB (shortness of breath) Surgical History H/O aortic valve replacement 2011 at [facility] for congenital abnormality. 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 History of hernia surgery History of hip surgery Status post placement of cardiac pacemaker Family History Other Heart disease Social History Smoking Status: Never smoker Tobacco Type: Cigars Second Hand Exposure: No; Do You Dip or Chew Tobacco: No; Hx Alcohol Use: Yes Alcohol type: beer and hard liquor Alcohol Intake Frequency Comment: ~1 pint vodka daily Hx Substance Use: No Preferred Language: Lao Communication Ability: Effective Vein Pumper Required: No Beliefs That Will Affect Care: None Current Living Situation: Alone Current Living Situation Comment: ex Other Information That Helps Us Care for You: No Feels Safe at Home: Yes Safety Concerns: Feels Safe At This Time Assistive Devices: None Review of Systems Review of Systems: All systems reviewed & are unremarkable except as noted in HPI & below Physical Exam Physical Exam: Temp Pulse Resp BP Pulse Ox O2 Del Method 36.5 C 64 18 113/79 91 Room Air 03/14/23 16:16 03/14/23 16:16 03/14/23 16:16 03/14/23 16:16 03/14/23 16:16 03/14/23 16:16 Constitutional: no acute distress Respiratory: no respiratory distress and does not use accessory muscles Auscultation: + diminished lung sounds (Decreased breath sounds at the bases); no crackles, no rales and no wheezes Cardiovascular: Rate/Rhythm: regular rate and regular rhythm Heart Sounds: + murmur (1/6 systolic murmur) Extremities: + edema (Trace lower extremity edema, reportedly improved compared to this morning) Gastrointestinal (Abdomen): normal bowel sounds, soft, nontender, no hepatosplenomegaly Neurologic: PERRL, EOMI, accommodation nl, no face palsy, no dysarthria Results & Data Laboratory Results Cardiac Enzymes 03/14/23 03/14/23 03/14/23 Range/Units 07:05 07:05 11:13 AST 78 H (13-39) U/L Troponin I High Sens 49.1 H 40.6 H (0-20) pg/ml B-Natriuretic Peptide 2082 H (0-100) pg/ml Coagulation 03/14/23 03/14/23 Range/Units 07:05 07:05 PT 14.6 H (9.0-12.0) Seconds APTT 28.8 (21.0-31.0) Seconds B-Natriuretic Peptide 2082 H (0-100) pg/ml Lipids 03/14/23 Range/Units 11:13 Triglycerides 80 (0-150) mg/dl Cholesterol 101 (0-200) mg/dl HDL Cholesterol 38 mg/dl Cholesterol/HDL Ratio 2.7 (0-5) CBC 03/14/23 Range/Units 07:05 WBC 6.51 (4.8-10.8) K/ul RBC 4.62 L (4.70-6.10) M/uL Hgb 14.1 (14.0-18.0) g/dl Hct 42.6 (42.0-52.0) % Plt Count 193 (130-400) K/uL Neut # (Auto) 3.98 (1.40-6.50) K/uL Lymph # (Auto) 1.60 (1.2-3.4) K/uL [place] # (Auto) 0.64 H (0.11-0.59) K/uL Eos # (Auto) 0.19 (0-0.50) K/uL Baso # (Auto) 0.06 (0-0.2) K/uL Comprehensive Metabolic Panel 03/14/23 Range/Units 07:05 Sodium 139 (136-145) mmol/L Potassium 4.2 (3.5-5.1) mmol/L Chloride 108 H (98-107) mmol/L Carbon Dioxide 25 (21-32) mmol/L BUN 33 H (6-23) mg/dl Creatinine 1.22 (0.6-1.4) mg/dl Glucose 83 (70-99(Fasting)) mg/dl Calcium 8.5 L (8.6-10.3) mg/dl AST 78 H (13-39) U/L ALT 80 H (7-52) U/L Alkaline Phosphatase 145 H (34-104) U/L Total Protein 6.4 (6.0-8.3) gm/dl Albumin 3.9 (3.4-5.0) gm/dl Diagnostic Findings Summary of radiology report of CT angiogram of the chest performed today 03/14/2023: Technical limited study with no definite evidence of pulmonary embolism Moderate cardiomegaly, small right pleural effusion, pulmonary edema Diffuse body wall edema, mild periportal edema, trace ascites EKG performed today and interpreted independently: Sinus rhythm with atrial sensed, ventricular paced QRS complexes at 63 bpm. Echocardiogram performed today 03/14/2023 and interpreted independently: Severe diffuse myocardial thinning noted There is a severe global left ventricular hypokinesis with severely reduced left ventricular systolic function, left ventricular ejection fraction less than 20% The right ventricular systolic function is severely reduced Moderate left atrial enlargement noted Mild mitral regurgitation noted There is a bioprosthetic aortic valve The prosthetic leaflets appear thickened and partially immobile on limited visualization. Moderate to perhaps severe prosthetic aortic valve regurgitation is present. Compared to the previous study performed in January,, the ejection fraction had been at the lower limit of normal, 50 to 55% at that time.
--- NOTE | 2023-03-14 17:43 | Discharge Summary ---
Date of Service March 14, 2023 Admission HPI Per Admitting Provider Patient presented to the [facility] with SOB that has been occurring 3 days ago. Reports having difficulty walking to his bathroom at home. Noticed some pedal edema over past few days. Pt denies orthopnea, cough, fever, diaphoresis, palpitations. Denies recent illness. Reports feeling dizzy. Denies hematochezia or hemoptysis. Feels like "my heart was beating out of my chest". Patient denies MONROY, dizziness, chest pain, palpitations, N/V/D, urine changes, recent falls or trauma. Pt is sitting in his hospital bed and I did observe him walking to the bathroom without difficulty. No known sick contacts. Patient with an extensive PMH that includes CAD with H/O Bioprosthetic valve (2005) was on Coumadin but no longer takes Coumadin s/p Endocarditis which was treated at [facility] and underwent an additional AVR and ended up having a pacemaker placed, subclavian thrombosis during pacemaker insertion, HTN, thrombocytopenia, mesenteric vein repair, inguinal and femoral hernia repairs, ADHD, anxiety and depression. Chest CTA: NEgative for PE. Moderate cardiomegaly, small right pleural effusion and pulmonary edema. Diffuse body wall edema, mild periportal edema and trace ascites. Mild progression with right hilar lymphadenopathy CXR was performed: Cardiomegaly. No evidence for pulmonary edema. No leukocytosis, Creatinine 1.22, D-Dimer 3,250, BNP 2,082, slight elevation of initial troponin 49.1 Pt reports that his last drink was a few years ago (5-6 years). Patient has known noncompliance with all of his medications and states that he has not taken any of his beta-blockers or ADHD meds over the past months and even years.Has not followed with [facility] lately; has been seen at [facility] in [place]. Had a pacemaker exchange there. Pt has been complaining of sciatica pain that he states is debilitating. Was seen in November for this as an outpatient and prescribed Baclofen and Prednisone taper; without relief. He reports this has had a spiraling effect on his psyche. He was ordered a hip x-ray at that time; did not proceed to complete the task. Will obtain hip x-ray and lumbar imaging while here as an inpatient. Patient will be admitted for further evaluation and management. Please see A/P for further details. Admission Exam Per Admitting Provider NAD, well developed Cardiac: Normal S1/S2, no murmur Lungs: Good air entry b/l with lower lobe crackles (L>R) Abd: ND, soft, NT MSk: trace b/l LE pitting edema Psych: pressured speech, otherwise normal affect Principal Diagnosis Acute HF Discharge Exam Pt left AMA Discharge Data Allergies Allergy/AdvReac Type Severity Reaction Status Date / Time No Known Allergies Allergy Verified 04/26/20 20:42 Consultations 03/14/23 10:23 ED Decision to Admit Stat 03/14/23 10:31 Consult Cardiology Routine Ordered Studies 03/14/23 08:18 CT angio chest PE protocol Stat 03/14/23 10:46 US duplex portal hepatic veins Routine Hospital Course (1) Acute on chronic diastolic CHF (congestive heart failure): Plan Pt was dx with Acute HFrEF but pt left AMA -did explain the harm of leaving 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 Did explain the current diagnosis and the importance of receiving treatment. However pt decided to leave AMA A/P from H&P: Dyspnea on exertion: -likely 2/2 acute on CHF -D-Dimer is elevated and elevated BNP --- no signs of DVT on exam --- CTA chest: no PE but it did show periportal edema with trace ascites --- therefore will get portal vein Doppler -pt received Lasix 40mg IV in the ER ---- since pt is Lasix yarelis will await for the response prior to starting daily Lasix -trop is elevated ---- will trend trop ---- EKG: Ventricular paced rhythm - pt has not been taking any of his meds ---- due to low normal BP will start pt on metoprolol 25mg BID (instead of 50mg BID his home meds) -will obtain echo -cardiology consult -daily weights with strict I/Os Elevated LFTs with trace ascites: -pt denied any recent ETOH intake -used to be a heavy drinker -will obtain hepatic vein Doppler due to elevated d-dimer - trend CMP ---- if it is trending up will obtain CT abd -no s/s of ETOH withdrawal -will obtain UDS Chronic L hip/lower back pain: -pt requested a steroid injection to the hip ---- advised the pt that it needs to be a outpt procedure -will get L spine and Hip xray -for now will do prn morphine 1mg Q12 hr for severe hip pain Total Time Total Time Spent Total Time Spent (In Minutes): 30 Discharge Plan Discharge Items Patient Disposition: Against Medical Advice Reason For Visit: SOB Activity: Resume your previous activity Non-emergency contact: Primary Care Provider Follow-up/Referrals: Nabil Daley MD [Primary Care Provider] - Pending Studies at Discharge: Yes Stand-Alone Forms: My [facility], Smoking Cessation Medications and DC Order Prescriptions: Continued metoprolol tartrate 50 mg tablet 50 mg PO BID omeprazole 20 mg capsule,delayed release(DR/EC) 20 mg PO QAM testosterone cypionate 200 mg/mL oil 200 mg IM DIRECTED Rx Instructions: receives injection q 2 weeks methylphenidate HCl 10 mg Tablet 10 mg PO BID 3 Days Qty: 6 0RF Rx Instructions: take along with 20mg 2x/day methylphenidate HCl 20 mg tablet 20 mg PO BID 3 Days Qty: 6 0RF Rx Instructions: TAKE ONE 20 MG TABLET ALONG WITH ONE 10 MG TABLET TO EQUAL 30 MG DOSE paroxetine HCl [Paxil] 40 mg Tablet 40 mg PO DAILY 3 Days Qty: 3 0RF multivitamin Tablet 1 tab PO DAILY magnesium 250 mg Tablet 0 mg PO DAILY Discharge Orders: Left Against Medical Advice (Routine); Ordered 03/14/23 Ordered By: Randall Crews/Other Patient Handouts: A1C, 5 Steps for Eating Healthier Admission Data Admit Date/Time: 03/14/23 10:18 Attending Provider: Randall Rangel Admit Provider: Randall Rangel Primary Care Provider: Nabil Daley Other Providers: Randall Rangel ; Arpan Mendosa
--- NOTE | 2023-03-14 19:11 | Ultrasound Report ---
DOPPLER ULTRASOUND OF THE HEPATIC AND PORTAL VASCULATURE CLINICAL HISTORY: Dyspnea. COMPARISON STUDY: Abdominal CT dated 04/26/2020. FINDINGS: Real-time grayscale and color Doppler sonography of the hepatic and portal vasculature is p erformed. The inferior vena cava is patent. The hepatic veins are patent with normal direction of cuate w and preservation of the normal hepatic venous waveforms. The main portal vein is patent with veloci ties measuring up to 25 cm/s. Portal venous flow is hepatopedal and appears pulsatile. The hepatic ar miriam is patent. The splenic vein is patent. IMPRESSION: The hepatic and portal vessels are patent. See above. Dictated: 03/14/2023 5:24 PM Transcribed: 03/14/2023 6:08 PM Liam [id number] PRIMITIVO_Kaushal [id number] Electronically signed by: Jose C Bernardo M.D. 03/14/2023 7:10 PM
--- NOTE | 2023-03-14 20:06 | Electrocardiogram Report ---
Test Reason : Blood Pressure : / mmHG Vent. Rate : 063 BPM Atrial Rate : 063 BPM P-R Int : 218 ms QRS Dur : 212 ms QT Int : 546 ms P-R-T Axes : 015 -66 114 degrees QTc Int : 558 ms Atrial-sensed ventricular-paced rhythm with prolonged AV conduction Abnormal ECG When compared with ECG of 19-APR-2020 01:32, Vent. rate has increased BY 2 BPM Confirmed by Armaan Dnaiels ([id number]) on 03/14/2023 8:06:48 PM Referred By: REFERRED SELF Confirmed By:Armaan Daniels
[2023-03-14] MEDS ORDERED: METOPROLOL TARTRATE 50 MG TAB PO SCH (21:00)
[2023-03-14] MEDS ORDERED: HEPARIN SOD 5,000 UNIT/0.5 ML VIAL SQ SCH (21:00)
[2023-03-14] MEDS ORDERED: METOPROLOL TARTRATE 25 MG TAB PO SCH (21:00)
[2023-03-15] MEDS ORDERED: GABAPENTIN 600 MG TAB PO SCH (07:00)
[2023-03-15] MEDS ORDERED: FOLIC ACID 1 MG in SYRINGE 9.8 ML IV SCH (09:00)
[2023-03-15] MEDS ORDERED: ASPIRIN 81 MG ECTAB PO SCH (09:00)
[2023-03-15] MEDS ORDERED: THIAMINE HCL 100 MG in SYRINGE 9 ML IV SCH (09:00)
[2023-03-15] MEDS ORDERED: PANTOprazole 40 MG TAB PO SCH (09:00)
[2023-03-16] MEDS ORDERED: GABAPENTIN 600 MG TAB PO SCH (11:00)
[2023-03-17 13:34] LABS: Amphetamine Urine, Confirm 814 ng/mL (<250); Methamphetamine, Ur Confirm 4100 ng/mL (<250)
[2023-03-17] MEDS ORDERED: GABAPENTIN 600 MG TAB PO SCH (23:00)
== END 2023-03-14 17:41 | disposition left against medical advice (07) | DRG 291 ==
LOC: ED 06:47 → 2S 10:18

== ENCOUNTER 2023-04-29 20:13 | Inpatient (IN) ==
[2023-04-29] MEDS ORDERED: VANCOMYCIN HCL 1,500 MG in SODIUM CHLORIDE 0.9% 500 ML IV STA (20:31)
[2023-04-29] MEDS ORDERED: CEFEPIME 2,000 MG/20 ML VIAL IV STA (20:31)
[2023-04-29] MEDS ORDERED: VANCOMYCIN CONSULT ACTIVE PRN (20:31)
--- NOTE | 2023-04-29 20:40 | Emergency Department Note ---
Impression & Plan Fever, Weakness, Right lower lobe pneumonia, Hypoxia, Sepsis, Acute hyponatremia, Elevated troponin ED Provider Note INFORMANT: Patient ED PROVIDER(S): Jules Montiel DO CHIEF COMPLAINT: Fever, weakness PLAN: Disposition: Admission Outpatient prescription management: [none] Discussion with: I spoke with the hospitalist, who will see the patient for admission/observation and further evaluation and consultation. MEDICAL DECISION MAKING: This is a 57-year-old male who presents to the ED with a chief complaint of fever, weakness and decreased blood pressure. The patient does have a history of congestive heart failure, VT and alcoholism as well as numerous other things. He has a bioprosthetic aortic valve. Currently not on any anticoagulation long-term due to previous suicide attempt with Coumadin. The patient reports chills and myalgias and a fever up to 102 at home. The patient received IV fluids by EMS as well as Zofran IV. The patient reports a dry cough. Otherwise no upper respiratory symptoms. No abdominal pains. No urinary symptoms. No other specific complaints. On my exam, the patient is awake, alert and oriented. Lungs are clear but diminished. Heart is slightly tachycardic.. Abdomen is soft nontender. Signs reveal blood pressure of 96/73. Heart rate of 107. Fever 38.1 and saturations of 89%. The patient's chest x-ray suggest a right lower lobe pneumonia. EKG shows a paced ventricular rhythm at a rate of 112. Lactic acid was negative. CBC did not show concerning leukocytosis or anemia. The sodium is 125. Calcium was 7.6. Magnesium was 1.6. Urine did not show obvious infection. Troponin was elevated suggesting a myocarditis versus a myocardial infarction. He does have CAD. Calcitonin was elevated suggesting possible infection. Bio fire test was negative. The patient was empirically treated with IV cefepime and IV vancomycin. He was given IV fluids. He was given 1.5 L of normal saline. The patient's vital signs did seem to improve some with this. In addition to the fluids provided by EMS he has received 30 cc/kg. The patient was seen by the hospitalist for further evaluation and care. Triage Nursing notes reviewed. Vital Signs: reviewed Prior /Outside records reviewed: [none] Differential diagnosis: Differential includes viral illness, influenza, streptococcal pharyngitis, meningitis, pneumonia, sinusitis, UTI, pyelonephritis, otitis media. Diagnostics, as interpreted by me: 12 lead ECG: Paced ventricular rhythm at a rate of 112. No PVCs. Cardiac Monitoring ordered: Paced ventricular rhythm in the 100 range. Medical decision rules: [none] Imaging studies: Chest x-ray: Right lower lobe pneumonia Procedures: none. Critical care: I have personally spent 30 minutes of critical care time in the direct management of this patient. This includes bedside care, interpretation of diagnostic studies, and testing, discussion with consultants, patient, and family members, and other required patient management activities. This 30 minutes is in excess of all separately billable procedures. HPI: See MDM above. PAST MEDICAL HISTORY: See Below PAST SURGICAL HISTORY: See Below SOCIAL HISTORY: See Below HOME MEDICATIONS:See Below ALLERGIES: See Below VITALS: See Below PHYSICAL EXAMINATION: See MDM for positive findings otherwise unremarkable. CONSTITUTIONAL/VITAL SIGNS: Reviewed GENERAL:done as appropriate INTEGUMENTARY: done as appropriate HEAD: done as appropriate EYES: done as appropriate RESPIRATORY: done as appropriate CARDIOVASCULAR:done as appropriate GI/ABDOMEN:done as appropriate EXTREMITIES: done as appropriate NEUROLOGICAL: done as appropriate PSYCHIATRIC:done as appropriate MUSCULOSKELETAL:done as appropriate TRIAGE NURSING DOCUMENTATION REVIEWED. 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 History of hernia surgery History of hip surgery Status post placement of cardiac pacemaker Family History Other Heart disease Social History Smoking Status: Current some day smoker Tobacco Type: Cigarettes Second Hand Exposure: No; Do You Dip or Chew Tobacco: No; Hx Alcohol Use: Yes Alcohol type: beer and hard liquor Alcohol Intake Frequency Comment: ~1 pint vodka daily Hx Substance Use: No Preferred Language: Sami Communication Ability: Effective Pin Setter Required: No Beliefs That Will Affect Care: None Current Living Situation: Alone Current Living Situation Comment: ex Feels Safe at Home: Yes Assistive Devices: None Allergies Allergies Allergy/AdvReac Type Severity Reaction Status Date / Time No Known Allergies Allergy Verified 04/29/23 22:27 Home Meds Home Medications Medication Instructions Recorded Confirmed metoprolol tartrate 50 mg tablet 50 mg PO BID 01/31/19 04/29/23 hydroxyzine pamoate 50 mg capsule 50 mg PO Q6H PRN NEEDED 04/29/23 04/29/23 (Vistaril) paroxetine HCl 20 mg tablet (Paxil) 20 mg PO DAILY 04/29/23 04/29/23 triamcinolone acetonide 0.1 % 1 applic topical BID 04/29/23 04/29/23 topical cream Previous Rx's Medication Instructions Recorded methylphenidate HCl 10 mg tablet 10 mg PO BID 3 days #6 tabs 02/10/19 methylphenidate HCl 20 mg tablet 20 mg PO BID 3 days #6 tabs 02/10/19 paroxetine HCl 40 mg tablet (Paxil) 40 mg PO DAILY 3 days #3 tabs 02/10/19 Results & Data (ED) Vital Signs Vital Signs - 24 hr 04/29/23 20:20 04/29/23 20:20 04/29/23 20:31 Temperature 38.1 C H Temperature Source Oral Pulse Rate 110 H 107 H Pulse Rate [Finger] Pulse Rhythm Regular Pulse Rhythm [Finger] Pulse Strength [Finger] Respiratory Rate 24 20 Respiratory Effort / Characteristics Labored Respiratory Depth Respiratory Pattern Blood Pressure 104/77 Blood Pressure [Right Arm] Blood Pressure Mean 86 Blood Pressure Mean [Right Arm] Blood Pressure Position [Right Arm] Pulse Oximetry 91 91 Oxygen Delivery Method Room Air Room Air Oxygen Flow Rate Sepsis Recent Fever Within 48 Hours Yes Sepsis New/Unexplained Change in Mental Status N/A Sepsis Action Taken by Nursing Physician Notified Oxygen Flow Rate - Titration Pulse Oximetry Post Tiitration 04/29/23 20:31 04/29/23 20:50 04/29/23 20:22 Temperature Temperature Source Pulse Rate 112 H Pulse Rate [Finger] Pulse Rhythm Pulse Rhythm [Finger] Pulse Strength [Finger] Respiratory Rate 20 Respiratory Effort / Characteristics Respiratory Depth Respiratory Pattern Blood Pressure Blood Pressure [Right Arm] 96/73 L Blood Pressure Mean Blood Pressure Mean [Right Arm] 80 Blood Pressure Position [Right Arm] Lying Pulse Oximetry 89 L 89 L Oxygen Delivery Method Room Air Nasal Cannula Oxygen Flow Rate Sepsis Recent Fever Within 48 Hours Sepsis New/Unexplained Change in Mental Status Sepsis Action Taken by Nursing Oxygen Flow Rate - Titration 2 Pulse Oximetry Post Tiitration 91 04/29/23 21:31 04/29/23 20:30 04/29/23 21:00 Temperature 37.1 C Temperature Source Oral Pulse Rate 110 H 100 H Pulse Rate [Finger] 97 H Pulse Rhythm Pulse Rhythm [Finger] Regular Pulse Strength [Finger] Normal Respiratory Rate 20 25 H 25 H Respiratory Effort / Characteristics Non-Labored Respiratory Depth Normal Respiratory Pattern Regular Blood Pressure 96/73 L 107/68 Blood Pressure [Right Arm] 99/73 L Blood Pressure Mean 80 81 Blood Pressure Mean [Right Arm] 81 Blood Pressure Position [Right Arm] Lying Pulse Oximetry 99 93 94 Oxygen Delivery Method Nasal Cannula Room Air Nasal Cannula Oxygen Flow Rate 2 2 Sepsis Recent Fever Within 48 Hours Sepsis New/Unexplained Change in Mental Status Sepsis Action Taken by Nursing Oxygen Flow Rate - Titration Pulse Oximetry Post Tiitration 04/29/23 21:30 04/29/23 22:00 04/29/23 22:30 Temperature Temperature Source Pulse Rate 95 H 94 H 89 Pulse Rate [Finger] Pulse Rhythm Pulse Rhythm [Finger] Pulse Strength [Finger] Respiratory Rate 25 H 25 H 25 H Respiratory Effort / Characteristics Respiratory Depth Respiratory Pattern Blood Pressure 99/73 L 99/65 L 93/68 L Blood Pressure [Right Arm] Blood Pressure Mean 81 76 76 Blood Pressure Mean [Right Arm] Blood Pressure Position [Right Arm] Pulse Oximetry 97 99 98 Oxygen Delivery Method Nasal Cannula Nasal Cannula Nasal Cannula Oxygen Flow Rate 2 2 2 Sepsis Recent Fever Within 48 Hours Sepsis New/Unexplained Change in Mental Status Sepsis Action Taken by Nursing Oxygen Flow Rate - Titration Pulse Oximetry Post Tiitration 04/29/23 23:00 04/29/23 23:31 04/29/23 23:49 Temperature Temperature Source Pulse Rate 88 95 H 105 H Pulse Rate [Finger] Pulse Rhythm Pulse Rhythm [Finger] Pulse Strength [Finger] Respiratory Rate 25 H 30 H 31 H Respiratory Effort / Characteristics Respiratory Depth Respiratory Pattern Blood Pressure 97/70 L 101/35 L 126/96 Blood Pressure [Right Arm] Blood Pressure Mean 79 57 106 Blood Pressure Mean [Right Arm] Blood Pressure Position [Right Arm] Pulse Oximetry 100 99 99 Oxygen Delivery Method Nasal Cannula Oxygen Flow Rate 2 Sepsis Recent Fever Within 48 Hours Sepsis New/Unexplained Change in Mental Status Sepsis Action Taken by Nursing Oxygen Flow Rate - Titration Pulse Oximetry Post Tiitration 04/30/23 00:22 04/30/23 00:31 Temperature Temperature Source Pulse Rate 120 H Pulse Rate [Finger] 115 H Pulse Rhythm Pulse Rhythm [Finger] Pulse Strength [Finger] Respiratory Rate 18 30 H Respiratory Effort / Characteristics Non-Labored Spontaneous Respiratory Depth Respiratory Pattern Blood Pressure 101/58 L Blood Pressure [Right Arm] Blood Pressure Mean 72 Blood Pressure Mean [Right Arm] Blood Pressure Position [Right Arm] Pulse Oximetry 95 97 Oxygen Delivery Method Nasal Cannula Oxygen Flow Rate 5 Sepsis Recent Fever Within 48 Hours Sepsis New/Unexplained Change in Mental Status Sepsis Action Taken by Nursing Oxygen Flow Rate - Titration Pulse Oximetry Post Tiitration Laboratory Data 04/29/23 20:25 04/29/23 20:25 Lab Results 04/29/23 04/29/23 04/29/23 Range/Units 20:25 20:25 20:25 WBC 5.59 (4.8-10.8) K/ul RBC 4.55 L (4.70-6.10) M/uL Hgb 13.7 L (14.0-18.0) g/dl Hct 39.3 L (42.0-52.0) % MCV 86.4 (80.0-100.0) fL MCH 30.1 (25.0-34.0) pg MCHC 34.9 (32.0-36.0) g/dL RDW Std Deviation 44.5 (36.4-46.3) fL RDW Coeff of [place] 14.2 (11.5-14.5) % Plt Count 62 L (130-400) K/uL MPV 11.3 (9.4-12.4) fL Immature Gran % (Auto) 0.5 % Neut % (Auto) 90.6 % Lymph % (Auto) 5.4 % [place] % (Auto) 3.0 % Eos % (Auto) 0.0 % Baso % (Auto) 0.5 % Neut # (Auto) 5.06 (1.40-6.50) K/uL Lymph # (Auto) 0.30 L (1.2-3.4) K/uL [place] # (Auto) 0.17 (0.11-0.59) K/uL Eos # (Auto) 0.00 (0-0.50) K/uL Baso # (Auto) 0.03 (0-0.2) K/uL Immature Gran # (Auto) 0.03 (0.01-0.20) K/uL Toxic Vacuolation 1+ Platelet Estimate Decreased L (Normal) Echinocytes 1+ PT (9.0-12.0) Seconds INR (0.9-1.1) APTT (21.0-31.0) Seconds PTT Ratio Sodium 125 L (136-145) mmol/L Potassium 4.0 (3.5-5.1) mmol/L Chloride 97 L (98-107) mmol/L Carbon Dioxide 19 L (21-32) mmol/L Anion Gap 9 (3-11) BUN 18 (6-23) mg/dl Creatinine 1.07 (0.6-1.4) mg/dl Est Cr Clr Drug Dosing 70.4 ml/min Est GFR ( Amer) 88.2 ml/min Est GFR (Non-Af Amer) 76.1 ml/min BUN/Creatinine Ratio 16.8 (10-20) Glucose 113 H (70-99(Fasting)) mg/dl Osmolality (280-300) mOsm/kg Lactate 1.3 (0.4-2.0) mmol/L Calcium 7.6 L (8.6-10.3) mg/dl Magnesium 1.6 L (1.7-2.4) mg/dl Total Bilirubin 1.2 H (0.2-1.0) mg/dl Direct Bilirubin 0.3 H (0-0.2) mg/dl AST 84 H (13-39) U/L ALT 46 (7-52) U/L Alkaline Phosphatase 126 H (34-104) U/L Troponin I High Sens 318.1 H* (0-20) pg/ml Total Protein 6.1 (6.0-8.3) gm/dl Albumin 3.4 (3.4-5.0) gm/dl Procalcitonin (0-0.5) ng/ml TSH (0.300-4.500) uIu/ml Urine Color Urine Appearance (Clear) Urine pH (4.5-7.5) Ur Specific [place] (1.000-1.030) Urine Protein (Negative) Urine Glucose (UA) (Negative) Urine Ketones (Negative) Urine Blood (Negative) Urine Nitrite (Negative) Urine Bilirubin (Negative) Urine Urobilinogen (Negative) Ur Leukocyte Esterase (Negative) Urine WBC (Auto) (0-5) /hpf Urine RBC (Auto) (0-4) /hpf U Hyaline Cast (Auto) (0-5) /lpf U Epithel Cells (Auto) (0-5) /lpf Urine Bacteria (Auto) (Negative) Adenovirus (PCR) (NotDetected) Anaplasma Smear See Comment A B. pertussis DNA (PCR) (NotDetected) B.parapertussis DNA PCR (NotDetected) C. pneumoniae DNA (PCR) (NotDetected) Coronavirus OC43 (PCR) (NotDetected) Coronavirus HKU1 (PCR) (NotDetected) Coronavirus 229E (PCR) (NotDetected) SARS-CoV-2 (PCR) (NotDetected) Coronavirus NL63 (PCR) (NotDetected) Human Metapneumovir PCR (NotDetected) Influenza Type A (PCR) (NotDetected) Influenza Type B (PCR) (NotDetected) M. pneumoniae (PCR) (NotDetected) Parainfluenza 1 (PCR) (NotDetected) Parainfluenza 2 (PCR) (NotDetected) Parainfluenza 3 (PCR) (NotDetected) Parainfluenza 4 (PCR) (NotDetected) RSV (PCR) (NotDetected) Entero/Rhino (PCR) (NotDetected) 04/29/23 04/29/23 04/29/23 Range/Units 20:25 20:25 20:25 WBC (4.8-10.8) K/ul RBC (4.70-6.10) M/uL Hgb (14.0-18.0) g/dl Hct (42.0-52.0) % MCV (80.0-100.0) fL MCH (25.0-34.0) pg MCHC (32.0-36.0) g/dL RDW Std Deviation (36.4-46.3) fL RDW Coeff of [place] (11.5-14.5) % Plt Count (130-400) K/uL MPV (9.4-12.4) fL Immature Gran % (Auto) % Neut % (Auto) % Lymph % (Auto) % [place] % (Auto) % Eos % (Auto) % Baso % (Auto) % Neut # (Auto) (1.40-6.50) K/uL Lymph # (Auto) (1.2-3.4) K/uL [place] # (Auto) (0.11-0.59) K/uL Eos # (Auto) (0-0.50) K/uL Baso # (Auto) (0-0.2) K/uL Immature Gran # (Auto) (0.01-0.20) K/uL Toxic Vacuolation Platelet Estimate (Normal) Echinocytes PT (9.0-12.0) Seconds INR (0.9-1.1) APTT (21.0-31.0) Seconds PTT Ratio Sodium (136-145) mmol/L Potassium (3.5-5.1) mmol/L Chloride (98-107) mmol/L Carbon Dioxide (21-32) mmol/L Anion Gap (3-11) BUN (6-23) mg/dl Creatinine (0.6-1.4) mg/dl Est Cr Clr Drug Dosing ml/min Est GFR ( Amer) ml/min Est GFR (Non-Af Amer) ml/min BUN/Creatinine Ratio (10-20) Glucose (70-99(Fasting)) mg/dl Osmolality 267 L (280-300) mOsm/kg Lactate (0.4-2.0) mmol/L Calcium (8.6-10.3) mg/dl Magnesium (1.7-2.4) mg/dl Total Bilirubin (0.2-1.0) mg/dl Direct Bilirubin (0-0.2) mg/dl AST (13-39) U/L ALT (7-52) U/L Alkaline Phosphatase (34-104) U/L Troponin I High Sens (0-20) pg/ml Total Protein (6.0-8.3) gm/dl Albumin (3.4-5.0) gm/dl Procalcitonin 6.16 H (0-0.5) ng/ml TSH 3.061 (0.300-4.500) uIu/ml Urine Color Urine Appearance (Clear) Urine pH (4.5-7.5) Ur Specific [place] (1.000-1.030) Urine Protein (Negative) Urine Glucose (UA) (Negative) Urine Ketones (Negative) Urine Blood (Negative) Urine Nitrite (Negative) Urine Bilirubin (Negative) Urine Urobilinogen (Negative) Ur Leukocyte Esterase (Negative) Urine WBC (Auto) (0-5) /hpf Urine RBC (Auto) (0-4) /hpf U Hyaline Cast (Auto) (0-5) /lpf U Epithel Cells (Auto) (0-5) /lpf Urine Bacteria (Auto) (Negative) Adenovirus (PCR) (NotDetected) Anaplasma Smear B. pertussis DNA (PCR) (NotDetected) B.parapertussis DNA PCR (NotDetected) C. pneumoniae DNA (PCR) (NotDetected) Coronavirus OC43 (PCR) (NotDetected) Coronavirus HKU1 (PCR) (NotDetected) Coronavirus 229E (PCR) (NotDetected) SARS-CoV-2 (PCR) (NotDetected) Coronavirus NL63 (PCR) (NotDetected) Human Metapneumovir PCR (NotDetected) Influenza Type A (PCR) (NotDetected) Influenza Type B (PCR) (NotDetected) M. pneumoniae (PCR) (NotDetected) Parainfluenza 1 (PCR) (NotDetected) Parainfluenza 2 (PCR) (NotDetected) Parainfluenza 3 (PCR) (NotDetected) Parainfluenza 4 (PCR) (NotDetected) RSV (PCR) (NotDetected) Entero/Rhino (PCR) (NotDetected) 04/29/23 04/29/23 04/29/23 Range/Units 20:25 20:30 22:15 WBC (4.8-10.8) K/ul RBC (4.70-6.10) M/uL Hgb (14.0-18.0) g/dl Hct (42.0-52.0) % MCV (80.0-100.0) fL MCH (25.0-34.0) pg MCHC (32.0-36.0) g/dL RDW Std Deviation (36.4-46.3) fL RDW Coeff of [place] (11.5-14.5) % Plt Count (130-400) K/uL MPV (9.4-12.4) fL Immature Gran % (Auto) % Neut % (Auto) % Lymph % (Auto) % [place] % (Auto) % Eos % (Auto) % Baso % (Auto) % Neut # (Auto) (1.40-6.50) K/uL Lymph # (Auto) (1.2-3.4) K/uL [place] # (Auto) (0.11-0.59) K/uL Eos # (Auto) (0-0.50) K/uL Baso # (Auto) (0-0.2) K/uL Immature Gran # (Auto) (0.01-0.20) K/uL Toxic Vacuolation Platelet Estimate (Normal) Echinocytes PT 14.6 H (9.0-12.0) Seconds INR 1.4 H (0.9-1.1) APTT 37.3 H (21.0-31.0) Seconds PTT Ratio 1.3 Sodium (136-145) mmol/L Potassium (3.5-5.1) mmol/L Chloride (98-107) mmol/L Carbon Dioxide (21-32) mmol/L Anion Gap (3-11) BUN (6-23) mg/dl Creatinine (0.6-1.4) mg/dl Est Cr Clr Drug Dosing ml/min Est GFR ( Amer) ml/min Est GFR (Non-Af Amer) ml/min BUN/Creatinine Ratio (10-20) Glucose (70-99(Fasting)) mg/dl Osmolality (280-300) mOsm/kg Lactate (0.4-2.0) mmol/L Calcium (8.6-10.3) mg/dl Magnesium (1.7-2.4) mg/dl Total Bilirubin (0.2-1.0) mg/dl Direct Bilirubin (0-0.2) mg/dl AST (13-39) U/L ALT (7-52) U/L Alkaline Phosphatase (34-104) U/L Troponin I High Sens (0-20) pg/ml Total Protein (6.0-8.3) gm/dl Albumin (3.4-5.0) gm/dl Procalcitonin (0-0.5) ng/ml TSH (0.300-4.500) uIu/ml Urine Color Yellow Urine Appearance Clear (Clear) Urine pH 5.5 (4.5-7.5) Ur Specific [place] 1.009 (1.000-1.030) Urine Protein 1+ H (Negative) Urine Glucose (UA) Negative (Negative) Urine Ketones Negative (Negative) Urine Blood Negative (Negative) Urine Nitrite Negative (Negative) Urine Bilirubin Negative (Negative) Urine Urobilinogen Negative (Negative) Ur Leukocyte Esterase Negative (Negative) Urine WBC (Auto) 1-5 (0-5) /hpf Urine RBC (Auto) 0-4 (0-4) /hpf U Hyaline Cast (Auto) 0 (0-5) /lpf U Epithel Cells (Auto) 0-5 (0-5) /lpf Urine Bacteria (Auto) Negative (Negative) Adenovirus (PCR) Not Detected (NotDetected) Anaplasma Smear B. pertussis DNA (PCR) Not Detected (NotDetected) B.parapertussis DNA PCR Not Detected (NotDetected) C. pneumoniae DNA (PCR) Not Detected (NotDetected) Coronavirus OC43 (PCR) Not Detected (NotDetected) Coronavirus HKU1 (PCR) Not Detected (NotDetected) Coronavirus 229E (PCR) Not Detected (NotDetected) SARS-CoV-2 (PCR) Not Detected (NotDetected) Coronavirus NL63 (PCR) Not Detected (NotDetected) Human Metapneumovir PCR Not Detected (NotDetected) Influenza Type A (PCR) Not Detected (NotDetected) Influenza Type B (PCR) Not Detected (NotDetected) M. pneumoniae (PCR) Not Detected (NotDetected) Parainfluenza 1 (PCR) Not Detected (NotDetected) Parainfluenza 2 (PCR) Not Detected (NotDetected) Parainfluenza 3 (PCR) Not Detected (NotDetected) Parainfluenza 4 (PCR) Not Detected (NotDetected) RSV (PCR) Not Detected (NotDetected) Entero/Rhino (PCR) Not Detected (NotDetected) Administered Medications Doxycycline Hyclate 100 mg/ (Dextrose) 110 mls @ 50 mls/hr IV NOW STA Stop: 04/30/23 02:11 Last Admin: 04/30/23 00:37 Dose: 50 mls/hr Documented By: ARIANA Discontinued Medications Cefepime HCl (Maxipime) 2,000 mg in 20 mls @ 5 mls/min IV NOW STA; Protocol Stop: 04/29/23 20:34 Last Admin: 04/29/23 21:17 Dose: 5 mls/min Documented By: ARIANA Vancomycin HCl 1,500 mg/ (Sodium Chloride) 530 mls @ 200 mls/hr IV NOW STA Stop: 04/29/23 23:09 Last Infusion: 04/30/23 00:30 Dose: 0 mls/hr Documented By: Admin: 04/29/23 21:22 Dose: 200 mls/hr Documented By: ARIANA Sodium Chloride (Nss 1000ml) 1,000 mls @ 999 mls/hr IV .Q1H1M [facility] Stop: 04/29/23 21:45 Last Infusion: 04/29/23 22:35 Dose: 0 mls/hr Documented By: Admin: 04/29/23 21:23 Dose: 999 mls/hr Documented By: ARIANA Sodium Chloride (Nss 1000ml) 500 mls @ 999 mls/hr IV .Q31M [facility] Stop: 04/29/23 21:15 Last Infusion: 04/29/23 22:00 Dose: 0 mls/hr Documented By: Admin: 04/29/23 21:24 Dose: 999 mls/hr Documented By: ARIANA Piperacillin Sod/Tazobactam Sod (Zosyn) 4.5 gm in 120 mls @ 240 mls/hr IV NOW ONE Stop: 04/30/23 00:44 Last Admin: 04/30/23 00:37 Dose: 240 mls/hr Documented By: ARIANA Thiamine HCl 100 mg/ Syringe 10 mls @ 2 mls/min IV NOW ONE Stop: 04/30/23 00:19 Last Admin: 04/30/23 00:33 Dose: 2 mls/min Documented By: ARIANA Methylprednisolone 40 mg/ (Syringe) 0.64 mls @ 1.5 mls/min IV NOW ONE Stop: 04/30/23 00:16 Last Admin: 04/30/23 00:32 Dose: 1.5 mls/min Documented By: ARIANA Ipratropium [place] (Ipratropium [place] Neb Soln 0.02% 2.5 Ml Vial) 0.5 mg NEB NOW STA Stop: 04/30/23 00:01 Last Admin: 04/30/23 00:19 Dose: 0.5 mg Documented By: PEDRO Levalbuterol HCl (Levalbuterol 1.25 Mg/3 Ml Neb) 1.25 mg NEB NOW STA Stop: 04/30/23 00:01 Last Admin: 04/30/23 00:19 Dose: 1.25 mg Documented By: PEDRO Discharge Plan Visit Data Chief Complaint: Shortness of Breath/Dyspnea Stated Complaint: Fever, Weakness, Tachy, Hypotensive ED Provider: Jules Montiel Discharge Problem: Fever, Weakness, Right lower lobe pneumonia, Hypoxia, Sepsis, Acute hyponatremia, Elevated troponin Patient Disposition: Being Evaluated by Hospitalist Forms Stand Alone Forms: [facility], Virtual Emergency Department, Important Visit Information Prescriptions Prescriptions: No Action metoprolol tartrate 50 mg tablet 50 mg PO BID methylphenidate HCl 10 mg Tablet 10 mg PO BID 3 Days Qty: 6 0RF Rx Instructions: TOTAL DOSE 30 MG--TAKES WITH 20 MG TAB. methylphenidate HCl 20 mg tablet 20 mg PO BID 3 Days Qty: 6 0RF Rx Instructions: TOTAL DOSE 30 MG--TAKES WITH 10 MG TAB. paroxetine HCl [Paxil] 40 mg Tablet 40 mg PO DAILY 3 Days Qty: 3 0RF hydroxyzine pamoate [Vistaril] 50 mg Capsule 50 mg PO Q6H PRN (Reason: NEEDED) triamcinolone acetonide 0.1 % Cream 1 applic TOPICAL BID paroxetine HCl [Paxil] 20 mg tablet 20 mg PO DAILY Referrals Referrals: Nabil Daley MD [Primary Care Provider] -
[2023-04-29] MEDS ORDERED: SODIUM CHLORIDE 0.9% 1000ML 1,000 ML IV SCH (20:45)
[2023-04-29] MEDS ORDERED: SODIUM CHLORIDE 0.9% 1000ML 500 ML IV SCH (20:45)
[2023-04-29 21:06] LABS: Albumin Level 3.4 gm/dl (3.4-5.0); BUN Creatinine Ratio 16.8 (10-20); Bilirubin Direct 0.3 mg/dl (0-0.2); Bilirubin,Total 1.2 mg/dl (0.2-1.0); Calcium 7.6 mg/dl (8.6-10.3); Creatinine Clr Calc Pharmacy 70.4 ml/min; Est GFR (African American) 88.2 ml/min; Est GFR (Non-African American) 76.1 ml/min; Magnesium 1.6 mg/dl (1.7-2.4); Total Protein 6.1 gm/dl (6.0-8.3)
[2023-04-29 21:22] LABS: Hematocrit (blood only) 39.3 % (42.0-52.0); Hemoglobin 13.7 g/dl (14.0-18.0); Mean Corpuscular Hemoglobin 30.1 pg (25.0-34.0); Mean Corpuscular Hgb Conc 34.9 g/dL (32.0-36.0); Mean Corpuscular Volume 86.4 fL (80.0-100.0); Mean Platelet Volume 11.3 fL (9.4-12.4); Platelet Count 62 K/uL (130-400); RDW Coefficient of Variation 14.2 % (11.5-14.5); RDW Standard Deviation 44.5 fL (36.4-46.3); Red Blood Count 4.55 M/uL (4.70-6.10); White Blood Count 5.59 K/ul (4.8-10.8)
[2023-04-29 21:25] LABS: Troponin I High Sensitivity 318.1 pg/ml (0-20)
[2023-04-29 21:38] LABS: Basophils # (auto) 0.03 K/uL (0-0.2); Basophils % (auto) 0.5 %; Immature Granulocytes # (auto) 0.03 K/uL (0.01-0.20); Immature Granulocytes % (auto) 0.5 %; Lymphocytes % (auto) 5.4 %; Monocytes # (auto) 0.17 K/uL (0.11-0.59); Neutrophils # (auto) 5.06 K/uL (1.40-6.50); Neutrophils % (auto) 90.6 %
[2023-04-29 21:43] LABS: Adenovirus PCR Not Detected (NotDetected); Bordetella parapertussis PCR Not Detected (NotDetected); Bordetella pertussis PCR Not Detected (NotDetected); Chlamydia pneumoniae PCR Not Detected (NotDetected); Coronavirus 229E PCR Not Detected (NotDetected); Coronavirus CoV-2 (COVID19)PCR Not Detected (NotDetected); Coronavirus HKU1 PCR Not Detected (NotDetected); Coronavirus NL63 PCR Not Detected (NotDetected); Coronavirus OC43PCR Not Detected (NotDetected); Human Metapneumovirus PCR Not Detected (NotDetected); Influenza A PCR Not Detected (NotDetected); Influenza B PCR Not Detected (NotDetected); Mycoplasma pneumoniae PCR Not Detected (NotDetected); Parainfluenza Virus 1 PCR Not Detected (NotDetected); Parainfluenza Virus 2 PCR Not Detected (NotDetected); Parainfluenza Virus 3 PCR Not Detected (NotDetected); Parainfluenza Virus 4 PCR Not Detected (NotDetected); Respiratory Syncytial VirusPCR Not Detected (NotDetected); Rhinovirus/Enterovirus PCR Not Detected (NotDetected)
[2023-04-29 21:53] LABS: Echinocytes 1+; Platelet Estimate Decreased (Normal)
[2023-04-29 21:54] LABS: Toxic Vacuolation 1+
[2023-04-29 22:32] LABS: Appearance Urine Clear (Clear); Bacteria Urine Automated Negative (Negative); Bilirubin Urine Negative (Negative); Blood Urine Negative (Negative); Cast Urine Automated 0 /lpf (0-5); Color Urine Yellow; Epithelial Cell Urine Auto 0-5 /lpf (0-5); Glucose Urine UA Negative (Negative); Ketones Urine Negative (Negative); Leukocyte Esterase Urine Negative (Negative); Nitrite Urine Negative (Negative); Protein Urine 1+ (Negative); RBC Urine Automated 0-4 /hpf (0-4); Specific Gravity Urine 1.009 (1.000-1.030); Urobilinogen Urine Negative (Negative); pH Urine 5.5 (4.5-7.5)
[2023-04-29 23:59] LABS: INR 1.4 (0.9-1.1); Partial Thromboplastin Ratio 1.3; Partial Thromboplastin Time 37.3 Seconds (21.0-31.0); Prothrombin Time 14.6 Seconds (9.0-12.0)
[2023-04-30] MEDS ORDERED: DOXYCYCLINE HYCLATE 100 MG in DEXTROSE 5% 100 ML IV STA
[2023-04-30] MEDS ORDERED: IPRATROPIUM BROMIDE NEB SOLN 0.02% 2.5 ML VIAL NEB STA
[2023-04-30] MEDS ORDERED: methylPREDNISolone 40 MG in SYRINGE 0 ML IV ONE (00:15)
[2023-04-30] MEDS ORDERED: PIPERACILLIN/TAZOBACTAM 4.5 GM/120 ML BAG IV ONE (00:15)
[2023-04-30] MEDS ORDERED: THIAMINE HCL 100 MG in SYRINGE 9 ML IV ONE (00:15)
--- NOTE | 2023-04-30 01:09 | History & Physical Report ---
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 ADD, anxiety/mood disorder, at baseline Hx recurrent DVT currently off anticoagulation Possible alcoholic hepatitis, patient denies recent alcohol intake, good prognosis with computed Maddrey's DF score of 20 New onset thrombocytopenia secondary to sepsis, possible alcoholic liver disease Hyperglycemia likely prediabetes, hemoglobin A1c of 6.1 last month PCU given hypotension (patient probable new baseline) Supplemental O2 baseline ABG CS, Doxycycline, Zosyn Solu-Medrol, nebs 1 dose given for bronchospasm causing hypoxemia Stat Lasix Follow troponin Careful correction of sodium, hyponatremia work-up DT precautions, initiate AWSS if with signs of withdrawal noted inpatient Follow LFTs, liver ultrasound and GI consult if with progression DVT prophylaxis. SCDs Re: Thrombocytopenia Full code Total critical care time was 40 minutes. Text document was generated using Carma voice recognition software. It may contain grammatical or spelling errors. Kindly contact undersigned for clarification of any documentation item in question. History of Present Illness Chief Complaint: Fever, weakness, cough, shortness of breath Primary Care Provider: Nabil Daley MD History obtained from patient and records. 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 Last confinement last month for acute heart failure. TTE showed EF of less than 20% Mild MR and moderate to severe prosthetic aortic valve regurgitation noted. Patient signed out AGAINST MEDICAL ADVICE. Patient has not followed up with PCP and has not returned calls from housing case manager as per outpatient documentation after leaving hospital last month. Few days history of dry cough, chills, myalgias, fever 102 at home. Not sure about sick contacts. No headache, no chest pain, no abdominal pain. Poor appetite. Denies recent EtOH intake, denies aspiration. SBP 90s, O2 sats 80s upon arrival at the ER. NSS boluses, vancomycin and cefepime administered at the ER. Worsening shortness of breath as per patient. MEDICAL HISTORY: As above. SURGERIES: Heart surgery, pacemaker placement, rhinoplasty, ex lap/hernia repair/adhesiolysis, elbow bursa surgery, Right hip/ gluteal abscess drainage FAMILY HISTORY: Family history of heart disease, diabetes, lymphoma, prostate cancer PERSONAL SOCIAL HISTORY: Nonsmoker. 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 Allergies Allergy/AdvReac Type Severity Reaction Status Date / Time No Known Allergies Allergy Verified 04/29/23 22:27 Home Medications Medication Instructions Recorded Confirmed Type metoprolol tartrate 50 mg tablet 50 mg PO BID 01/31/19 04/29/23 History methylphenidate HCl 10 mg tablet 10 mg PO BID 3 days #6 tabs 02/10/19 04/29/23 Rx methylphenidate HCl 20 mg tablet 20 mg PO BID 3 days #6 tabs 02/10/19 04/29/23 Rx paroxetine HCl 40 mg tablet (Paxil) 40 mg PO DAILY 3 days #3 tabs 02/10/19 04/29/23 Rx hydroxyzine pamoate 50 mg capsule 50 mg PO Q6H PRN NEEDED 04/29/23 04/29/23 History (Vistaril) paroxetine HCl 20 mg tablet (Paxil) 20 mg PO DAILY 04/29/23 04/29/23 History triamcinolone acetonide 0.1 % 1 applic topical BID 04/29/23 04/29/23 History topical cream Past Med/Surg History Medical History Abscess, gluteal, right Acute on chronic diastolic CHF (congestive heart failure) ADHD Anxiety Complete heart block S/p pacemaker placement Depression Endocarditis H/O endocarditis History of alcohol abuse History of DVT (deep vein thrombosis) NSTEMI (non-ST elevated myocardial infarction) Pacemaker Right-sided low back pain with sciatica Septic arthritis of hip Small bowel obstruction Small bowel obstruction SOB (shortness of breath) Surgical History H/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 History of hernia surgery History of hip surgery Status post placement of cardiac pacemaker Family History Other Heart disease Social History Smoking Status: Former smoker Tobacco Type: Cigarettes Second Hand Exposure: No; Do You Dip or Chew Tobacco: No; Hx Alcohol Use: Yes Alcohol type: beer and hard liquor Alcohol Intake Frequency Comment: ~1 pint vodka daily Hx Substance Use: No Preferred Language: Telugu Communication Ability: Effective Coal Washer Required: No Beliefs That Will Affect Care: None Current Living Situation: Alone Current Living Situation Comment: ex Feels Safe at Home: Yes Assistive Devices: Contacts Review of Systems Review of Systems: As per HPI, all other systems reviewed and negative Physical Exam Physical Exam: GENERAL: uncomfortable, ill-appearing, minimal respiratory distress SKIN: Normal color, warm HEENT: Alopecia, pink palpebral conjunctivae, no ptosis, dry buccal mucosa, nasal cannula in place NECK : Supple, no tenderness CHEST : Decreased breath sounds, scattered crackles, no tenderness HEART : Tachycardic, systolic murmur ABDOMEN: no distention, nontender EXTREMITIES : Minimal LE swelling, minimal LLE tenderness, no other conspicuous deformities noted NEUROLOGIC : Coherent, no facial asymmetry, no other gross focality Results & Data Results & Data Vital Signs (Past 12 Hours) Vital Signs Temp Pulse Pulse Resp BP BP Pulse Ox 04/30/23 00:31 120 H 30 H 101/58 L 97 04/30/23 00:22 115 H 18 95 04/29/23 23:49 105 H 31 H 126/96 99 04/29/23 23:31 95 H 30 H 101/35 L 99 04/29/23 23:00 88 25 H 97/70 L 100 04/29/23 22:30 89 25 H 93/68 L 98 04/29/23 22:00 94 H 25 H 99/65 L 99 04/29/23 21:30 95 H 25 H 99/73 L 97 04/29/23 21:00 100 H 25 H 107/68 94 04/29/23 20:30 110 H 25 H 96/73 L 93 04/29/23 21:31 37.1 C 97 H 20 99/73 L 99 04/29/23 20:22 112 H 04/29/23 20:50 89 L 04/29/23 20:31 20 96/73 L 89 L 04/29/23 20:31 107 H 20 91 04/29/23 20:20 38.1 C H 110 H 24 104/77 91 O2 Del Method O2 Flow Rate 04/30/23 00:31 04/30/23 00:22 Nasal Cannula 5 04/29/23 23:49 04/29/23 23:31 04/29/23 23:00 Nasal Cannula 2 04/29/23 22:30 Nasal Cannula 2 04/29/23 22:00 Nasal Cannula 2 04/29/23 21:30 Nasal Cannula 2 04/29/23 21:00 Nasal Cannula 2 04/29/23 20:30 Room Air 04/29/23 21:31 Nasal Cannula 2 04/29/23 20:22 04/29/23 20:50 Nasal Cannula 04/29/23 20:31 Room Air 04/29/23 20:31 Room Air 04/29/23 20:20 Room Air Laboratory Results Laboratory Results WBC 5.59 K/ul (4.8-10.8) 04/29/23 20:25 RBC 4.55 M/uL (4.70-6.10) L 04/29/23 20:25 Hgb 13.7 g/dl (14.0-18.0) L 04/29/23 20:25 Hct 39.3 % (42.0-52.0) L 04/29/23 20:25 MCV 86.4 fL (80.0-100.0) 04/29/23 20:25 MCH 30.1 pg (25.0-34.0) 04/29/23 20:25 MCHC 34.9 g/dL (32.0-36.0) 04/29/23 20:25 RDW Std Deviation 44.5 fL (36.4-46.3) 04/29/23 20:25 RDW Coeff of Kwabena 14.2 % (11.5-14.5) 04/29/23 20:25 Plt Count 62 K/uL (130-400) L 04/29/23 20:25 MPV 11.3 fL (9.4-12.4) 04/29/23 20:25 Immature Gran % (Auto) 0.5 % 04/29/23 20:25 Neut % (Auto) 90.6 % 04/29/23 20:25 Lymph % (Auto) 5.4 % 04/29/23 20:25 Bath % (Auto) 3.0 % 04/29/23 20:25 Eos % (Auto) 0.0 % 04/29/23 20:25 Baso % (Auto) 0.5 % 04/29/23 20:25 Neut # (Auto) 5.06 K/uL (1.40-6.50) 04/29/23 20:25 Lymph # (Auto) 0.30 K/uL (1.2-3.4) L 04/29/23 20:25 Bath # (Auto) 0.17 K/uL (0.11-0.59) 04/29/23 20:25 Eos # (Auto) 0.00 K/uL (0-0.50) 04/29/23 20:25 Baso # (Auto) 0.03 K/uL (0-0.2) 04/29/23 20:25 Immature Gran # (Auto) 0.03 K/uL (0.01-0.20) 04/29/23 20:25 Toxic Vacuolation 1+ 04/29/23 20:25 Platelet Estimate Decreased (Normal) L 04/29/23 20:25 Echinocytes 1+ 04/29/23 20:25 PT 14.6 Seconds (9.0-12.0) H 04/29/23 20:25 INR 1.4 (0.9-1.1) H 04/29/23 20:25 APTT 37.3 Seconds (21.0-31.0) H 04/29/23 20:25 PTT Ratio 1.3 04/29/23 20:25 Sodium 125 mmol/L (136-145) L 04/29/23 20:25 Potassium 4.0 mmol/L (3.5-5.1) 04/29/23 20:25 Chloride 97 mmol/L (98-107) L 04/29/23 20:25 Carbon Dioxide 19 mmol/L (21-32) L 04/29/23 20:25 Anion Gap 9 (3-11) 04/29/23 20:25 BUN 18 mg/dl (6-23) 04/29/23 20:25 Creatinine 1.07 mg/dl (0.6-1.4) 04/29/23 20:25 Est Cr Clr Drug Dosing 70.4 ml/min 04/29/23 20:25 Est GFR ( Amer) 88.2 ml/min 04/29/23 20:25 Est GFR (Non-Af Amer) 76.1 ml/min 04/29/23 20:25 BUN/Creatinine Ratio 16.8 (10-20) 04/29/23 20:25 Glucose 113 mg/dl (70-99(Fasting)) H 04/29/23 20:25 Osmolality 267 mOsm/kg (280-300) L 04/29/23 20:25 Lactate 1.3 mmol/L (0.4-2.0) 04/29/23 20:25 Calcium 7.6 mg/dl (8.6-10.3) L 04/29/23 20:25 Magnesium 1.6 mg/dl (1.7-2.4) L 04/29/23 20:25 Total Bilirubin 1.2 mg/dl (0.2-1.0) H 04/29/23 20:25 Direct Bilirubin 0.3 mg/dl (0-0.2) H 04/29/23 20:25 AST 84 U/L (13-39) H 04/29/23 20:25 ALT 46 U/L (7-52) 04/29/23 20:25 Alkaline Phosphatase 126 U/L (34-104) H 04/29/23 20:25 Troponin I High Sens 318.1 pg/ml (0-20) H* 04/29/23 20:25 Total Protein 6.1 gm/dl (6.0-8.3) 04/29/23 20:25 Albumin 3.4 gm/dl (3.4-5.0) 04/29/23 20:25 Procalcitonin 6.16 ng/ml (0-0.5) H 04/29/23 20:25 TSH 3.061 uIu/ml (0.300-4.500) 04/29/23 20:25 Urine Color Yellow 04/29/23 22:15 Urine Appearance Clear (Clear) 04/29/23 22:15 Urine pH 5.5 (4.5-7.5) 04/29/23 22:15 Ur Specific [place] 1.009 (1.000-1.030) 04/29/23 22:15 Urine Protein 1+ (Negative) H 04/29/23 22:15 Urine Glucose (UA) Negative (Negative) 04/29/23 22:15 Urine Ketones Negative (Negative) 04/29/23 22:15 Urine Blood Negative (Negative) 04/29/23 22:15 Urine Nitrite Negative (Negative) 04/29/23 22:15 Urine Bilirubin Negative (Negative) 04/29/23 22:15 Urine Urobilinogen Negative (Negative) 04/29/23 22:15 Ur Leukocyte Esterase Negative (Negative) 04/29/23 22:15 Urine WBC (Auto) 1-5 /hpf (0-5) 04/29/23 22:15 Urine RBC (Auto) 0-4 /hpf (0-4) 04/29/23 22:15 U Hyaline Cast (Auto) 0 /lpf (0-5) 04/29/23 22:15 U Epithel Cells (Auto) 0-5 /lpf (0-5) 04/29/23 22:15 Urine Bacteria (Auto) Negative (Negative) 04/29/23 22:15 Adenovirus (PCR) Not Detected (NotDetected) 04/29/23 20:30 Anaplasma Smear See Comment A 04/29/23 20:25 B. pertussis DNA (PCR) Not Detected (NotDetected) 04/29/23 20:30 B.parapertussis DNA PCR Not Detected (NotDetected) 04/29/23 20:30 C. pneumoniae DNA (PCR) Not Detected (NotDetected) 04/29/23 20:30 Coronavirus OC43 (PCR) Not Detected (NotDetected) 04/29/23 20:30 Coronavirus HKU1 (PCR) Not Detected (NotDetected) 04/29/23 20:30 Coronavirus 229E (PCR) Not Detected (NotDetected) 04/29/23 20:30 SARS-CoV-2 (PCR) Not Detected (NotDetected) 04/29/23 20:30 Coronavirus NL63 (PCR) Not Detected (NotDetected) 04/29/23 20:30 Human Metapneumovir PCR Not Detected (NotDetected) 04/29/23 20:30 Influenza Type A (PCR) Not Detected (NotDetected) 04/29/23 20:30 Influenza Type B (PCR) Not Detected (NotDetected) 04/29/23 20:30 M. pneumoniae (PCR) Not Detected (NotDetected) 04/29/23 20:30 Parainfluenza 1 (PCR) Not Detected (NotDetected) 04/29/23 20:30 Parainfluenza 2 (PCR) Not Detected (NotDetected) 04/29/23 20:30 Parainfluenza 3 (PCR) Not Detected (NotDetected) 04/29/23 20:30 Parainfluenza 4 (PCR) Not Detected (NotDetected) 04/29/23 20:30 RSV (PCR) Not Detected (NotDetected) 04/29/23 20:30 Entero/Rhino (PCR) Not Detected (NotDetected) 04/29/23 20:30 Diagnostic Findings Chest x-ray as per my interpretation: Congestion, cardiomegaly, right-sided infiltrate EKG as per my interpretation : Rate 110, paced rhythm
[2023-04-30] MEDS: MAGNESIUM SULFATE / D5W 1 GM/100 ML BAG IV SCH ×2 (01:12→03:38)
[2023-04-30] MEDS ORDERED: oxyCODONE HCL IR 5 MG TAB (IMMEDIATE RELEASE) PO PRN (01:22)
[2023-04-30] MEDS ORDERED: PROMETHAZINE HCL 6.25 MG in SODIUM CHLORIDE 0.9% 50 ML IV PRN (01:22)
[2023-04-30] MEDS ORDERED: LORazepam 2 MG/1 ML VIAL IV PRN ×2 (01:22→03:32)
[2023-04-30] MEDS ORDERED: ACETAMINOPHEN 325 MG TAB PO PRN (01:24)
[2023-04-30] MEDS ORDERED: ALBUMIN 25% 25 GM/100 ML VIAL IV ONE ×2 (01:36→03:29)
[2023-04-30] MEDS ORDERED: FUROSEMIDE INJ 20 MG/2 ML VIAL IV ONE (01:36)
[2023-04-30 01:51] LABS: Base Excess VBG -4.9 mEq/L; HCO3 VBG 21 mmol/L; Oxygen Saturation VBG < 60.0 %; PCO2 VBG 39 mmHg (38-50); PO2 VBG 37 mmHg; pH VBG 7.33 (7.36-7.41)
[2023-04-30 02:36] LABS: Albumin Level 3.3 gm/dl (3.4-5.0); Bilirubin Direct 0.8 mg/dl (0-0.2); Bilirubin,Total 2.6 mg/dl (0.2-1.0); Troponin I High Sensitivity 236.1 pg/ml (0-20)
[2023-04-30] MEDS ORDERED: IPRATROPIUM BROMIDE NEB SOLN 0.02% 2.5 ML VIAL INH STA (03:29)
[2023-04-30] MEDS ORDERED: LEVALBUTEROL 1.25 MG/3 ML NEB NEB STA ×2 (03:29)
[2023-04-30] MEDS ORDERED: XOPENEX/ATROVENT 1.25mg/0.5MG NEB COMBO NEB STA ×2 (03:29)
[2023-04-30 03:33] LABS: Appearance Urine Clear (Clear); Bacteria Urine Automated Negative (Negative); Bilirubin Urine Negative (Negative); Blood Urine Trace (Negative); Cast Urine Automated 0 /lpf (0-5); Color Urine Yellow; Epithelial Cell Urine Auto 0-5 /lpf (0-5); Glucose Urine UA Negative (Negative); Ketones Urine Negative (Negative); Leukocyte Esterase Urine Negative (Negative); Nitrite Urine Negative (Negative); Protein Urine Negative (Negative); RBC Urine Automated 0-4 /hpf (0-4); Specific Gravity Urine 1.006 (1.000-1.030); Urobilinogen Urine Negative (Negative)
[2023-04-30 04:05] LABS: Amphetamines+Metham, Urine Pos (Neg); Barbiturates, Urine Neg (Neg); Benzodiazepine, Urine Neg (Neg); Cocaine, Urine Neg (Neg); MDMA (Ecstacy), Urine Neg (Neg); Methadone, Urine Neg (Neg); Opiate, Urine Neg (Neg); Phencyclidine, Urine Neg (Neg)
[2023-04-30 06:02] LABS: Hematocrit (blood only) 40.5 % (42.0-52.0); Hemoglobin 13.9 g/dl (14.0-18.0); Mean Corpuscular Hemoglobin 30.5 pg (25.0-34.0); Mean Corpuscular Hgb Conc 34.3 g/dL (32.0-36.0); Mean Corpuscular Volume 88.8 fL (80.0-100.0); Mean Platelet Volume 11.8 fL (9.4-12.4); Platelet Count 52 K/uL (130-400); RDW Coefficient of Variation 14.6 % (11.5-14.5); RDW Standard Deviation 47.3 fL (36.4-46.3); Red Blood Count 4.56 M/uL (4.70-6.10)
[2023-04-30 06:10] LABS: Albumin Level 3.9 gm/dl (3.4-5.0); BUN Creatinine Ratio 17.6 (10-20); Bilirubin Direct 0.9 mg/dl (0-0.2); Bilirubin,Total 2.2 mg/dl (0.2-1.0); Calcium 8.6 mg/dl (8.6-10.3); Creatinine Clr Calc Pharmacy 69.7 ml/min; Est GFR (African American) 87.2 ml/min; Est GFR (Non-African American) 75.3 ml/min; Magnesium 2.3 mg/dl (1.7-2.4); Potassium 3.2 mmol/L (3.5-5.1); Total Protein 6.5 gm/dl (6.0-8.3)
[2023-04-30 06:11] LABS: Basophils # (auto) 0.03 K/uL (0-0.2); Basophils % (auto) 0.4 %; Echinocytes 2+; Immature Granulocytes # (auto) 0.04 K/uL (0.01-0.20); Immature Granulocytes % (auto) 0.6 %; Lymphocytes # (auto) 0.19 K/uL (1.2-3.4); Lymphocytes % (auto) 2.7 %; Monocytes # (auto) 0.13 K/uL (0.11-0.59); Monocytes % (auto) 1.9 %; Neutrophils # (auto) 6.61 K/uL (1.40-6.50); Neutrophils % (auto) 94.4 %
--- NOTE | 2023-04-30 06:36 | XRay Report ---
SINGLE VIEW CHEST CLINICAL HISTORY: Sepsis. FINDINGS: 2 AP, portable, upright chest radiographs are compared to chest x-ray and chest CT dated 03/14/2023. The examination is degraded by portable technique and patient rotation. A 2-lead cardiac pace maker is unchanged in position. The patient is status post midline sternotomy and cardiac valve surge ry. The heart is enlarged noting atherosclerotic calcification of the thoracic aorta. There is pulmon hannah vascular congestion. There is a small right pleural effusion. Scarring/atelectasis is seen at the lung bases. No pneumothorax is seen. The skeletal structures are osteopenic. The bony thorax is desmond sly intact. IMPRESSION: 1. Cardiomegaly and cardiac pacemaker with evidence of congestive failure. 2. Small right pleural effusion. ACT 112: Negative or not required by law. Electronically signed by: Jose C Bernardo M.D. 04/30/2023 6:35 AM
--- NOTE | 2023-04-30 06:38 | XRay Report ---
SINGLE VIEW CHEST CLINICAL HISTORY: Hypoxia. FINDINGS: An AP, portable, upright chest radiograph is compared to study dated 04/29/2023 and correlat ed with chest CT dated 03/14/2023. A 2-lead cardiac pacemaker is unchanged in position. The patient is status post midline sternotomy and cardiac valve surgery. The heart is enlarged noting atheroscleroti c calcification of the thoracic aorta. There is pulmonary vascular congestion and mild pulmonary jayjay a. Small pleural effusions are noted with bibasilar scarring/atelectasis. No pneumothorax is seen. Th e skeletal structures are osteopenic. The bony thorax is grossly intact. IMPRESSION: 1. Cardiomegaly and cardiac pacemaker with evidence of congestive failure and mild pulmonary edema. T his has modestly worsened from yesterday. 2. Small pleural effusions. ACT 112: Negative or not required by law. Electronically signed by: Jose C Bernardo M.D. 04/30/2023 6:37 AM
[2023-04-30] MEDS: PIPERACILLIN/TAZOBACTAM 4.5 GM in DEXTROSE 5% 100 ML IV SCH ×2 (07:23→13:31)
[2023-04-30] MEDS: METHYLPHENIDATE HCL 10 MG TABLET PO SCH ×2 (07:25→07:34)
[2023-04-30] MEDS: PARoxetine HCL 20 MG TAB PO SCH ×4 (07:28→07:34)
[2023-04-30] MEDS ORDERED: IPRATROPIUM BROMIDE NEB SOLN 0.02% 2.5 ML VIAL ONE (07:44)
[2023-04-30] MEDS ORDERED: LEVALBUTEROL 1.25 MG/3 ML NEB ONE (07:45)
[2023-04-30] MEDS ORDERED: POTASSIUM CHLORIDE CRTAB 20 MEQ TABCR PO STA (07:50)
[2023-04-30] MEDS ORDERED: VANCOMYCIN CONSULT ACTIVE PRN (07:53)
[2023-04-30] MEDS ORDERED: VANCOMYCIN HCL 1,000 MG in SODIUM CHLORIDE 0.9% 500 ML IV SCH (08:00)
[2023-04-30] MEDS ORDERED: VANCOMYCIN HCL 1,750 MG in SODIUM CHLORIDE 0.9% 500 ML IV SCH (08:15)
[2023-04-30] MEDS ORDERED: METOPROLOL TARTRATE 25 MG TAB PO SCH (09:00)
[2023-04-30] MEDS ORDERED: FOLIC ACID 1 MG TAB PO SCH (09:00)
[2023-04-30] MEDS ORDERED: MULTIVITAMIN TAB PO SCH (09:00)
[2023-04-30] MEDS ORDERED: VANCOMYCIN HCL 1,250 MG in SODIUM CHLORIDE 0.9% 250 ML IV SCH (09:00)
--- NOTE | 2023-04-30 10:12 | Pharmacy Report ---
Pharmacy PK ABX Note - Date of Service April 30, 2023 - Assessment and Plan Assessment 57 year old M receiving vancomycin and zosyn for pulmonary and endocarditis coverage. History of MRSA endocarditis. Blood cultures pending. Day #1 of antimicrobial therapy. Plan Vancomycin * Loading dose: 1500 mg IV x 1 * Maintenance dose: 1250 mg IV every 18 hours * Regimen is predicted to achieve target AUC/DEE of 400-600 mg/L.hr * Random level tomorrow afternoon after the 3rd dose Pharmacy will continue to follow and will adjust dose/frequency as necessary. Thank you. Pharmacy has transitioned to AUC monitoring for vancomycin. AUC/DEE is the pr eferred PK/PD target and is associated with decreased risk of nephrotoxicity compared to traditional trough targets.
--- NOTE | 2023-04-30 12:24 | Hospitalist Progress Note ---
Date of Service April 30, 2023 Assessment & Plan (1) Acute hypoxemic respiratory failure: Plan: per Dr. Pérez's notes: Multifactorial: Severe sepsis secondary to Pneumonia, Anaplasmosis, r/o Bacteremia, r/o Endocarditis Secondary fluid overload, hx systolic dysfunction -- blood culture pending -- CT chest: 1. Cardiomegaly and cardiac pacemaker with evidence of congestive failure 2. Small pleural effusions. 3. Mildly enlarged mediastinal lymph nodes are nonspecific and may be reactive. These are similar to previous. 4. Additional findings as above. -- Echo: mobile echodensity on the aortic surface of the bioprosthetic aortic valve -- continue IV Vancomycin, Doxycycline, Zosyn --Lasix 20mg IV given (+) UDS: Meth confirmation test pending patient denies taking Meth, admits to taking Ritalin intermittently Troponin elevation secondary to above trending down Hyponatremia secondary to illness, atypical pneumonia, possible alcohol abuse contributory resolved hx bicuspid aortic valve status post AVR 2010 (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 SCDs Re: Thrombocytopenia Full code In the afternoon, patient requested to speak with me as he wanted to sign out AMA Discussed case in detail with patient including sepsis, and that I do not recommend him to leave as this can result to worsening of his sepsis, leading to complications including Patient states he wanted to see his daughter for Father's Day He then asked if he can leave tomorrow, and I informed him I would not recommend that either and that he will need to stay here for a few days for medical treatment Patient agreeable to stay for continuing medical care plan of care discussed with patient in detail and at length all questions answered he is understanding, agreeable, comfortable with the plan of care Admission and Anticipated Discharge Date Admission Date: April 30, 2023 Subjective ff up for possible sepsis, etc seen resting in bed, not in distress appears drowsy just received ativan states he feels somewhat better denies SOB, cough, fever/chills, chest pain nausea also improved no other new symptoms Review of Systems Review of Systems: all noted and negative except for above Physical Exam Physical Exam: General- oriented x 3, not in distress, speaks in sentences with no effort or accessory muscle use Head- atraumatic Eyes- PERRL, EOMI, anicteric ENT- oropharynx clear Neck- supple, no JVD, no adenopathy, no thyromegaly; carotids +2/2, no bruits appreciated Lungs-mild rhonchi at the bases Heart- normal rate, regular rhythm; (+) grade 1-2 murmur, no gallop, no rub appreciated Abdomen- normal bowel sounds, nondistended, soft, nontender, no masses or h epatosplenomegaly Extremities- no pretibial edema, no calf tenderness; peripheral pulses intact Neuro- alert, oriented x 3; CN 2-12 grossly intact; motor 5/5 bilaterally;sensation 100% on all extremities; no other gross focal neurologic deficits Skin- warm & dry Results & Data Results & Data Vital Signs (Past 12 Hours) Vital Signs Temp Pulse Pulse Resp BP BP BP 04/30/23 11:10 63 22 137/83 04/30/23 08:00 78 04/30/23 08:00 04/30/23 08:08 97/66 L 04/30/23 07:51 74 16 04/30/23 07:03 36.4 C L 73 22 90/60 L 89/58 L 04/30/23 06:22 74 91/63 L 04/30/23 03:32 04/30/23 03:31 93 H 23 86/66 L 04/30/23 02:15 37.2 C 104 H 18 90/47 L 04/30/23 02:15 04/30/23 02:03 105 H 30 H 91/61 L 04/30/23 02:05 105 H 35 H 93/66 L 04/30/23 01:34 114 H 40 H 93/66 L 04/30/23 01:00 115 H 30 H 99/70 L 04/30/23 01:19 04/30/23 01:06 114 H 04/30/23 00:31 120 H 30 H 101/58 L Pulse Ox Pulse Ox O2 Del Method O2 Del Method O2 Flow Rate O2 Flow Rate 04/30/23 11:10 96 Nasal Cannula 2 04/30/23 08:00 04/30/23 08:00 Nasal Cannula 3 04/30/23 08:08 04/30/23 07:51 96 Nasal Cannula 2 04/30/23 07:03 99 Nasal Cannula 2 04/30/23 06:22 04/30/23 03:32 Nasal Cannula 3 04/30/23 03:31 93 Nasal Cannula 3 04/30/23 02:15 97 Nasal Cannula 3 04/30/23 02:15 97 Nasal Cannula 3 04/30/23 02:03 95 Nasal Cannula 3 04/30/23 02:05 93 Nasal Cannula 3 04/30/23 01:34 94 04/30/23 01:00 92 Nasal Cannula 2 04/30/23 01:19 87 L Nasal Cannula 2 04/30/23 01:06 04/30/23 00:31 97 all noted and reviewed including below
--- NOTE | 2023-04-30 13:31 | CT Scan Report ---
CT SCAN OF THE CHEST WITHOUT IV CONTRAST CLINICAL HISTORY: Hypoxia. COMPARISON STUDY: Chest x-ray dated 04/30/2023. Chest CT dated 03/14/2023. TECHNIQUE: CT scan of the thorax was performed from the thoracic inlet to the upper abdomen. Images are reviewed in the axial, sagittal, and coronal planes. IV contrast was not administered for this ex amination as per the referring clinician. A dose lowering technique was utilized adhering to the sandy Kraus. CT DOSE: 341.27 mGy.cm FINDINGS: Thyroid: Imaged portions of the thyroid gland are normal in size and attenuation. Thoracic aorta: There is evidence of previous aortic valve surgery, as well as repair of the ascendin g thoracic aorta. There is mild atherosclerotic calcification. The thoracic aorta is normal in calibe r and demonstrates standard 3-vessel arch anatomy. Heart: The patient is status post midline sternotomy. A cardiac pacemaker is present in the right sheila st wall. The heart is enlarged and without pericardial effusion. There are coronary artery calcificat ions. The pulmonary trunk is dilated, measuring 3.7 cm in diameter. This suggests pulmonary artery hy pertension. Lungs and pleural spaces: Evaluation of the lung parenchyma is degraded by motion artifact. There are small pleural effusions with dependent atelectasis. Diffuse centrilobular septal thickening indicate s congestive failure. There is no airspace consolidation typical for pneumonia. The trachea and centr al airways appear clear. Mediastinum: There are numerous mildly enlarged mediastinal lymph nodes which measure up to 17 mm in short axis. Isaura: Not well assessed without IV contrast. Axillae: There is no axillary lymphadenopathy. Upper abdomen: Partially visualized upper abdominal viscera is within normal limits. Skeletal structures: The skeletal structures are osteopenic. Degenerative change is noted in the thor acic spine. No lytic or blastic bony lesions are seen. IMPRESSION: 1. Cardiomegaly and cardiac pacemaker with evidence of congestive failure 2. Small pleural effusions. 3. Mildly enlarged mediastinal lymph nodes are nonspecific and may be reactive. These are similar to previous. 4. Additional findings as above. ACT 112: Negative or not required by law. Electronically signed by: Jose C Bernardo M.D. 04/30/2023 1:28 PM
--- NOTE | 2023-04-30 13:50 | Electrocardiogram Report ---
Test Reason : Blood Pressure : / mmHG Vent. Rate : 112 BPM Atrial Rate : 112 BPM P-R Int : 232 ms QRS Dur : 194 ms QT Int : 362 ms P-R-T Axes : 000 -83 098 degrees QTc Int : 494 ms Atrial-sensed ventricular-paced rhythm with prolonged AV conduction Abnormal ECG When compared with ECG of 14-MAR-2023 06:57, Vent. rate has increased BY 49 BPM Confirmed by Surjit Shanks ([id number]) on 04/30/2023 1:50:31 PM Referred By: REFERRED SELF Confirmed By:Surjit Shanks
[2023-04-30] MEDS ORDERED: DOXYCYCLINE HYCLATE 100 MG CAP PO SCH (21:00)
[2023-05-01 08:23] LABS: Anaplasmosis Smear(Rpt to DOH) Pos for Anaplasma
[2023-05-01] MEDS ORDERED: THIAMINE HCL 100 MG TAB PO SCH (09:00)
--- NOTE | 2023-05-01 13:03 | Discharge Summary ---
Discharge Summary Date of Service April 30, 2023 delayed entry date of service noted above Notes For Next Care Provider Please repeat CBC, BMP, Liver panel on ff up Please refer to bindery machine setter for evaluation of mobile echodensity visualized on the aortic surface of the bioprosthetic aortic valve, on echocardiogram while admitted Medication Changes From Visit Doxycycline 100mg BID x 10 days Cefdinir 300mg BID x 7 days Admission HPI Per Admitting Provider History obtained from patient and records. 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 Last confinement last month for acute heart failure. TTE showed EF of less than 20% Mild MR and moderate to severe prosthetic aortic valve regurgitation noted. Patient signed out AGAINST MEDICAL ADVICE. Patient has not followed up with PCP and has not returned calls from case packer and sealer as per outpatient documentation after leaving hospital last month. Few days history of dry cough, chills, myalgias, fever 102 at home. Not sure about sick contacts. No headache, no chest pain, no abdominal pain. Poor appetite. Denies recent EtOH intake, denies aspiration. SBP 90s, O2 sats 80s upon arrival at the ER. NSS boluses, vancomycin and cefepime administered at the ER. Worsening shortness of breath as per patient. MEDICAL HISTORY: As above. SURGERIES: Heart surgery, pacemaker placement, rhinoplasty, ex lap/hernia repair/adhesiolysis, elbow bursa surgery, Right hip/ gluteal abscess drainage FAMILY HISTORY: Family history of heart disease, diabetes, lymphoma, prostate cancer PERSONAL SOCIAL HISTORY: Nonsmoker. 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 Admission Exam Per Admitting Provider GENERAL: uncomfortable, ill-appearing, minimal respiratory distress SKIN: Normal color, warm HEENT: Alopecia, pink palpebral conjunctivae, no ptosis, dry buccal mucosa, nasal cannula in place NECK : Supple, no tenderness CHEST : Decreased breath sounds, scattered crackles, no tenderness HEART : Tachycardic, systolic murmur ABDOMEN: no distention, nontender EXTREMITIES : Minimal LE swelling, minimal LLE tenderness, no other conspicuous deformities noted NEUROLOGIC : Coherent, no facial asymmetry, no other gross focality Principal Dx & Hospital Course #1 = Principal Diagnosis (1) Acute hypoxemic respiratory failure: per Dr. Pérez's notes: Multifactorial: Severe sepsis secondary to Pneumonia, Anaplasmosis, r/o Bacteremia, r/o Endocarditis Secondary fluid overload, hx systolic dysfunction -- blood culture pending -- CT chest: 1. Cardiomegaly and cardiac pacemaker with evidence of congestive failure 2. Small pleural effusions. 3. Mildly enlarged mediastinal lymph nodes are nonspecific and may be reactive. These are similar to previous. 4. Additional findings as above. -- Echo: mobile echodensity on the aortic surface of the bioprosthetic aortic valve, unclear whether this is adherent to the bioprosthetic valve leaflets or strut, differential diagnosis includes vegetation, thrombus, mass, or retained suture -- continue IV Vancomycin, Doxycycline, Zosyn --Lasix 20mg IV given (+) UDS: Meth confirmation test pending patient denies taking Meth, admits to taking Ritalin intermittently Troponin elevation secondary to above trending down Hyponatremia secondary to illness, atypical pneumonia, possible alcohol abuse contributory resolved hx bicuspid aortic valve status post AVR 2010 ([facility], [place]) valvular heart disease (mild MR, 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 SCDs Re: Thrombocytopenia Full code Patient again expressed desire to leave AMA Seen at the bedside, lengthy discussion held with patient regarding severity of his illness Upon inquiry, patient would like to go home as he needs to feed his horses, and other animals and that there is no one else to be able to do this for him Emphasized to patient that this is not a good idea as he has serious medical issues going on right now that requires prompt medical treatment Patient still adamant on leaving He was asking if his other relatives can feed his animals but patient said no Discussed with patient regarding prescription for doxycycline and cefdinir will be given for him but this is standard of care, and he may continue to worsen upon discharge, Reviewed medical advice can result to worsening medical condition including respiratory failure, heart attack, organ failure, paralysis, even Patient still adamant on leaving, he is oriented x3, able to state his medical conditions, and consequences of not receiving proper medical care as inpatient Patient is on advised to return to the ER immediately if he is not feeling well We will set up primary care physician follow-up early next week for the patient, he is strongly advised to follow-up with PCP as scheduled this week plan of care discussed with patient in detail and at length all questions answered he is understanding, agreeable, comfortable with the plan of care Discharge Exam General- oriented x 3, not in distress, speaks in sentences with no effort or accessory muscle use Head- atraumatic Eyes- PERRL, EOMI, anicteric ENT- oropharynx clear Neck- supple, no JVD, no adenopathy, no thyromegaly; carotids +2/2, no bruits appreciated Lungs-mild rhonchi at the bases Heart- normal rate, regular rhythm; (+) grade 1-2 murmur, no gallop, no rub appreciated Abdomen- normal bowel sounds, nondistended, soft, nontender, no masses or hepatosplenomegaly Extremities- no pretibial edema, no calf tenderness; peripheral pulses intact Neuro- alert, oriented x 3; CN 2-12 grossly intact; motor 5/5 bilaterally;sensation 100% on all extremities; no other gross focal neurologic deficits Skin- warm & dry Updated Medication List Medication Instructions Recorded Confirmed Type methylphenidate HCl 10 mg tablet 10 mg PO BID 3 days #6 tabs 02/10/19 04/29/23 Rx methylphenidate HCl 20 mg tablet 20 mg PO BID 3 days #6 tabs 02/10/19 04/29/23 Rx paroxetine HCl 40 mg tablet (Paxil) 40 mg PO DAILY 3 days #3 tabs 02/10/19 04/29/23 Rx hydroxyzine pamoate 50 mg capsule 50 mg PO Q6H PRN NEEDED 04/29/23 04/29/23 History (Vistaril) paroxetine HCl 20 mg tablet (Paxil) 20 mg PO DAILY 04/29/23 04/29/23 History triamcinolone acetonide 0.1 % 1 applic topical BID 04/29/23 04/29/23 History topical cream cefdinir 300 mg capsule 300 mg PO BID 7 days #14 caps 04/30/23 Rx doxycycline hyclate 100 mg capsule 100 mg PO BID 10 days #20 caps 04/30/23 Rx metoprolol tartrate 50 mg tablet 25 mg PO BID #30 tabs 04/30/23 04/29/23 Rx Hospital Stay Data Diagnostic Imagining Performed 04/30/23 08:36 CT chest diagnostic wo con Urgent COMPARISON STUDY: Chest x-ray dated 04/30/2023. Chest CT dated 03/14/2023. TECHNIQUE: CT scan of the thorax was performed from the thoracic inlet to the upper abdomen. Images are reviewed in the axial, sagittal, and coronal planes. IV contrast was not administered for this examination as per the referring clinician. A dose lowering technique was utilized adhering to the principles of ALARA. CT DOSE: 341.27 mGy.cm FINDINGS: Thyroid: Imaged portions of the thyroid gland are normal in size and attenuation. Thoracic aorta: There is evidence of previous aortic valve surgery, as well as repair of the ascending thoracic aorta. There is mild atherosclerotic calcification. The thoracic aorta is normal in caliber and demonstrates standard 3-vessel arch anatomy. Heart: The patient is status post midline sternotomy. A cardiac pacemaker is present in the right chest wall. The heart is enlarged and without pericardial effusion. There are coronary artery calcifications. The pulmonary trunk is dilated, measuring 3.7 cm in diameter. This suggests pulmonary artery hypertension. Lungs and pleural spaces: Evaluation of the lung parenchyma is degraded by motion artifact. There are small pleural effusions with dependent atelectasis. Diffuse centrilobular septal thickening indicates congestive failure. There is no airspace consolidation typical for pneumonia. The trachea and central airways appear clear. Mediastinum: There are numerous mildly enlarged mediastinal lymph nodes which measure up to 17 mm in short axis. Isaura: Not well assessed without IV contrast. Axillae: There is no axillary lymphadenopathy. Upper abdomen: Partially visualized upper abdominal viscera is within normal limits. Skeletal structures: The skeletal structures are osteopenic. Degenerative change is noted in the thoracic spine. No lytic or blastic bony lesions are seen. IMPRESSION: 1. Cardiomegaly and cardiac pacemaker with evidence of congestive failure 2. Small pleural effusions. 3. Mildly enlarged mediastinal lymph nodes are nonspecific and may be reactive. These are similar to previous. 4. Additional findings as above. ACT 112: Negative or not required by law. Pending Results Patient Have Any Pending Studies at Discharge: Yes Total Time Total Time Spent Total Time Spent (In Minutes): > 30 minutes
[2023-05-03 06:43] LABS: Amphetamine Urine, Confirm 624 ng/mL (<250); Methamphetamine, Ur Confirm 1997 ng/mL (<250)
== END 2023-04-30 18:02 | disposition left against medical advice (07) | DRG 871 ==
LOC: ED 20:13 → 2S 04-30 01:20

== ENCOUNTER 2023-07-14 06:22 | Inpatient (IN) ==
[2023-07-14] MEDS ORDERED: METOPROLOL TARTRATE 25 MG TAB PO STA (06:56)
[2023-07-14] MEDS ORDERED: LORazepam 2 MG/1 ML VIAL IV STA ×2 (06:57→09:23)
[2023-07-14] MEDS ORDERED: SODIUM CHLORIDE 0.9% 1,000 ML IV SCH ×2 (07:00)
[2023-07-14] MEDS ORDERED: LORazepam 1 MG TAB SL STA (07:29)
[2023-07-14] MEDS ORDERED: FUROSEMIDE 40 MG/4 ML VIAL IV ONE (07:45)
[2023-07-14 07:47] LABS: Adenovirus PCR Not Detected (NotDetected); Bordetella parapertussis PCR Not Detected (NotDetected); Bordetella pertussis PCR Not Detected (NotDetected); Chlamydia pneumoniae PCR Not Detected (NotDetected); Coronavirus 229E PCR Not Detected (NotDetected); Coronavirus HKU1 PCR Not Detected (NotDetected); Coronavirus NL63 PCR Not Detected (NotDetected); Coronavirus OC43PCR Not Detected (NotDetected); Human Metapneumovirus PCR Not Detected (NotDetected); Influenza A PCR Not Detected (NotDetected); Influenza B PCR Not Detected (NotDetected); Mycoplasma pneumoniae PCR Not Detected (NotDetected); Parainfluenza Virus 1 PCR Not Detected (NotDetected); Parainfluenza Virus 2 PCR Not Detected (NotDetected); Parainfluenza Virus 3 PCR Not Detected (NotDetected); Parainfluenza Virus 4 PCR Not Detected (NotDetected); Respiratory Syncytial VirusPCR Not Detected (NotDetected); Rhinovirus/Enterovirus PCR Not Detected (NotDetected)
--- NOTE | 2023-07-14 07:53 | XRay Report ---
XR chest 1V portable CLINICAL HISTORY: weakness TECHNIQUE: Single frontal radiograph of the chest was obtained. Comparison: Comparison is made to chest radiograph 04/30/2023 FINDINGS: Dual lead pacemaker is seen. Median sternotomy wires are seen. Cardiomegaly is noted. Prominence and cephalization of the vasculature is seen. Right lower lung airspace opacity is noted. Small right ple ural effusion. IMPRESSION: 1. Cardiomegaly and mild pulmonary edema. 2. Small right pleural effusion. 3. Right lower lung airspace opacity is slightly more conspicuous than in the prior exam. ACT 112: Negative or not required by law. Electronically signed by: Juvencio Cheatham M.D. 07/14/2023 7:51 AM
[2023-07-14 07:55] LABS: Coronavirus CoV-2 (COVID19)PCR DETECTED (NotDetected)
[2023-07-14 08:24] LABS: Basophils # (auto) 0.09 K/uL (0.00-0.20); Basophils % (auto) 1.3 %; Eosinophils # (auto) 0.21 K/uL (0.00-0.50); Eosinophils % (auto) 3.1 %; Hematocrit (blood only) 45.2 % (42.0-52.0); Hemoglobin 14.8 g/dl (14.0-18.0); Immature Granulocytes # (auto) 0.03 K/uL (0.01-0.20); Immature Granulocytes % (auto) 0.4 %; Lymphocytes # (auto) 1.38 K/uL (1.20-3.40); Lymphocytes % (auto) 20.5 %; Mean Corpuscular Hemoglobin 29.4 pg (25.0-34.0); Mean Corpuscular Hgb Conc 32.7 g/dL (32.0-36.0); Mean Corpuscular Volume 89.9 fL (80.0-100.0); Mean Platelet Volume 11.1 fL (9.4-12.4); Monocytes # (auto) 0.62 K/uL (0.11-0.59); Monocytes % (auto) 9.2 %; Neutrophils % (auto) 65.5 %; Platelet Count 180 K/uL (130-400); RDW Coefficient of Variation 15.4 % (11.5-14.5); RDW Standard Deviation 50.7 fL (36.4-46.3); Red Blood Count 5.03 M/uL (4.70-6.10); White Blood Count 6.73 K/ul (4.8-10.8)
[2023-07-14 08:27] LABS: Alanine Aminotransferase 42 U/L (7-52); Albumin Globulin Ratio 1.4 (0.9-2); Albumin Level 4.2 gm/dl (3.4-5.0); Alkaline Phosphatase 181 U/L (34-104); Anion Gap 8 (3-11); Aspartate Aminotransferase 48 U/L (13-39); BUN Creatinine Ratio 18.3 (10-20); Bilirubin,Total 1.1 mg/dl (0.2-1.0); Blood Urea Nitrogen 19 mg/dl (6-23); Calcium 8.9 mg/dl (8.6-10.3); Carbon Dioxide 23 mmol/L (21-32); Chloride 105 mmol/L (98-107); Creatinine Clr Calc Pharmacy 72.4 ml/min; Est GFR (African American) 91.3 ml/min; Est GFR (Non-African American) 78.8 ml/min; Globulin 3.1 gm/dl (2.5-4.0); Glucose 96 mg/dl (70-99(Fasting)); Potassium 4.3 mmol/L (3.5-5.1); Sodium 136 mmol/L (136-145); Total Protein 7.3 gm/dl (6.0-8.3)
[2023-07-14 08:41] LABS: Thyroid Stimulating Hormone 5.013 uIu/ml (0.300-4.500)
--- NOTE | 2023-07-14 08:41 | Emergency Department Note ---
Impression & Plan Congestive heart failure, Pacemaker, Elevated troponin ED Provider Note CHIEF COMPLAINT: Shortness of HISTORY OF PRESENT ILLNESS: This 57-year-old male patient with past medical history of congestive heart failure, EF less than 20%, DVT, coronary artery disease, alcoholism, aortic valve replacement, endocarditis, ADHD, depression, and medication noncompliance presents to the emergency department with complaints of shortness of breath. The patient states this has been ongoing but has become a big problem over night. He states he is only currently taking methylphenidate as needed, he does not take his Paxil and has not for greater than 1 year but is compliant with his metoprolol. He denies any fevers, coughing or chest pain. He does complain of shortness of breath at rest and wit h exertion REVIEW OF SYSTEMS: A review of systems was performed with positives and pertinent negatives listed in the history of present illness. 10 systems were reviewed and are otherwise negative. ALLERGIES: see below MEDICATIONS: see below PMH: see below SOCIAL HISTORY: see below DDx: COVID, congestive heart failure, pneumonia, PE, pleural effusion, pericardial effusion, ACS among others PHYSICAL EXAM: Vital signs reviewed. General: Chronically ill-appearing 57-year-old male, in no significant distress. HEENT: No scleral icterus, PERRLA, neck supple. Atraumatic. On nasal cannula oxygen Cardiovascular: Diminished heart tones, regular rate and rhythm, no extra sounds. Pulmonary: Crackles to the bases on auscultation bilaterally, increased work of breathing. Abdomen: Soft, nontender, nondistended, positive bowel sounds. Musculoskeletal: Atraumatic, no peripheral edema. Pacemaker in place in the left upper chest Neurologic: Patient awake alert and oriented x 3, speech is clear Skin: Warm, dry, no rash EMERGENCY DEPARTMENT COURSE/MDM: This patient was evaluated and appeared to be in no significant distress. He did have an increased work of breathing and seemingly very anxious. IV access was obtained after some difficulty and laboratory work was drawn. The patient was placed on the barrel charrer helper. The patient became quite agitated and stated he was leaving. He was annoyed by the multiple IV attempts. Patient was reassured and given Ativan sublingually. Laboratory work reveals an elevated high-sensitivity troponin at 50 and BNP of 2500. EKG reveals a paced rhythm. Chest x-ray and chest CT are consistent with interstitial edema no evidence of PE. Patient had an increased work of breathing, tachypnea but maintained his oxygen saturations on room air. Patient was given 40 mg of IV Lasix with excellent diuresis in the department. He was also given a dose of metoprolol tartrate 25 mg, which he had missed. Patient remained stable but tachypneic on nasal cannula oxygen. Patient is noted to be COVID-positive. He was felt to be in the patient's best interest for admission, further cardiac evaluation and management. Patient's case was discussed with the hospitalist service who agreed to evaluate the patient for admission and further management. He did receive a second dose of IV Ativan. His mother was at the bedside. MONITORING: An order for cardiac monitoring was placed and the patient is noted to be in a ventricularly paced rhythm at 102 beats per minute. RADIOLOGY: Chest x-ray to my interpretation reveals evidence of cardiomegaly and pulmonary vascular congestion, otherwise defer to radiology. CT scan of the chest for PE is negative for acute pulmonary emboli, positive interstitial fluid. Please see final read below. EKG: To my interpretation reveals an atrially sensed and ventricularly paced rhythm at 97 bpm. QTc is 563. When compared to previous dated April 29, 2023, ventricular rate is 15 beats lower DISPOSITION: Admission Past Med/Surg History Medical History Abscess, gluteal, right Acute on chronic diastolic CHF (congestive heart failure) ADHD Anxiety Complete heart block S/p pacemaker placement COVID-19 Depression Endocarditis H/O endocarditis History of alcohol abuse History of DVT (deep vein thrombosis) HTN (hypertension) NSTEMI (non-ST elevated myocardial infarction) Pacemaker Right-sided low back pain with sciatica Septic arthritis of hip Small bowel obstruction Small bowel obstruction SOB (shortness of breath) Surgical History H/O aortic valve 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 History of hernia surgery History of hip surgery Status post placement of cardiac pacemaker Family History Other Heart disease Social History Smoking Status: Current every day smoker Tobacco Type: Cigarettes Second Hand Exposure: No; Do You Dip or Chew Tobacco: No; Hx Alcohol Use: Yes Alcohol type: beer and hard liquor Alcohol Intake Frequency Comment: ~1 pint vodka daily Hx Substance Use: No Preferred Language: Indian Communication Ability: Effective Lap Winder Required: No Beliefs That Will Affect Care: None Current Living Situation: Alone Current Living Situation Comment: ex Feels Safe at Home: Yes Assistive Devices: Contacts Allergies Allergies Allergy/AdvReac Type Severity Reaction Status Date / Time No Known Allergies Allergy Verified 04/29/23 22:27 Home Meds Home Medications Medication Instructions Recorded Confirmed hydroxyzine pamoate 50 mg capsule 50 mg PO Q6H PRN NEEDED 04/29/23 07/14/23 (Vistaril) paroxetine HCl 20 mg tablet (Paxil) 20 mg PO DAILY 04/29/23 07/14/23 triamcinolone acetonide 0.1 % 1 applic topical BID 04/29/23 07/14/23 topical cream Previous Rx's Medication Instructions Recorded methylphenidate HCl 10 mg tablet 10 mg PO BID 3 days #6 tabs 02/10/19 methylphenidate HCl 20 mg tablet 20 mg PO BID 3 days #6 tabs 02/10/19 paroxetine HCl 40 mg tablet (Paxil) 40 mg PO DAILY 3 days #3 tabs 02/10/19 metoprolol tartrate 50 mg tablet 25 mg PO BID #30 tabs 04/30/23 Results & Data (ED) Vital Signs Vital Signs - 24 hr 07/14/23 06:28 07/14/23 06:44 07/14/23 07:40 Temperature 36.5 C Temperature Source Oral Pulse Rate 96 H 96 H Pulse Rate [Right Finger] 101 H Pulse Rhythm Pulse Rhythm [Right Finger] Regular Pulse Strength [Right Finger] Normal Respiratory Rate 26 H 28 H Respiratory Effort / Characteristics Short of Breath Accessory Muscle Use Labored Respiratory Depth Deep Shallow Respiratory Pattern Tachypnea Blood Pressure 135/99 Blood Pressure [Right Arm] 127/102 H Blood Pressure Mean 111 Blood Pressure Mean [Right Arm] 110 Blood Pressure Position [Right Arm] Lying Pulse Oximetry 97 100 Oxygen Delivery Method Room Air Nasal Cannula Oxygen Flow Rate 1 Sepsis Recent Fever Within 48 Hours No Sepsis New/Unexplained Change in Mental Status No Sepsis Action Taken by Nursing No Action Required 07/14/23 07:40 07/14/23 09:00 Temperature Temperature Source Pulse Rate 102 H Pulse Rate [Right Finger] 65 Pulse Rhythm Regular Pulse Rhythm [Right Finger] Regular Pulse Strength [Right Finger] Normal Respiratory Rate 28 H 26 H Respiratory Effort / Characteristics Spontaneous Accessory Muscle Use Respiratory Depth Respiratory Pattern Tachypnea Blood Pressure Blood Pressure [Right Arm] 113/90 Blood Pressure Mean Blood Pressure Mean [Right Arm] 97 Blood Pressure Position [Right Arm] Lying Pulse Oximetry 99 100 Oxygen Delivery Method Nasal Cannula Nasal Cannula Oxygen Flow Rate 1 2 Sepsis Recent Fever Within 48 Hours Sepsis New/Unexplained Change in Mental Status Sepsis Action Taken by Assisted Medications Current Medication List: was personally reviewed by me Laboratory Data Attestation: I reviewed the patient's lab results. 07/14/23 07:43 07/14/23 07:43 Lab Results 07/14/23 07/14/23 07/14/23 Range/Units 06:35 07:43 07:43 WBC 6.73 (4.8-10.8) K/ul RBC 5.03 (4.70-6.10) M/uL Hgb 14.8 (14.0-18.0) g/dl Hct 45.2 (42.0-52.0) % MCV 89.9 (80.0-100.0) fL MCH 29.4 (25.0-34.0) pg MCHC 32.7 (32.0-36.0) g/dL RDW Std Deviation 50.7 H (36.4-46.3) fL RDW Coeff of Kwabena 15.4 H (11.5-14.5) % Plt Count 180 (130-400) K/uL MPV 11.1 (9.4-12.4) fL Immature Gran % (Auto) 0.4 % Neut % (Auto) 65.5 % Lymph % (Auto) 20.5 % [place] % (Auto) 9.2 % Eos % (Auto) 3.1 % Baso % (Auto) 1.3 % Neut # (Auto) 4.40 (1.40-6.50) K/uL Lymph # (Auto) 1.38 (1.20-3.40) K/uL [place] # (Auto) 0.62 H (0.11-0.59) K/uL Eos # (Auto) 0.21 (0.00-0.50) K/uL Baso # (Auto) 0.09 (0.00-0.20) K/uL Immature Gran # (Auto) 0.03 (0.01-0.20) K/uL PT (9.0-12.0) Seconds INR (0.9-1.1) APTT (21.0-31.0) Seconds PTT Ratio Sodium 136 (136-145) mmol/L Potassium 4.3 (3.5-5.1) mmol/L Chloride 105 (98-107) mmol/L Carbon Dioxide 23 (21-32) mmol/L Anion Gap 8 (3-11) BUN 19 (6-23) mg/dl Creatinine 1.04 (0.6-1.4) mg/dl Est Cr Clr Drug Dosing 72.4 ml/min Est GFR ( Amer) 91.3 ml/min Est GFR (Non-Af Amer) 78.8 ml/min BUN/Creatinine Ratio 18.3 (10-20) Glucose 96 (70-99(Fasting)) mg/dl Calcium 8.9 (8.6-10.3) mg/dl Magnesium 2.0 (1.7-2.4) mg/dl Total Bilirubin 1.1 H (0.2-1.0) mg/dl AST 48 H (13-39) U/L ALT 42 (7-52) U/L Alkaline Phosphatase 181 H (34-104) U/L Troponin I High Sens 50.9 H* (0-20) pg/ml B-Natriuretic Peptide (0-100) pg/ml Total Protein 7.3 (6.0-8.3) gm/dl Albumin 4.2 (3.4-5.0) gm/dl Globulin 3.1 (2.5-4.0) gm/dl Albumin/Globulin Ratio 1.4 (0.9-2) TSH (0.300-4.500) uIu/ml Free T4 (0.61-1.60) ng/dl Ethyl Alcohol mg/dL (<10.0) mg/dl Adenovirus (PCR) Not Detected (NotDetected) B. pertussis DNA (PCR) Not Detected (NotDetected) B.parapertussis DNA PCR Not Detected (NotDetected) C. pneumoniae DNA (PCR) Not Detected (NotDetected) Coronavirus OC43 (PCR) Not Detected (NotDetected) Coronavirus HKU1 (PCR) Not Detected (NotDetected) Coronavirus 229E (PCR) Not Detected (NotDetected) SARS-CoV-2 (PCR) DETECTED A* (NotDetected) Coronavirus NL63 (PCR) Not Detected (NotDetected) Human Metapneumovir PCR Not Detected (NotDetected) Influenza Type A (PCR) Not Detected (NotDetected) Influenza Type B (PCR) Not Detected (NotDetected) M. pneumoniae (PCR) Not Detected (NotDetected) Parainfluenza 1 (PCR) Not Detected (NotDetected) Parainfluenza 2 (PCR) Not Detected (NotDetected) Parainfluenza 3 (PCR) Not Detected (NotDetected) Parainfluenza 4 (PCR) Not Detected (NotDetected) RSV (PCR) Not Detected (NotDetected) Entero/Rhino (PCR) Not Detected (NotDetected) 07/14/23 07/14/23 07/14/23 Range/Units 07:43 07:43 07:43 WBC (4.8-10.8) K/ul RBC (4.70-6.10) M/uL Hgb (14.0-18.0) g/dl Hct (42.0-52.0) % MCV (80.0-100.0) fL MCH (25.0-34.0) pg MCHC (32.0-36.0) g/dL RDW Std Deviation (36.4-46.3) fL RDW Coeff of Kwabena (11.5-14.5) % Plt Count (130-400) K/uL MPV (9.4-12.4) fL Immature Gran % (Auto) % Neut % (Auto) % Lymph % (Auto) % [place] % (Auto) % Eos % (Auto) % Baso % (Auto) % Neut # (Auto) (1.40-6.50) K/uL Lymph # (Auto) (1.20-3.40) K/uL [place] # (Auto) (0.11-0.59) K/uL Eos # (Auto) (0.00-0.50) K/uL Baso # (Auto) (0.00-0.20) K/uL Immature Gran # (Auto) (0.01-0.20) K/uL PT 12.5 H (9.0-12.0) Seconds INR 1.2 H (0.9-1.1) APTT 27.4 (21.0-31.0) Seconds PTT Ratio 1.0 Sodium (136-145) mmol/L Potassium (3.5-5.1) mmol/L Chloride (98-107) mmol/L Carbon Dioxide (21-32) mmol/L Anion Gap (3-11) BUN (6-23) mg/dl Creatinine (0.6-1.4) mg/dl Est Cr Clr Drug Dosing ml/min Est GFR ( Amer) ml/min Est GFR (Non-Af Amer) ml/min BUN/Creatinine Ratio (10-20) Glucose (70-99(Fasting)) mg/dl Calcium (8.6-10.3) mg/dl Magnesium (1.7-2.4) mg/dl Total Bilirubin (0.2-1.0) mg/dl AST (13-39) U/L ALT (7-52) U/L Alkaline Phosphatase (34-104) U/L Troponin I High Sens (0-20) pg/ml B-Natriuretic Peptide 2537 H (0-100) pg/ml Total Protein (6.0-8.3) gm/dl Albumin (3.4-5.0) gm/dl Globulin (2.5-4.0) gm/dl Albumin/Globulin Ratio (0.9-2) TSH 5.013 H (0.300-4.500) uIu/ml Free T4 0.92 (0.61-1.60) ng/dl Ethyl Alcohol mg/dL (<10.0) mg/dl Adenovirus (PCR) (NotDetected) B. pertussis DNA (PCR) (NotDetected) B.parapertussis DNA PCR (NotDetected) C. pneumoniae DNA (PCR) (NotDetected) Coronavirus OC43 (PCR) (NotDetected) Coronavirus HKU1 (PCR) (NotDetected) Coronavirus 229E (PCR) (NotDetected) SARS-CoV-2 (PCR) (NotDetected) Coronavirus NL63 (PCR) (NotDetected) Human Metapneumovir PCR (NotDetected) Influenza Type A (PCR) (NotDetected) Influenza Type B (PCR) (NotDetected) M. pneumoniae (PCR) (NotDetected) Parainfluenza 1 (PCR) (NotDetected) Parainfluenza 2 (PCR) (NotDetected) Parainfluenza 3 (PCR) (NotDetected) Parainfluenza 4 (PCR) (NotDetected) RSV (PCR) (NotDetected) Entero/Rhino (PCR) (NotDetected) 07/14/23 Range/Units 08:51 WBC (4.8-10.8) K/ul RBC (4.70-6.10) M/uL Hgb (14.0-18.0) g/dl Hct (42.0-52.0) % MCV (80.0-100.0) fL MCH (25.0-34.0) pg MCHC (32.0-36.0) g/dL RDW Std Deviation (36.4-46.3) fL RDW Coeff of Kwabena (11.5-14.5) % Plt Count (130-400) K/uL MPV (9.4-12.4) fL Immature Gran % (Auto) % Neut % (Auto) % Lymph % (Auto) % [place] % (Auto) % Eos % (Auto) % Baso % (Auto) % Neut # (Auto) (1.40-6.50) K/uL Lymph # (Auto) (1.20-3.40) K/uL [place] # (Auto) (0.11-0.59) K/uL Eos # (Auto) (0.00-0.50) K/uL Baso # (Auto) (0.00-0.20) K/uL Immature Gran # (Auto) (0.01-0.20) K/uL PT (9.0-12.0) Seconds INR (0.9-1.1) APTT (21.0-31.0) Seconds PTT Ratio Sodium (136-145) mmol/L Potassium (3.5-5.1) mmol/L Chloride (98-107) mmol/L Carbon Dioxide (21-32) mmol/L Anion Gap (3-11) BUN (6-23) mg/dl Creatinine (0.6-1.4) mg/dl Est Cr Clr Drug Dosing ml/min Est GFR ( Amer) ml/min Est GFR (Non-Af Amer) ml/min BUN/Creatinine Ratio (10-20) Glucose (70-99(Fasting)) mg/dl Calcium (8.6-10.3) mg/dl Magnesium (1.7-2.4) mg/dl Total Bilirubin (0.2-1.0) mg/dl AST (13-39) U/L ALT (7-52) U/L Alkaline Phosphatase (34-104) U/L Troponin I High Sens (0-20) pg/ml B-Natriuretic Peptide (0-100) pg/ml Total Protein (6.0-8.3) gm/dl Albumin (3.4-5.0) gm/dl Globulin (2.5-4.0) gm/dl Albumin/Globulin Ratio (0.9-2) TSH (0.300-4.500) uIu/ml Free T4 (0.61-1.60) ng/dl Ethyl Alcohol mg/dL < 10.0 (<10.0) mg/dl Adenovirus (PCR) (NotDetected) B. pertussis DNA (PCR) (NotDetected) B.parapertussis DNA PCR (NotDetected) C. pneumoniae DNA (PCR) (NotDetected) Coronavirus OC43 (PCR) (NotDetected) Coronavirus HKU1 (PCR) (NotDetected) Coronavirus 229E (PCR) (NotDetected) SARS-CoV-2 (PCR) (NotDetected) Coronavirus NL63 (PCR) (NotDetected) Human Metapneumovir PCR (NotDetected) Influenza Type A (PCR) (NotDetected) Influenza Type B (PCR) (NotDetected) M. pneumoniae (PCR) (NotDetected) Parainfluenza 1 (PCR) (NotDetected) Parainfluenza 2 (PCR) (NotDetected) Parainfluenza 3 (PCR) (NotDetected) Parainfluenza 4 (PCR) (NotDetected) RSV (PCR) (NotDetected) Entero/Rhino (PCR) (NotDetected) Administered Medications Enoxaparin Sodium (Enoxaparin Inj 40 Mg/0.4 Ml Syr) 40 mg SQ QAM [facility] Stop: 08/13/23 10:59 Last Admin: 07/14/23 12:20 Dose: 40 mg Documented By: KURT Thiamine HCl 100 mg/ Syringe 10 mls @ 2 mls/min IV QAM TAMELA Stop: 08/13/23 10:59 Last Admin: 07/14/23 12:21 Dose: 2 mls/min Documented By: KURT Discontinued Medications Aspirin (Aspirin Chew 324 Mg) 324 mg PO NOW STA Stop: 07/14/23 09:33 Last Admin: 07/14/23 10:12 Dose: 324 mg Documented By: RITO Furosemide (Furosemide 40 Mg/4 Ml Vial) 40 mg IV ONE ONE Stop: 07/14/23 07:46 Last Admin: 07/14/23 07:54 Dose: 40 mg Documented By: AP Sodium Chloride (Nss 1000ml) 1,000 mls @ 125 mls/hr IV .Q8H TAMELA Stop: 07/14/23 14:59 Last Admin: 07/14/23 07:54 Dose: Not Given Documented By: AP Sodium Chloride (Nss 1000ml) 1,000 mls @ 125 mls/hr IV .Q8H [facility] Stop: 08/13/23 06:59 Last Admin: 07/14/23 07:54 Dose: Not Given Documented By: AP Ioversol (Ioversol 350 Mg 125ml Prefilled Syringe) 117 ml IV ONCE ONE Stop: 07/14/23 09:03 Last Admin: 07/14/23 09:02 Dose: 117 ml Documented By: HECTOR Lorazepam (Lorazepam 2 Mg/1 Ml Vial) 1 mg IV NOW STA Stop: 07/14/23 06:58 Last Admin: 07/14/23 07:54 Dose: 1 mg Documented By: RITO Lorazepam (Lorazepam 1 Mg Tab) 1 mg SL NOW STA Stop: 07/14/23 07:30 Last Admin: 07/14/23 07:54 Dose: Not Given Documented By: AP Lorazepam (Lorazepam 2 Mg/1 Ml Vial) 1 mg IV NOW STA Stop: 07/14/23 09:24 Last Admin: 07/14/23 10:12 Dose: 1 mg Documented By: RIOT Metoprolol Tartrate (Metoprolol Tartrate 25 Mg Tab) 25 mg PO NOW STA Stop: 07/14/23 06:57 Last Admin: 07/14/23 07:54 Dose: 25 mg Documented By: RITO Imaging Data Radiologist's Impression: Chest X-Ray 07/14/23 06:56 XR chest 1V portable CLINICAL HISTORY: weakness TECHNIQUE: Single frontal radiograph of the chest was obtained. Comparison: Comparison is made to chest radiograph 04/30/2023 FINDINGS: Dual lead pacemaker is seen. Median sternotomy wires are seen. Cardiomegaly is noted. Prominence and cephalization of the vasculature is seen. Right lower lung airspace opacity is noted. Small right pleural effusion. IMPRESSION: 1. Cardiomegaly and mild pulmonary edema. 2. Small right pleural effusion. 3. Right lower lung airspace opacity is slightly more conspicuous than in the prior exam. ACT 112: Negative or not required by law. Electronically signed by: Juvencio Cheatham M.D. 07/14/2023 7:51 AM Chest CTA 07/14/23 08:36 CT ANGIOGRAPHY OF THE CHEST, PULMONARY EMBOLUS PROTOCOL CLINICAL HISTORY: Shortness of breath. Evaluate for pulmonary embolus. COMPARISON STUDY: Chest CT April 30, 2023 chest radiograph performed earlier today. TECHNIQUE: Following IV administration of 117 mL of Optiray, helical axial images of the chest were obtained utilizing the pulmonary embolus protocol. Maximal intensity projections and sagittal and coronal reformats were viewed on an independent 3D workstation. IV contrast was administered without complicat ion. Automated exposure control was utilized for the study. A dose lowering technique was utilized adhering to the principles of ALARA. CT DOSE: 651.56 mGy.cm FINDINGS: No pulmonary emboli are identified although segmental and subsegmental pulmonary arteries are suboptimally assessed due to respiratory motion and suboptimal opacification. There are median sternotomy wires as well as postoperative findings consistent with aortic valve replacement and repair of the ascending aorta. Postoperative appearance is unchanged. Moderate cardiomegaly is again noted. There is no pericardial effusion. Mildly enlarged mediastinal lymph nodes are unchanged. Small right and trace left pleural effusions are present. The right pleural effusion has mildly increased in size compared to prior CT. Interlobular septal thickening is noted. Lungs are suboptimally assessed due to respiratory motion. Glass and linear densities wit hin the lungs are noted. No consolidation is identified to suggest pneumonia. There is no pneumothorax. Visualized upper abdomen is unremarkable. IMPRESSION: 1. No pulmonary emboli identified although segmental and subsegmental pulmonary arteries suboptimally assessed, as described above. 2. Cardiomegaly with interstitial pulmonary edema and small right and trace left pleural effusions. 3. No change in mildly enlarged mediastinal lymph nodes. These are likely reactive. 4. No consolidation to suggest pneumonia. ACT 112: Negative or not required by law. Electronically signed by: Clemente Tapia M.D. 07/14/2023 9:14 AM Discharge Plan Visit Data Chief Complaint: Cough ED Provider: Safia Pardo Discharge Problem: Congestive heart failure, Pacemaker, Elevated troponin Patient Disposition: Admitted As Inpatient Discharge Instructions Interventions: ED Discharge Assessment Last Done: 07/14/23 12:07
[2023-07-14 08:58] LABS: INR 1.2 (0.9-1.1); Partial Thromboplastin Time 27.4 Seconds (21.0-31.0); Prothrombin Time 12.5 Seconds (9.0-12.0)
[2023-07-14] MEDS ORDERED: IOVERSOL 350 MG 125mL Prefilled Syringe IV ONE (09:02)
--- NOTE | 2023-07-14 09:16 | CT Scan Report ---
CT ANGIOGRAPHY OF THE CHEST, PULMONARY EMBOLUS PROTOCOL CLINICAL HISTORY: Shortness of breath. Evaluate for pulmonary embolus. COMPARISON STUDY: Chest CT April 30, 2023 chest radiograph performed earlier today. TECHNIQUE: Following IV administration of 117 mL of Optiray, helical axial images of the chest were o btained utilizing the pulmonary embolus protocol. Maximal intensity projections and sagittal and cor onal reformats were viewed on an independent 3D workstation. IV contrast was administered without co mplication. Automated exposure control was utilized for the study. A dose lowering technique was ut ilized adhering to the principles of ALARA. CT DOSE: 651.56 mGy.cm FINDINGS: No pulmonary emboli are identified although segmental and subsegmental pulmonary arteries are suboptimally assessed due to respiratory motion and suboptimal opacification. There are median st ernotomy wires as well as postoperative findings consistent with aortic valve replacement and repair of the ascending aorta. Postoperative appearance is unchanged. Moderate cardiomegaly is again noted. There is no pericardial effusion. Mildly enlarged mediastinal lymph nodes are unchanged. Small right and trace left pleural effusions are present. The right pleural effusion has mildly increased in size compared to prior CT. Interlobular septal thickening is noted. Lungs are suboptimally assessed due t o respiratory motion. Glass and linear densities within the lungs are noted. No consolidation is iden tified to suggest pneumonia. There is no pneumothorax. Visualized upper abdomen is unremarkable. IMPRESSION: 1. No pulmonary emboli identified although segmental and subsegmental pulmonary arteries suboptimally assessed, as described above. 2. Cardiomegaly with interstitial pulmonary edema and small right and trace left pleural effusions. 3. No change in mildly enlarged mediastinal lymph nodes. These are likely reactive. 4. No consolidation to suggest pneumonia. ACT 112: Negative or not required by law. Electronically signed by: Clemente Tapia M.D. 07/14/2023 9:14 AM
[2023-07-14 09:29] LABS: Troponin I High Sensitivity 50.9 pg/ml (0-20)
[2023-07-14] MEDS ORDERED: ONDANSETRON INJ 2 MG/ML 2 ML VIAL IV PRN (09:29)
[2023-07-14] MEDS ORDERED: ALUMINUM/MAGNESIUM SUSP 30 ML UDC PO PRN (09:29)
[2023-07-14] MEDS ORDERED: ACETAMINOPHEN 325 MG TAB PO PRN (09:29)
[2023-07-14] MEDS ORDERED: POLYETHYLENE (MIRALAX) 17 GM PACK PO PRN (09:29)
[2023-07-14] MEDS ORDERED: MAGNESIUM HYDROXIDE SUSP 30 ML UDC PO PRN (09:29)
[2023-07-14] MEDS ORDERED: ASPIRIN CHEW 324 MG PO STA (09:32)
[2023-07-14 09:33] LABS: T4 Free Thyroxine 0.92 ng/dl (0.61-1.60)
--- NOTE | 2023-07-14 09:41 | History & Physical Report ---
Date of Service July 14, 2023 Assessment & Plan (1) Acute HFrEF (heart failure with reduced ejection fraction): (2) SOB (shortness of breath): (3) Coronary artery disease: (4) H/O aortic valve replacement: (5) Pacemaker: (6) HTN (hypertension): (7) History of alcohol abuse: (8) History of DVT (deep vein thrombosis): (9) ADHD: (10) COVID-19: Plan 57 y/o with long standing and extensive cardiac history of severe ischemic cardiomyopathy and biventricular AICD with CHF. Presented to ED in March with similar symptoms and left AMA prior to admission. Returned on 04/30 with repetitive symptoms and was discharged on 05/01. Blood culture on 04/30/23 were negative. No leukocytosis and chem panel unremarkable. BNP elevated 2537, TSH 5.013, and he tested COVID + +. Long standing history of non-compliance with his ADHS and heart medications. CXR reveals Cardiomegaly with mild pulmonary edema and small right pleural effusions. Chest CTA: No pulmonary emboli identified although segmental and subsegmental pulmonary arteries suboptimally assessed. Cardiomegaly with interstitial pulmonary edema and small right and trace left pleural effusions. 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 Did see Dr. Saavedra last month and pt was receptive to following with OPT cards; appointment arranged for 08/[address] Mendosa. 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 Patient with suspected acute on chronic exacerbation of HFrEF as a result of non-adherence to medication regimen with with PNA superimposed by Covid-19. Acute HFrEF: Shortness of breath: Acute uncontrolled BNP 2587, last admit in 04/04: 2081; no baseline in EMR Lasix 40 mg IV in ED; Diuresed 1.5L. Hold on further abx for now; reassess in AM Initial Troponin 50.9; trend x1 EKG prolonged QTc 563; EKG in AM Chronic murmur Chest CTA: No pulmonary emboli identified although segmental and subsegmental pulmonary arteries suboptimally assessed. Cardiomegaly with interstitial pulmonary edema and small right and trace left pleural effusions. CXR: Cardiomegaly, small right pleural effusion + mild pulmonary edema No leukocytosis Last ECHO 04/30/23: LV m moderately dilated, reduced EF less than 20% (which has worsened since 2019 where his: EF 50-55), RV function severely reduced, mild MR/TR. grade 2 DDx. Possible vegetation on heart. ECHO today: reduced EF 10-15%, no vegetation noted Cardiology Consult placed and communicated via tiger text; admitting doc discussed with Cards - ok for admission. PNA: COVID-19: Positive: Acute uncontrolled Tested positive in ED today Malaise over past few weeks Not hypoxic in ED; avoid steroids due to pulm edema Sputum culture and Procal ordered Ceftriaxone + Doxy for pneumonia after blood cultures obtained (concern for bacterial pna superimposed on covid 19) CAD: History of aortic valve replacement x2: Pacemaker: Chronic stable 2006 at [facility]; does not follow with any cards at this point Does not take any anticoagulation at home MRSA Endocarditis status post pacemaker insertion which ultimately led to second AVR in 2012 Non-adherence to medication regimen HTN: Chronic stable Takes Metoprolol; pt states he does take it daily History of alcohol abuse: States his last drink was last week Not tremulous on exam; alcohol level pending Will order Thiamine and Folic Acid History of illicit recreational drug abuse: UDS (+) for meth in April; reports takes Ritalin PRN UDS pending today History of DVT: Unable to provide details on when this was ADHD: Acute Uncontrolled Was prescribed methyphenidate; has been non-compliant; will hold for now Was prescribed Paxil; has been non-compliant; will hold for now Has difficulty focusing; concerns for self neglect/care; [facility] consultation placed Possibly undiagnosed MDD Disposition: PCP:Dr. Villegas Code Status: Full Code VTE Prophylaxis: Lovenox SQ I spent a total of 87 minutes coordinating, documenting, and providing care for this patient excluding time spent in the performance of separately billed services. All of the aforementioned completed while collaborating with the assigned attending physician for a full treatment plan. Please see their addendum for further details. History of Present Illness Chief Complaint: Shortness of Breath Primary Care Provider: Nabil Daley MD 57 year old that presents today with increased SOB that has been occurring over the past few days accompanied by general malaise. His mother accompanies him at bedside. Long standing and extensive cardiac history of severe ischemic cardiomyopathy and biventricular AICD with CHF. He was on Coumadin but no longer takes Coumadin s/p Endocarditis which was treated at [facility] and underwent an additional AVR in 2006 and ended up having a biventricular AICD placed, subclavian thrombosis during pacemaker insertion, HTN, thrombocytopenia, mesenteric vein repair, inguinal and femoral hernia repairs, ADHD, anxiety and depression. Presented to ED in March with similar symptoms and left AMA prior to admission. Returned on 04/30 with repetitive symptoms and was discharged on 05/01. Blood culture on 04/30/23 were negative. No leukocytosis and chem panel unremarkable. BNP elevated 2537, TSH 5.013, and he tested COVID + +. Long standing history of non-compliance with his ADHS and heart medications. Today, reports not taking his Paxil in over a year but reports compliance with his beta-kandice. Overall, denies fevers, MONROY, dizziness, chest pain, palpitations, abdominal pain or tenderness, hematochezia or hemoptysis, recent falls or trauma. CXR reveals Cardiomegaly with mild pulmonary edema and small right pleural effusions. Chest CTA: No pulmonary emboli identified although segmental and subsegmental pulmonary arteries suboptimally assessed. Cardiomegaly with interstitial pulmonary edema and small right and trace left pleural effusions. Previous admission an ECHO was performed with results indicating the following: LV m moderately dilated, reduced EF less than 20% (which has worsened since 2019 where his: EF 50-55), RV function severely reduced, mild MR/TR. grade 2 DDx. Possible vegetation on heart. Previous ECHO prior to that was in 2019 Reports that his last drink was a few years ago (5-6 years).Patient has known noncompliance with all of his medications and states that he has not taken any of his ADHD meds over the past months and even years. Has not followed with [employer] lately; has been seen at [facility] in [place]. Had a pacemaker exchange there . 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 Did see Dr. Saavedra last month and pt was receptive to following with OPT cards; appointment arranged for 08/[address] Mendosa. 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 Reports taking his beta-kandice daily. Patient with suspected acute on chronic exacerbation of CHF as a result of non- adherence to medication regimen with possible cardiac vegetations, with PNA superimposed by Covid-19. Patient will be admitted for further evaluation and management. Please see A/P for further details. Allergies Allergy/AdvReac Type Severity Reaction Status Date / Time No Known Allergies Allergy Verified 04/29/23 22:27 Home Medications Medication Instructions Recorded Confirmed Type methylphenidate HCl 10 mg tablet 10 mg PO BID 3 days #6 tabs 02/10/19 07/14/23 Rx methylphenidate HCl 20 mg tablet 20 mg PO BID 3 days #6 tabs 02/10/19 07/14/23 Rx paroxetine HCl 40 mg tablet (Paxil) 40 mg PO DAILY 3 days #3 tabs 02/10/19 07/14/23 Rx hydroxyzine pamoate 50 mg capsule 50 mg PO Q6H PRN NEEDED 04/29/23 07/14/23 History (Vistaril) paroxetine HCl 20 mg tablet (Paxil) 20 mg PO DAILY 04/29/23 07/14/23 History triamcinolone acetonide 0.1 % 1 applic topical BID 04/29/23 07/14/23 History topical cream metoprolol tartrate 50 mg tablet 25 mg PO BID #30 tabs 04/30/23 07/14/23 Rx Past Med/Surg History Medical History (Updated 07/14/23 @ 09:36 by OSCAR [place]) Abscess, gluteal, right Acute on chronic diastolic CHF (congestive heart failure) ADHD Anxiety Complete heart block S/p pacemaker placement COVID-19 Depression Endocarditis H/O endocarditis History of alcohol abuse History of DVT (deep vein thrombosis) HTN (hypertension) NSTEMI (non-ST elevated myocardial infarction) Pacemaker Right-sided low back pain with sciatica Septic arthritis of hip Small bowel obstruction Small bowel obstruction SOB (shortness of breath) Surgical History H/O aortic valve replacement 2010 at [facility] for congenital abnormality. 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 History of hernia surgery History of hip surgery Status post placement of cardiac pacemaker Family History Other Heart disease Social History Smoking Status: Current every day smoker Tobacco Type: Cigarettes Second Hand Exposure: No; Do You Dip or Chew Tobacco: No; Hx Alcohol Use: Yes Alcohol type: beer and hard liquor Alcohol Intake Frequency Comment: ~1 pint vodka daily Hx Substance Use: No Preferred Language: Icelandic Communication Ability: Effective Billing Spec Required: No Beliefs That Will Affect Care: None Current Living Situation: Alone Current Living Situation Comment: ex Feels Safe at Home: Yes Assistive Devices: Contacts Review of Systems Review of Systems: Neuro: (-) Falls, trauma, slurred speech HEENT: (-) MONROY, dizziness, dysphagia, visual or auditory changes CV: (-) CP, palpitations, swelling Resp: (+) SOB GI: (-) appetite changes, N/V/D, bowel changes : (-) urinary changes Skin: (-) rashes Psych: (+) anxiety, depression Physical Exam Physical Exam: Please see Dr. Padilla's assessment for documentation of Physical Examination Results & Data Results & Data Vital Signs (Past 12 Hours) Vital Signs Temp Pulse Pulse Resp BP BP Pulse Ox 07/14/23 09:00 65 26 H 113/90 100 07/14/23 07:40 102 H 28 H 99 07/14/23 07:40 101 H 28 H 127/102 H 100 07/14/23 06:44 36.5 C 96 H 26 H 135/99 97 07/14/23 06:28 96 H O2 Del Method O2 Flow Rate 07/14/23 09:00 Nasal Cannula 2 07/14/23 07:40 Nasal Cannula 1 07/14/23 07:40 Nasal Cannula 1 07/14/23 06:44 Room Air 07/14/23 06:28 Laboratory Results Short CBC 07/14/23 Range/Units 07:43 WBC 6.73 (4.8-10.8) K/ul Hgb 14.8 (14.0-18.0) g/dl Hct 45.2 (42.0-52.0) % Plt Count 180 (130-400) K/uL BMP 07/14/23 07:43 Sodium 136 Potassium 4.3 Chloride 105 Carbon Dioxide 23 BUN 19 Creatinine 1.04 Glucose 96 Calcium 8.9 Liver Function 07/14/23 Range/Units 07:43 Total Bilirubin 1.1 H (0.2-1.0) mg/dl AST 48 H (13-39) U/L ALT 42 (7-52) U/L Alkaline Phosphatase 181 H (34-104) U/L Albumin 4.2 (3.4-5.0) gm/dl Diagnostic Findings Chest X-Ray 07/14/23 06:56 XR chest 1V portable CLINICAL HISTORY: weakness TECHNIQUE: Single frontal radiograph of the chest was obtained. Comparison: Comparison is made to chest radiograph 04/30/2023 FINDINGS: Dual lead pacemaker is seen. Median sternotomy wires are seen. Cardiomegaly is noted. Prominence and cephalization of the vasculature is seen. Right lower lung airspace opacity is noted. Small right pleural effusion. IMPRESSION: 1. Cardiomegaly and mild pulmonary edema. 2. Small right pleural effusion. 3. Right lower lung airspace opacity is slightly more conspicuous than in the prior exam. ACT 112: Negative or not required by law. Electronically signed by: Juvencio Cheatham M.D. 07/14/2023 7:51 AM Chest CTA 07/14/23 08:36 CT ANGIOGRAPHY OF THE CHEST, PULMONARY EMBOLUS PROTOCOL CLINICAL HISTORY: Shortness of breath. Evaluate for pulmonary embolus. COMPARISON STUDY: Chest CT April 30, 2023 chest radiograph performed earlier today. TECHNIQUE: Following IV administration of 117 mL of Optiray, helical axial images of the chest were obtained utilizing the pulmonary embolus protocol. Maximal intensity projections and sagittal and coronal reformats were viewed on an independent 3D workstation. IV contrast was administered without complication. Automated exposure control was utilized for the study. A dose lowering technique was utilized adhering to the principles of ALARA. CT DOSE: 651.56 mGy.cm FINDINGS: No pulmonary emboli are identified although segmental and subsegmental pulmonary arteries are suboptimally assessed due to respiratory m otion and suboptimal opacification. There are median sternotomy wires as well as postoperative findings consistent with aortic valve replacement and repair of the ascending aorta. Postoperative appearance is unchanged. Moderate cardiomegaly is again noted. There is no pericardial effusion. Mildly enlarged mediastinal lymph nodes are unchanged. Small right and trace left pleural effusions are present. The right pleural effusion has mildly increased in size compared to prior CT. Interlobular septal thickening is noted. Lungs are suboptimally assessed due to respiratory motion. Glass and linear densities within the lungs are noted. No consolidation is identified to suggest pneumonia. There is no pneumothorax. Visualized upper abdomen is unremarkable. IMPRESSION: 1. No pulmonary emboli identified although segmental and subsegmental pulmonary arteries suboptimally assessed, as described above. 2. Cardiomegaly with interstitial pulmonary edema and small right and trace left pleural effusions. 3. No change in mildly enlarged mediastinal lymph nodes. These are likely reactive. 4. No consolidation to suggest pneumonia. ACT 112: Negative or not required by law. Electronically signed by: Clemente Tapia M.D. 07/14/2023 9:14 AM Code Status & VTE Plan Code Status Full Code in the event of cardiac or respiratory arrest VTE Prophylaxis Plan VTE Prophylaxis will be ordered: Yes Supervising Physician Co-Signing Physician Notes Pt seen and examined by me, care coordinated w/ E. OSCAR Peters, pls refer to her note above for further detail. Pt is 57 y/o M with extensive cardiac history of severe ischemic cardiomyopathy and biventricular AICD with HFrEF (EF <20%) , hx of Endocarditis which was treated at [facility] and underwent an additional AVR, who present with shortness of breath. Pt was found to be positive for COVID 19 in the ED, had elev. BNP and pulm. congestion on CXR. He was given 40 IV lasix in ED and already responding to it well. Currently laying in bed in NAD. He is awake alert and able to answer questions appropriately. Lungs sounds with mild diffuse crackles, no wheezing noted. Heart sound regular, no murmur noted (used isolation stethoscope), abdomen soft, nontender nondistended, 1+ LE edema. Pt is moving extremities, skin is warm and dry. Pt's mother is present at the bedside. Pt was admitted in March and April of this year, however unfortunately left AMA. In April, there was a concern for poss. vegetation on his echo. Pt was supposed to follow up as outpt with cardiology but only seen his PCP in June. He repor ts taking PO abx and that his PCP wanted to obtain blood cultx but pt declined at that time. He does have an upcoming appointment scheduled w/ cardiology. Blood cultures in April were negative. No leukocytosis and chem panel unremarkable. pt reports no fever. Discussed w/ cardiology and bedside echo was obtained in ED to eval for vegetation, EF, etc. No vegetation reported. EF low 10-15%. Pt will be admitted, will obtain blood cultx, sputum cultx, procalcitonin, start empiric abx for pna (poss. bact. superimposed on covid 19 infection). dvt ppx w/ lovenox. Cont. to closely monitor fluid status and assess need for iv lasix daily. MD Randy
[2023-07-14] MEDS: ENOXAPARIN INJ 40 MG/0.4 ML SYR SQ SCH (12:20)
[2023-07-14] MEDS: THIAMINE HCL 100 MG in SYRINGE 9 ML IV SCH (12:21)
--- NOTE | 2023-07-14 12:25 | Cardiology Consultation ---
Date of Consultation July 14, 2023 Assessment & Plan (1) Acute HFrEF (heart failure with reduced ejection fraction): (2) COVID-19: (3) Dilated cardiomyopathy: (4) H/O aortic valve replacement: (5) Complete heart block: Plan Patient is a complex 57-year-old male admitted with acute cough and shortness of breath component of acute on chronic systolic heart failure on superimposed pulmonary infection uses are addressed as follows 1. Acute on chronic systolic congestive heart failure: Echocardiogram today to once again demonstrates severe LV dysfunction EF approximately 15% with dilated ventricle. Patient is responding to single dose of IV furosemide. We will change metoprolol to tartrate to metoprolol succinate for heart failure indicated beta-kandice. Considering adding ALEX or Entresto depending on clinical course. Patient previously reluctant for any intervention. 2. 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 Blood culture should be ordered as course of evaluation 3. Dilated cardiomyopathy: Likely multifactorial etiology not discerned 4. Pacemaker in place for AV node dysfunction post aortic valve replaced. [employer] device functioning appropriately by telemetry with atrial sensing and ventricular pacing 5. Acute COVID infection/cough History of Present Illness Reason for Consultation: Cough, acute dyspnea Requesting Physician: Dr. Padilla Attending Physician: Dr. Padilla History of Present Illness Patient is a complex 57-year-old male with ongoing cardiac concerns which in clude 1. Bicuspid aortic valve status post past bioprosthetic aortic valve replacement in 2010 for congenitally bicuspid aortic valve stenosis. 2. 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 Dual-chamber [employer] pacemaker insertion for complete heart block following procedure. 2011. 4. Prior diagnostic cardiac catheterization in 2010 per report without obstructions. 5. Severe dilated cardiomyopathy observed March 2023 6. Possible aortic valve prosthesis vegetation April 2023 Patient presents this admission noting "could not take it anymore" cough and shortness of breath. Exam and x-rays consistent with acute on chronic congestive heart failure. Laboratory studies notable for COVID infection Patient very poor historian Denies currently chest pain. Denies syncope or near syncope. Denies headache or visual changes Uses medications intermittently but takes metoprolol per patient Allergies Allergy/AdvReac Type Severity Reaction Status Date / Time No Known Allergies Allergy Verified 04/29/23 22:27 Home Medications Medication Instructions Recorded Confirmed Type methylphenidate HCl 10 mg tablet 10 mg PO BID 3 days #6 tabs 02/10/19 07/14/23 Rx methylphenidate HCl 20 mg tablet 20 mg PO BID 3 days #6 tabs 02/10/19 07/14/23 Rx paroxetine HCl 40 mg tablet (Paxil) 40 mg PO DAILY 3 days #3 tabs 02/10/19 07/14/23 Rx hydroxyzine pamoate 50 mg capsule 50 mg PO Q6H PRN NEEDED 04/29/23 07/14/23 History (Vistaril) paroxetine HCl 20 mg tablet (Paxil) 20 mg PO DAILY 04/29/23 07/14/23 History triamcinolone acetonide 0.1 % 1 applic topical BID 04/29/23 07/14/23 History topical cream metoprolol tartrate 50 mg tablet 25 mg PO BID #30 tabs 04/30/23 07/14/23 Rx Patient History Medical History Abscess, gluteal, right Acute on chronic diastolic CHF (congestive heart failure) ADHD Anxiety Complete heart block S/p pacemaker placement COVID-19 Depression Endocarditis H/O endocarditis History of alcohol abuse History of DVT (deep vein thrombosis) HTN (hypertension) NSTEMI (non-ST elevated myocardial infarction) Pacemaker Right-sided low back pain with sciatica Septic arthritis of hip Small bowel obstruction Small bowel obstruction SOB (shortness of breath) Surgical History H/O aortic valve replacement 2010 at [facility] for congenital abnormality. 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 History of hernia surgery History of hip surgery Status post placement of cardiac pacemaker Family History Other Heart disease Social History Smoking Status: Current every day smoker Tobacco Type: Cigarettes Second Hand Exposure: No; Do You Dip or Chew Tobacco: No; Hx Alcohol Use: Yes Alcohol type: beer and hard liquor Alcohol Intake Frequency Comment: ~1 pint vodka daily Hx Substance Use: No Preferred Language: Angolan Communication Ability: Effective Wood Tool Maker Required: No Beliefs That Will Affect Care: None Current Living Situation: Alone Current Living Situation Comment: ex Feels Safe at Home: Yes Assistive Devices: Contacts Review of Systems Review of Systems: All systems reviewed & are unremarkable except as noted in HPI & below Physical Exam Constitutional: + ill appearing and + thin Eyes: PERRL, conjunctivae normal, anicteric sclerae ENMT: external ear and nose normal, oropharynx normal Neck: trachea midline, no thyromegaly Respiratory: Auscultation: + rales and + rhonchi (With forced cough) Cardiovascular: Rate/Rhythm: regular rate and regular rhythm Heart Sounds: + murmur (Grade 1/6 systolic murmur, no diastolic) Vessels: no JVD Extremities: no edema Chest (Breasts): Chest: + pacemaker Gastrointestinal (Abdomen): normal bowel sounds, soft, nontender, no hepatosplenomegaly Musculoskeletal: no cyanosis or clubbing, extremities motor strength 5/5 Neurologic: Mildly lethargic moving all extremities Results & Data Vital Signs (Past 12 Hours) Vital Signs Temp Pulse Pulse Resp BP BP Pulse Ox 07/14/23 12:07 36.6 C 85 26 H 115/89 100 07/14/23 10:31 80 07/14/23 09:35 98 H 26 H 100 07/14/23 09:00 65 26 H 113/90 100 07/14/23 07:40 102 H 28 H 99 07/14/23 07:40 101 H 28 H 127/102 H 100 07/14/23 06:44 36.5 C 96 H 26 H 135/99 97 07/14/23 06:28 96 H O2 Del Method O2 Flow Rate 07/14/23 12:07 Nasal Cannula 2 07/14/23 10:31 07/14/23 09:35 Nasal Cannula 2 07/14/23 09:00 Nasal Cannula 2 07/14/23 07:40 Nasal Cannula 1 07/14/23 07:40 Nasal Cannula 1 07/14/23 06:44 Room Air 07/14/23 06:28 Laboratory Results Laboratory Results - last 24 hr 07/14/23 07/14/23 07/14/23 06:35 07:43 07:43 WBC 6.73 RBC 5.03 Hgb 14.8 Hct 45.2 MCV 89.9 MCH 29.4 MCHC 32.7 RDW Std Deviation 50.7 H RDW Coeff of [place] 15.4 H Plt Count 180 MPV 11.1 Immature Gran % (Auto) 0.4 Neut % (Auto) 65.5 Lymph % (Auto) 20.5 [place] % (Auto) 9.2 Eos % (Auto) 3.1 Baso % (Auto) 1.3 Neut # (Auto) 4.40 Lymph # (Auto) 1.38 [place] # (Auto) 0.62 H Eos # (Auto) 0.21 Baso # (Auto) 0.09 Immature Gran # (Auto) 0.03 PT INR APTT PTT Ratio Sodium 136 Potassium 4.3 Chloride 105 Carbon Dioxide 23 Anion Gap 8 BUN 19 Creatinine 1.04 Est Cr Clr Drug Dosing 72.4 Est GFR ( Amer) 91.3 Est GFR (Non-Af Amer) 78.8 BUN/Creatinine Ratio 18.3 Glucose 96 Calcium 8.9 Magnesium 2.0 Total Bilirubin 1.1 H AST 48 H ALT 42 Alkaline Phosphatase 181 H Troponin I High Sens 50.9 H* B-Natriuretic Peptide Total Protein 7.3 Albumin 4.2 Globulin 3.1 Albumin/Globulin Ratio 1.4 TSH Free T4 Ethyl Alcohol mg/dL Adenovirus (PCR) Not Detected B. pertussis DNA (PCR) Not Detected B.parapertussis DNA PCR Not Detected C. pneumoniae DNA (PCR) Not Detected Coronavirus OC43 (PCR) Not Detected Coronavirus HKU1 (PCR) Not Detected Coronavirus 229E (PCR) Not Detected SARS-CoV-2 (PCR) DETECTED A* Coronavirus NL63 (PCR) Not Detected Human Metapneumovir PCR Not Detected Influenza Type A (PCR) Not Detected Influenza Type B (PCR) Not Detected M. pneumoniae (PCR) Not Detected Parainfluenza 1 (PCR) Not Detected Parainfluenza 2 (PCR) Not Detected Parainfluenza 3 (PCR) Not Detected Parainfluenza 4 (PCR) Not Detected RSV (PCR) Not Detected Entero/Rhino (PCR) Not Detected 07/14/23 07/14/23 07/14/23 07:43 07:43 07:43 WBC RBC Hgb Hct MCV MCH MCHC RDW Std Deviation RDW Coeff of Kw[place] Plt Count MPV Immature Gran % (Auto) Neut % (Auto) Lymph % (Auto) [place] % (Auto) Eos % (Auto) Baso % (Auto) Neut # (Auto) Lymph # (Auto) [place] # (Auto) Eos # (Auto) Baso # (Auto) Immature Gran # (Auto) PT 12.5 H INR 1.2 H APTT 27.4 PTT Ratio 1.0 Sodium Potassium Chloride Carbon Dioxide Anion Gap BUN Creatinine Est Cr Clr Drug Dosing Est GFR ( Amer) Est GFR (Non-Af Amer) BUN/Creatinine Ratio Glucose Calcium Magnesium Total Bilirubin AST ALT Alkaline Phosphatase Troponin I High Sens B-Natriuretic Peptide 2537 H Total Protein Albumin Globulin Albumin/Globulin Ratio TSH 5.013 H Free T4 0.92 Ethyl Alcohol mg/dL Adenovirus (PCR) B. pertussis DNA (PCR) B.parapertussis DNA PCR C. pneumoniae DNA (PCR) Coronavirus OC43 (PCR) Coronavirus HKU1 (PCR) Coronavirus 229E (PCR) SARS-CoV-2 (PCR) Coronavirus NL63 (PCR) Human Metapneumovir PCR Influenza Type A (PCR) Influenza Type B (PCR) M. pneumoniae (PCR) Parainfluenza 1 (PCR) Parainfluenza 2 (PCR) Parainfluenza 3 (PCR) Parainfluenza 4 (PCR) RSV (PCR) Entero/Rhino (PCR) 07/14/23 07/14/23 08:51 11:21 WBC RBC Hgb Hct MCV MCH MCHC RDW Std Deviation RDW Coeff of Kwabena Plt Count MPV Immature Gran % (Auto) Neut % (Auto) Lymph % (Auto) [place] % (Auto) Eos % (Auto) Baso % (Auto) Neut # (Auto) Lymph # (Auto) [place] # (Auto) Eos # (Auto) Baso # (Auto) Immature Gran # (Auto) PT INR APTT PTT Ratio Sodium Potassium Chloride Carbon Dioxide Anion Gap BUN Creatinine Est Cr Clr Drug Dosing Est GFR ( Amer) Est GFR (Non-Af Amer) BUN/Creatinine Ratio Glucose Calcium Magnesium Total Bilirubin AST ALT Alkaline Phosphatase Troponin I High Sens 40.9 H D B-Natriuretic Peptide Total Protein Albumin Globulin Albumin/Globulin Ratio TSH Free T4 Ethyl Alcohol mg/dL < 10.0 Adenovirus (PCR) B. pertussis DNA (PCR) B.parapertussis DNA PCR C. pneumoniae DNA (PCR) Coronavirus OC43 (PCR) Coronavirus HKU1 (PCR) Coronavirus 229E (PCR) SARS-CoV-2 (PCR) Coronavirus NL63 (PCR) Human Metapneumovir PCR Influenza Type A (PCR) Influenza Type B (PCR) M. pneumoniae (PCR) Parainfluenza 1 (PCR) Parainfluenza 2 (PCR) Parainfluenza 3 (PCR) Parainfluenza 4 (PCR) RSV (PCR) Entero/Rhino (PCR) Diagnostic Findings Echocardiogram 07/14/2023 The left ventricle is moderately dilated. There is severe global hypokinesis of the left ventricle. The inferior wall appears thinned Ejection Fraction = 15-20%. The left atrium is severely dilated. The right atrium is moderately dilated. There is a bioprosthetic aortic valve. Prosthetic leaflets appear mobile and gradients are not elevated. Assessment aortic valve prosthesis stenosis may be limited by reduced ejection Prior vegetation is not visualized on current study Trace aortic regurgitation. There is mild mitral regurgitation. There is mild to moderate tricuspid regurgitation. Right ventricular systolic pressure is elevated at 40-50mmHg.
[2023-07-14] MEDS: DOXYCYCLINE HYCLATE 100 MG in DEXTROSE 5% 100 ML IV SCH (14:00)
[2023-07-14] MEDS: cefTRIAXone SODIUM 2,000 MG in DEXTROSE 5% 50 ML IV SCH (15:00)
[2023-07-14] MEDS: METOPROLOL SUCC 25MG EXT REL TAB PO SCH (19:49)
[2023-07-14] MEDS ORDERED: METOPROLOL TARTRATE 25 MG TAB PO SCH (21:00)
[2023-07-15] MEDS: DOXYCYCLINE HYCLATE 100 MG in DEXTROSE 5% 100 ML IV SCH ×2 (02:09→13:05)
[2023-07-15 07:02] LABS: Hematocrit (blood only) 39.8 % (42.0-52.0); Hemoglobin 13.8 g/dl (14.0-18.0); Mean Corpuscular Hemoglobin 30.2 pg (25.0-34.0); Mean Corpuscular Hgb Conc 34.7 g/dL (32.0-36.0); Mean Corpuscular Volume 87.1 fL (80.0-100.0); Mean Platelet Volume 10.7 fL (9.4-12.4); Platelet Count 173 K/uL (130-400); RDW Coefficient of Variation 15.6 % (11.5-14.5); RDW Standard Deviation 49.2 fL (36.4-46.3); Red Blood Count 4.57 M/uL (4.70-6.10); White Blood Count 6.17 K/ul (4.8-10.8)
[2023-07-15 07:37] LABS: Albumin Globulin Ratio 1.3 (0.9-2); Albumin Level 3.6 gm/dl (3.4-5.0); BUN Creatinine Ratio 19.8 (10-20); Bilirubin,Total 0.7 mg/dl (0.2-1.0); Calcium 8.5 mg/dl (8.6-10.3); Creatinine Clr Calc Pharmacy 59.7 ml/min; Est GFR (African American) 72.4 ml/min; Est GFR (Non-African American) 62.5 ml/min; Globulin 2.8 gm/dl (2.5-4.0); Magnesium 1.9 mg/dl (1.7-2.4); Phosphorus 4.9 mg/dl (2.5-4.9); Total Protein 6.4 gm/dl (6.0-8.3)
[2023-07-15] MEDS ORDERED: FUROSEMIDE INJ 20 MG/2 ML VIAL IV ONE (10:06)
--- NOTE | 2023-07-15 10:07 | Hospitalist Progress Note ---
Date of Service July 15, 2023 Assessment & Plan (1) Acute HFrEF (heart failure with reduced ejection fraction): (2) SOB (shortness of breath): (3) Coronary artery disease: (4) H/O aortic valve replacement: (5) Pacemaker: (6) HTN (hypertension): (7) History of alcohol abuse: (8) History of DVT (deep vein thrombosis): (9) ADHD: (10) COVID-19: Plan 57 y/o with long standing and extensive cardiac history of severe ischemic cardiomyopathy and biventricular AICD with CHF. Presented to ED in March with similar symptoms and left AMA prior to admission. Returned on 04/30 with repetitive symptoms and was discharged on 05/01. Blood culture on 04/30/23 were negative. No leukocytosis and chem panel unremarkable. BNP elevated 2537, TSH 5.013, and he tested COVID + +. Long standing history of non-compliance with his ADHS and heart medications. CXR reveals Cardiomegaly with mild pulmonary edema and small right pleural effusions. Chest CTA: No pulmonary emboli identified although segmental and subsegmental pulmonary arteries suboptimally assessed. Cardiomegaly with interstitial pulmonary edema and small right and trace left pleural effusions. Additionally, he had MRSA endocarditis which led to an additional AVR in 2012 in [place]. Did see Dr. Saavedra last month and pt was receptive to following with OPT cards; appointment arranged for 08/[address] Mendosa. 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 Patient with suspected acute on chronic exacerbation of HFrEF as a result of non-adherence to medication regimen with with PNA superimposed by Covid-19. Acute on chronic HFrEF: Shortness of breath: Demand ischemia Hx of severe ischemic CMP with biventricular AICD. Acute uncontrolled BNP 2587, last admit in 04/04: 2081; Chest x-ray reviewed personally; cardiomegaly with mild pulmonary edema. CTA reviewed personally; interstitial pulmonary edema present. Initial Troponin 50.9 on admission; down trended to 40.9 EKG on admission reviewed personally; Atrial sensed ventricular paced rhythm. Echocardiogram repeated; results reviewed. EF of 15 to 20%. Start him on Lasix IV 20 mg twice a day ; dosing to be titrated based on the urine output and clinical improvement. Strict input and output monitoring Telemetry monitoring Daily weights COVID-19: Positive: Acute uncontrolled Tested positive in ED today Malaise over past few weeks Not hypoxic in ED; Ceftriaxone + Doxy for pneumonia after blood cultures obtained (concern for bacterial pna superimposed on covid 19) CAD: History of aortic valve replacement x2: Pacemaker: Chronic stable 2006 at [facility]; does not follow with any cards at this point Does not take any anticoagulation at home MRSA Endocarditis status post pacemaker insertion which ultimately led to se cond AVR in 2012 Non-adherence to medication regimen HTN: Chronic stable Takes Metoprolol; pt states he does take it daily History of alcohol abuse: States his last drink was last week Not tremulous on exam; alcohol level pending Will order Thiamine and Folic Acid History of illicit recreational drug abuse: UDS (+) for meth in April; reports takes Ritalin PRN UDS pending today History of DVT: Unable to provide details on when this was ADHD: Acute Uncontrolled Was prescribed methyphenidate; has been non-compliant; will hold for now Was prescribed Paxil; has been non-compliant; will hold for now Has difficulty focusing; concerns for self neglect/care; [facility] consultation placed Possibly undiagnosed MDD Disposition: PCP:Dr. Villegas Code Status: Full Code VTE Prophylaxis: Lovenox SQ Time spent evaluating patient, direct bedside care, chart review, placing orders, interpretation of diagnostic studies, discussion with consultants, patient, and family members, as well as other required patient management activities is 60 minutes. Please note the above document was generated using voice recognition software. It may contain grammatical, syntax or spelling errors. Any formal questions or concerns about the content, text or information contained within the body of this dictation should be directly addressed to the provider for clarification Admission and Anticipated Discharge Date Admission Date: July 14, 2023 Subjective Patient seen and examined at bedside. He reports shortness of breath on minimal exertion. He reports fatigue and tiredness as well. Afebrile overnight; normotensive. Review of Systems Review of Systems: All systems reviewed & are unremarkable except as noted in Subjective Physical Exam Physical Exam: Constitutional: Alert orient x3; appears tired. Respiratory: bilateral vesicular breath sounds. Cardiovascular: RRR, no murmur, no edema Vessels: no JVD or carotid bruit Chest: normal inspection of chest Abdomen: normal bowel sounds, soft, nontender, no hepatosplenomegaly Musculoskeletal: no cyanosis or clubbing, extremities motor strength 5/5 Skin: no rashes, warm and dry normal turgor Neurologic: PERRL, EOMI, accommodation nl, no face palsy, no dysarthria CN's II- XI intact bilaterally and moves all extremities Psychiatric: A+Ox3, euthymic affect Results & Data Results & Data Vital Signs (Past 12 Hours) Vital Signs Temp Pulse Pulse Resp BP Pulse Ox O2 Del Method 07/15/23 08:59 36.7 C 84 16 119/85 98 Room Air 07/15/23 07:53 84 07/15/23 06:02 36.3 C L 75 16 109/81 97 Room Air 07/14/23 23:56 90 07/14/23 23:27 37 C 84 16 98/66 L 92 Room Air Laboratory Results Laboratory Results WBC 6.17 K/ul (4.8-10.8) 07/15/23 06:21 RBC 4.57 M/uL (4.70-6.10) L 07/15/23 06:21 Hgb 13.8 g/dl (14.0-18.0) L 07/15/23 06:21 Hct 39.8 % (42.0-52.0) L 07/15/23 06:21 MCV 87.1 fL (80.0-100.0) 07/15/23 06:21 MCH 30.2 pg (25.0-34.0) 07/15/23 06:21 MCHC 34.7 g/dL (32.0-36.0) 07/15/23 06:21 RDW Std Deviation 49.2 fL (36.4-46.3) H 07/15/23 06:21 RDW Coeff of Kwabena 15.6 % (11.5-14.5) H 07/15/23 06:21 Plt Count 173 K/uL (130-400) 07/15/23 06:21 MPV 10.7 fL (9.4-12.4) 07/15/23 06:21 Immature Gran % (Auto) 0.4 % 07/14/23 07:43 Neut % (Auto) 65.5 % 07/14/23 07:43 Lymph % (Auto) 20.5 % 07/14/23 07:43 [place] % (Auto) 9.2 % 07/14/23 07:43 Eos % (Auto) 3.1 % 07/14/23 07:43 Baso % (Auto) 1.3 % 07/14/23 07:43 Neut # (Auto) 4.40 K/uL (1.40-6.50) 07/14/23 07:43 Lymph # (Auto) 1.38 K/uL (1.20-3.40) 07/14/23 07:43 [place] # (Auto) 0.62 K/uL (0.11-0.59) H 07/14/23 07:43 Eos # (Auto) 0.21 K/uL (0.00-0.50) 07/14/23 07:43 Baso # (Auto) 0.09 K/uL (0.00-0.20) 07/14/23 07:43 Immature Gran # (Auto) 0.03 K/uL (0.01-0.20) 07/14/23 07:43 PT 12.5 Seconds (9.0-12.0) H 07/14/23 07:43 INR 1.2 (0.9-1.1) H 07/14/23 07:43 APTT 27.4 Seconds (21.0-31.0) 07/14/23 07:43 PTT Ratio 1.0 07/14/23 07:43 Sodium 137 mmol/L (136-145) 07/15/23 06:21 Potassium 4.0 mmol/L (3.5-5.1) 07/15/23 06:21 Chloride 107 mmol/L (98-107) 07/15/23 06:21 Carbon Dioxide 23 mmol/L (21-32) 07/15/23 06:21 Anion Gap 7 (3-11) 07/15/23 06:21 BUN 25 mg/dl (6-23) H 07/15/23 06:21 Creatinine 1.26 mg/dl (0.6-1.4) 07/15/23 06:21 Est Cr Clr Drug Dosing 59.7 ml/min 07/15/23 06:21 Est GFR ( Amer) 72.4 ml/min 07/15/23 06:21 Est GFR (Non-Af Amer) 62.5 ml/min 07/15/23 06:21 BUN/Creatinine Ratio 19.8 (10-20) 07/15/23 06:21 Glucose 98 mg/dl (70-99(Fasting)) 07/15/23 06:21 Calcium 8.5 mg/dl (8.6-10.3) L 07/15/23 06:21 Phosphorus 4.9 mg/dl (2.5-4.9) 07/15/23 06:21 Magnesium 1.9 mg/dl (1.7-2.4) 07/15/23 06:21 Total Bilirubin 0.7 mg/dl (0.2-1.0) 07/15/23 06:21 AST 35 U/L (13-39) 07/15/23 06:21 ALT 32 U/L (7-52) 07/15/23 06:21 Alkaline Phosphatase 158 U/L (34-104) H 07/15/23 06:21 Troponin I High Sens 40.9 pg/ml (0-20) H D 07/14/23 11:21 B-Natriuretic Peptide 2537 pg/ml (0-100) H 07/14/23 07:43 Total Protein 6.4 gm/dl (6.0-8.3) 07/15/23 06:21 Albumin 3.6 gm/dl (3.4-5.0) 07/15/23 06:21 Globulin 2.8 gm/dl (2.5-4.0) 07/15/23 06:21 Albumin/Globulin Ratio 1.3 (0.9-2) 07/15/23 06:21 Procalcitonin 0.16 ng/ml (0-0.5) 07/15/23 06:21 TSH 5.013 uIu/ml (0.300-4.500) H 07/14/23 07:43 Free T4 0.92 ng/dl (0.61-1.60) 07/14/23 07:43 Ethyl Alcohol mg/dL < 10.0 mg/dl (<10.0) 07/14/23 08:51 Adenovirus (PCR) Not Detected (NotDetected) 07/14/23 06:35 B. pertussis DNA (PCR) Not Detected (NotDetected) 07/14/23 06:35 B.parapertussis DNA PCR Not Detected (NotDetected) 07/14/23 06:35 C. pneumoniae DNA (PCR) Not Detected (NotDetected) 07/14/23 06:35 Coronavirus OC43 (PCR) Not Detected (NotDetected) 07/14/23 06:35 Coronavirus HKU1 (PCR) Not Detected (NotDetected) 07/14/23 06:35 Coronavirus 229E (PCR) Not Detected (NotDetected) 07/14/23 06:35 SARS-CoV-2 (PCR) DETECTED (NotDetected) A* 07/14/23 06:35 Coronavirus NL63 (PCR) Not Detected (NotDetected) 07/14/23 06:35 Human Metapneumovir PCR Not Detected (NotDetected) 07/14/23 06:35 Influenza Type A (PCR) Not Detected (NotDetected) 07/14/23 06:35 Influenza Type B (PCR) Not Detected (NotDetected) 07/14/23 06:35 M. pneumoniae (PCR) Not Detected (NotDetected) 07/14/23 06:35 Parainfluenza 1 (PCR) Not Detected (NotDetected) 07/14/23 06:35 Parainfluenza 2 (PCR) Not Detected (NotDetected) 07/14/23 06:35 Parainfluenza 3 (PCR) Not Detected (NotDetected) 07/14/23 06:35 Parainfluenza 4 (PCR) Not Detected (NotDetected) 07/14/23 06:35 RSV (PCR) Not Detected (NotDetected) 07/14/23 06:35 Entero/Rhino (PCR) Not Detected (NotDetected) 07/14/23 06:35 Impressions Chest X-Ray 07/14/23 06:56 XR chest 1V portable CLINICAL HISTORY: weakness TECHNIQUE: Single frontal radiograph of the chest was obtained. Comparison: Comparison is made to chest radiograph 04/30/2023 FINDINGS: Dual lead pacemaker is seen. Median sternotomy wires are seen. Cardiomegaly is noted. Prominence and cephalization of the vasculature is seen. Right lower lung airspace opacity is noted. Small right pleural effusion. IMPRESSION: 1. Cardiomegaly and mild pulmonary edema. 2. Small right pleural effusion. 3. Right lower lung airspace opacity is slightly more conspicuous than in the prior exam. ACT 112: Negative or not required by law. Electronically signed by: Juvencio Cheatham M.D. 07/14/2023 7:51 AM Chest CTA 07/14/23 08:36 CT ANGIOGRAPHY OF THE CHEST, PULMONARY EMBOLUS PROTOCOL CLINICAL HISTORY: Shortness of breath. Evaluate for pulmonary embolus. COMPARISON STUDY: Chest CT April 30, 2023 chest radiograph performed earlier today. TECHNIQUE: Following IV administration of 117 mL of Optiray, helical axial images of the chest were obtained utilizing the pulmonary embolus protocol. Maximal intensity projections and sagittal and coronal reformats were viewed on an independent 3D workstation. IV contrast was administered without co mplication. Automated exposure control was utilized for the study. A dose lowering technique was utilized adhering to the principles of ALARA. CT DOSE: 651.56 mGy.cm FINDINGS: No pulmonary emboli are identified although segmental and subsegmental pulmonary arteries are suboptimally assessed due to respiratory motion and suboptimal opacification. There are median sternotomy wires as well as postoperative findings consistent with aortic valve replacement and repair of the ascending aorta. Postoperative appearance is unchanged. Moderate cardiomegaly is again noted. There is no pericardial effusion. Mildly enlarged mediastinal lymph nodes are unchanged. Small right and trace left pleural effusions are present. The right pleural effusion has mildly increased in size compared to prior CT. Interlobular septal thickening is noted. Lungs are suboptimally assessed due to respiratory motion. Glass and linear densities within the lungs are noted. No consolidation is identified to suggest pneumonia. There is no pneumothorax. Visualized upper abdomen is unremarkable. IMPRESSION: 1. No pulmonary emboli identified although segmental and subsegmental pulmonary arteries suboptimally assessed, as described above. 2. Cardiomegaly with interstitial pulmonary edema and small right and trace left pleural effusions. 3. No change in mildly enlarged mediastinal lymph nodes. These are likely reactive. 4. No consolidation to suggest pneumonia. ACT 112: Negative or not required by law. Electronically signed by: Clemente Tapia M.D. 07/14/2023 9:14 AM
[2023-07-15] MEDS ORDERED: FUROSEMIDE INJ 20 MG/2 ML VIAL IV SCH (10:10)
[2023-07-15] MEDS ORDERED: hydrOXYzine HCl 25 MG TAB PO PRN (10:12)
[2023-07-15] MEDS: ENOXAPARIN INJ 40 MG/0.4 ML SYR SQ SCH (10:13)
[2023-07-15] MEDS: METOPROLOL SUCC 25MG EXT REL TAB PO SCH (10:13)
[2023-07-15] MEDS ORDERED: METHYLPHENIDATE HCL 10 MG TABLET PO SCH (10:15)
[2023-07-15] MEDS ORDERED: PAROXETINE HCL 40 MG PO SCH (10:15)
[2023-07-15] MEDS ORDERED: PARoxetine HCL 20 MG TAB PO SCH (10:15)
[2023-07-15] MEDS: THIAMINE HCL 100 MG in SYRINGE 9 ML IV SCH (11:01)
[2023-07-15] MEDS: cefTRIAXone SODIUM 2,000 MG in DEXTROSE 5% 50 ML IV SCH (13:05)
--- NOTE | 2023-07-15 13:12 | Discharge Summary ---
Date of Service July 15, 2023 Admission HPI Per Admitting Provider 57 year old that presents today with increased SOB that has been occurring over the past few days accompanied by general malaise. His mother accompanies him at bedside. Long standing and extensive cardiac history of severe ischemic cardiomyopathy and biventricular AICD with CHF. He was on Coumadin but no longer takes Coumadin s/p Endocarditis which was treated at [facility] and underwent an additional AVR in 2006 and ended up having a biventricular AICD placed, subclavian thrombosis during pacemaker insertion, HTN, thrombocytopenia, mesenteric vein repair, inguinal and femoral hernia repairs, ADHD, anxiety and depression. Presented to ED in March with similar symptoms and left AMA prior to admission. Returned on 04/30 with repetitive symptoms and was discharged on 05/01. Blood culture on 04/30/23 were negative. No leukocytosis and chem panel unremarkable. BNP elevated 2537, TSH 5.013, and he tested COVID + +. Long standing history of non-compliance with his ADHS and heart medications. Today, reports not taking his Paxil in over a year but reports compliance with his beta-kandice. Overall, denies fevers, MONROY, dizziness, chest pain, palpitations, abdominal pain or tenderness, hematochezia or hemopt ysis, recent falls or trauma. CXR reveals Cardiomegaly with mild pulmonary edema and small right pleural effusions. Chest CTA: No pulmonary emboli identified although segmental and subsegmental pulmonary arteries suboptimally assessed. Cardiomegaly with interstitial pulmonary edema and small right and trace left pleural effusions. Previous admission an ECHO was performed with results indicating the following: LV m moderately dilated, reduced EF less than 20% (which has worsened since 2019 where his: EF 50-55), RV function severely reduced, mild MR/TR. grade 2 DDx. Possible vegetation on heart. Previous ECHO prior to that was in 2019 Reports that his last drink was a few years ago (5-6 years).Patient has known noncompliance with all of his medications and states that he has not taken any of his ADHD meds over the past months and even years. Has not followed with Process Control Programmer lately; has been seen at [facility] in [place]. Had a pacemaker exchange there . 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 Did see Dr. Saavedra last month and pt was receptive to following with OPT cards; appointment arranged for 10/[address] Mendosa. 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 Reports taking his beta-kandice daily. Patient with suspected acute on chronic exacerbation of CHF as a result of non-a dherence to medication regimen with possible cardiac vegetations, with PNA superimposed by Covid-19. Patient will be admitted for further evaluation and management. Please see A/P for further details. Admission Exam Per Admitting Provider He is awake alert and able to answer questions appropriately. Lungs sounds with mild diffuse crackles, no wheezing noted. Heart sound regular, no murmur noted (used isolation stethoscope), abdomen soft, nontender nondistended, 1+ LE edema. Pt is moving extremities, skin is warm and dry. Principal Diagnosis Acute on chronic HFrEF Discharge Exam Constitutional: Alert orient x3; appears tired. Respiratory: Occasional crackles at bases. Cardiovascular: RRR, no murmur, no edema Vessels: no JVD or carotid bruit Chest: normal inspection of chest Abdomen: normal bowel sounds, soft, nontender, no hepatosplenomegaly Musculoskeletal: no cyanosis or clubbing, extremities motor strength 5/5 Skin: no rashes, warm and dry normal turgor Neurologic: PERRL, EOMI, accommodation nl, no face palsy, no dysarthria CN's II- XI intact bilaterally and moves all extremities Psychiatric: A+Ox3, euthymic affect Discharge Data Allergies Allergy/AdvReac Type Severity Reaction Status Date / Time No Known Allergies Allergy Verified 04/29/23 22:27 Consultations 07/14/23 09:23 ED Decision to Admit Stat 07/14/23 09:29 Consult Cardiology Routine 07/18/23 08:00 Consult Palliative Care Routine Ordered Studies 07/14/23 08:36 CT angio chest PE protocol Stat Hospital Course (1) Acute HFrEF (heart failure with reduced ejection fraction): (2) SOB (shortness of breath): (3) Coronary artery disease: (4) H/O aortic valve replacement: (5) Pacemaker: (6) HTN (hypertension): (7) History of alcohol abuse: (8) History of DVT (deep vein thrombosis): (9) ADHD: (10) COVID-19: Plan 57 y/o with long standing and extensive cardiac history of severe ischemic cardiomyopathy and biventricular AICD with shortness of breath. Patient x-ray on admission showed cardiomegaly with mild pulmonary edema. CTA chest showed pulmonary edema with no PE. He was found to have COVID infection. Patient was admitted for management of acute on chronic HFrEF. Cardiology consultation was done; echocardiogram showed EF of 15 to 20% with global hypokinesis. Patient was diuresed with IV diuretic during the hospitalization. Patient was recommended to remain in the hospital to undergo evaluation for possible infective endocarditis and heart failure. He was also informed that he has very high risks of cardiac arrhythmia, sepsis which can result in and disability. Patient was alert oriented x3; verbalized understanding of risks of leaving AGAINST MEDICAL ADVICE. He was given prescriptions for diuretics and antibiotics to complete the course. Patient was recommended to follow-up with PCP and cardiology as outpatient. Please note the above document was generated using voice recognition software. It may contain grammatical, syntax or spelling errors. Any formal questions or concerns about the content, text or information contained within the body of this dictation should be directly addressed to the provider for clarification Total Time Total Time Spent Total Time Spent (In Minutes): 45 Total Time Includes: Examination of the Patient, Discharge Planning, Medication Reconciliation, Communication With Other Providers and Other Discharge Plan Discharge Items Patient Disposition: Against Medical Advice Reason For Visit: A/C CHF Activity: Resume your previous activity Non-emergency contact: Primary Care Provider Follow-up/Referrals: Nabil Daley MD [Primary Care Provider] - [facility] Physician Provider Instructions: You Were admitted to the hospital for concern of heart failure and pneumonia. It is recommended that you stay in the hospital and undergo further investigation and treatment. You are prescribed Lasix 20 mg twice daily for the heart failure/shortness of breath. You are also prescribed cefdinir and doxycycline for 5 more days for pneumonia. Please follow-up with PCP and cardiology. Pending Studies at Discharge: No Stand-Alone Forms: My VENNCOMM, Smoking Cessation Skilled Items Discharge Prognosis: Deteriorating Medications and DC Order Prescriptions: New furosemide [Lasix] 20 mg tablet 20 mg PO BID Qty: 20 0RF cefdinir 300 mg capsule 300 mg PO BID 5 Days Qty: 10 0RF doxycycline hyclate 100 mg capsule 100 mg PO BID 5 Days Qty: 10 0RF Continued methylphenidate HCl 10 mg Tablet 10 mg PO BID 3 Days Qty: 6 0RF Rx Instructions: TOTAL DOSE 30 MG--TAKES WITH 20 MG TAB. methylphenidate HCl 20 mg tablet 20 mg PO BID 3 Days Qty: 6 0RF Rx Instructions: TOTAL DOSE 30 MG--TAKES WITH 10 MG TAB. paroxetine HCl [Paxil] 40 mg Tablet 40 mg PO DAILY 3 Days Qty: 3 0RF hydroxyzine pamoate [Vistaril] 50 mg Capsule 50 mg PO Q6H PRN (Reason: NEEDED) triamcinolone acetonide 0.1 % Cream 1 applic TOPICAL BID paroxetine HCl [Paxil] 20 mg tablet 20 mg PO DAILY metoprolol tartrate 50 mg tablet 25 mg PO BID Qty: 30 0RF Discharge Orders: Left Against Medical Advice (Routine); Ordered 07/15/23 Ordered By: Esdras Forbes Admission Data Admit Date/Time: 07/14/23 09:29 Attending Provider: Esdras Forbes Admit Provider: Carlos Padilla Primary Care Provider: Nabil Daley Other Providers: Carlos Padilla ; Emmett Obregon ; Sayda Rao
[2023-07-15] MEDS ORDERED: ALPRAZolam 0.25 MG TABLET PO ONE (13:22)
--- NOTE | 2023-07-17 16:02 | Electrocardiogram Report ---
Test Reason : Blood Pressure : / mmHG Vent. Rate : 097 BPM Atrial Rate : 097 BPM P-R Int : 182 ms QRS Dur : 200 ms QT Int : 444 ms P-R-T Axes : 025 -82 099 degrees QTc Int : 563 ms Atrial-sensed ventricular-paced rhythm Abnormal ECG When compared with ECG of 29-APR-2023 20:18, Vent. rate has decreased BY 15 BPM Confirmed by Willie Hendricks ([id number]) on 07/17/2023 4:01:32 PM Referred By: Nabil Daley Confirmed By:Willie Hendricks
== END 2023-07-15 14:56 | disposition left against medical advice (07) | DRG 291 ==
LOC: ED 06:22 → 2N 09:29 → SUATTDRO 09:29 → 2N 12:07

== ENCOUNTER 2025-09-05 01:52 | Inpatient (IN) ==
[2025-09-05 02:14] LABS: Hematocrit (blood only) 41.9 % (42.0-52.0); Hemoglobin 13.5 g/dl (14.0-18.0); Immature Granulocytes # (auto) 0.06 K/uL (0.01-0.20); Immature Granulocytes % (auto) 1.1 %; Mean Corpuscular Hemoglobin 30.7 pg (25.0-34.0); Mean Corpuscular Volume 95.2 fL (80.0-100.0); Platelet Count 151 K/uL (130-400); RDW Standard Deviation 50.6 fL (36.4-46.3); Red Blood Count 4.40 M/uL (4.70-6.10); White Blood Count 5.54 K/ul (4.8-10.8)
[2025-09-05] MEDS: ALBUT/IPRATROP 3MG/0.5MG NEB 3 ML VIAL NEB STA (02:35)
[2025-09-05 02:36] LABS: Alanine Aminotransferase 52.0 U/L (7-52); Albumin Globulin Ratio 1.2 (0.9-2); Albumin Level 3.5 gm/dl (3.4-5.0); Alkaline Phosphatase 134.0 U/L (34-104); Anion Gap 4.0 (3-11); Bilirubin,Total 0.7 mg/dl (0.2-1.0); Blood Urea Nitrogen 21.0 mg/dl (6-23); Calcium 8.4 mg/dl (8.6-10.3); Carbon Dioxide 25.0 mmol/L (21-32); Chloride 109.0 mmol/L (98-107); Creatinine Clr Calc Pharmacy 71.3 ml/min; Globulin 3.0 gm/dl (2.5-4.0); Glucose 99.0 mg/dl (70-99(Fasting)); Lipase 18.0 U/L (11-82); Magnesium 1.8 mg/dl (1.7-2.4); Potassium 4.2 mmol/L (3.5-5.1); Sodium 138.0 mmol/L (136-145); Total Protein 6.5 gm/dl (6.0-8.3)
[2025-09-05] MEDS: BUMETANIDE 2 MG in SYRINGE 0 ML IV ONE (02:36)
--- NOTE | 2025-09-05 02:48 | Emergency Department Note ---
History of Present Illness General Chief complaint: Chest Pain Stated complaint: SOB, CHEST PAIN Time Seen by Provider: 09/05/25 01:53 History of Present Illness Maximum Pain Intensity: 5 This 59-year-old male with a past medical history of extensive cardiac history of severe ischemic cardiomyopathy and biventricular AICD with CHF who ran out of his Bumex last week presents ER complaining of increasing shortness of breath and chest pain. Patient does not normally require oxygen. Patient denies fever, chills, abdominal pain, leg pain or swelling. Home Medications Medication Instructions Recorded Confirmed Type amiodarone 200 mg tablet 200 mg PO DAILY 09/01/24 09/01/24 History apixaban 5 mg tablet (Eliquis) 5 mg PO BID 09/01/24 09/01/24 History aspirin 81 mg tablet,delayed 81 mg PO DAILY 09/01/24 09/01/24 History release atorvastatin 40 mg tablet 40 mg PO HS 09/01/24 09/01/24 History bumetanide 2 mg tablet 2 mg PO BID 09/01/24 09/01/24 History empagliflozin 10 mg tablet 10 mg PO QAM 09/01/24 09/01/24 History (Jardiance) valsartan 40 mg tablet 20 mg PO BID 09/01/24 09/01/24 History Allergies Allergy/AdvReac Type Severity Reaction Status Date / Time No Known Allergies Allergy Verified 09/01/24 18:06 Past Med/Surg History Problem List (Updated 09/05/25 @ 02:53 by Kelsey Jack PA-C) Hypoxemia (Acute) Elevated troponin (Acute) Acute congestive heart failure (Acute) Elevated troponin (Acute) Congestive heart failure (Acute) Dilated cardiomyopathy COVID-19 HTN (hypertension) Acute hypoxemic respiratory failure Fever (Acute) Weakness (Acute) Right lower lobe pneumonia (Acute) Hypoxia (Acute) Sepsis (Acute) Acute hyponatremia (Acute) Elevated troponin (Acute) Acute HFrEF (heart failure with reduced ejection fraction) ADHD Right-sided low back pain with sciatica Acute on chronic diastolic CHF (congestive heart failure) SOB (shortness of breath) Non-ST elevation (NSTEMI) myocardial infarction (Acute) Congestive heart failure (Acute) History of DVT (deep vein thrombosis) Coronary artery disease Discharge planning issues Alcoholism Chronic leg pain 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 Alcohol withdrawal Alcohol intoxication (Acute) Overdose of coumadin (Acute) Complete heart block (Chronic) S/p pacemaker placement Depression (Chronic) Pacemaker (Chronic) Anxiety (Chronic) Medical History Abscess, gluteal, right Acute on chronic diastolic CHF (congestive heart failure) ADHD Anxiety Complete heart block S/p pacemaker placement COVID-19 Depression Endocarditis H/O endocarditis History of alcohol abuse History of DVT (deep vein thrombosis) HTN (hypertension) NSTEMI (non-ST elevated myocardial infarction) Pacemaker Right-sided low back pain with sciatica Septic arthritis of hip Small bowel obstruction Small bowel obstruction SOB (shortness of breath) Surgical History H/O aortic valve replacement 2010 at [facility] for congenital abnormality. 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 History of hernia surgery History of hip surgery Status post placement of cardiac pacemaker Family History Other Heart disease Social History Smoking Status: Never smoker Tobacco Type: Cigarettes Second Hand Exposure: No; Do You Dip or Chew Tobacco: No; Hx Alcohol Use: No Hx Substance Use: No Preferred Language: Monegasque Communication Ability: Effective Revenue Settlements Administrator Required: No Beliefs That Will Affect Care: None Current Living Situation: Alone Current Living Situation Comment: ex Feels Safe at Home: Yes Assistive Devices: None Review of Systems A total of 10 systems reviewed and were otherwise negative Physical Exam Vital Signs Vital Signs - 24 hr 09/05/25 01:57 09/05/25 01:58 Temperature 36.7 C Temperature Source Oral Pulse Rate 81 80 Respiratory Rate 20 Respiratory Depth Normal Blood Pressure 136/102 H Blood Pressure Mean 113 Pulse Oximetry 95 Oxygen Delivery Method Nasal Cannula Oxygen Flow Rate 2 Sepsis Recent Fever Within 48 Hours No Sepsis New/Unexplained Change in Mental Status No Sepsis Action Taken by Nursing No Action Required VITALS: Vitals are noted on the nurse's note and reviewed by myself. Vital signs hypoxic on room air and improved with nasal cannula. GENERAL: Pleasant gentleman speaking in full sentences, in no acute distress, nondiaphoretic, well-developed well-nourished. SKIN: Capillary reflex less than 2 seconds. HEENT: Normocephalic. PERRLA. EOMI. Nares patent. Mucous membranes moist. Neck is supple without nuchal rigidity. HEART: Regular rate and rhythm LUNGS: Bibasilar rales. No retractions or accessory muscle use. ABDOMEN: Positive bowel sounds x 4. Normal tympanic percussion. Soft, nontender, without masses or organomegaly. Noel sign negative. No guarding or rebound tenderness. no CVA tenderness MUSCULOSKELETAL: No gross musculoskeletal defects. NEURO: Patient was alert and oriented to person place and time. No focal neurological deficits. Course Administered Medications Discontinued Medications Albuterol (Albut/Ipratrop 3mg/0.5mg Neb 3 Ml Vial) 3 ml NEB NOW STA; Protocol Stop: 09/05/25 02:05 Last Admin: 09/05/25 02:35 Dose: 3 ml Documented By: gualberto Bumetanide 2 mg/ Syringe 8 mls @ 4 mls/min IV ONE ONE Stop: 09/05/25 02:05 Last Admin: 09/05/25 02:36 Dose: 4 mls/min Documented By: gualberto Critical Care Time Critical Care Time: Yes Total Critical Care Time: 35 I have personally spent 35 minutes of critical care time in the direct management of this patient. This includes bedside care, interpretation of diagnostic studies, and testing, discussion with consultants, patient, and family members, and other required patient management activities. This 35 minutes is in excess of all separately billable procedures. Medical Decision Making Medical Records Attestation: I reviewed the patient's medical records. Home Medications Current Medication List: was personally reviewed by me Laboratory Data Attestation: I reviewed the patient's lab results. 09/05/25 02:05 09/05/25 02:03 Lab Results 09/05/25 09/05/25 09/05/25 Range/Units 02:03 02:05 02:09 WBC 5.54 (4.8-10.8) K/ul RBC 4.40 L (4.70-6.10) M/uL Hgb 13.5 L (14.0-18.0) g/dl POC Hgb 14.6 (14.0-18.0) g/dl Hct 41.9 L (42.0-52.0) % POC Hct 43 (42-52) % MCV 95.2 (80.0-100.0) fL MCH 30.7 (25.0-34.0) pg MCHC 32.2 (32.0-36.0) g/dL RDW Std Deviation 50.6 H (36.4-46.3) fL RDW Coeff of Kwabena 14.6 H (11.5-14.5) % Plt Count 151 (130-400) K/uL MPV 10.6 (9.4-12.4) fL Immature Gran % (Auto) 1.1 % Neut % (Auto) 63.3 % Lymph % (Auto) 20.4 % [place] % (Auto) 9.6 % Eos % (Auto) 4.3 % Baso % (Auto) 1.3 % Neut # (Auto) 3.51 (1.40-6.50) K/uL Lymph # (Auto) 1.13 L (1.20-3.40) K/uL [place] # (Auto) 0.53 (0.11-0.59) K/uL Eos # (Auto) 0.24 (0.00-0.50) K/uL Baso # (Auto) 0.07 (0.00-0.20) K/uL Immature Gran # (Auto) 0.06 (0.01-0.20) K/uL POC Sodium 141 (135-144) mmol/L Sodium 138 (136-145) mmol/L POC Potassium 4.3 (3.3-5.0) mmol/L Potassium 4.2 (3.5-5.1) mmol/L POC Chloride 107 (101-112) mmol/L Chloride 109 H (98-107) mmol/L Carbon Dioxide 25 (21-32) mmol/L POC Total CO2 23 L (24-31) mmol/L Anion Gap 4 (3-11) POC Anion Gap 17.0 (16-25) mmol/L POC BUN 21 H (7-18) mg/dl BUN 21 (6-23) mg/dl Creatinine 1.03 (0.6-1.4) mg/dl POC Creatinine 1.1 (0.6-1.3) mg/dl Est Cr Clr Drug Dosing 71.3 ml/min eGFR 83.16 BUN/Creatinine Ratio 20.4 H (10-20) Glucose 99 (70-99(Fasting)) mg/dl POC Glucose (other) 93 (70-99) mg/dl Calcium 8.4 L (8.6-10.3) mg/dl POC Ioniz Calcium Susie 1.15 (1.12-1.32) mmol/l Magnesium 1.8 (1.7-2.4) mg/dl Total Bilirubin 0.7 (0.2-1.0) mg/dl AST 72 H (13-39) U/L ALT 52 (7-52) U/L Alkaline Phosphatase 134 H (34-104) U/L Troponin I High Sens 48.9 H (0-20) pg/ml B-Natriuretic Peptide 2712 H (0-100) pg/ml Total Protein 6.5 (6.0-8.3) gm/dl Albumin 3.5 (3.4-5.0) gm/dl Globulin 3.0 (2.5-4.0) gm/dl Albumin/Globulin Ratio 1.2 (0.9-2) Lipase 18 (11-82) U/L Imaging Data Attestation: I personally reviewed and interpreted this imaging study as follows: Radiologist's Impression: Chest X-Ray 09/05/25 02:03 EXAM: XR chest 1V portable CLINICAL HISTORY: Chest pain, nonspecific TECHNIQUE: An X-ray image of the chest was obtained in AP projection. COMPARISON: 07/14/2023. FINDINGS: Both lungs show diffuse, prominent bronchovascular markings. Cardiomegaly is present. No acute osseous abnormality is identified. A cardiac pacemaker is noted. Sternal sutures seen. IMPRESSION: Both lungs show diffuse, prominent bronchovascular markings, suggesting the possibility of mild congestive changes. Mild increase. Cardiomegaly is present.Stable. Electronically signed by Nabil Pena 09-05-2025 03:14 AM [facility] Narrative Prior records/ancillary studies reviewed. Triage Nursing notes reviewed. Additional history obtained from the EMS. The patient's history was concerning for respiratory difficulties. Differential diagnosis: Etiologies such as infections, reactive airway disease, pneumonia, pneumothorax, COPD, CHF, cardiac ischemia, pulmonary embolism, musculoskeletal, gastrointestinal, as well as others were entertained. Physical examination: As above. ER treatment provided: An order was placed for continuous cardiac monitoring. The monitor shows a rate of 60-100 with a sinus rhythm per my interpretation. eDe Javier Patient was placed on oxygen and O2 levels improved On reassessment the patient felt better. Diagnostic interpretation by me: The electrocardiogram was ordered for SOB. ECG: Paced rhythm with occasional PVC rate of 78. No Sgarbossa. Impression atrial sensed ventricular paced with occasional PVC independently interpreted by myself The labs Independently Interpreted by myself revealed slightly elevated troponin and repeat was ordered. No worrisome leukocytosis, mild anemia Elevated BNP Imaging studies: Chest x-ray concerning for pulmonary congestion per my independent interpretation. HEART SCORE: Hx: high/mod/low suspicion: 1 ECG: ST depression/nonspecific changes/normal: 0 Age: Greater than 65/45-64/less than 45: 1 Risk factors: (Hypertension, hyperlipidemia, diabetes, coronary disease, tobacco use, cocaine use): 2 Troponin: Greater than 2 times normal limits/1-2 times normal limits/normal: 1 Total: 5 Consultation: A consultation was placed with the hospitalist. The case was discussed and diagnostics were reviewed. The patient was evaluated in the ER for further treatment. This appears to be consistent with acute on chronic heart failure most likely related to patient running out of his diuretics. He felt better to be medicated as above. X-ray is concerning for heart failure. Medicine was consulted case discussed. Patient will be evaluated for admission. Patient is agreeable.. By the evaluation outlined above emergent etiologies such as pulmonary embolism, reactive airway disease, pneumonia, pneumothorax, musculoskeletal, serious bacterial infections, as well as others were deemed relatively unlikely. The pt informed about the findings as listed above. All questions were answered and pleased with the treatment. The chart was completed utilizing [employer] Speech voice recognition software. Grammatical errors, random word insertions, pronoun errors, and incomplete sentences are an occassional consequence of this system due to software limitations, ambient noise, and hardware issues. Any formal questions or concerns about the content, text, or information contained within the body of this dictation should be directly addressed to the physician customer support assistant for clarification. Impression & Plan Acute congestive heart failure, Elevated troponin, Hypoxemia Discharge Plan Visit Data Chief Complaint: Chest Pain Stated Complaint: SOB, CHEST PAIN ED Provider: Radha Quinonez ED Midlevel Provider: Kelsey Jack Discharge Problem: Acute congestive heart failure, Elevated troponin, Hypoxemia Patient Disposition: Admitted As Inpatient Condition: Fair Forms Stand Alone Forms: My Slyce Prescriptions Prescriptions: No Action atorvastatin 40 mg tablet 40 mg PO HS bumetanide 2 mg tablet 2 mg PO BID amiodarone 200 mg tablet 200 mg PO DAILY aspirin 81 mg tablet,delayed release (DR/EC) 81 mg PO DAILY valsartan 40 mg tablet 20 mg PO BID Eliquis 5 mg tablet 5 mg PO BID Jardiance 10 mg tablet 10 mg PO QAM Referrals Referrals: Nabil Daley MD [Primary Care Provider] - Discharge Problem: Acute congestive heart failure Qualifiers: Heart failure type: unspecified Qualified Code(s): I50.9 - Heart failure, unspecified
--- NOTE | 2025-09-05 03:15 | XRay Report ---
EXAM: XR chest 1V portable CLINICAL HISTORY: Chest pain, nonspecific TECHNIQUE: An X-ray image of the chest was obtained in AP projection. COMPARISON: 07/14/2023. FINDINGS: Both lungs show diffuse, prominent bronchovascular markings. Cardiomegaly is present. No acute osseous abnormality is identified. A cardiac pacemaker is noted. Sternal sutures seen. IMPRESSION: Both lungs show diffuse, prominent bronchovascular markings, suggesting the possibility of mild congestive changes. Mild increase. Cardiomegaly is present.Stable. Electronically signed by Nabil Pena 09-05-2025 03:14 AM
[2025-09-05] MEDS ORDERED: NITROGLYCERIN SL 0.4 MG/TAB TAB SL PRN (05:22)
[2025-09-05] MEDS ORDERED: ACETAMINOPHEN 325 MG TAB PO PRN (05:22)
[2025-09-05] MEDS ORDERED: POLYETHYLENE (MIRALAX) 17 GM PACK PO PRN (05:22)
--- NOTE | 2025-09-05 06:15 | History & Physical Report ---
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 He follows with cardiology at [facility]. States he is currently only taking amiodarone. He stopped taking Eliquis, aspirin, Lipitor, Jardiance and Entresto about a year ago. He was taking Bumex but ran out of the prescription about a week ago. And last time he took spironolactone was couple of days ago. In the afternoon he started feeling short of breath which prompted him to come to the ER. He also having some left- sided chest pain. In the ER he was requiring 2 L oxygen. Denies any fevers. Has some cough. No runny nose or sore throat. No nausea. No abdominal pain. Normal bowel and bladder movements. Hemodynamics okay. Patient says he is currently okay to follow-up with local doctors. Acute on chronic systolic CHF Noncompliant with medications Elevated BNP 2712 Not taking Bumex since last 1 week and Aldactone since last 2 days Stopped taking Jardiance and Entresto about a year Received IV Bumex in the ER Will continue IV Bumex twice daily Daily weights and I's and O's Will follow echo Further medications as per cardiology Elevated troponin Mostly demand ischemia Initial troponin 48 and repeat is 47 Will follow serial enzymes and echo History of complete heart block Status post pacemaker On amiodarone? Hypertension Currently not taking any medications Currently on IV Bumex Will monitor History of DVT Used to be on Eliquis Not taking since last 1 year History of ADHD Currently not taking medications History of alcohol use History of signing out AMA DVT prophylaxis Lovenox Disposition Telemetry Full code. 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 He follows with cardiology at [facility]. States he is currently only taking amiodarone. He stopped taking Eliquis, aspirin, Lipitor, Jardiance and Entresto about a year ago. He was taking Bumex but ran out of the prescription about a week ago. And last time he took spironolactone was couple of days ago. In the afternoon he started feeling short of breath which prompted him to come to the ER. He also having some left- sided chest pain. In the ER he was requiring 2 L oxygen. Denies any fevers. Has some cough. No runny nose or sore throat. No nausea. No abdominal pain. Normal bowel and bladder movements. Hemodynamics okay. Patient says he is currently okay to follow-up with local doctors. Past medical history. As mentioned above. Past surgical history. Bioprosthetic replacement. Cardiac cath. Pacemaker insertion. Laparoscopic repair of right inguinal hernia. Social history. No smoking. No alcohol. No drug use. Family history. Father had prostate cancer. Hypertension. Cardiomyopathy. Brother had lymphoma. Brother has hypertension. Brother has diabetes. Mother had arthritis. Allergies Allergy/AdvReac Type Severity Reaction Status Date / Time No Known Allergies Allergy Verified 09/01/24 18:06 Home Medications Medication Instructions Recorded Confirmed Type amiodarone 200 mg tablet 200 mg PO DAILY 09/01/24 09/01/24 History apixaban 5 mg tablet (Eliquis) 5 mg PO BID 09/01/24 09/01/24 History aspirin 81 mg tablet,delayed 81 mg PO DAILY 09/01/24 09/01/24 History release atorvastatin 40 mg tablet 40 mg PO HS 09/01/24 09/01/24 History bumetanide 2 mg tablet 2 mg PO BID 09/01/24 09/01/24 History empagliflozin 10 mg tablet 10 mg PO QAM 09/01/24 09/01/24 History (Jardiance) valsartan 40 mg tablet 20 mg PO BID 09/01/24 09/01/24 History Past Med/Surg History Problem List (Updated 09/05/25 @ 06:17 by Luis Jiang MD) Acute on chronic systolic CHF (congestive heart failure) Hypoxemia (Acute) Elevated troponin (Acute) Acute congestive heart failure (Acute) Elevated troponin (Acute) Congestive heart failure (Acute) Dilated cardiomyopathy COVID-19 HTN (hypertension) Acute hypoxemic respiratory failure Fever (Acute) Weakness (Acute) Right lower lobe pneumonia (Acute) Hypoxia (Acute) Sepsis (Acute) Acute hyponatremia (Acute) Elevated troponin (Acute) Acute HFrEF (heart failure with reduced ejection fraction) ADHD Right-sided low back pain with sciatica Acute on chronic diastolic CHF (congestive heart failure) SOB (shortness of breath) Non-ST elevation (NSTEMI) myocardial infarction (Acute) Congestive heart failure (Acute) History of DVT (deep vein thrombosis) Coronary artery disease Discharge planning issues Alcoholism Chronic leg pain DVT prophylaxis care home current use of anticoagulant Alcohol withdrawal Alcohol intoxication (Acute) Overdose of coumadin (Acute) Complete heart block (Chronic) S/p pacemaker placement Depression (Chronic) Pacemaker (Chronic) Anxiety (Chronic) Medical History Abscess, gluteal, right Acute on chronic diastolic CHF (congestive heart failure) ADHD Anxiety Complete heart block S/p pacemaker placement COVID-19 Depression Endocarditis H/O endocarditis History of alcohol abuse History of DVT (deep vein thrombosis) HTN (hypertension) NSTEMI (non-ST elevated myocardial infarction) Pacemaker Right-sided low back pain with sciatica Septic arthritis of hip Small bowel obstruction Small bowel obstruction SOB (shortness of breath) Surgical History H/O aortic valve replacement 2010 at [facility] for congenital abnormality. 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 History of hernia surgery History of hip surgery Status post placement of cardiac pacemaker Family History Other Heart disease Social History Smoking Status: Never smoker Tobacco Type: Cigarettes Second Hand Exposure: No; Do You Dip or Chew Tobacco: No; Hx Alcohol Use: No Hx Substance Use: No Preferred Language: Jamaican Communication Ability: Effective Engraving Press Operator Required: No Beliefs That Will Affect Care: None Current Living Situation: Alone Current Living Situation Comment: ex Other Information That Helps Us Care for You: No Feels Safe at Home: Yes Safety Concerns: Feels Safe At This Time Assistive Devices: None Review of Systems Review of Systems: All systems reviewed & are unremarkable except as noted in HPI & below Physical Exam Physical Exam: General- Not in distress Head- atraumatic Eyes- PERRL. ENT- oropharynx clear Neck- supple, no JVD. Lungs- clear to auscultation mild bibasilar crackles, no wheezing Heart- regular rhythm; no murmur, no gallop. Abdomen- normal bowel sounds, soft, nontender, no distension Extremities- no pretibial edema, no erythema seen Neuro- alert, oriented PERRL, no facial palsy; no dysarthria; moves extremities Results & Data Results & Data Vital Signs (Past 12 Hours) Vital Signs Temp Pulse Resp BP Pulse Ox O2 Del Method O2 Flow Rate 09/05/25 01:58 80 09/05/25 01:57 36.7 C 81 20 136/102 H 95 Nasal Cannula 2 Diagnostic Findings Laboratory Results WBC 5.54 K/ul (4.8-10.8) 09/05/25 02:05 RBC 4.40 M/uL (4.70-6.10) L 09/05/25 02:05 Hgb 13.5 g/dl (14.0-18.0) L 09/05/25 02:05 POC Hgb 14.6 g/dl (14.0-18.0) 09/05/25 02:09 Hct 41.9 % (42.0-52.0) L 09/05/25 02:05 POC Hct 43 % (42-52) 09/05/25 02:09 MCV 95.2 fL (80.0-100.0) 09/05/25 02:05 MCH 30.7 pg (25.0-34.0) 09/05/25 02:05 MCHC 32.2 g/dL (32.0-36.0) 09/05/25 02:05 RDW Std Deviation 50.6 fL (36.4-46.3) H 09/05/25 02:05 RDW Coeff of Kw[place] 14.6 % (11.5-14.5) H 09/05/25 02:05 Plt Count 151 K/uL (130-400) 09/05/25 02:05 MPV 10.6 fL (9.4-12.4) 09/05/25 02:05 Immature Gran % (Auto) 1.1 % 09/05/25 02:05 Neut % (Auto) 63.3 % 09/05/25 02:05 Lymph % (Auto) 20.4 % 09/05/25 02:05 [place] % (Auto) 9.6 % 09/05/25 02:05 Eos % (Auto) 4.3 % 09/05/25 02:05 Baso % (Auto) 1.3 % 09/05/25 02:05 Neut # (Auto) 3.51 K/uL (1.40-6.50) 09/05/25 02:05 Lymph # (Auto) 1.13 K/uL (1.20-3.40) L 09/05/25 02:05 [place] # (Auto) 0.53 K/uL (0.11-0.59) 09/05/25 02:05 Eos # (Auto) 0.24 K/uL (0.00-0.50) 09/05/25 02:05 Baso # (Auto) 0.07 K/uL (0.00-0.20) 09/05/25 02:05 Immature Gran # (Auto) 0.06 K/uL (0.01-0.20) 09/05/25 02:05 POC Sodium 141 mmol/L (135-144) 09/05/25 02:09 Sodium 138 mmol/L (136-145) 09/05/25 02:03 POC Potassium 4.3 mmol/L (3.3-5.0) 09/05/25 02:09 Potassium 4.2 mmol/L (3.5-5.1) 09/05/25 02:03 POC Chloride 107 mmol/L (101-112) 09/05/25 02:09 Chloride 109 mmol/L (98-107) H 09/05/25 02:03 Carbon Dioxide 25 mmol/L (21-32) 09/05/25 02:03 POC Total CO2 23 mmol/L (24-31) L 09/05/25 02:09 Anion Gap 4 (3-11) 09/05/25 02:03 POC Anion Gap 17.0 mmol/L (16-25) 09/05/25 02:09 POC BUN 21 mg/dl (7-18) H 09/05/25 02:09 BUN 21 mg/dl (6-23) 09/05/25 02:03 Creatinine 1.03 mg/dl (0.6-1.4) 09/05/25 02:03 POC Creatinine 1.1 mg/dl (0.6-1.3) 09/05/25 02:09 Est Cr Clr Drug Dosing 71.3 ml/min 09/05/25 02:03 eGFR 83.16 09/05/25 02:03 BUN/Creatinine Ratio 20.4 (10-20) H 09/05/25 02:03 Glucose 99 mg/dl (70-99(Fasting)) 09/05/25 02:03 POC Glucose (other) 93 mg/dl (70-99) 09/05/25 02:09 Calcium 8.4 mg/dl (8.6-10.3) L 09/05/25 02:03 POC Ioniz Calcium Susie 1.15 mmol/l (1.12-1.32) 09/05/25 02:09 Magnesium 1.8 mg/dl (1.7-2.4) 09/05/25 02:03 Total Bilirubin 0.7 mg/dl (0.2-1.0) 09/05/25 02:03 AST 72 U/L (13-39) H 09/05/25 02:03 ALT 52 U/L (7-52) 09/05/25 02:03 Alkaline Phosphatase 134 U/L (34-104) H 09/05/25 02:03 Troponin I High Sens 47.1 pg/ml (0-20) H 09/05/25 03:43 B-Natriuretic Peptide 2712 pg/ml (0-100) H 09/05/25 02:05 Total Protein 6.5 gm/dl (6.0-8.3) 09/05/25 02:03 Albumin 3.5 gm/dl (3.4-5.0) 09/05/25 02:03 Globulin 3.0 gm/dl (2.5-4.0) 09/05/25 02:03 Albumin/Globulin Ratio 1.2 (0.9-2) 09/05/25 02:03 Lipase 18 U/L (11-82) 09/05/25 02:03 Impressions Chest X-Ray 09/05/25 02:03 EXAM: XR chest 1V portable CLINICAL HISTORY: Chest pain, nonspecific TECHNIQUE: An X-ray image of the chest was obtained in AP projection. COMPARISON: 07/14/2023. FINDINGS: Both lungs show diffuse, prominent bronchovascular markings. Cardiomegaly is present. No acute osseous abnormality is identified. A cardiac pacemaker is noted. Sternal sutures seen. IMPRESSION: Both lungs show diffuse, prominent bronchovascular markings, suggesting the possibility of mild congestive changes. Mild increase. Cardiomegaly is present.Stable. Electronically signed by Nabil Pena 09-05-2025 03:14 AM ECG Additional Comments: ECG atrial sensed ventricular paced rhythm with occasional PVCs with rate 78. Code Status & VTE Plan VTE Prophylaxis Plan VTE Prophylaxis will be ordered: Yes
[2025-09-05 07:06] LABS: Hematocrit (blood only) 43.0 % (42.0-52.0); Hemoglobin 14.0 g/dl (14.0-18.0); Immature Granulocytes # (auto) 0.04 K/uL (0.01-0.20); Immature Granulocytes % (auto) 0.8 %; Mean Corpuscular Hemoglobin 30.6 pg (25.0-34.0); Mean Corpuscular Volume 93.9 fL (80.0-100.0); Platelet Count 153 K/uL (130-400); RDW Standard Deviation 50.1 fL (36.4-46.3); Red Blood Count 4.58 M/uL (4.70-6.10); White Blood Count 4.96 K/ul (4.8-10.8)
[2025-09-05 07:27] LABS: Anion Gap 7.0 (3-11); Blood Urea Nitrogen 21.0 mg/dl (6-23); Calcium 8.7 mg/dl (8.6-10.3); Carbon Dioxide 27.0 mmol/L (21-32); Chloride 107.0 mmol/L (98-107); Creatinine Clr Calc Pharmacy 65.8 ml/min; Glucose 93.0 mg/dl (70-99(Fasting)); Magnesium 1.7 mg/dl (1.7-2.4); Potassium 4.3 mmol/L (3.5-5.1); Sodium 141.0 mmol/L (136-145)
[2025-09-05 07:47] LABS: Hemoglobin A1C 6.4 % (4.5-5.6)
[2025-09-05] MEDS: BUMETANIDE 2 MG in SYRINGE 0 ML IV SCH (09:02)
[2025-09-05] MEDS: ENOXAPARIN INJ 40 MG/0.4 ML SYR SQ SCH (09:02)
--- NOTE | 2025-09-05 10:41 | Communication Note ---
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 Quit most of his meds a long time ago Presents with SOB, chest pain, some leg swelling Currently getting echocardiogram Counseled patient on need to have a PCP setup and local Cardiology set up. Counseled on need for proper medical management of his heart failure and other cardiac problems Awaiting Cardiology lizz and margo
--- NOTE | 2025-09-05 11:12 | Cardiology Consultation ---
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 Patient with history of severe nonischemic cardiomyopathy with LVEF previously 15%, underlying congenitally bicuspid aortic valve requiring multiple prior interventions, most recent being TAVR in the fall 2023. Catheterization in the fall 2023 with angiographically normal coronary arteries. Biventricular pacemaker defibrillator in place. Patient with prompt significant positive response to IV Bumex, I's and O's -3 L overall. Resting echocardiogram pending. Options of management discussed. Recommendations: * Okay to feed * Transition to oral diuretic in AM * Maintain normokalemia * Supplement magnesium IV * Refer for device interrogation * Implement guideline directed medical therapy as tolerated, starting with metoprolol succinate 12.5 mg/day, valsartan 40 mg once per day, low-dose spironolactone * Outpatient [facility] Clinic Consultation, ? Splinter.me slim candidate * Apixaban 5 mg twice per day previously prescribed for ? paroxysmal atrial fibrillation * Resumption of anticoagulation as well as amiodarone pending above, patient preference Supervising Physician Co-Signing Physician Notes Patient seen and examined. Past medical history, surgical history, social history and family history have been reviewed. The medical record and all the above studies have been reviewed. Case DW YANNI including management. Acute on chronic HFrEF - due to running out of meds as per patient - improved Severe NICM H/O Bicuspid AV s/p TAVR PAF s/p BIVICD - interrogated - no sig arrhythmias, parameters ok correct and f/u electrolytes f/u renal function change IV to PO diuretics continue Eliquis change metoprolol to Coreg change Diovan to Entresto if no financial limitations continue spironolactone GDMT for HFrEF as tolerated keeping systolic BP between 100-140 mmHg avoid hypovolemia keep patient euvolemic keep LE elevated when sitting 1.5 L / 24 hr fluid restriction strict I&Os salt restriction f/u in Cardiology clinic DW hospitalist History of Present Illness Reason for Consultation: Acute congestive heart failure Requesting Physician: [facility], Dr. Jiang Attending Physician: [facility], Dr. 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 Patient last hospitalized at [facility] in August 2024. Noncompliance with follow-up noted along with more recent noncompliance with medications. Notes cost is an issue. Eliquis self discontinued due to epistaxis. Ran out of Bumex last week. Chest x-ray on presentation suggested mild congestive changes. 2 mg IV Bumex prescribed with significant diuresis and improvement in symptoms, I's and O's -3000 mL overall thus far. Chest pain atypical by history. EKG nondiagnostic, paced. High-sensitivity troponin elevated as follows: 48.9 -> 47.1 -> 44.5 pg/mL. Resting echocardiography pending. Cardiac catheterization last circa April 2024 with normal coronary arteries. Notes significant muscular cramping, variable chest pains. No overt angina and no overt activity related chest pain. No tachypalpitations. No device alarms or discharges. No dizziness or syncope. No recent colds, illnesses, fevers, chills, night sweats, rash, or tick bites. No melena or hematochezia. Problem List: Congenitally bicuspid aortic valve Status post past bioprosthetic aortic valve replacement in 2007 MRSA endocarditis and septic embolic CVA, status post redo bioprosthetic aortic valve in 2008 Complete heart block status post pacemaker implantation Nonischemic cardiomyopathy, possibly pacemaker mediated history of subclavian DVT Paroxysmal atrial fibrillation hospitalization at [facility] in April 2024 with cardiogenic shock Status post transcatheter aortic valve replacement in July 2024 Status post CRTD placement August 09, 2024, with revision of LV lead August 12, 2024, left bundle branch pacing Cardiac catheterization last in April 2024 with normal coronaries History of DVT Thrombocytopenia Depression GERD Inflammatory polyarthritis ADHD Prior laparotomy for high-grade small bowel obstruction, epigastric ventral hernia repair, lysis of adhesions, repair internal hernia Right inguinal hernia repair Left elbow surgery Family History: Father with cardiomyopathy, congestive heart failure. Mother is alive at 92. Brother with diabetes. Social History: Never smoker. No smokeless tobacco. history of alcohol use, reformed. 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 Resides in [place] next to the [facility]. , x 5. Allergies Allergy/AdvReac Type Severity Reaction Status Date / Time No Known Allergies Allergy Verified 09/01/24 18:06 Home Medications Medication Instructions Recorded Confirmed Type amiodarone 200 mg tablet 200 mg PO DAILY #30 tabs 09/05/25 Rx apixaban 5 mg tablet (Eliquis) 5 mg PO BID 30 days #60 tabs 09/05/25 Rx atorvastatin 40 mg tablet 40 mg PO HS #30 tabs 09/05/25 Rx bumetanide 2 mg tablet 2 mg PO BID #60 tabs 09/05/25 Rx carvedilol 3.125 mg tablet 3.125 mg PO BIDM 30 days #60 tabs 09/05/25 Rx empagliflozin 10 mg tablet 10 mg PO QAM #30 tabs 09/05/25 Rx (Jardiance) sacubitril 24 mg-valsartan 26 mg 1 tab PO BID #60 tabs 09/05/25 Rx tablet (Entresto) spironolactone 25 mg tablet 12.5 mg (1/2 x 25 mg) PO DAILY #15 09/05/25 Rx tabs Patient History Medical History Small bowel obstruction Small bowel obstruction H/O endocarditis Abscess, gluteal, right Septic arthritis of hip Endocarditis NSTEMI (non-ST elevated myocardial infarction) Surgical History Status post placement of cardiac pacemaker History of hip surgery History of hernia surgery Family History Other Heart disease Social History Smoking Status: Never smoker Tobacco Type: Cigarettes Second Hand Exposure: No; Do You Dip or Chew Tobacco: No; Hx Alcohol Use: No Hx Substance Use: No Preferred Language: Lao Communication Ability: Effective Solid State Tester Required: No Beliefs That Will Affect Care: None Current Living Situation: Alone Current Living Situation Comment: ex Other Information That Helps Us Care for You: No Feels Safe at Home: Yes Safety Concerns: Feels Safe At This Time Assistive Devices: None Review of Systems Review of Systems: Complete review of systems is as stated above, negative, noncontributory Physical Exam Physical Exam: General: A&Ox3. NAD. HENT: Normocephalic. Atraumatic. Eyes: PER. Conjunctiva pink, sclera clear. Neck: No JVD. HJR. Heart: Regular, paced. Soft systolic ejection murmur. No diastolic murmur. PMI is displaced. Lungs: Decreased at the bases. Left basilar rales. No wheeze. Abdomen: +BS. Soft. Nontender. No masses or organomegaly. Extremities: Mild pretibial edema. No clubbing. No cyanosis. Limited neurological examination is without focal deficits. Pulses: radial=2/4, posterior tibial=2/4. Results & Data Vital Signs (Past 12 Hours) Vital Signs Temp Pulse Pulse Resp BP BP Pulse Ox 09/05/25 07:44 36.5 C 68 20 131/89 94 09/05/25 05:25 09/05/25 05:15 36.6 C 67 20 133/95 99 09/05/25 05:07 66 20 136/102 H 95 09/05/25 05:02 66 95 09/05/25 05:02 20 95 09/05/25 04:56 09/05/25 01:58 80 09/05/25 01:57 36.7 C 81 20 136/102 H 95 O2 Del Method O2 Flow Rate 09/05/25 07:44 Nasal Cannula 2 09/05/25 05:25 Nasal Cannula 2 09/05/25 05:15 Nasal Cannula 2 09/05/25 05:07 Nasal Cannula 2 09/05/25 05:02 Nasal Cannula 2 09/05/25 05:02 Nasal Cannula 2 09/05/25 04:56 Nasal Cannula 2 09/05/25 01:58 09/05/25 01:57 Nasal Cannula 2 Laboratory Results Cardiac Enzymes 09/05/25 09/05/25 09/05/25 Range/Units 02:03 02:05 03:43 AST 72 H (13-39) U/L Troponin I High Sens 48.9 H 47.1 H (0-20) pg/ml B-Natriuretic Peptide 2712 H (0-100) pg/ml 09/05/25 Range/Units 06:45 AST (13-39) U/L Troponin I High Sens 44.5 H (0-20) pg/ml B-Natriuretic Peptide (0-100) pg/ml Coagulation 09/05/25 Range/Units 02:05 B-Natriuretic Peptide 2712 H (0-100) pg/ml CBC 09/05/25 09/05/25 Range/Units 02:05 06:45 WBC 5.54 4.96 (4.8-10.8) K/ul RBC 4.40 L 4.58 L (4.70-6.10) M/uL Hgb 13.5 L 14.0 (14.0-18.0) g/dl Hct 41.9 L 43.0 (42.0-52.0) % Plt Count 151 153 (130-400) K/uL Neut # (Auto) 3.51 3.06 (1.40-6.50) K/uL Lymph # (Auto) 1.13 L 1.15 L (1.20-3.40) K/uL [place] # (Auto) 0.53 0.47 (0.11-0.59) K/uL Eos # (Auto) 0.24 0.16 (0.00-0.50) K/uL Baso # (Auto) 0.07 0.08 (0.00-0.20) K/uL Comprehensive Metabolic Panel 09/05/25 09/05/25 Range/Units 02:03 06:45 Sodium 138 141 (136-145) mmol/L Potassium 4.2 4.3 (3.5-5.1) mmol/L Chloride 109 H 107 (98-107) mmol/L Carbon Dioxide 25 27 (21-32) mmol/L BUN 21 21 (6-23) mg/dl Creatinine 1.03 1.10 (0.6-1.4) mg/dl Glucose 99 93 (70-99(Fasting)) mg/dl Calcium 8.4 L 8.7 (8.6-10.3) mg/dl AST 72 H (13-39) U/L ALT 52 (7-52) U/L Alkaline Phosphatase 134 H (34-104) U/L Total Protein 6.5 (6.0-8.3) gm/dl Albumin 3.5 (3.4-5.0) gm/dl Intake and Output 09/04/25 09/05/25 09/05/25 22:59 06:59 14:59 Intake Total 0 / 0 Output Total 400 / 400 2600 / 2600 Balance -400 / -400 -2600 / -2600 Intake: Oral 0 / 0 Output: Urine 400 / 400 2600 / 2600 Other: Weight 65.136 kg Weight Measurement Method Built in [facility] Diagnostic Findings Telemetry: Paced rhythm, heart rate predominantly in the 60s and 70s Medications Administered Home Medications Medication Instructions Recorded Confirmed Last Taken amiodarone 200 mg tablet 200 mg PO DAILY 09/01/24 09/01/24 09/01/24 apixaban 5 mg tablet (Eliquis) 5 mg PO BID 09/01/24 09/01/24 09/01/24 aspirin 81 mg tablet,delayed 81 mg PO DAILY 09/01/24 09/01/24 09/01/24 release atorvastatin 40 mg tablet 40 mg PO HS 09/01/24 09/01/24 08/31/24 bumetanide 2 mg tablet 2 mg PO BID 09/01/24 09/01/24 09/01/24 empagliflozin 10 mg tablet 10 mg PO QAM 09/01/24 09/01/24 09/01/24 (Jardiance) valsartan 40 mg tablet 20 mg PO BID 09/01/24 09/01/24 09/01/24 Active Medications Generic Name Dose Route Start Last Admin Trade Name Janny PRN Reason Stop Dose Admin Enoxaparin Sodium 40 mg 09/05/25 09:00 09/05/25 09:02 Enoxaparin Inj 40 Mg/0.4 Ml Syr SQ 10/05/25 08:59 40 mg Q24H TAMELA Administration Bumetanide 2 mg/ Syringe 8 mls @ 4 mls/min 09/05/25 09:00 09/05/25 09:02 IV 10/05/25 08:59 4 mls/min BID@0900,1700 TAMELA Administration Magnesium Sulfate/Dextrose 1 gm in 100 mls @ 50 mls/hr 09/05/25 11:45 09/05/25 14:13 Magnesium Sulfate / D5w IV 09/05/25 15:44 50 mls/hr Q2H TAMELA Administration Spironolactone 12.5 mg 09/05/25 11:45 09/05/25 12:16 Spironolactone 12.5 Mg Tab PO 10/05/25 11:44 12.5 mg DAILY TAMELA Administration Valsartan 40 mg 09/05/25 11:45 09/05/25 12:16 Valsartan 80 Mg Tab PO 10/05/25 11:44 40 mg QAM TAMELA Administration PG Care Time/CCT Total # of Minutes Spent Total Time Spent with Patient: Total time spent is greater than 50% in coordination of care (as documented) at patient's floor/unit and/or counseling patient. I spent a total of 78 minutes on the date of service in preparation, delivery, and documentation of the care provided to this patient excluding any time spent in the performance of separately billed services. This visit was a split-shared visit with the substantive portion of the medical decision making performed by the supervising deflector operator/billing provider. Coding Level of Care Code 83827 IN/OBS CONSULT LVL 5,80M Diagnoses Acute on chronic systolic CHF (congestive heart failure) I50.23 Elevated troponin R79.89 Dilated cardiomyopathy I42.0 Bicuspid aortic valve Q23.81 S/P TAVR (transcatheter aortic valve replacement) Z95.2 Pacemaker Z95.0 PAF (paroxysmal atrial fibrillation) I48.0
[2025-09-05 11:27] VITALS: BP 135/94; RESP 18; TEMP 97.9; O2SAT 98
[2025-09-05] MEDS: VALSARTAN 80 MG TAB PO SCH (12:16)
[2025-09-05] MEDS: MAGNESIUM SULFATE / D5W 1 GM/100 ML BAG IV SCH (12:16)
[2025-09-05] MEDS: SPIRONOLACTONE 12.5 MG TAB PO SCH (12:16)
--- NOTE | 2025-09-05 15:38 | Discharge Summary ---
Date of Service September 05, 2025 Admission HPI Per Admitting Provider 59-year-old male with past medical history significant for chronic systolic CHF with EF around 15% with dilated ventricle, history of congenital bicuspid aortic valve status post bioprosthetic aortic valve replacement in 2010, repeat aortic valve replacement 2011 due to MRSA endocarditis, dual-chamber [place] pacemaker insertion for complete heart block, history of COVID, history of alcohol use, history of DVT, history of ADHD, history of inflammatory polyarthritis, history of thrombocytopenia, depression, GERD, noncompliance with medications comes because of shortness of breath. Patient says he did not see his field radio technician and PCP more than a year. He follows with cardiology at [facility]. States he is currently only taking amiodarone. He stopped taking Eliquis, aspirin, Lipitor, Jardiance and Entresto about a year ago. He was taking Bumex but ran out of the prescription about a week ago. And last time he took spironolactone was couple of days ago. In the afternoon he started feeling short of breath which prompted him to come to the ER. He also having some left- sided chest pain. In the ER he was requiring 2 L oxygen. Denies any fevers. Has some cough. No runny nose or sore throat. No nausea. No abdominal pain. Normal bowel and bladder movements. Hemodynamics okay. Patient says he is currently okay to follow-up with local doctors. Past medical history. As mentioned above. Past surgical history. Bioprosthetic replacement. Cardiac cath. Pacemaker insertion. Laparoscopic repair of right inguinal hernia. Social history. No smoking. No alcohol. No drug use. Family history. Father had prostate cancer. Hypertension. Cardiomyopathy. Brother had lymphoma. Brother has hypertension. Brother has diabetes. Mother had arthritis. Admission Exam Per Admitting Provider General- Not in distress Head- atraumatic Eyes- PERRL. ENT- oropharynx clear Neck- supple, no JVD. Lungs- clear to auscultation mild bibasilar crackles, no wheezing Heart- regular rhythm; no murmur, no gallop. Abdomen- normal bowel sounds, soft, nontender, no distension Extremities- no pretibial edema, no erythema seen Neuro- alert, oriented PERRL, no facial palsy; no dysarthria; moves extremities Principal Diagnosis Acute on chronic systolic heart failure Discharge Exam Constitutional + well hydrated; no acute distress Eyes PERRL, conjunctivae normal, anicteric sclerae ENMT external ear and nose normal, oropharynx normal Respiratory On room air, diminished breath sounds lung bases Cardiovascular Rate/Rhythm: regular rate and regular rhythm Gastrointestinal (Abdomen) normal bowel sounds, soft, nontender, no hepatosplenomegaly Musculoskeletal Trace pretibial edema Neurologic PERRL, EOMI, accommodation nl, no face palsy, no dysarthria Psychiatric A+Ox3, euthymic affect Discharge Data Allergies Allergy/AdvReac Type Severity Reaction Status Date / Time No Known Allergies Allergy Verified 09/01/24 18:06 Consultations 09/05/25 02:17 ED Decision to Admit Stat 09/05/25 08:00 Consult Cardiology Routine Hospital Course (1) Acute on chronic systolic CHF (congestive heart failure): 59-year-old male with past medical history significant for chronic systolic CHF with EF around 15% with dilated ventricle, history of congenital bicuspid aortic valve status post bioprosthetic aortic valve replacement in 2010, repeat aortic valve replacement 2011 due to MRSA endocarditis, dual-chamber [place] pacemaker insertion for complete heart block, history of COVID, history of alcohol use, history of DVT, history of ADHD, history of inflammatory polyarthritis, history of thrombocytopenia, depression, GERD, noncompliance with medications comes because of shortness of breath. Patient says he did not see his field radio technician and PCP more than a year. He followed with cardiology at [facility]. States he is currently only taking amiodarone He stopped taking Eliquis, aspirin, Lipitor, Jardiance and Entresto about a year ago. He was taking Bumex but ran out of the prescription about a week ago. And last time he took spironolactone was couple of days ago. In the afternoon he started feeling short of breath which prompted him to come to the ER. He also having some left-sided chest pain. In the ER he was requiring 2 L oxygen. Denies any fevers. Has some cough. No runny nose or sore throat. No nausea. No abdominal pain. Normal bowel and bladder movements. Hemodynamics okay. Acute on chronic systolic CHF Dilated Cardiomyopathy Elevated troponin likely demand ischemia Noncompliant with medications Elevated BNP 2712 Was treated with IV bumex Patient was evaluated by Cardiology team. Patient denies any complaints at this time. Stated he has to go home today due to some obligations he has to do today Discussed with Crm Functional Analyst who is ok with patient going home Crm Functional Analyst recommends changing diovan to Entresto, starting coreg 3.125mg BID, continuing eliquis, amio, atorvastatin, bumex, spironolactone, jardiance and outpatient Cardiology followup. 30 day supply of all meds were sent. Went over meds with patient I counseled patient on need for adherence to meds and appts. PCP appt was scheduled Total Time Total Time Spent Total Time Spent (In Minutes): 45 Total Time Includes: Examination of the Patient, Discharge Planning, Medication Reconciliation and Communication With Other Providers Discharge Plan Discharge Items Patient Disposition: Home - Self-Care Reason For Visit: ACUTE CHF Discharge Diagnosis: Acute on chronic systolic heart failure Condition on Discharge: Fair Activity: Resume your previous activity Non-emergency contact: Primary Care Provider and Crm Functional Analyst Call non-emergency contact if: you have any medication questions and your symptoms worsen Follow-up/Referrals: Saima Trammell MD [Outside Practitioners] - (Date & Time 09/10/2025 2:00 PM Provider: Saima Carver MD Family Medicine [facility] ) Diet: Heart Healthy Addtl Attending Provider Instructions: Mr Angel You were hospitalized and managed for the above listed diagnosis. It is very important that you take all medications as prescribed. Please resume eliquis, bumex, atorvastatin, jardiance. Please continue taking spironolactone and amiodarone Please stop taking valsartan and start taking Entresto 24-26mg Please ensure follow up with Primary Doctor and Cardiology It was a pleasure taking care of you Pending Studies at Discharge: No Stand-Alone Forms: My [facility] bitmovin, Smoking Cessation Medications and DC Order Prescriptions: New carvedilol 3.125 mg Tablet 3.125 mg PO BIDM 30 Days Qty: 60 0RF sacubitril-valsartan [Entresto] 24-26 mg tablet 1 tab PO BID Qty: 60 0RF Continued atorvastatin 40 mg tablet 40 mg PO HS Qty: 30 0RF bumetanide 2 mg tablet 2 mg PO BID Qty: 60 0RF amiodarone 200 mg tablet 200 mg PO DAILY Qty: 30 0RF Eliquis 5 mg tablet 5 mg PO BID 30 Days Qty: 60 0RF Jardiance 10 mg tablet 10 mg PO QAM Qty: 30 0RF Changed spironolactone 25 mg tablet 12.5 mg PO DAILY Qty: 15 0RF Discontinued valsartan 40 mg tablet 20 mg PO BID Discharge Orders: Discharge Order- CHF (Routine); Ordered 09/05/25 Ordered By: Esperanza Crews/Other Patient Handouts: A1C, 5 Steps for Eating Healthier Admission Data Admit Date/Time: 09/05/25 03:30 Attending Provider: Esperanza Chaudhary I. Admit Provider: Luis Jiang Primary Care Provider: Nabil Daley Other Providers: Luis Jiang; Mana Fong; Arpan Mendosa; Emmett Obregon; Monroe Hernandez; Gonzales Rea; Naldo Arteaga; Barbara Vazquez; Elsy Domingo; Anne-Marie Boles; Claudia Cole; Mana Kirkpatrick; Regulo Ibrahim; Ryan Hernandez; Adriana Sultana; Fabby Hernández; Bing Mena; Mac López; Patrick Caputo; Hilda Domingo; Jenni Perla; Macho Velez; Noe Guidry N
[2025-09-05 16:29] VITALS: PULSE 73
--- NOTE | 2025-09-05 16:32 | XCELERA ---
[id number]
--- NOTE | 2025-09-05 19:08 | Electrocardiogram Report ---
Test Reason : Blood Pressure : */* mmHG Vent. Rate : 78 BPM Atrial Rate : 78 BPM P-R Int : 182 ms QRS Dur : 188 ms QT Int : 476 ms P-R-T Axes : 54 216 70 degrees QTcB Int : 542 ms Atrial-sensed ventricular-paced rhythm with occasional Premature ventricular complexes Abnormal ECG When compared with ECG of 02-Sep-2024 00:03, Premature ventricular complexes are now Present Vent. rate has increased by 14 bpm Confirmed by Willie Hendricks ([id number]) on 09/05/2025 7:08:05 PM Referred By: Confirmed By: Willie Hendricks
[2025-09-06] MEDS ORDERED: METOPROLOL SUCC 25MG EXT REL TAB PO SCH (09:00)
== END 2025-09-05 17:03 | disposition home or self-care (01) | DRG 291 ==
LOC: ED 01:52 → 2E 03:30
DX: R79.89 Other specified abnormal findings of blood chemistry; Z95.2 Presence of prosthetic heart valve; Z79.899 Other long term (current) drug therapy; Z91.148 Patient's other noncompliance with medication regimen for other reason; Z95.0 Presence of cardiac pacemaker; Q23.81 Bicuspid aortic valve; I11.0 Hypertensive heart disease with heart failure; Z79.82 Long term (current) use of aspirin; Z91.141 Patient's other noncompliance with medication regimen due to financial hardship; Z79.01 Long term (current) use of anticoagulants; I50.23 Acute on chronic systolic (congestive) heart failure; I42.0 Dilated cardiomyopathy; Z86.718 Personal history of other venous thrombosis and embolism; F90.9 Attention-deficit hyperactivity disorder, unspecified type